=== PATIENT | female | born 1950 | race Caucasian/White ===

== ENCOUNTER → 2019-09-13 11:43 | Outpatient (BNVA) | payer MEDICARE, MEDICAID, SELFPAY | PROVIDERS: Family Provider Internal Medicine; PCP Internal Medicine; Visit Provider Nurse Practitioner | DX: F33.2 Major depressive disorder, recurrent severe without psychotic features (principal); F41.1 Generalized anxiety disorder; F17.218 Nicotine dependence, cigarettes, with other nicotine-induced disorders; G25.81 Restless legs syndrome | CPT/HCPCS: 99214; 99215 ==

== ENCOUNTER 2019-09-19 14:14 | Outpatient (CLI) | payer MEDICARE, MEDICAID, SELFPAY ==
--- NOTE | 2019-09-19 14:24 | CT_ITS ---
WS: [id number] CT CHEST TECHNIQUE: Contrast enhanced CT of the chest with coronal and sagittal reformatted images. CLINICAL INFORMATION: WEIGHT LOSS, COPD COMPARISON: CTA chest March 31, 2018 DLP: 744.[address] scans at [facility] use at least one of these dose optimization techniques: automat ed exposure control; mA and/or kV adjustment per patient size (includes targeted exams where dose is matched to clinical indication); or iterative reconstruction. FINDINGS: Moderate chronic emphysematous changes. Previously described tree-in-bud infiltrates have resolved. N o acute pulmonary infiltrates today. No focal pneumonia. Slightly irregular noncalcified pulmonary no dule in the right upper lobe anteriorly measures 9 mm. Recommend short-term 3 month follow-up chest C T. This is new from 2018. Aortic calcification. Proximal main pulmonary arteries are normal. No mediastinal or hilar lymphadeno ulises. Calcified pretracheal and subcarinal lymph nodes. No axillary lymphadenopathy. Small esophageal hiatal hernia. Adrenal glands are normal. Intrahepatic biliary ductal dilatation may be physiologic postcholecystectomy. This appears similar to the CT abdomen pelvis in 2013. Schmorl's nodes in the mid thoracic spine. CT/CT chest w con* [id number] IMPRESSION: 1. Slightly irregular pulmonary nodule right upper lobe anteriorly measuring 9 mm. This is new since 2018 and recommend 3 month follow-up. 2. Previously described pulmonary infiltrates have essentially resolved. No ne w pulmonary infiltrates today. 3. No mediastinal or hilar lymphadenopathy. 4. Vascular calcification including coronary. 5. Prior cholecystectomy. Intrahepatic biliary ductal dilatation appears uncha nged. 6. Small esophageal hiatal hernia.
[2019-09-19 14:47] LABS: Blood Urea Nitrogen 6 mg/dL (8-23); Glomerular Filtration Rate 99.4 mL/min (90-130)
[2019-09-19] MEDS: iohexol 300 mg/mL 100 mL Btl IV (14:54)
== END 2019-09-19 14:15 | disposition home or self-care (01) ==
LOC: RADWPI 14:23
PROVIDERS: Family Provider Internal Medicine; PCP Internal Medicine; Visit Provider Internal Medicine
DX: J44.9 Chronic obstructive pulmonary disease, unspecified (principal); R63.4 Abnormal weight loss; K44.9 Diaphragmatic hernia without obstruction or gangrene; I25.10 Atherosclerotic heart disease of native coronary artery without angina pectoris; R91.1 Solitary pulmonary nodule; Z90.49 Acquired absence of other specified parts of digestive tract
CPT/HCPCS: 71260; 82565; 84520; Q9967

== ENCOUNTER → 2019-09-21 13:34 | Outpatient (BNVA) | payer MEDICARE, MEDICAID, SELFPAY | PROVIDERS: Family Provider Internal Medicine; PCP Internal Medicine; Visit Provider Nurse Practitioner | DX: M54.16 Radiculopathy, lumbar region (principal); G25.81 Restless legs syndrome; M06.9 Rheumatoid arthritis, unspecified; F17.210 Nicotine dependence, cigarettes, uncomplicated; Z79.891 Long term (current) use of opiate analgesic | CPT/HCPCS: 99214 ==

== ENCOUNTER 2019-09-26 12:52 | Inpatient (IN) | payer MEDICARE, MEDICAID, SELFPAY ==
[2019-09-26 12:52] VITALS: BP 99/66; PULSE 89; RESP 20; TEMP 36.6; O2SAT 954; BMI 24.4
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
--- NOTE | 2019-09-26 13:06 | XR_ITS ---
WS: [id number] CHEST XRAY TECHNIQUE: Portable chest. CLINICAL INFORMATION: chest pain COMPARISON: 9018 FINDINGS: Heart: Normal cardiac silhouette. Lungs: Chronic emphysematous changes. No acute pulmonary infiltrates. No consolidation or pleural flu id. Chronic interstitial thickening in the lung bases unchanged. Bones: Osteopenia. XR/XR chest 1V portable [id number] IMPRESSION: No acute chest findings
--- NOTE | 2019-09-26 13:06 | ECG_ITS ---
Measurements Intervals Victor Rate: 109 P: 77 ND: 139 QRS: 72 QRSD: 101 T: 69 QT: 337 QTc: 455 SINUS TACHYCARDIA WITH FREQUENT SUPRAVENTRICULAR PREMATURE COMPLEXES POSSIBLE INFERIOR MYOCARDIAL INFARCTION , OF INDETERMINATE AGE [30 ms Q WAVE IN II/aVF] ST DEVIATION AND MODERATE T-WAVE ABNORMALITY, CONSIDER ANTEROLATERAL ISCHEMIA [- [-0.1+ mV T WAVE IN V3-V6] Compared to ECG 08/30/2018 04:23:31 Myocardial infarct finding now present T-wave abnormality now present Possible ischemia now present Sinus rhythm no longer present Electronically Signed On 09-26-2019 20:28:16 LIFE INSURANCE SALESPERSON by Howie Shah M.D. [id number] f
[2019-09-26] MEDS: nitroglycerin 1 gm/inch oint Pkt 1 INCH TOPICAL (13:12)
[2019-09-26 13:34] LABS: Basophils % 0.2 %; Eosinophils # 0.1 10^3/uL (0.0-0.8); Hematocrit 32.7 % (37.0-47.0); Hemoglobin 11.4 g/dL (11.5-15.3); Lymphocytes # 1.5 10^3/uL (0.8-4.8); Lymphocytes % 17.7 %; Mean Corpuscular HGB Conc 34.9 g/dL (30.0-36.0); Mean Corpuscular Hemoglobin 28.4 pg (28.0-34.0); Mean Corpuscular Volume 81.3 fL (81-99); Mean Platelet Volume 9.2 fL (7.4-10.4); Monocytes # 0.7 10^3/uL (0.2-0.9); Monocytes % 8.7 %; Neutrophils % 71.7 %; Nucleated Red Blood Cells % 0 %; Platelet Count 241 10^3/cmm (130-400); Red Blood Count 4.02 10^6/uL (4.1-5.3); White Blood Count 8.4 10^3/uL (4.0-10.0)
[2019-09-26 13:54] LABS: Troponin(5th) Baseline 28 ng/mL (0-10)
[2019-09-26 14:02] LABS: Alanine Aminotransferase 9 U/L (0-33); Albumin Level 3.6 g/dL (3.5-5.2); Alkaline Phosphatase 94 IU/L (35-105); Aspartate Amino Transferase 15 U/L (0-32); Blood Urea Nitrogen 13 mg/dL (8-23); Calcium 9.6 mg/Dl (8.8-10.2); Carbon Dioxide 32 mmol/L (22-29); Chloride 80 mmol/L (98-107); Globulin 2.6 g/dL (1.3-4.6); Glomerular Filtration Rate 62.3 mL/min (90-130); Glucose 158 mg/dL (74-106); Lipase 8 U/L (13-60); NT Pro B Type Natriuretic Pept 326 pg/mL (0-125); Sodium 125 mmol/L (136-145); Total Bilirubin 0.4 mg/dL (0.15-1.2); Total Protein 6.2 g/dL (6.6-8.7)
[2019-09-26 14:37] LABS: D Dimer 0.57 ug/mIFEU (0-0.59)
[2019-09-26] MEDS: potassium chloride premix 40 MEQ/100 ML PREMIX 25 MEQ IV (14:45)
[2019-09-26] MEDS: sodium chloride 0.9% 1,000 ML 100 ML IV (14:46)
--- NOTE | 2019-09-26 15:06 | ECG_ITS ---
Measurements Intervals [place] Rate: 81 P: 71 CT: 157 QRS: 79 QRSD: 105 T: 240 QT: 325 QTc: 378 SINUS RHYTHM POSSIBLE LEFT ATRIAL ENLARGEMENT [-0.1mV P WAVE IN V1/V2] ST DEVIATION AND MODERATE T-WAVE ABNORMALITY, CONSIDER INFERIOR ISCHEMIA [-0.1+ mV T WAVE IN II/aVF] Compared to ECG 08/30/2018 04:23:31 T-wave abnormality now present Possible ischemia now present Electronically Signed On 09-26-2019 20:35:40 HOT TAMALE WORKER by Howie Shah M.D. [id number]
[2019-09-26 15:44] LABS: Troponin 5 2HR 24.81 ng/mL (0-10)
[2019-09-26 15:49] LABS: Troponin 5 2HR Delta -3.19 ABS# (0-10)
[2019-09-26 17:04] LABS: Add Urine Microscopic? YES; Bilirubin Urine Neg (NEGATIVE); Blood Urine Neg (Negative); Glucose Urine UA Norm (Normal); Ketones Urine Negative (Negative); Leukocyte Esterase Urine Negative (Negative); Nitrate Urine Negative (Negative); Protein Urine Neg (Negative); Specific Gravity, Urine 1.005 (1.005-1.030); Urine Appearance Cloudy (CLEAR); Urine Color Yellow (Yellow); Urobilinogen Urine Norm (Negative); pH Urine 7 (5-7)
[2019-09-26 17:05] LABS: Add Urine Culture? Yes; Bacteria Urine 4+; Squamous Epithelial Cell Urine 0-4 (0-5)
[2019-09-26 17:55] VITALS: BP 143/79; PULSE 76; RESP 20; O2SAT 100
--- NOTE | 2019-09-26 19:06 | ECG_ITS ---
Measurements Intervals Gary Rate: 75 P: 68 FL: 128 QRS: 71 QRSD: 106 T: 258 QT: 440 QTc: 494 SINUS RHYTHM PROBABLE INFERIOR MYOCARDIAL INFARCTION , OF INDETERMINATE AGE [35 ms Q WAVE IN II/aVF] MODERATE T-WAVE ABNORMALITY, CONSIDER ANTEROLATERAL ISCHEMIA [-0.1+ mV T WAVE IN V3-V6] Compared to ECG 08/30/2018 04:23:31 Myocardial infarct finding now present T-wave abnormality now present Possible ischemia now present Electronically Signed On 09-26-2019 20:36:43 SALES MERCHANDISING SPECIALIST by Howie Shah M.D. [id number]
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
[2019-09-26 19:55] LABS: Troponin 5 6HR 22.55 ng/L (0-10)
[2019-09-26 19:57] LABS: Troponin 5 6HR Delta -5.45 ng/L (0-12)
--- NOTE | 2019-09-26 20:15 | PC.NURSE ---
Admitted to room 111-2 from ED via stretcher. Oriented to room. Assessment completed. Dr. San at bedside. Denies complaints at this time. Son at bedside. Patient requesting something to eat. This nurse explained to patient that I would have to look at diet order and see what she could have. Patient on Regular diet. Harrells given. Will monitor.
[2019-09-26 21:40] LABS: Alanine Aminotransferase 10 U/L (0-33); Alkaline Phosphatase 84 IU/L (35-105); Anion Gap 17.7 (5-19); Blood Urea Nitrogen 10 mg/dL (8-23); Carbon Dioxide 25 mmol/L (22-29); Chloride 87 mmol/L (98-107); Globulin 2.5 g/dL (1.3-4.6); Glomerular Filtration Rate 99.4 mL/min (90-130); Glucose 143 mg/dL (74-106); Iron 28 ug/dL (37-145); NT Pro B Type Natriuretic Pept 238 pg/mL (0-125); Sodium 127 mmol/L (136-145); Thyroid Stimulating Hormone 0.84 uIU/mL (0.27-4.20); Total Bilirubin 0.4 mg/dL (0.15-1.2); Total Protein 5.5 g/dL (6.6-8.7)
[2019-09-26 21:58] LABS: Magnesium 2.2 mg/dL (1.7-2.3); Phosphorus 2.9 mg/dL (2.5-4.5)
[2019-09-26 22:10] LABS: Aspartate Amino Transferase 16 U/L (0-32); Percent Saturation 11.6 % (20-50); Total Iron Binding Capacity 241 mg/dL; Unsaturated Iron Binding 213 ug/dL (112-347)
[2019-09-26 22:11] LABS: Potassium 2.7 mmol/L (3.5-5.1)
[2019-09-26] MEDS: enoxaparin 40 mg/0.4 mL Syringe SUBCUT (23:03)
[2019-09-26] MEDS: atorvastatin 40 mg Tablet 20 MG PO (23:04)
[2019-09-26] MEDS: amlodipine 5 mg Tablet PO (23:04)
[2019-09-26] MEDS: aspirin 81 mg Chew Tablet PO (23:04)
[2019-09-26] MEDS: ropinirole 1 mg Tablet PO (23:04)
[2019-09-26] MEDS: sodium chlor 0.9% + KCl 40 mEq 40 MEQ/1,000 ML BAG 75 MEQ IV (23:05)
[2019-09-26] MEDS: nicotine 14 mg Patch 1 PATCH TRANSDERMA (23:05)
[2019-09-27] VITALS (10 sets, daily range): BP systolic 104–154; BP diastolic 60–88; PULSE 79–106; RESP 15–23; TEMP 36.4–36.7; O2SAT 94–98
--- NOTE | 2019-09-27 03:32 | PC.NURSE ---
Up to BSC;however, patient continues to miss hat when voiding. Also had BM when voiding. Will continue to monitor..
[2019-09-27 04:32] LABS: Potassium, Radom Urine 13 mmol/L; Urine Creatinine 52 mg/dL (28-217)
[2019-09-27 04:54] LABS: Urine Random Chloride 14 mmol/L; Urine Random Sodium 10 mmol/L
[2019-09-27 05:39] LABS: Basophils % 0.3 %; Eosinophils # 0.1 10^3/uL (0.0-0.8); Eosinophils % 1.7 %; Hemoglobin 11.2 g/dL (11.5-15.3); Lymphocytes # 1.3 10^3/uL (0.8-4.8); Lymphocytes % 19.3 %; Mean Corpuscular HGB Conc 33.9 g/dL (30.0-36.0); Mean Corpuscular Hemoglobin 27.7 pg (28.0-34.0); Mean Corpuscular Volume 81.7 fL (81-99); Mean Platelet Volume 9.6 fL (7.4-10.4); Monocytes # 0.6 10^3/uL (0.2-0.9); Monocytes % 8.5 %; Neutrophils # 4.5 10^3/uL (1.8-7.7); Neutrophils % 69.7 %; Nucleated Red Blood Cells % 0 %; Platelet Count 244 10^3/cmm (130-400); Red Blood Count 4.04 10^6/uL (4.1-5.3); Red Cell Distribution Width 14.4 % (12.1-15.1); White Blood Count 6.5 10^3/uL (4.0-10.0)
[2019-09-27 06:09] LABS: Anion Gap 14.2 (5-19); Blood Urea Nitrogen 9 mg/dL (8-23); Calcium 9.2 mg/Dl (8.8-10.2); Carbon Dioxide 32 mmol/L (22-29); Chloride 90 mmol/L (98-107); Chol HDL Ratio 2.84 mg/dL (0.0-4.40); Cholesterol 165 mg/dL (0-200); Glomerular Filtration Rate 99.4 mL/min (90-130); Glucose 118 mg/dL (74-106); HDL Cholesterol 58 mg/dL (60-100); LDL Cholesterol Calculated 92 mg/dL (50-129); Osmolality Calculated 275 mOsm/kg (285-295); Sodium 134 mmol/L (136-145); Triglycerides 75 mg/dL (0-150); VLDL Cholestrol Calculation 15 mg/dL (0-30)
[2019-09-27 06:21] LABS: Potassium 2.2 mmol/L (3.5-5.1)
[2019-09-27 06:30] LABS: Estmated Average Glucose 123; Hemoglobin A1C 5.9 % (4.0-6.0)
--- NOTE | 2019-09-27 07:31 | US_ITS ---
WS: [id number] RIGHT UPPER QUADRANT ULTRASOUND HISTORY: r/o gall stones COMPARISON: 09/19/2019 Liver: 14.5 cm in length. Normal size and echogenicity with no intrahepatic dilatation. No mass. Gallbladder: Prior cholecystectomy. CBD: 13.6 mm, marked dilatation of the common bile duct is similar to the CT of 09/19/2019. Incomplete ly visualized as this was part of the chest CT. There is no intrahepatic duct dilatation. Common hepa tic duct is normal at 5 mm. Pancreas: Normal size and echogenicity. Right kidney: 11.9 cm in length. Normal echogenicity with no mass or hydronephrosis. Aorta and IVC: Unremarkable. No ascites. US/US gall bladder [id number] IMPRESSION: 1. Status post cholecystectomy. 2. Dilated common bile duct measuring 13.6 mm with no intrahepatic duct dilata tion. May be secondary to a reservoir effect from the cholecystectomy. For furt her evaluation consider MRCP. 3. No mass is visualized at the pancreatic head.
--- NOTE | 2019-09-27 07:31 | CT_ITS ---
WS: [id number] CT ABDOMEN AND PELVIS NONCONTRAST HISTORY: intractable vomiting, r/o sbo /ileus TECHNIQUE: Imaging performed through the abdomen and pelvis. Coronal and sagittal reformats are submi tted. All CT scans at [facility] use at least one of these dose optimization techniques: automated exposure control; mA and/or kV adjustment per patient size (includes targeted exams where d ose is matched to clinical indication); or iterative reconstruction. DLP: 492.97 mGy.cm COMPARISON: 03/24/2013 Lower thorax: Emphysema at the lung bases. Heart size is normal. Moderate hiatal hernia. Liver: Normal, no mass or intrahepatic dilatation. Gallbladder: Prior cholecystectomy. Pancreas: Atrophied pancreas. Spleen: Granuloma with no enlargement. Adrenal glands: Normal. Right kidney: Normal size kidney. Mild diffuse perinephric stranding. There is a calcification in the central pelvis which is probably a vascular calcification. No hydronephrosis. Left kidney: Perinephric stranding with no obstruction. Mild atherosclerosis aorta. No aneurysm. No free fluid, intraperitoneal air or significant lymphadenopathy. GI tract: Marked distention of the stomach with food products. Could be secondary to gastroparesis. T here is otherwise mild constipation. No GI tract obstruction. Abdominal wall: Intact. Pelvis: Well-distended urinary bladder. No free fluid or adenopathy. Osseous structures: Progression of severe degenerative disc disease in the lumbar spine. There is mar ked S-shaped scoliosis of the lumbar spine with vacuum disc phenomenon and endplate sclerosis from L2 to L4. There is severe central and foraminal stenosis at the L3-[address]/CT abdomen pelvis wo con [id number] IMPRESSION: 1. No evidence for GI tract obstruction. 2. Marked distention of the stomach. Correlate for possible gastroparesis. 3. Perinephric stranding around the kidneys. This can be chronic or related to pyelonephritis. No obstruction. 4. Small hiatal hernia. 5. Severe, progression of scoliosis and degenerative changes in the lumbar spi ne. Central spinal stenosis is most significant at L3-4.
[2019-09-27] MEDS: nicotine 14 mg Patch 1 PATCH TRANSDERMA (08:59)
[2019-09-27] MEDS: atorvastatin 40 mg Tablet 20 MG PO (09:00)
[2019-09-27] MEDS: amlodipine 5 mg Tablet PO (09:00)
[2019-09-27] MEDS: aspirin 81 mg Chew Tablet PO (09:00)
[2019-09-27] MEDS: ipratropium-albuterol 3 mL Neb INHALATION (10:24)
[2019-09-27 10:39] LABS: Anion Gap 14.6 (5-19); Blood Urea Nitrogen 6 mg/dL (8-23); Calcium 9.2 mg/Dl (8.8-10.2); Carbon Dioxide 30 mmol/L (22-29); Chloride 92 mmol/L (98-107); Glomerular Filtration Rate 122.7 mL/min (90-130); Glucose 137 mg/dL (74-106); Osmolality Calculated 276 mOsm/kg (285-295); Sodium 134 mmol/L (136-145)
[2019-09-27 10:46] LABS: Potassium 2.6 mmol/L (3.5-5.1)
[2019-09-27] MEDS: D5-NS 0.45% + KCL 20 mEq 20 MEQ/1,000 ML BAG 75 MEQ IV (12:25)
--- NOTE | 2019-09-27 13:14 | PC.CHAP ---
Pastoral Care Encounter/Spiritual Assessment Type of Contact [] Declined band tacker visit [] Patient/Family/Request visit [] Outpatient visit [] Follow-up visit [] Physician referral [] Code/Alert [x] Routine visit [] Staff referral [] Actively dying [] Patient sleeping [] Family support [] [] Out of room [] Palliative care [] [] Receiving care in room [] Pre-surgical visit [] Trauma [] Long length of stay [] ICU visit [] Other: Relational/Emotional Strength [] Patient feels connected with others/family/visitors/staff [] Distress [] Loneliness/isolation [] Abandonment Spirituality of Patient [x] Person of Rebekah [] Attends Scientologist of their Rebekah [] Believes in Prayer [] Reads Bible or Scientologist materials [] There are Spiritual issues to be addressed Sheeting Puller Interventions [x] Prayer [] Active listening [] Non-anxious presence [] Spiritual/emotional support [] Crisis/trauma care [] Spiritual counseling [] Bereavement support [] Provided bereavement packet [] Provided Bible/devotional materials [] Provided toy/stuffed animal, coloring book to patient or family member [x] Completed spiritual assessment [] Provided Communion [] Anointing/[place] [] Salvation [] Other: Impact on Illness or Injury [] Angry [] Fearful [] Anxious [] Often cries [] Exhaustion [] Unable to work [] Unable to attend mormonism [] Unable to walk/stand [] Unable to read [] Unable to drive [] Unable to eat/drink [] Unable to sleep [] Unable to be with family [] Other: Summary Patient stated she is cold. Time spent with patient 5 min
--- NOTE | 2019-09-27 19:16 | P.PN_ITS ---
Subjective Subjective: Interval history: No acute events overnight. Patient had overcorrection of sodium overnight so fluid was changed accordingly. On examination today morning patient states she is feeling a lot better. Denies of having any nausea or vomiting at present denies of having any abdominal pain states her weakness has improved. Patient states that she is living alone is not able to take care of herself on days when her home health is not coming. She states when at home it is coming thrice weekly. She complains of mild abdominal pain in the right upper quadrant. Denies of having any dysuria, change in bowel movements. Vitals/I&O/Wt Last Vital Signs Temp 97.9 F 09/27/19 14:48 Pulse 92 09/27/19 14:48 Resp 23 H 09/27/19 14:48 BP 131/70 09/27/19 14:48 Pulse Ox 97 09/27/19 14:48 09/27/19 09/27/19 09/27/19 06:59 14:59 22:59 Intake Total 120 / 120 600 / 600 240 / 840 Output Total 300 / 300 600 / 900 Balance 120 / 120 300 / 300 -360 / -60 Weight last 48 hrs Weight 62.596 kg Physical Exam Narrative: EXAM NARRATIVE: General: No acute distress, AO x3 HEENT: PERRLA, pupils bilaterally equal and reactive Chest: Normal vesicular breath sounds, no added sounds, equal good air entry bilaterally CVS: S1-S2 regular, no murmurs, no tachycardia, no gallops, no rubs Abdomen: Soft, mild tenderness in right upper quadrant, no organomegaly, bowel sounds present Neuro: No focal deficits, no facial deformity, AO x3, power 5/5 in all limbs Data : 09/27/19 04:29 09/27/19 19:11 A&P Assessment and plan (1) Hyponatremia: Status: Acute Code(s): E87.1 - Hypo-osmolality and hyponatremia (2) Acute hypokalemia: Status: Acute Code(s): E87.6 - Hypokalemia (3) Restless legs syndrome: Status: Acute Code(s): G25.81 - Restless legs syndrome (4) Generalized anxiety disorder: Status: Acute Code(s): F41.1 - Generalized anxiety disorder Additional A&P Information Subacute hyponatremia with hypovolemic state Her baseline sodium has been around 1 33-1 35 She has myalgia and fatigue Urine studies pending. C/w to D5 and half NS at 75 cc/h. Check BMP every 12 hours. Continue to hold home dose of diuretics anxiolytics and antidepressant medications. Hypokalemia: Repleted Contraction alkalosis secondary to multiple episodes of nausea vomiting and use of diuretics IV fluid resuscitation Holding diuretics Restless leg syndrome: I would continue her ropinirole Nausea and vomiting.: Patient complaining of dysuria though UA is negative and has right upper quadrant pain so we will check CT abdomen to rule out SBO along with renal stones and gallbladder ultrasound. Urine culture pending. We will follow-up results and treat accordingly. Anemia: Check iron panel. Will add onto the morning results. Most likely iron deficiency anemia. Can give Venofer. Active smoker: She smokes half a pack a day, will use nicotine patch for now Care coordination consult: Pt states she is not able to take care of herself. She is full code DVT prophylaxis Lovenox GI prophylaxis: Not needed Attestations Medical Necessity Statement*: For electrolyte abnormalities Time Spent in Patient Care: 16 - 35 minutes Coding Level of Care Code Acute Delivery Of Shopping News for Chg Fwd Diagnoses Hyponatremia E87.1 Acute hypokalemia E87.6 Restless legs syndrome G25.81 Generalized anxiety disorder F41.1
[2019-09-27 19:43] LABS: Anion Gap 14.9 (5-19); Blood Urea Nitrogen 9 mg/dL (8-23); Calcium 9.1 mg/dL (8.5-10.5); Carbon Dioxide 29 mmol/L (22-29); Chloride 93 mmol/L (98-107); Glomerular Filtration Rate 99.4 mL/min (90-130); Glucose 140 mg/dL (74-106); Osmolality Calculated 276 mOsm/kg (285-295); Potassium 2.9 mmol/L (3.5-5.1); Sodium 134 mmol/L (136-145)
[2019-09-27] MEDS: ropinirole 1 mg Tablet PO (20:24)
[2019-09-27] MEDS: iron sucrose 500 MG in sodium chloride 0.9% 250 ML 68.8 MG IV (20:24)
[2019-09-27] MEDS: enoxaparin 40 mg/0.4 mL Syringe SUBCUT (20:24)
[2019-09-28] VITALS (10 sets, daily range): BP systolic 109–179; BP diastolic 70–99; PULSE 94–122; RESP 16–24; TEMP 36.4–36.7; O2SAT 94–98
[2019-09-28] MEDS: D5-NS 0.45% + KCL 20 mEq 20 MEQ/1,000 ML BAG 75 MEQ IV (00:50)
--- NOTE | 2019-09-28 08:00 | MR_ITS ---
WS: [id number] MRCP (MAGNETIC RESONANCE CHOLANGIOPANCREATOGRAPHY) HISTORY: post cholecystectomy biliary disorder COMPARISON: 09/27/2019 TECHNIQUE: Multiple sequences are performed to evaluate the intra and extrahepatic ducts. Mildly dilated, tortuous common bile duct. Common bile duct maximum diameter of 11 mm. Common bile d uct tapers normally to the pancreatic head. There is no pancreatic head mass identified. Pancreatic d uct is normal caliber at less than 2 mm. No intrahepatic dilatation. No filling defects in the common bile duct. Bilateral cortical cysts in each kidney. The largest in the lower pole of the LEFT kidney is 6 mm. No renal obstruction. Mild perinephric stranding. There is no ascites or pleural fluid. Prior cholecystectomy. MR/MR MRCP [id number] IMPRESSION: 1. Mildly dilated common bile duct is probably status post cholecystectomy. 2. No intrahepatic duct dilatation or pancreatic head mass or filling defects in the common bile duct.
[2019-09-28] MEDS: aspirin 81 mg Chew Tablet PO (09:01)
[2019-09-28] MEDS: nicotine 14 mg Patch 1 PATCH TRANSDERMA (09:01)
[2019-09-28] MEDS: amlodipine 5 mg Tablet PO (09:01)
[2019-09-28] MEDS: atorvastatin 40 mg Tablet 20 MG PO (09:01)
--- NOTE | 2019-09-28 14:06 | PM.PN ---
Subjective Subjective: Interval history: No acute events overnight. In last [address] abdomen. Her sodium levels have remained stable at 134. This morning on examination patient denies of having any nausea, vomiting, chest pain, headache, dizziness, palpitations. Patient is n.p.o. for MRCP. Medications: Medication Review Details: Med reconciliation not done. Vitals/I&O/Wt Last Vital Signs Temp 97.6 F 09/28/19 10:39 Pulse 94 09/28/19 11:13 Resp 16 09/28/19 11:13 BP 164/97 09/28/19 10:39 Pulse Ox 96 09/28/19 11:13 09/27/19 09/28/19 09/28/19 22:59 06:59 14:59 Intake Total 872.5 / 1472.5 275 / 1747.5 625 / 625 Output Total 600 / 900 Balance 272.5 / 572.5 275 / 847.5 625 / 625 Physical Exam Narrative: EXAM NARRATIVE: General: No acute distress, AO x3 HEENT: PERRLA, pupils bilaterally equal and reactive Chest: Normal vesicular breath sounds, no added sounds, equal good air entry bilaterally CVS: S1-S2 regular, no murmurs, no tachycardia, no gallops, no rubs Abdomen: Soft, mild tenderness in right upper quadrant, no organomegaly, bowel sounds present Neuro: No focal deficits, no facial deformity, AO x3, power 5/5 in all limbs Data : 09/27/19 04:29 09/27/19 19:11 Micro: Microbiology 09/26/19 15:41 Urine Culture - Preliminary Urine,Clean Catch Gram Negative Rods A&P Assessment and plan (1) Pyelonephritis: Status: Acute Code(s): N12 - Tubulo-interstitial nephritis, not specified as acute or chronic (2) Nausea & vomiting: Status: Acute Code(s): R11.2 - Nausea with vomiting, unspecified (3) Hyponatremia: Status: Acute Code(s): E87.1 - Hypo-osmolality and hyponatremia (4) Acute hypokalemia: Status: Acute Code(s): E87.6 - Hypokalemia (5) Restless legs syndrome: Status: Acute Code(s): G25.81 - Restless legs syndrome (6) Generalized anxiety disorder: Status: Acute Code(s): F41.1 - Generalized anxiety disorder Additional A&P Information Subacute hyponatremia with hypovolemic state: Has resolved. Sodium has remained stable at 134. Her baseline sodium has been around 133-1 35 Urine studies reviewed. As her sodium levels have remained stable and patient is tolerating diet well will hold off on fluids for now. Hypokalemia: Continue to remain low even after repletion. We will start patient on standing 40 mEq of potassium every day. We will continue to monitor daily. Nausea/ Vomiting: CT abdomen done yesterday suggestive of mild pyelonephritis. Patient complains of occasional burning micturition. Gallbladder ultrasound was suggestive of dilated biliary duct along with nausea and right upper quadrant pain so patient is awaiting MRCP today. Urine culture positive for gram-negative rods. We will start patient on Zosyn as per the renal doses and send a stat blood culture. Most likely patient would need short course of antibiotics of up to 5 days. We will try to de-escalate to oral antibiotics as per the urine culture results. Restless leg syndrome: I would continue her ropinirole Depression: We will start patient back on Cymbalta but at lower dose or 60 mg at bedtime and fluoxetine from tomorrow morning at home dose.. We will continue to hold off on tizanidine as it could cause orthostatic hypotension and leflunomide as is an immunosuppressive drug in view of ongoing possible pyelonephritis. Active smoker: She smokes half a pack a day, will use nicotine patch for now Care coordination consult: Patient states she lives alone and has in-home services twice a week. Patient's son lives nearby and comes once a week. The day in-home services and son are not around patient states she is not able to take care of herself and cannot even cook food to eat. Discussed in detail with patient regarding possible need of placement to SNF. Patient is denying for same. She is full code DVT prophylaxis Lovenox GI prophylaxis: Famotidine twice daily Attestations Medical Necessity Statement*: Needs continued hospitalization for hyponatremia and hypokalemia, pyelonephritis Time Spent in Patient Care: Greater than 35 minutes Coding Level of Care Code Acute Enforcement Safety Officer for [facility] Fwd Diagnoses Pyelonephritis N12 Nausea & vomiting R11.2 Hyponatremia E87.1 Acute hypokalemia E87.6 Restless legs syndrome G25.81 Generalized anxiety disorder F41.1
[2019-09-28] MEDS: piperacillin-tazobactam 3.375 GM in sodium chloride 0.9% (plus) 50 ML IV ×2 (14:41→20:52)
[2019-09-28] MEDS: famotidine 20 mg Tablet PO ×2 (14:41→17:19)
[2019-09-28] MEDS: ipratropium-albuterol 3 mL Neb INHALATION (15:36)
[2019-09-28 19:13] LABS: Urine Osmolality 185 SEE NOTE
[2019-09-28] MEDS: enoxaparin 40 mg/0.4 mL Syringe SUBCUT (20:52)
[2019-09-28] MEDS: ropinirole 1 mg Tablet PO (20:53)
[2019-09-28] MEDS: duloxetine 60 mg Capsule PO (20:53)
[2019-09-29] VITALS (7 sets, daily range): BP systolic 137–150; BP diastolic 74–98; PULSE 96–116; RESP 17–29; TEMP 36.4–36.6; O2SAT 96–98
[2019-09-29] MEDS: piperacillin-tazobactam 3.375 GM in sodium chloride 0.9% (plus) 50 ML IV (05:07)
[2019-09-29 05:32] LABS: Basophils % 0.7 %; Eosinophils # 0.1 10^3/uL (0.0-0.8); Eosinophils % 2.1 %; Hematocrit 34.1 % (37.0-47.0); Hemoglobin 11.4 g/dL (11.5-15.3); Lymphocytes # 1.9 10^3/uL (0.8-4.8); Lymphocytes % 34.2 %; Mean Corpuscular HGB Conc 33.4 g/dL (30.0-36.0); Mean Corpuscular Hemoglobin 27.5 pg (28.0-34.0); Mean Corpuscular Volume 82.2 fL (81-99); Mean Platelet Volume 8.9 fL (7.4-10.4); Monocytes # 0.7 10^3/uL (0.2-0.9); Neutrophils # 2.9 10^3/uL (1.8-7.7); Neutrophils % 50.6 %; Nucleated Red Blood Cells % 0 %; Platelet Count 242 10^3/cmm (130-400); Red Blood Count 4.15 10^6/uL (4.1-5.3); Red Cell Distribution Width 14.9 % (12.1-15.1); White Blood Count 5.7 10^3/uL (4.0-10.0)
[2019-09-29 05:54] LABS: Alanine Aminotransferase 8 U/L (0-33); Albumin Level 3.6 g/dL (3.5-5.2); Alkaline Phosphatase 80 IU/L (35-105); Anion Gap 15.8 (5-19); Aspartate Amino Transferase 14 U/L (0-32); Blood Urea Nitrogen 3 mg/dL (8-23); Calcium 9.3 mg/dL (8.5-10.5); Carbon Dioxide 30 mmol/L (22-29); Chloride 92 mmol/L (98-107); Globulin 1.9 g/dL (1.3-4.6); Glomerular Filtration Rate 122.7 mL/min (90-130); Glucose 113 mg/dL (74-106); Sodium 135 mmol/L (136-145); Total Bilirubin 0.4 mg/dL (0.15-1.2); Total Protein 5.5 g/dL (6.6-8.7)
[2019-09-29 06:00] LABS: Potassium 2.8 mmol/L (3.5-5.1)
[2019-09-29] MEDS: ARIPiprazole 10 mg Tablet 5 MG PO (08:59)
[2019-09-29] MEDS: famotidine 20 mg Tablet PO (08:59)
[2019-09-29] MEDS: nicotine 14 mg Patch 1 PATCH TRANSDERMA (08:59)
[2019-09-29] MEDS: aspirin 81 mg Chew Tablet PO (09:00)
[2019-09-29] MEDS: duloxetine 60 mg Capsule PO (09:00)
[2019-09-29] MEDS: atorvastatin 40 mg Tablet 20 MG PO (09:00)
[2019-09-29] MEDS: fluoxetine 20 mg Capsule PO (09:00)
[2019-09-29] MEDS: amlodipine 5 mg Tablet PO (09:00)
[2019-09-29 10:04] LABS: Magnesium 1.8 mg/dL (1.7-2.3)
--- NOTE | 2019-09-29 10:13 | DCPLANNER ---
Pg 2 of IM explained to and signed by pt. No questions, copy provided. She appreciates the time spent explaining it to her.
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
[2019-09-29] MEDS: magnesium sulfate premix 2 GM/50 ML PIGGYBACK IV (12:08)
== END 2019-09-29 14:45 | disposition home health service (06) | DRG 641 ==
LOC: ER 16:46 → CSU 17:55
PROVIDERS: Internal Medicine; Admitting Provider Student in an Organized Health Care Education/Training Program; Emergency Provider Family Medicine; Family Provider Internal Medicine; PCP Internal Medicine; Visit Provider Internal Medicine
DX: E87.1 Hypo-osmolality and hyponatremia (principal); I20.0 Unstable angina; I50.30 Unspecified diastolic (congestive) heart failure; N39.0 Urinary tract infection, site not specified; E87.6 Hypokalemia; E87.3 Alkalosis; J44.9 Chronic obstructive pulmonary disease, unspecified; I48.0 Paroxysmal atrial fibrillation; G25.81 Restless legs syndrome; F41.1 Generalized anxiety disorder; E03.9 Hypothyroidism, unspecified; Z99.81 Dependence on supplemental oxygen; M19.90 Unspecified osteoarthritis, unspecified site; M06.9 Rheumatoid arthritis, unspecified; F17.210 Nicotine dependence, cigarettes, uncomplicated; Z79.82 Long term (current) use of aspirin; Z95.5 Presence of coronary angioplasty implant and graft
CPT/HCPCS: 12345; 36415; 71045; 74176; 74181; 76705; 80048; 80053; 80061; 81001; 81003; 82436; 82533; 82570; 83036; 83540; 83550; 83690; 83735; 83880; 83930; 83935; 84100; 84133; 84300; 84443; 84484; 85025; 85378; 87040; 87077; 87086; 87186; 93005; 94640; 96372; 97110; 97116; 97161; 97530; 99283; J1650; J1756; J2543; J3475; J3480; J7030; J7050

== ENCOUNTER 2019-10-02 10:34 | Outpatient (CLI) | payer MEDICARE, MEDICAID, SELFPAY ==
[2019-10-02 11:29] LABS: Anion Gap 17.1 (5-19); Blood Urea Nitrogen 4 mg/dL (8-23); Calcium 9.9 mg/dL (8.5-10.5); Carbon Dioxide 28 mmol/L (22-29); Chloride 89 mmol/L (98-107); Glomerular Filtration Rate 99.4 mL/min (90-130); Glucose 123 mg/dL (74-106); Osmolality Calculated 267 mOsm/kg (285-295); Potassium 4.1 mmol/L (3.5-5.1); Sodium 130 mmol/L (136-145)
== END 2019-10-02 10:35 | disposition home or self-care (01) ==
LOC: LAB 10:40
PROVIDERS: Family Provider Internal Medicine; PCP Internal Medicine; Visit Provider Internal Medicine
DX: I48.0 Paroxysmal atrial fibrillation (principal); R11.2 Nausea with vomiting, unspecified
CPT/HCPCS: 36415; 80048

== ENCOUNTER 2019-10-16 07:39 | Outpatient (CLI) | payer MEDICARE, MEDICAID, SELFPAY ==
[2019-10-16 07:49] VITALS: BMI 24.4
--- NOTE | 2019-10-16 08:07 | NMCV_ITS ---
NM luo perf SPECT r/s* [id number] Eli Ghosh Age: 69 Gender: F : 1950 Exam Date: 10/16/2019 08:51 Ordering Phys: Mike Garcia MD Technologist: NONA Urban Exam Location: [facility] Indications: ANGINA STRESS TEST Please see separate stress test report in [facility] for full findings IMAGE PROTOCOL Rest/Stress 1 Lexiscan Day Radiopharmaceutical Dose (mCi) Administration Site Administered by Rest: Tc-99m 11.0 IV NONA Urban Sestamibi Stress:Tc-99m 32.7 IV NONA Herman Sestamibi Rest: 16-Oct-2019 60 Discovery 630 Stress: 16-Oct-2019 30 Discovery 630 0.4mg Lexiscan. Images obtained in supine and prone position. SPECT RESULTS Technical Quality: Excellent Raw Data Analysis: Normal Image Corrections: No attenuation or motion correction applied Summed Stress Score: 0 Summed Rest Score: 1 Summed Difference Score: 0 PERFUSION FINDINGS Fairly uniform myocardial tracer uptake. No significant perfusion abnormalities were noted. Some attenuation artifacts are noted around the apical region FUNCTIONAL RESULTS (calculated via Gated SPECT) Stress Image LV EF (%): 80 Stress EDV (mL):45 TID: 1.09 Stress ESV (mL):9 FUNCTIONAL FINDINGS: Segmental wall motion analysis revealing no gross wall motion abnormalities IMPRESSIONS 1. Unremarkable myocardial perfusion imaging 2. Normal LV ejection fraction of 80% 3. LV wall motion analysis revealing no gross wall motion normalities. 4. Normal LV volume. No significant coronary ischemia, based on the above findings Dr Howie Shah MD FACC (Electronically Signed) Final Date: 16 October 2019 13:03 S
--- NOTE | 2019-10-16 09:30 | ECG_ITS ---
NAME OF STUDY: LEXISCAN SESTAMIBI STRESS TEST INDICATION: Angina PROCEDURE: At the baseline, the EKG revealed normal sinus rhythm with some nonspecific ST changes. The baseline blood pressure was 139/90 mm Hg with a heart rate of 85 beats/min. Lexiscan was infused over a period of 20 seconds. A total of 0.4 milligrams of Lexiscan was infused. The stress phase was continued for a total of 5 minutes. Heart rate at the end of the stress phase was 101 with a blood pressure 142/71. The EKG at the peak infusion revealed more prominent ST-T changes in the inferolateral leads. Sestamibi was injected 20 seconds after the Lexiscan infusion. Blood pressure at the end of the recovery phase was 132/73 with a heart rate of 96 per minute. CONCLUSION: 1. Nonspecific EKG changes with the LexiScan infusion 2. No LexiScan induced chest pain or cardiac arrhythmia 3. Normal blood pressure and heart rate response 4. Sestamibi/sestamibi perfusion scan pending; see separate report. Electronically Signed On 10-16-2019 13:00:44 BURNING SUPERVISOR by Howie Shah M.D. [id number]
[2019-10-16] MEDS: regadenoson 0.4 Mg/5 ml Syringe IVP (09:53)
--- NOTE | 2019-10-16 09:57 | SUR.PREOP ---
Patient reports no pain or discomfort prior to the start of the procedure.
[2019-10-16 10:02] VITALS: BP 134/72; PULSE 99
== END 2019-10-16 07:40 | disposition home or self-care (01) ==
PROVIDERS: Family Provider Internal Medicine; PCP Internal Medicine; Visit Provider Internal Medicine
DX: I20.9 Angina pectoris, unspecified (principal)
CPT/HCPCS: 78452; 93017; A9500; J2785

== ENCOUNTER 2019-11-11 09:58 | Emergency (ER) | payer MEDICARE, MEDICAID, SELFPAY ==
[2019-11-11 09:59] VITALS: BP 122/72; PULSE 98; RESP 22; TEMP 37.7; O2SAT 96; BMI 25.9
--- NOTE | 2019-11-11 10:05 | ED_ITS ---
HPI - SOB/Dyspnea General: Chief Complaint: Shortness of Breath/Dyspnea Stated Complaint: SOB Time Seen by Provider: 11/11/19 10:05 Source: patient Mode of arrival: ambulatory Limitations: no limitations History of Present Illness: HPI Narrative: Patient comes in today with complaints of shortness of breath since Tuesday. Patient reports worsening symptoms without relief. Patient appears short of breath. Patient has ahistory of COPD, on chronic oxygen by nasal cannula 3 L/min, chronic diastolic heart failure, hypothyroidism, VERNON, RA, history of seizure disorder, DJD, depression following with psychiatry, current smoker, restless leg syndrome. Patient does reports occasional diarrhea. Patient denied chills or pain. Patient appears in mild distress. Review of Systems General: Reports: 10 or more systems reviewed and unremarkable except in HPI and below Resp: Reports: shortness of breath PFSH ED PFSH: Social History Smoking and tobacco status: current every day smoker cigarettes Packs smoked p er day: 0.5 Alcohol intake: never Lives independently: Yes Household members: none Physical Exam Const: COMMON NORMALS: no apparent distress and oriented x3 GENERAL AP PEARANCE: cooperative HENMT: COMMON NORMALS: normocephalic, external ears normal, EAC's normal, TM's normal bilaterally and external nose normal HEAD & SCALP: normal to inspection and normocephalic FACE & SINUS: normal facial exam NOSE: external nose normal GENERAL EAR: hearing not grossly impaired EXTERNAL EAR: Yes external ears normal EXTERNAL AUDITORY CANAL: EAC's normal TYMPANIC MEMBRANE: TM's normal bilaterally MOUTH: oral and palatal mucosa normal THROAT: posterior oropharynx normal Eye: COMMON NORMALS: PERRL and EOMs intact bilaterally PUPIL: Yes PERRL Neck/C-Spine: COMMON NORMALS: full ROM and no lymphadenopathy Lymph: LYMPHATIC: no lymphedema noted Chest: COMMONS NORMALS: inspection of chest normal and palpation of chest normal Resp: EFFORT & INSPECTION: Yes able to speak in complete sentences (3 word phrases), Yes symmetric chest movement and Yes uses accessory muscles AUSCULTATION: rales diffuse Cardio: COMMON NORMALS: regular rate and regular rhythm RATE: regular rate RHYTHM: regular rhythm GI: COMMON NORMALS: normal to inspection, nondistended, normoactive bowel sounds and non-tender : COMMON NORMALS: Yes no CVA tenderness BLADDER/KIDNEY EXAM: Yes no CVA tenderness Back/Pelvis: COMMON NORMALS: no CVA tenderness and thoracic and lumbar spine normal to inspection Extremity: COMMON NORMALS: normal to inspection GENERAL: No edema Neuro: COMMON NORMALS: oriented x3, moves 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 and no focal motor deficits Psych: COMMON NORMALS: mental status grossly normal and cooperative Skin: COMMON NORMALS: no rashes or lesions noted GENERAL SKIN EXAM: no rashes or lesions noted Course Vital Signs: Vital signs: Vital Signs Temperature 99.8 F H 11/11/19 09:59 Pulse Rate 96 11/11/19 10:38 Respiratory Rate 17 11/11/19 10:28 Blood Pressure 122/72 11/11/19 09:59 Pulse Oximetry 96 11/11/19 10:28 MDM - SOB/Dyspnea MDM Narrative: Medical decision making narrative: Patient comes in today with complaints of shortness of breath. Patient appeared in mild distress on arrival to the emergency department. Lungs were coarse with increased rhonchi throughout all pettit. No edema, Skin was warm and dry. Vital signs were normal. Patient is on oxygen at all times and pulse oxygen was 96% on 3 L. Differential diagnosis includes COPD exacerbation, influenza, pneumonia, CHF. Patient was treated with 3 nebulizer treatments with good results of increased breath sounds without auditory rhonchi. Patient reported improved respiratory effort. Patient was then given 100 mg of doxycycline per IV and Solu-Medrol for exacerbation of COPD. Laboratory values noted a 10,000 white count and mild hyponatremia at 128 which patient seems to have at times. Reviewed recommendations for further treatment at home care. Patient reports understanding agreed to plan. Lab Data: Labs: Lab Results 11/11/19 11/11/19 11/11/19 Range/Units 09:43 09:43 09:43 WBC 10.3 H (4.0-10.0) 10^3/ uL RBC 4.45 (4.1-5.3) 10^6/u L Hgb 12.7 (11.5-15.3) g/dL Hct 39.1 (37.0-47.0) % MCV 87.9 (81-99) fL MCH 28.5 (28.0-34.0) pg MCHC 32.5 (30.0-36.0) g/dL RDW 16.8 H (12.1-15.1) % Plt Count 346 (130-400) 10^3/c mm MPV 9.1 (7.4-10.4) fL Neut % (Auto) 64.5 % Lymph % (Auto) 20.1 % Wilson % (Auto) 13.6 % Eos % (Auto) 0.9 % Baso % (Auto) 0.6 % Neut # (Auto) 6.6 (1.8-7.7) 10^3/u L Lymph # (Auto) 2.1 (0.8-4.8) 10^3/u L Wilson # (Auto) 1.4 H (0.2-0.9) 10^3/u L Eos # (Auto) 0.1 (0.0-0.8) 10^3/u L Baso # (Auto) 0.1 (0.0-0.1) 10^3/u L Nucleated RBC % (a uto) 0 % Nucleated RBCs # 0.0 /100WBC Specimen Type Sample Site ABG pH (7.35-7.45) ABG pCO2 (35-45) mmHg ABG pO2 (80.0-100.0) mmH g ABG HCO3 (22-26) mmol/L ABG Base Excess (-2.0-2.0) mmol/ L Dylan Test Hematocrit (37-47) % O2 Delivery Device O2 Liters/Min % FiO2 % Sales Recruitment Specialist ID Sodium 128 L (136-145) mmol/L Potassium 3.5 (3.5-5.1) mmol/L Chloride 84 L (98-107) mmol/L Carbon Dioxide 27 (22-29) mmol/L Anion Gap 20.5 H (5-19) BUN 10 (8-23) mg/dL Creatinine 0.5 (0.5-0.9) mg/dL GFR Calculation 122.7 (90-130) mL/min Glucose 113 (65-115) mg/dL Lactic Acid (0.5-2.2) mmol/L Calcium 9.9 (8.5-10.5) mg/dL Total Bilirubin 0.9 (0.15-1.2) mg/dL AST 19 (0-32) U/L ALT 12 (0-33) U/L Alkaline Phosphata se 100 (35-105) IU/L Troponin T Baselin e 15 H (0-10) ng/mL NT-Pro-B Natriuret Pep 407 H (0-125) pg/mL Total Protein 7.6 (6.6-8.7) g/dL Albumin 4.1 (3.5-5.2) g/dL Globulin 3.5 (1.3-4.6) g/dL 11/11/19 11/11/19 Range/Units 10:30 10:35 WBC (4.0-10.0) 10^3/ uL RBC (4.1-5.3) 10^6/u L Hgb (11.5-15.3) g/dL Hct (37.0-47.0) % MCV (81-99) fL MCH (28.0-34.0) pg MCHC (30.0-36.0) g/dL RDW (12.1-15.1) % Plt Count (130-400) 10^3/c mm MPV (7.4-10.4) fL Neut % (Auto) % Lymph % (Auto) % Wilson % (Auto) % Eos % (Auto) % Baso % (Auto) % Neut # (Auto) (1.8-7.7) 10^3/u L Lymph # (Auto) (0.8-4.8) 10^3/u L Wilson # (Auto) (0.2-0.9) 10^3/u L Eos # (Auto) (0.0-0.8) 10^3/u L Baso # (Auto) (0.0-0.1) 10^3/u L Nucleated RBC % (a uto) % Nucleated RBCs # /100WBC Specimen Type Arterial Sample Site Radial, left ABG pH 7.42 (7.35-7.45) ABG pCO2 40.2 (35-45) mmHg ABG pO2 65.8 L (80.0-100.0) mmH g ABG HCO3 25.8 (22-26) mmol/L ABG Base Excess 1.1 (-2.0-2.0) mmol/ L Dylan Test Pos Hematocrit 38.4 (37-47) % O2 Delivery Device Nc O2 Liters/Min 3.0 % FiO2 32.0 % Sales Recruitment Specialist ID ed Sodium (136-145) mmol/L Potassium (3.5-5.1) mmol/L Chloride (98-107) mmol/L Carbon Dioxide (22-29) mmol/L Anion Gap (5-19) BUN (8-23) mg/dL Creatinine (0.5-0.9) mg/dL GFR Calculation (90-130) mL/min Glucose (65-115) mg/dL Lactic Acid 1.5 (0.5-2.2) mmol/L Calcium (8.5-10.5) mg/dL Total Bilirubin (0.15-1.2) mg/dL AST (0-32) U/L ALT (0-33) U/L Alkaline Phosphata se (35-105) IU/L Troponin T Baselin e (0-10) ng/mL NT-Pro-B Natriuret Pep (0-125) pg/mL Total Protein (6.6-8.7) g/dL Albumin (3.5-5.2) g/dL Globulin (1.3-4.6) g/dL EKG Data^: EKG 1: Attestation: I personally reviewed and interpreted this EKG as follows: (1028, sinus rhythm, regular @ 94 bpm, no ectopy, no ST elevation) Discharge Plan Discharge Patient Disposition: Home, Self-Care Clinical Impression: Acute exacerbation of chronic obstructive airways disease Condition: Stable Prescriptions: New doxycycline hyclate 100 mg capsule 100 mg PO BID 10 Days Qty: 20 RF: 0 prednisone 20 mg tablet 20 mg PO DAILY Qty: 12 RF: 0 No Action aspirin [Children's Aspirin] 81 mg tablet,chewable 81 mg PO DAILY RF: 0 venlafaxine 75 mg capsule,extended release 24hr 75 mg PO QAM RF: 0 atorvastatin [Lipitor] 20 mg tablet 20 mg PO DAILY RF: 0 leflunomide [Arava] 20 mg tablet 20 mg PO DAILY RF: 0 amlodipine 5 mg tablet 5 mg PO DAILY RF: 0 gabapentin 600 mg tablet 600 mg PO TID Qty: 90 RF: 1 oxycodone-acetaminophen 10-325 mg tablet 1 tab PO TID PRN (Reason: pain) 30 Days Qty: 90 RF: 0 alendronate [Fosamax] 70 mg tablet 70 mg PO .WEEKLY RF: 0 albuterol sulfate [ProAir HFA] 90 mcg/actuation HFA aerosol inhaler 2 puff INHALATION Q6H PRN (Reason: SOB) RF: 0 levothyroxine 25 mcg capsule 25 mcg PO DAILY RF: 0 aripiprazole [Abilify] 5 mg tablet 5 mg PO DAILY Qty: 30 RF: 2 duloxetine [Cymbalta] 60 mg capsule,delayed release(DR/EC) 60 mg PO BID Qty: 60 RF: 2 fluoxetine [Prozac] 20 mg capsule 20 mg PO QAM Qty: 30 RF: 2 levetiracetam 500 mg tablet 500 mg PO BID RF: 0 Breo Ellipta 100-25 mcg/dose blister with device 1 inh inhalation DAILY RF: 0 Spiriva with HandiHaler 18 mcg capsule, w/inhalation device 18 mcg INHALATION DAILY RF: 0 nicotine 14 mg/24 hr Patch 24 Hour 1 patch transdermal DAILY Qty: 30 RF: 0 potassium chloride [Klor-Con 10] 10 mEq tablet extended release 20 meq PO DAILY Qty: 14 RF: 0 chlorthalidone 25 mg tablet 25 mg PO DAILY PRN (Reason: Edema) RF: 0 metoprolol tartrate 25 mg Tablet 25 mg PO BID RF: 0 Discharge Orders: Discharge Order (Routine); Ordered 11/11/19 Ordered By: Ben Flynn Referrals: Abiola Butt MD [Primary Care Provider] - Discharge Diet: Usual diet Discharge Activity: Increase activity as tolerated Patient Instructions: Chronic Obstructive Pulmonary Disease (ED) Activity Restrictions/Additional Instructions: Take medications as directed Healthy diet Stop smoking Follow-up with primary care in three days for recheck Return to ER for worsening difficulty breathing, or high fever Coding Level of Care Code ED Business Mail Entry Clerk for Chg Fwd Exam Comprehensive
--- NOTE | 2019-11-11 10:10 | XR_ITS ---
WS: [id number] XR chest 1V portable [id number] REASON FOR EXAM: sob FINDINGS: The lung pettit are hyper aerated. Reticular pattern is seen throughout both lung pettit th e pattern is similar to September 26, 2019. The heart is small there is arteriosclerotic changes in the arch of the aorta. There is no pneumonia, pulmonary edema, pleural effusion, or mass effect. A calcified granuloma seen in the right lung base. XR/XR chest 1V portable [id number] IMPRESSION: Chronic obstructive pulmonary disease with fibrosis.
[2019-11-11 10:13] VITALS: O2SAT 96
--- NOTE | 2019-11-11 10:17 | ECG_ITS ---
Measurements Intervals [place] Rate: 94 P: 75 LA: 127 QRS: 73 QRSD: 89 T: 120 QT: 368 QTc: [address] & T-WAVE ABNORMALITY Compared to ECG 09/26/2019 19:29:16 Myocardial infarct finding no longer present Possible ischemia no longer present T-wave abnormality still present Electronically Signed On 11-11-2019 19:50:30 CDT by Vonda Canales M.D. [email or web address]
[2019-11-11 10:27] LABS: Basophils # 0.1 10^3/uL (0.0-0.1); Basophils % 0.6 %; Eosinophils # 0.1 10^3/uL (0.0-0.8); Eosinophils % 0.9 %; Hematocrit 39.1 % (37.0-47.0); Hemoglobin 12.7 g/dL (11.5-15.3); Lymphocytes # 2.1 10^3/uL (0.8-4.8); Lymphocytes % 20.1 %; Mean Corpuscular HGB Conc 32.5 g/dL (30.0-36.0); Mean Corpuscular Hemoglobin 28.5 pg (28.0-34.0); Mean Corpuscular Volume 87.9 fL (81-99); Mean Platelet Volume 9.1 fL (7.4-10.4); Monocytes # 1.4 10^3/uL (0.2-0.9); Monocytes % 13.6 %; Neutrophils # 6.6 10^3/uL (1.8-7.7); Neutrophils % 64.5 %; Nucleated Red Blood Cells % 0 %; Platelet Count 346 10^3/cmm (130-400); Red Blood Count 4.45 10^6/uL (4.1-5.3); Red Cell Distribution Width 16.8 % (12.1-15.1); White Blood Count 10.3 10^3/uL (4.0-10.0)
[2019-11-11 10:28] VITALS: PULSE 96; RESP 17; O2SAT 96
[2019-11-11] MEDS: ipratropium-albuterol 3 mL Neb INHALATION (10:28)
[2019-11-11 10:38] VITALS: PULSE 96
[2019-11-11 10:40] LABS: Troponin(5th) Baseline 15 ng/mL (0-10)
[2019-11-11 10:41] LABS: ABG PCO2 40.2 mmHg (35-45); ABG PH Result 7.42 (7.35-7.45); Arterial Blood Gas Hematocrit 38.4 % (37-47); Base Excess ABG 1.1 mmol/L (-2.0-2.0); Blood Gas Allen Test Pos; Blood Gas Sample Site Radial, left; Blood Gas Sample Type Arterial; HCO3 ABG 25.8 mmol/L (22-26); Oxygen Device NC; PO2 ABG 65.8 mmHg (80.0-100.0)
[2019-11-11 10:49] LABS: Alanine Aminotransferase 12 U/L (0-33); Albumin Level 4.1 g/dL (3.5-5.2); Alkaline Phosphatase 100 IU/L (35-105); Anion Gap 20.5 (5-19); Aspartate Amino Transferase 19 U/L (0-32); Blood Urea Nitrogen 10 mg/dL (8-23); Calcium 9.9 mg/dL (8.5-10.5); Carbon Dioxide 27 mmol/L (22-29); Chloride 84 mmol/L (98-107); Globulin 3.5 g/dL (1.3-4.6); Glomerular Filtration Rate 122.7 mL/min (90-130); Glucose 113 mg/dL (65-115); NT Pro B Type Natriuretic Pept 407 pg/mL (0-125); Potassium 3.5 mmol/L (3.5-5.1); Sodium 128 mmol/L (136-145); Total Bilirubin 0.9 mg/dL (0.15-1.2); Total Protein 7.6 g/dL (6.6-8.7)
[2019-11-11 10:54] LABS: Lactic Sepsis W/Reflex 1.5 mmol/L (0.5-2.2)
[2019-11-11] MEDS: doxycycline 100 MG in sodium chloride 0.9% (plus) 100 ML IV (11:07)
[2019-11-11 12:24] LABS: Troponin 5 2HR 14.51 ng/mL (0-10)
[2019-11-11 12:25] VITALS: BP 126/89; PULSE 78; RESP 16; O2SAT 96
[2019-11-11 12:28] LABS: Troponin 5 2HR Delta -0.49 ABS# (0-10)
== END 2019-11-11 12:26 | disposition home or self-care (01) ==
PROVIDERS: Emergency Provider Nurse Practitioner Family; Family Provider Internal Medicine; PCP Internal Medicine
DX: J44.1 Chronic obstructive pulmonary disease with (acute) exacerbation (principal); I50.32 Chronic diastolic (congestive) heart failure; E03.9 Hypothyroidism, unspecified; F17.210 Nicotine dependence, cigarettes, uncomplicated; Z99.81 Dependence on supplemental oxygen
CPT/HCPCS: 12345; 36415; 36600; 71045; 80053; 82803; 83605; 83880; 84484; 85025; 87040; 93005; 94640; 96365; 96375; 99283; 99284; J2930; J3490; J7050; J7611

== ENCOUNTER → 2019-11-15 14:02 | Outpatient (BNVA) | payer MEDICARE, MEDICAID, SELFPAY | PROVIDERS: Family Provider Internal Medicine; PCP Internal Medicine; Visit Provider Anesthesiology | DX: M54.16 Radiculopathy, lumbar region (principal); M51.36 Other intervertebral disc degeneration, lumbar region; M47.819 Spondylosis without myelopathy or radiculopathy, site unspecified; M99.83 Other biomechanical lesions of lumbar region; F17.218 Nicotine dependence, cigarettes, with other nicotine-induced disorders; Z79.891 Long term (current) use of opiate analgesic; Z71.6 Tobacco abuse counseling | CPT/HCPCS: 99214 ==

== ENCOUNTER → 2019-12-06 07:22 | Outpatient (BNVA) | payer MEDICARE, MEDICAID, SELFPAY | PROVIDERS: Family Provider Internal Medicine; PCP Internal Medicine; Visit Provider Nurse Practitioner | DX: F33.2 Major depressive disorder, recurrent severe without psychotic features (principal); F41.1 Generalized anxiety disorder; F17.218 Nicotine dependence, cigarettes, with other nicotine-induced disorders | CPT/HCPCS: 99213 ==

== ENCOUNTER → 2020-01-29 16:20 | Outpatient (BNVA) | payer MEDICARE, MEDICAID, SELFPAY | PROVIDERS: Family Provider Internal Medicine; PCP Internal Medicine; Visit Provider Internal Medicine Rheumatology | DX: M05.9 Rheumatoid arthritis with rheumatoid factor, unspecified (principal); J44.9 Chronic obstructive pulmonary disease, unspecified; F17.210 Nicotine dependence, cigarettes, uncomplicated; M17.0 Bilateral primary osteoarthritis of knee; M85.80 Other specified disorders of bone density and structure, unspecified site; Z79.899 Other long term (current) drug therapy; Z99.81 Dependence on supplemental oxygen | CPT/HCPCS: 99214 ==

== ENCOUNTER 2020-02-05 10:24 | Outpatient (CLI) | payer MEDICARE, MEDICAID, SELFPAY ==
--- NOTE | 2020-02-05 | CT_ITS ---
WS: [id number] CT CHEST WITH INTRAVENOUS CONTRAST HISTORY: Pulmonary NODULE F/U TECHNIQUE: Contiguous 5 mm axial imaging performed on the thorax. Coronal and sagittal reformats are submitted. All CT scans at [facility] use at least one of these dose optimization techniq ues: automated exposure control; mA and/or kV adjustment per patient size (includes targeted exams wh ere dose is matched to clinical indication); or iterative reconstruction. CONTRAST: Omnipaque 300; 95 mL IV. DLP: 724.85 mGycm COMPARISON: 09/19/2019 Lungs and central airway: Severe pulmonary hyperexpansion from emphysema. Irregular subsolid nodule m easuring 9 mm in the RIGHT upper lobe is stable. Focal area of stable groundglass attenuation, image 14 of series 3 RIGHT upper lobe. Additional scattered peripheral groundglass attenuation opacificatio ns, RIGHT upper lobe and LEFT upper lobe as visualized on image 32 of series 3. Pleura: Normal. No pleural effusion. Heart and pericardium: Small amount of pericardial thickening or fluid anteriorly. No change. Mild th ickening of the ventricle musculature. Mediastinum and monika: Benign calcified mediastinal and hilar lymph nodes. No adenopathy. Vessels: Moderate atherosclerosis aorta. LEFT vertebral artery arises directly from the aorta. Normal size pulmonary artery. Chest wall and lower neck: No soft tissue masses. Upper abdomen: Moderate-sized hiatal hernia. Visualized liver is negative. No adrenal mass. There is mild perinephric stranding around the upper poles of each kidney which was seen on the prior study al so. Osseous structures: Increase in thoracic kyphosis. Mild concavity involving the superior endplate of T3. Remote nonhealed rib fractures in the posterior LEFT thorax. Involving seventh and eighth ribs. CT/CT chest w con* [id number] IMPRESSION: 1. Stable 9 mm RIGHT upper lobe subsolid nodule since 09/19/2019. There are a f ew new scattered bilateral groundglass opacifications which measure less than 2 cm in the upper lobes. Recommend 12 month follow-up chest CT to document judy nued stability. 2. Chronic emphysema. 3. Moderate size hiatal hernia.
[2020-02-05] MEDS: iodixanol 320 mg/mL 100mL Btl IV (11:18)
== END 2020-02-05 10:25 | disposition home or self-care (01) ==
LOC: RADWPI 10:30
PROVIDERS: Family Provider Internal Medicine; PCP Internal Medicine; Visit Provider Internal Medicine
DX: R91.1 Solitary pulmonary nodule (principal); J43.9 Emphysema, unspecified; K44.9 Diaphragmatic hernia without obstruction or gangrene
CPT/HCPCS: 71260; Q9967

== ENCOUNTER 2020-02-12 12:19 | Outpatient (CLI) | payer MEDICARE, MEDICAID, SELFPAY ==
--- NOTE | 2020-02-12 13:09 | XR_ITS ---
WS: [id number] HAND RIGHT TECHNIQUE: 3 views of the right hand CLINICAL INFORMATION: inflammatory arthritis COMPARISON: October 31, 2012 FINDINGS: Osteopenia. A few tiny periarticular erosions involving the PIP joints. Mild IP joint narrowing. Mild narrowing of the radiocarpal joint. Normal metacarpals. XR/XR hand RT min 3V* [id number] IMPRESSION: A few tiny articular erosions involving the PIP joints with mild IP joint narro wing. Osteopenia.
--- NOTE | 2020-02-12 13:09 | XR_ITS ---
WS: [id number] FOOT LEFT TECHNIQUE: 3 views of the left foot CLINICAL INFORMATION: inflammatory arthritis COMPARISON: None. FINDINGS: No evidence of acute fracture or dislocation. Normal tarsal metatarsal alignment. Normal calcaneus. N ormal visualized talar dome. Osteopenia. No significant erosive changes. XR/XR foot LT min 3V* [id number] IMPRESSION: Osteopenia. No significant erosive changes.
--- NOTE | 2020-02-12 13:09 | XR_ITS ---
WS: [id number] FOOT RIGHT TECHNIQUE: 3 views of the right foot CLINICAL INFORMATION: inflammatory arthritis COMPARISON: None. FINDINGS: No evidence of acute fracture or dislocation. Normal tarsal metatarsal alignment. Normal calcaneus. N ormal visualized talar dome. Osteopenia XR/XR foot RT min 3V* [id number] IMPRESSION: Osteopenia. No significant erosive changes.
--- NOTE | 2020-02-12 13:09 | XR_ITS ---
WS: [id number] PROCEDURE: XR chest 2V* [id number] CLINICAL INFORMATION: inflammatory arthritis COMPARISON: November 11, 2019 FINDINGS: Heart: Normal cardiac silhouette. Lungs: Moderate chronic emphysematous changes. No acute infiltrates. No consolidation pleural fluid. A few calcified granulomas right lower lobe. Bones: Posterior left rib fractures with callus formation. XR/XR chest 2V* [id number] IMPRESSION: Moderate chronic emphysematous changes. No acute chest findings.
--- NOTE | 2020-02-12 13:09 | XR_ITS ---
WS: [id number] HAND LEFT TECHNIQUE: 3 views of the left hand CLINICAL INFORMATION: inflammatory arthritis COMPARISON: 2012 FINDINGS: Osteopenia. Mild narrowing of the IP joints. Normal metacarpals. Mild narrowing of the radiocarpal roxana int. No acute fractures. XR/XR hand LT min 3V* [id number] IMPRESSION: Osteopenia. No significant erosive changes.
== END 2020-02-12 12:20 | disposition home or self-care (01) ==
LOC: RADWPI 12:22
PROVIDERS: Family Provider Internal Medicine; PCP Internal Medicine; Visit Provider Internal Medicine Rheumatology
DX: M19.90 Unspecified osteoarthritis, unspecified site (principal); M85.89 Other specified disorders of bone density and structure, multiple sites
CPT/HCPCS: 71046; 73130; 73630

== ENCOUNTER → 2020-03-13 07:32 | Outpatient (BNVA) | payer MEDICARE, MEDICAID, SELFPAY | PROVIDERS: Family Provider Internal Medicine; PCP Internal Medicine; Visit Provider Nurse Practitioner | DX: F33.2 Major depressive disorder, recurrent severe without psychotic features (principal); F41.1 Generalized anxiety disorder | CPT/HCPCS: 99213 ==

== ENCOUNTER → 2020-03-14 10:37 | Outpatient (BNVA) | payer MEDICARE, MEDICAID, SELFPAY | PROVIDERS: Family Provider Internal Medicine; PCP Internal Medicine; Visit Provider Nurse Practitioner | DX: M51.36 Other intervertebral disc degeneration, lumbar region (principal); M54.16 Radiculopathy, lumbar region; F17.218 Nicotine dependence, cigarettes, with other nicotine-induced disorders; Z79.891 Long term (current) use of opiate analgesic; Z71.6 Tobacco abuse counseling | CPT/HCPCS: 99213; 99214 ==

== ENCOUNTER 2020-03-16 11:21 | Emergency (ER) | payer MEDICARE, MEDICAID, SELFPAY ==
[2020-03-16 11:34] VITALS: BP 168/86; PULSE 97; RESP 18; TEMP 37; O2SAT 94; BMI 26.9
--- NOTE | 2020-03-16 11:39 | CTR_ITS ---
PROCEDURE INFORMATION: Exam: CT Abdomen And Pelvis With Contrast Exam date and time: 03/16/2020 11:53 AM Age: 69 years old Clinical indication: Abdominal pain; Localized; Left; Prior surgery; Surgery date: 6+ months; Surgery type: C-sect; Patient HX: C/O left sided abd pain x 2 days TECHNIQUE: Imaging protocol: Computed tomography of the abdomen and pelvis with intravenous contrast. Radiation optimization: All CT scans at this facility use at least one of these dose optimization techniques: automated exposure control; mA and/or kV adjustment per patient size (includes targeted exams where dose is matched to clinical indication); or iterative reconstruction. Contrast material: OMNI 300; Contrast volume: 95 ml; Contrast route: INTRAVENOUS (IV); COMPARISON: CT abdomen pelvis wo con [id number] 09/27/2019 9:36 AM RADIATION DOSE METRICS: Total DLP (mGy-cm): 836.59 FINDINGS: Liver: Mild intrahepatic biliary ductal dilatation, new. Gallbladder and bile ducts: The gallbladder is surgically absent, with metallic clips in the gallbladder fossa. The extrahepatic bile ducts are dilated, measuring 12.3 mm (previously 9.4 mm). No ductal calculus. Pancreas: The pancreas is normal. No pancreatic mass or ductal dilatation identified. Spleen: The spleen demonstrates a few small granulomatous calcifications. Adrenals: Normal. No mass. Kidneys and ureters: Mild right, moderate left renal cortical scarring. Small bilateral renal benign simple cysts, largest on the left measuring 13.7 mm. Stomach and bowel: There is mildly increased stool noted in the ascending and transverse colon. Appendix: The vermiform appendix is not identified on this examination. There is, however, no pericecal abnormality to suggest appendicitis. Intraperitoneal space: Unremarkable. No free air. No significant fluid collection. Vasculature: Marked aortic atherosclerotic calcification without aneurysm. The iliac arteries show marked bilateral atherosclerotic calcifications without evidence of aneurysm. Lymph nodes: No enlarged lymph nodes. Bladder: The urinary bladder is partially decompressed and somewhat difficult to assess. Reproductive: The uterus is status post hysterectomy. The ovaries are not identified. Bones/joints: Diffuse osteopenia. Degenerative disc disease at mid lumbar spine disk levels, with mild dextroscoliosis. Soft tissues: Left gluteal adipose calcified injection granulomata. CT/CT abdomen pelvis w con* [id number] IMPRESSION: 1. Post cholecystectomy with interval increased extrahepatic and mild intrahepatic biliary ductal dilatation. No ductal calculus identified. 2. Mild right, moderate left renal cortical scarring. 3. Small bilateral renal benign simple cysts. 4. Prior hysterectomy. 5. Mild abdominal colonic constipation. COMMENTS: Consistent with the [employer]'s Incidental Findings Committee white paper (J Am Imngo Radiol 2018): Any incidental renal lesion less than 1.0 cm or classified as too small to characterize, or any incidental cystic renal lesion characterized as simple-appearing, is likely benign. No follow-up imaging is recommended for these lesions per consensus recommendations based on imaging criteria. Radiation Dose CTDIVOL = (mGy): DLP = 836.59 (mGy-cm)
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
[2020-03-16] MEDS: ondansetron 2 mg/ML SDV 2 mL 4 MG IVP (11:56)
[2020-03-16 11:57] VITALS: RESP 18; O2SAT 98
[2020-03-16] MEDS: morphine 4 mg/mL SDV 1 mL IVP (11:57)
[2020-03-16 12:01] LABS: Basophils # 0.1 10^3/uL (0.0-0.1); Basophils % 0.8 %; Eosinophils # 0.1 10^3/uL (0.0-0.8); Eosinophils % 1.8 %; Hematocrit 35.7 % (37.0-47.0); Hemoglobin 11.5 g/dL (11.5-15.3); Lymphocytes # 2.7 10^3/uL (0.8-4.8); Lymphocytes % 36.6 %; Mean Corpuscular HGB Conc 32.2 g/dL (30.0-36.0); Mean Corpuscular Hemoglobin 29.9 pg (28.0-34.0); Mean Corpuscular Volume 92.7 fL (81-99); Mean Platelet Volume 8.9 fL (7.4-10.4); Monocytes # 0.9 10^3/uL (0.2-0.9); Monocytes % 11.8 %; Neutrophils # 3.56 10^3/uL (1.8-7.7); Neutrophils % 48.7 %; Nucleated Red Blood Cells % 0 %; Platelet Count 282 10^3/cmm (130-400); Red Blood Count 3.85 10^6/uL (4.1-5.3); Red Cell Distribution Width 16.2 % (12.1-15.1); White Blood Count 7.3 10^3/uL (4.0-10.0)
[2020-03-16 12:15] LABS: Alanine Aminotransferase 7 U/L (0-33); Albumin Level 4.2 g/dL (3.5-5.2); Alkaline Phosphatase 57 IU/L (35-105); Anion Gap 13.4 (5-19); Aspartate Amino Transferase 15 U/L (0-32); Blood Urea Nitrogen 7 mg/dL (8-23); Calcium 9.6 mg/dL (8.5-10.5); Carbon Dioxide 29 mmol/L (22-29); Chloride 90 mmol/L (98-107); Creatinine Clr Calc Pharmacy 60.2769; Globulin 2.3 g/dL (1.3-4.6); Glomerular Filtration Rate 122.7 mL/min (90-130); Glucose 117 mg/dL (65-115); Lipase 41 U/L (13-60); Osmolality Calculated 265 mOsm/kg (285-295); Potassium 3.4 mmol/L (3.5-5.1); Sodium 129 mmol/L (136-145); Total Bilirubin 0.3 mg/dL (0.15-1.2); Total Protein 6.5 g/dL (6.6-8.7)
[2020-03-16] MEDS: iohexol 300 mg/mL 100 mL Btl IV (12:30)
[2020-03-16 12:32] LABS: Add Urine Microscopic? NO
[2020-03-16 12:46] VITALS: RESP 18; O2SAT 96
[2020-03-16] MEDS: HYDROmorphone 1 mg/mL INJ 1 mL IVP (12:46)
[2020-03-16 12:47] LABS: Bilirubin Urine Neg (NEGATIVE); Blood Urine Neg (Negative); Glucose Urine UA Norm (Normal); Ketones Urine Negative (Negative); Leukocyte Esterase Urine Negative (Negative); Nitrate Urine Negative (Negative); Protein Urine Neg (Negative); Specific Gravity, Urine 1.005 (1.005-1.030); Urine Appearance Clear (CLEAR); Urine Color Yellow (Yellow); Urobilinogen Urine Norm (Negative); pH Urine 7 (5-7)
[2020-03-16 14:15] VITALS: BP 139/79; PULSE 70; RESP 15; O2SAT 97
== END 2020-03-16 16:13 | disposition home or self-care (01) ==
PROVIDERS: Emergency Provider Emergency Medicine; PCP Internal Medicine
DX: R10.84 Generalized abdominal pain (principal); Z79.82 Long term (current) use of aspirin; J44.9 Chronic obstructive pulmonary disease, unspecified; I50.30 Unspecified diastolic (congestive) heart failure; F17.210 Nicotine dependence, cigarettes, uncomplicated
CPT/HCPCS: 12345; 74177; 80053; 81003; 83690; 85025; 96374; 96375; 99282; 99283; J1170; J2270; J2405; Q9967

== ENCOUNTER 2020-03-18 14:59 | Inpatient (IN) | payer MEDICARE, MEDICAID, SELFPAY ==
[2020-03-18] VITALS (10 sets, daily range): BP systolic 132–174; BP diastolic 78–98; PULSE 102–126; RESP 18–23; TEMP 36.2–36.8; O2SAT 94–98; BMI 25.9
--- NOTE | 2020-03-18 16:02 | CTR_ITS ---
PROCEDURE INFORMATION: Exam: CT Head Without Contrast Exam date and time: 03/18/2020 4:06 PM Age: 69 years old Clinical indication: Altered mental status/memory loss; Additional info: Confusion TECHNIQUE: Imaging protocol: Computed tomography of the head without contrast. Radiation optimization: All CT scans at this facility use at least one of these dose optimization techniques: automated exposure control; mA and/or kV adjustment per patient size (includes targeted exams where dose is matched to clinical indication); or iterative reconstruction. COMPARISON: CT head wo con* [id number] 09/29/2016 5:36 PM RADIATION DOSE METRICS: Total DLP (mGy-cm): 826.33 FINDINGS: Brain: There is encephalomalacia in the right frontal lobe.Mild volume loss and white matter disease are identified. There is no acute infarct or edema. No hemorrhage. Ventricles: Normal. No ventriculomegaly. Bones/joints: Unremarkable. No acute fracture. Sinuses: Visualized sinuses are unremarkable. No fluid levels. Mastoid air cells: Visualized mastoid air cells are well aerated. Soft tissues: Unremarkable. CT/CT head wo con* [id number] IMPRESSION: There are no acute concerning abnormalities. Radiation Dose CTDIVOL = (mGy): DLP = 826.33 (mGy-cm)
--- NOTE | 2020-03-18 16:06 | ED_ITS ---
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 Nicotine dependence, cigarettes, with other nicotine-induced disorders Oxygen dependent Radiculopathy, lumbar region Requires oxygen therapy Restless legs syndrome Rheumatoid arthritis Rheumatoid arthritis Seizure disorder Seropositive rheumatoid arthritis Surgical History History of heart artery stent 04/05/18 [facility] Hx of section Hx of cholecystectomy Hx of total thyroidectomy Family History Sister Cancer Mother Diabetes brother, sister Denies family history of Rheumatoid arthritis Systemic lupus erythematosus (SLE) in adult Social History Smoking and tobacco status: current every day smoker cigarettes Packs smoked per day: 0.5 Alcohol intake: never Substance/Drug Use: never Lives independently: Yes Household members: none Course ED course: I am seeing this patient with Karen. She presents with significant urinary tract infection, vomiting, likely pyelonephritis. She has a clear UTI based on her urinalysis. She has some confusion. She also has a right sided pneumonia. She has a history of COPD and CHF. She will be admitted to the hospitalist with IV antibiotics to cover both pneumonia and UTI. Vital Signs: Vital signs: Vital Signs Temperature 98.1 F 03/19/20 11:34 Pulse Rate 100 03/19/20 11:34 Respiratory Rate 19 H 03/19/20 11:34 Blood Pressure 147/95 03/19/20 11:34 Pulse Oximetry 97 03/19/20 11:34 MDM - Female Lab Data: Labs: Lab Results 03/18/20 03/18/20 03/18/20 Range/Units 16:05 16:05 16:13 WBC 14.1 H (4.0-10.0) 10^3/ uL RBC 3.83 L (4.1-5.3) 10^6/u L Hgb 11.4 L (11.5-15.3) g/dL Hct 34.7 L (37.0-47.0) % MCV 90.6 (81-99) fL MCH 29.8 (28.0-34.0) pg MCHC 32.9 (30.0-36.0) g/dL RDW 16.3 H (12.1-15.1) % Plt Count 276 (130-400) 10^3/c mm MPV 8.7 (7.4-10.4) fL Neut % (Auto) 82.5 % Lymph % (Auto) 10.5 % [place] % (Auto) 5.8 % Eos % (Auto) 0.1 % Baso % (Auto) 0.4 % Neut # (Auto) 11.66 H (1.8-7.7) 10^3/u L Lymph # (Auto) 1.5 (0.8-4.8) 10^3/u L [place] # (Auto) 0.8 (0.2-0.9) 10^3/u L Eos # (Auto) 0.0 (0.0-0.8) 10^3/u L Baso # (Auto) 0.1 (0.0-0.1) 10^3/u L Nucleated RBC % (a uto) 0 % Nucleated RBCs # 0.0 /100WBC Sodium (136-145) mmol/L Potassium (3.5-5.1) mmol/L Chloride (98-107) mmol/L Carbon Dioxide (22-29) mmol/L Anion Gap (5-19) BUN (8-23) mg/dL Creatinine (0.5-0.9) mg/dL GFR Calculation (90-130) mL/min Glucose (65-115) mg/dL Calculated Osmolal ity (285-295) mOsm/k g Lactate (0.5-2.2) mmol/L Calcium (8.5-10.5) mg/dL Magnesium (1.7-2.3) mg/dL Total Bilirubin (0.15-1.2) mg/dL AST (0-32) U/L ALT (0-33) U/L Alkaline Phosphata se (35-105) IU/L Total Protein (6.6-8.7) g/dL Albumin (3.5-5.2) g/dL Globulin (1.3-4.6) g/dL TSH (0.27-4.20) uIU/ mL Urine Color Yellow (Yellow) Urine Appearance Clear (CLEAR) Urine pH 6.5 (5-7) Ur Specific Gravit y 1.015 (1.005-1.030) Urine Protein 1+ H (Negative) Urine Glucose (UA) Norm (Normal) Urine Ketones Negative (Negative) Urine Blood 2+ H (Negative) Urine Nitrate Positive H (Negative) Urine Bilirubin 1+ H (NEGATIVE) Urine Urobilinogen 1 H (Negative) mg/dL Ur Leukocyte Azra ase Negative (Negative) Urine RBC 0-4 H (0-2) /hpf Urine WBC 0-4 H (0-5) /hpf Ur Squamous Epith Cells 0-4 H (0-5) Amorphous Sediment 1+ Urine Bacteria 4+ H (NONE) Urine Mucus Trace Urine Opiates Scre en Negative (Negative) ng/mL Ur Barbiturates Sc reen Negative (Negative) ng/mL Ur Phencyclidine S crn Negative (Negative) ng/mL Ur Amphetamines Sc reen Negative (Negative) ng/mL U Benzodiazepines Scrn Negative (Negative) ng/mL Urine Cocaine Scre en Negative (Negative) ng/mL U Marijuana (THC) Screen Negative (Negative) ng/mL 03/18/20 03/18/20 03/18/20 Range/Units 16:13 16:13 16:13 WBC (4.0-10.0) 10^3/ uL RBC (4.1-5.3) 10^6/u L Hgb (11.5-15.3) g/dL Hct (37.0-47.0) % MCV (81-99) fL MCH (28.0-34.0) pg MCHC (30.0-36.0) g/dL RDW (12.1-15.1) % Plt Count (130-400) 10^3/c mm MPV (7.4-10.4) fL Neut % (Auto) % Lymph % (Auto) % [place] % (Auto) % Eos % (Auto) % Baso % (Auto) % Neut # (Auto) (1.8-7.7) 10^3/u L Lymph # (Auto) (0.8-4.8) 10^3/u L [place] # (Auto) (0.2-0.9) 10^3/u L Eos # (Auto) (0.0-0.8) 10^3/u L Baso # (Auto) (0.0-0.1) 10^3/u L Nucleated RBC % (a uto) % Nucleated RBCs # /100WBC Sodium 132 L (136-145) mmol/L Potassium 2.7 L* (3.5-5.1) mmol/L Chloride 90 L (98-107) mmol/L Carbon Dioxide 29 (22-29) mmol/L Anion Gap 15.7 (5-19) BUN 11 (8-23) mg/dL Creatinine 0.5 (0.5-0.9) mg/dL GFR Calculation 122.7 (90-130) mL/min Glucose 130 H (65-115) mg/dL Calculated Osmolal ity 272 L (285-295) mOsm/k g Lactate 1.0 (0.5-2.2) mmol/L Calcium 9.0 (8.5-10.5) mg/dL Magnesium 1.7 (1.7-2.3) mg/dL Total Bilirubin 1.2 (0.15-1.2) mg/dL AST 19 (0-32) U/L ALT 16 (0-33) U/L Alkaline Phosphata se 57 (35-105) IU/L Total Protein 6.7 (6.6-8.7) g/dL Albumin 3.9 (3.5-5.2) g/dL Globulin 2.8 (1.3-4.6) g/dL TSH 2.58 (0.27-4.20) uIU/ mL Urine Color (Yellow) Urine Appearance (CLEAR) Urine pH (5-7) Ur Specific Gravit y (1.005-1.030) Urine Protein (Negative) Urine Glucose (UA) (Normal) Urine Ketones (Negative) Urine Blood (Negative) Urine Nitrate (Negative) Urine Bilirubin (NEGATIVE) Urine Urobilinogen (Negative) mg/dL Ur Leukocyte Azra ase (Negative) Urine RBC (0-2) /hpf Urine WBC (0-5) /hpf Ur Squamous Epith Cells (0-5) Amorphous Sediment Urine Bacteria (NONE) Urine Mucus Urine Opiates Scre en (Negative) ng/mL Ur Barbiturates Sc reen (Negative) ng/mL Ur Phencyclidine S crn (Negative) ng/mL Ur Amphetamines Sc reen (Negative) ng/mL U Benzodiazepines Scrn (Negative) ng/mL Urine Cocaine Scre en (Negative) ng/mL U Marijuana (THC) Screen (Negative) ng/mL Discharge Plan Discharge Patient Disposition: Admitted As Inpatient Admit Provider: Al Hurtado Clinical Impression: Acute cystitis with hematuria, Hypokalemia Pneumonia involving right lung Qualifiers: Pneumonia type: due to unspecified organism Lung location: upper lobe of lung Qualified Code(s): J18.9 - Pneumonia, unspecified organism COPD (chronic obstructive pulmonary disease) Qualifiers: COPD type: unspecified COPD Qualified Code(s): J44.9 - Chronic obstructive pulmonary disease, unspecified Sepsis Qualifiers: Sepsis type: sepsis due to unspecified organism Sepsis acute organ dysfunction status: without acute organ dysfunction Qualified Code(s): A41.9 - Sepsis, unspecified organism Condition: Stable Referrals: Abiola Butt MD [Primary Care Provider] - Discharge Date/Time: 03/18/20 19:59 Sign Out Sign Out Data: Patient Sign Out occurred on 03/18/20 at 17:13. Patient's care was discussed, and care was transferred from to ERIC Carranza. 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
[2020-03-18 16:26] LABS: Basophils # 0.1 10^3/uL (0.0-0.1); Basophils % 0.4 %; Eosinophils % 0.1 %; Hematocrit 34.7 % (37.0-47.0); Hemoglobin 11.4 g/dL (11.5-15.3); Lymphocytes # 1.5 10^3/uL (0.8-4.8); Lymphocytes % 10.5 %; Mean Corpuscular HGB Conc 32.9 g/dL (30.0-36.0); Mean Corpuscular Hemoglobin 29.8 pg (28.0-34.0); Mean Corpuscular Volume 90.6 fL (81-99); Mean Platelet Volume 8.7 fL (7.4-10.4); Monocytes # 0.8 10^3/uL (0.2-0.9); Monocytes % 5.8 %; Neutrophils # 11.66 10^3/uL (1.8-7.7); Neutrophils % 82.5 %; Nucleated Red Blood Cells % 0 %; Platelet Count 276 10^3/cmm (130-400); Red Blood Count 3.83 10^6/uL (4.1-5.3); Red Cell Distribution Width 16.3 % (12.1-15.1); White Blood Count 14.1 10^3/uL (4.0-10.0)
[2020-03-18 16:35] LABS: Glucose Urine UA Norm (Normal); Ketones Urine Negative (Negative); Protein Urine 1+ (Negative); Specific Gravity, Urine 1.015 (1.005-1.030); Urine Appearance Clear (CLEAR); Urine Color Yellow (Yellow); pH Urine 6.5 (5-7)
[2020-03-18 16:36] LABS: Bilirubin Urine 1+ (NEGATIVE); Blood Urine 2+ (Negative); Leukocyte Esterase Urine Negative (Negative); Nitrate Urine Positive (Negative); Urobilinogen Urine 1 mg/dL (Negative)
--- NOTE | 2020-03-18 16:37 | XRR_ITS ---
PROCEDURE INFORMATION: Exam: XR Chest, 1 View Exam date and time: 03/18/2020 4:47 PM Age: 69 years old Clinical indication: Wheezing TECHNIQUE: Imaging protocol: XR of the chest Views: 1 view. COMPARISON: CR XR chest 2V* [id number] 02/12/2020 1:16 PM FINDINGS: Lungs: There is peripheral opacification in the right upper lobe of the lung. There is lung emphysema. Pleural space: Unremarkable. No pleural effusion. No pneumothorax. Heart/Mediastinum: Unremarkable. No cardiomegaly. Bones/joints: Unremarkable. XR/XR chest 1V portable [id number] IMPRESSION: There is new peripheral opacification in the right upper lobe of the lung consistent with pneumonia and/or atelectasis.Clinical correlation is advised.
[2020-03-18 16:39] LABS: Add Urine Culture? Yes; Amorphous Sediment Urine 1+; Bacteria Urine 4+; Mucus Urine TRACE; RBC Urine 0-4 /hpf (0-2); Squamous Epithelial Cell Urine 0-4 (0-5); WBC Urine 0-4 /hpf (0-5)
[2020-03-18 16:42] LABS: Alanine Aminotransferase 16 U/L (0-33); Albumin Level 3.9 g/dL (3.5-5.2); Alkaline Phosphatase 57 IU/L (35-105); Anion Gap 15.7 (5-19); Aspartate Amino Transferase 19 U/L (0-32); Blood Urea Nitrogen 11 mg/dL (8-23); Carbon Dioxide 29 mmol/L (22-29); Chloride 90 mmol/L (98-107); Globulin 2.8 g/dL (1.3-4.6); Glomerular Filtration Rate 122.7 mL/min (90-130); Glucose 130 mg/dL (65-115); Osmolality Calculated 272 mOsm/kg (285-295); Sodium 132 mmol/L (136-145); Total Bilirubin 1.2 mg/dL (0.15-1.2); Total Protein 6.7 g/dL (6.6-8.7)
[2020-03-18] MEDS: cefTRIAXone 2,000 MG in sodium chloride 0.9% (plus) 50 ML 100 MG IV (16:50)
[2020-03-18 16:56] LABS: Potassium 2.7 mmol/L (3.5-5.1)
--- NOTE | 2020-03-18 16:59 | ECG_ITS ---
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 Measurements Intervals [place] Rate: 134 P: 80 IA: 133 QRS: 70 QRSD: 84 T: 75 QT: 338 QTc: 505 Interpretive Statements SINUS TACHYCARDIA NONSPECIFIC ST & T-WAVE ABNORMALITY ABNORMAL RHYTHM ECG Compared to ECG 11/11/2019 10:27:22 Sinus rhythm no longer present T-wave abnormality still present Electronically Signed On 03-18-2020 19:18:00 CDT by Vonda Canales M.D. [id number]
[2020-03-18 17:33] LABS: Magnesium 1.7 mg/dL (1.7-2.3); Thyroid Stimulating Hormone 2.58 uIU/mL (0.27-4.20)
[2020-03-18] MEDS: sodium chloride 0.9% 500 ML IV (17:46)
[2020-03-18] MEDS: ipratropium-albuterol 3 mL Neb INHALATION ×2 (17:54→19:00)
[2020-03-18] MEDS: azithromycin 500 MG in sodium chloride 0.9% 250 ML 250 MG IV (18:00)
[2020-03-18] MEDS: lidocaine 1% INJ 20 mL 5 ML IV (18:52)
--- NOTE | 2020-03-18 19:10 | PC.NURSE ---
Report received from JONATHAN Chung and care transferred to JONATHAN Finch
[2020-03-18 20:25] LABS: Amphetamines Screen Urine Negative (Negative); Barbiturates Screen Urine Negative (Negative); Benzodiazepines Screen Urine Negative (Negative); Cocaine Screen Urine Negative (Negative); Opiate Screen Urine Negative (Negative); PCP Screen Urine Negative (Negative); THC Screen Urine Negative (Negative)
--- NOTE | 2020-03-18 20:45 | PC.NURSE ---
PT ARRIVED TO ROOM 111-1. PT AMBULATED TO BED FROM [place]. PT DENIES PAIN AT THIS TIME. PT WANTS ANSELMO HER SON A VISITOR. DR IN WITH PT AT THIS TIME. PT BP 174/78, HR 103, RR 20, SPO2 94%, T - 97.5. PT IN A SINUS TACH RHYTHM. PT ON 3L N/C. PT DENIES DIFFICULTY BREATHING AT THIS TIME.
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
[2020-03-18] MEDS: heparin 5,000 unit/mL INJ 1 mL 5000 UNIT SUBCUT (21:35)
[2020-03-18] MEDS: predniSONE 20 mg Tablet 40 MG PO (21:35)
[2020-03-19] VITALS (14 sets, daily range): BP systolic 118–155; BP diastolic 76–97; PULSE 88–129; RESP 16–26; TEMP 36.4–36.7; O2SAT 93–99
--- NOTE | 2020-03-19 00:59 | CTR_ITS ---
PROCEDURE INFORMATION: Exam: CT Angiography Chest With Contrast Exam date and time: 03/19/2020 2:01 AM Age: 69 years old Clinical indication: Shortness of breath; Additional info: R/O pe TECHNIQUE: Imaging protocol: Computed tomographic angiography of the chest with intravenous contrast. 3D rendering: MIP and/or 3D reconstructed images were created by the technologist. Radiation optimization: All CT scans at this facility use at least one of these dose optimization techniques: automated exposure control; mA and/or kV adjustment per patient size (includes targeted exams where dose is matched to clinical indication); or iterative reconstruction. Contrast material: OMNI 350; Contrast volume: 95 ml; Contrast route: INTRAVENOUS (IV); COMPARISON: CTA Chest-Pulmonary Emb [id number] 03/31/2018 8:06 AM RADIATION DOSE METRICS: Total DLP (mGy-cm): 611.1 FINDINGS: Pulmonary arteries: Still no pulmonary embolus. Aorta: Continued atherosclerosis. Still no aortic aneurysm or dissection. Other arteries: Continued origination of the left vertebral artery from the aortic arch. Prominent inferior looping and moderate narrowing of the proximal celiac artery with a band of soft tissue density extending transversely anterior to this area. Thyroid: Still no apparent right thyroid lobe. Lungs: Extensive centrilobular blebs and a few paraseptal blebs in the hyperinflated lungs as before. Continued calcified granuloma in the right lower lobe and the lateral superior right upper lobe. Interval appearance of the patchy consolidation in the posterior right upper lobe and a few small densities elsewhere in this lobe. Interval small densities in the right middle lobe. Interval 6 mm noncalcified nodule in the right lower lobe and dependent atelectasis in the inferior aspect of this lobe. Pleural space: No pleural fluid or pneumothorax. Heart: Still no cardiomegaly or pericardial effusion. Mediastinal space: Continued oblong structure with dense peripheral calcification in the right paraesophageal region of the very superior mediastinum. Hiatal insufficiency still suspected. Lymph nodes: Continued calcified mediastinal and right hilar nodes. Gallbladder and bile ducts: Cholecystectomy. Biliary ductal dilatation. Pancreas: Pancreatic duct at the upper limits of normal. No apparent mass in the included pancreas. Kidneys and ureters: Bilateral perirenal stranding and cortical scars in the kidneys. Small foci of low density within both renal cortices suggesting cysts; inclusion of 1 of these low-density foci in the left kidney on the prior study. No hydronephrosis. Bones/joints: Old compression fractures again evident. Continued degeneration of several discs. [id number] right convexity in the upper lumbar spine and prominent disc degeneration in this area more apparent than before. Interval appearance of the subacute-appearing left posterior 7th and 8th rib fractures and the possibly acute posterior left 9th rib fracture. Old left 8th rib fracture still present. Soft tissues: Probable slight abdominal body wall edema. CT/CT angio chest PE protcl [id number] IMPRESSION: 1. Still no pulmonary embolus. 2. Interval appearance of right upper lobe pneumonia and small densities in the right middle lobe possibly due to early infectious disease. Prominent emphysema again evident. Interval dependent atelectasis in the right lower lobe. Interval 6 mm noncalcified nodule in the right lower lobe. For patients at low risk (minimal or absent history of smoking and of other known risk factors), recommend CT at 6-12 months, then consider CT at 18-24 months. For patients at high risk (history of smoking or of other known risk factors), recommend CT at 6-12 months, then CT at 18-24 months. (Danae et al., Fleischner Society, 2017) 3. Interval appearance of the subacute or acute fractures of the left 7th through 9th ribs. Old left rib fracture still present. Chronic spinal disease detailed above. 4. Hiatal insufficiency still suspected. 5. 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 6. Continued oblong structure with dense peripheral calcification in the right very superior mediastinum, cause unclear. Right thyroidectomy still conceivable. 7. Bilateral perirenal stranding and cortical scars in the kidneys. Suspicion of simple cysts in the renal cortices. 8. Cholecystectomy. Biliary ductal dilatation. Other findings detailed above. Radiation Dose CTDIVOL = (mGy): DLP = 611.1 (mGy-cm)
[2020-03-19] MEDS: iohexol 350 mg/mL 100 mL Btl IV (02:18)
[2020-03-19 04:07] LABS: Basophils % 0.4 %; Hematocrit 35.1 % (37.0-47.0); Hemoglobin 11.1 g/dL (11.5-15.3); Lymphocytes # 0.5 10^3/uL (0.8-4.8); Mean Corpuscular HGB Conc 31.6 g/dL (30.0-36.0); Mean Corpuscular Hemoglobin 29.7 pg (28.0-34.0); Mean Corpuscular Volume 93.9 fL (81-99); Mean Platelet Volume 8.7 fL (7.4-10.4); Monocytes # 0.4 10^3/uL (0.2-0.9); Monocytes % 3.3 %; Neutrophils # 9.68 10^3/uL (1.8-7.7); Neutrophils % 90.7 %; Nucleated Red Blood Cells % 0 %; Platelet Count 252 10^3/cmm (130-400); Red Blood Count 3.74 10^6/uL (4.1-5.3); Red Cell Distribution Width 16.6 % (12.1-15.1); White Blood Count 10.7 10^3/uL (4.0-10.0)
[2020-03-19 04:32] LABS: Alanine Aminotransferase 15 U/L (0-33); Albumin Level 3.2 g/dL (3.5-5.2); Alkaline Phosphatase 53 IU/L (35-105); Anion Gap 13.7 (5-19); Aspartate Amino Transferase 12 U/L (0-32); Blood Urea Nitrogen 9 mg/dL (8-23); Calcium 8.3 mg/dL (8.5-10.5); Carbon Dioxide 29 mmol/L (22-29); Chloride 94 mmol/L (98-107); Globulin 3.3 g/dL (1.3-4.6); Glomerular Filtration Rate 158.7 mL/min (90-130); Glucose 137 mg/dL (65-115); Osmolality Calculated 276 mOsm/kg (285-295); Sodium 134 mmol/L (136-145); Total Bilirubin 0.7 mg/dL (0.15-1.2); Total Protein 6.5 g/dL (6.6-8.7)
[2020-03-19 04:52] LABS: Potassium 2.7 mmol/L (3.5-5.1)
[2020-03-19] MEDS: heparin 5,000 unit/mL INJ 1 mL 5000 UNIT SUBCUT ×3 (06:15→20:46)
[2020-03-19] MEDS: potassium chloride ER 10 mEq Tablet 40 MEQ PO (06:15)
--- NOTE | 2020-03-19 06:26 | PC.NURSE ---
PT WAS OFF THE FLOOR FOR A CTA. RESULTS CALLED TO DR SANCHEZ. LAB CALLED A CRITICAL ON PT POTASSIUM LEVEL 2.7. WAS NOTIFIED AND PUT IN ORDERS FOR POTASSIUM. WILL CONTINUE TO MONITOR. WILL GIVE REPORT TO ON COMING NURSE.
[2020-03-19] MEDS: predniSONE 20 mg Tablet 40 MG PO (08:42)
--- NOTE | 2020-03-19 09:40 | PC.CHAP ---
Pastoral Care Encounter/Spiritual Assessment Type of Contact [] Declined clay roaster visit [] Patient/Family/Request visit [] Outpatient visit [] Follow-up visit [] Physician referral [] Code/Alert [x] Routine visit [] Staff referral [] Actively dying [] Patient sleeping [] Family support [] [] Out of room [] Palliative care [] [] Receiving care in room [] Pre-surgical visit [] Trauma [] Long length of stay [] ICU visit [] Other: Relational/Emotional Strength [] Patient feels connected with others/family/visitors/staff [] Distress [] Loneliness/isolation [] Abandonment Spirituality of Patient [] Person of Rebekah [] Attends Pentecostalism of their Rebekah [] Believes in Prayer [] Reads Bible or Baptist materials [] There are Spiritual issues to be addressed Histology Teacher Interventions [x] Prayer [x] Active listening [x] Non-anxious presence [x] Spiritual/emotional support [] Crisis/trauma care [] Spiritual counseling [] Bereavement support [] Provided bereavement packet [] Provided Bible/devotional materials [] Provided toy/stuffed animal, coloring book to patient or family member [] Provided Communion [] Anointing/[place] [] Salvation [x] Completed spiritual assessment [] Other: Impact on Illness or Injury [] Angry [] Fearful [] Anxious [] Often cries [] Exhaustion [] Unable to work [] Unable to attend temple [] Unable to walk/stand [] Unable to read [] Unable to drive [] Unable to eat/drink [] Unable to sleep [] Unable to be with family [] Patient intubated [] Other: Summary Patient feeling some what better Time spent with patient 5 min
[2020-03-19] MEDS: ipratropium-albuterol 3 mL Neb INHALATION ×3 (10:15→20:51)
--- NOTE | 2020-03-19 12:14 | PC.RESP ---
Smoking Cessation and Pulmonary Rehab information sent to patient with a schedule of classes.
--- NOTE | 2020-03-19 12:51 | PM.PN ---
Subjective Subjective: Interval history: Chart reviewed, decreased leukocytosis, afebrile, normotensive, tachycardic, on 4 L, persistent hypokalemia. Has already received 40 mEq of oral KCl, will give an additional 40 mEq. Sitting up in bed, no apparent distress. Medications: Reviewed: Yes Medication Review Details: Active Medications Generic Name Dose Route Start Last Admin Trade Name Freq PRN Reason Stop Dose Admin Acetaminophen 650 mg 03/18/20 21:12 Tylenol PO Q6H PRN Mild/Mod Pain Or Temp >/= 101 Albuterol/Ipratrop ium 3 ml 03/18/20 21:06 Duoneb INHALATION Q4H PRN SHORTNESS OF SHERINE TH Albuterol/Ipratrop ium 3 ml 03/19/20 03:00 03/19/20 10:15 Duoneb INHALATION 3 ml Q6H.RESPIRATORY S CH Administration Heparin Sodium (Be ef Lung) 5,000 unit 03/18/20 21:15 03/19/20 06:15 Heparin SUBCUT 5,000 unit Q8H JESICA Administration Ceftriaxone Sodium 1,000 mg/ 50 mls @ 100 mls/ hr 03/19/20 16:30 Sodium Chloride IV Q12H JESICA Protocol Azithromycin 500 m g/ Sodium 250 mls @ 250 mls /hr 03/19/20 17:30 Chloride IV Q24H JESICA Protocol Ondansetron HCl 4 mg 03/18/20 21:12 Zofran IVP Q8H PRN vomiting, or N/V if npo Prednisone 40 mg 03/18/20 21:05 03/19/20 08:42 Prednisone PO 40 mg DAILY JESICA Administration tramadol Adverse Reaction (Unknown, Verified 03/16/20 13:17) ADR-Itching Vitals/I&O/Wt Last Vital Signs Temp 98.1 F 03/19/20 11:34 Pulse 100 03/19/20 11:34 Resp 19 H 03/19/20 11:34 BP 147/95 03/19/20 11:34 Pulse Ox 97 03/19/20 11:34 03/18/20 03/19/20 03/19/20 22:59 06:59 14:59 Intake Total 800 / 800 480 / 1280 240 / 240 Balance 800 / 800 480 / 1280 240 / 240 Weight last 48 hrs Weight 53.342 kg Weight 64.41 kg Physical Exam Const: COMMON NORMALS: no acute distress and patient oriented x3 GENERAL APPEARANCE: cooperative and comfortable ORIENTATION/CONSCIOUSNESS: Yes awake HENMT: COMMON NORMALS: normocephalic, atraumatic, hearing grossly normal bilaterally and moist oral mucous membranes HEAD & SCALP: normocephalic and atraumatic TEETH & GINGIVA: Yes poor dentition Eye: COMMON NORMALS: Equal, round and reactive pupils present, EOMs intact bilaterally and conjunctivae normal CONJUNCTIVA: Yes conjunctivae normal PUPIL: Yes Equal, round and reactive pupils present Neck/C-Spine: COMMON NORMALS: full ROM GENERAL: Yes normal visual inspection and Yes trachea midline Resp: COMMON NORMALS: normal respiratory effort, No retractions, No use of accessory muscles and clear to auscultation bilaterally EFFORT & INSPECTION: Yes able to speak in complete sentences, Yes symmetric chest movement and No tachypneic AUSCULTATION: clear to auscultation bilaterally Cardio: COMMON NORMALS: regular rate, regular rhythm, S1 normal heart sound present, S2 normal heart sound present and No murmurs present (Cardio) RATE: regular rate RHYTHM: regular rhythm HEART SOUNDS: S1 normal heart sound present and S2 normal heart sound present GI: COMMON NORMALS: Normal to inspection, nondistended, normoactive bowel sounds present, Soft to palpation and non-tender PALPATION: Yes Soft to palpation Extremity: COMMON NORMALS: normal to inspection, full ROM and no clubbing, cyanosis or edema; negative for no pedal edema Neuro: COMMON NORMALS: patient oriented x3, moves 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, no focal motor deficits, no sensory deficits noted and gait normal Psych: COMMON NORMALS: mental status grossly normal, Normal thought process present, cooperative, normal affect and speech normal SPEECH: Yes normal speech THOUGHT PROCESS: Normal thought process present Skin: COMMON NORMALS: no rashes or lesions noted, no jaundice, no petechiae and no mottling GENERAL SKIN EXAM: no rashes or lesions noted Data : 03/19/20 03:43 03/19/20 03:43 Micro: Microbiology 03/18/20 00:30 Legionella Urinary Antigen - Final Urine,Voided Bacterial Antigens - Final 03/18/20 16:13 Blood Culture - Preliminary Blood SPECIMEN COLLECTED A&P Assessment and plan (1) UTI (urinary tract infection): -UA indicative of infection and hematuria -f/u urine and blood cx -Noted evidence of bilateral perirenal stranding on imaging -Continue antibiotic coverage -Decreased leukocytosis, continue to trend WBC -Associated sepsis as evidenced by leukocytosis, tachycardia, hypoxia Status: Acute Qualifiers: Hematuria presence: with hematuria Urinary tract infection type: acute cystitis Qualified Code(s): N30.01 - Acute cystitis with hematuria (2) Pneumonia involving right lung: -Reviewed imaging showing evidence of right upper lobe pneumonia with underlying emphysema -Associated sepsis as noted above -Continue antibiotic coverage -Negative Legionella, bacterial antigens -f/u blood cx -supplemental oxygen as needed; wean to baseline of 3 L if possible -continue to monitor respiratory status -continue to monitor vital signs Status: Acute Qualifiers: Lung location: upper lobe of lung Pneumonia type: due to unspecified organism Qualified Code(s): J18.9 - Pneumonia, unspecified organism (3) COPD (chronic obstructive pulmonary disease): -on steroids, antibiotics -is oxygen dependent at baseline with a 3 L NC requirement -Neb treatments PRN Status: Acute Qualifiers: COPD type: COPD with acute exacerbation Qualified Code(s): J44.1 - Chronic obstructive pulmonary disease with (acute) exacerbation (4) Hypokalemia: -replace as needed Status: Acute (5) Sepsis: -as noted above -secondary to UTI and pneumonia Status: Acute Qualifiers: Sepsis acute organ dysfunction status: without acute organ dysfunction Sepsis type: sepsis due to unspecified organism Qualified Code(s): A41.9 - Sepsis, unspecified organism (6) Seropositive rheumatoid arthritis: -hold immunosuppressive meds -is on chronic oral steroids -follows up with Dr. Monaco Status: Chronic (7) Hypothyroidism: -on levothyroxine -TSH wnl Status: Chronic Qualifiers: Hypothyroidism type: unspecified Qualified Code(s): E03.9 - Hypothyroidism, unspecified (8) Paroxysmal A-fib: -on BB -telemetry monitoring -not on AC as A.fib thought to be transient secondary to electrolyte abnormalities; no evidence of atrial fibrillation on Holter monitor in 02/2020 -hypokalemia noted, Mg-1.7 Status: Chronic (9) Degenerative disc disease, lumbar: Status: Chronic (10) Restless legs syndrome: Status: Chronic (11) Nicotine dependence, cigarettes, with other nicotine-induced disorders: Status: Chronic (12) Generalized anxiety disorder: -resume meds Status: Chronic Additional A&P Information -hx of CAD s/p stenting; f/u with Dr. Sherwood -HTN; resume Amlodipine; hold chlorthalidone due to hypokalemia -Dyslipidemia; resume statin -Chronic diastolic CHF: no acute exacerbation -Osteoporosis, OA -Seizure disorder; resume Keppra; keppra level pending -cardiac diet as tolerated -GI ppx with PPI -DVT ppx with heparin -Dispo: home; has in home services through [place] -Code status: no CPR; ok with intubation if needed Attestations Medical Necessity Statement*: Patient requires hospitalization for continued antibiotic treatment for UTI, pneumonia. Time Spent in Patient Care: Greater than 35 minutes (>than 50% of time spent in counselling and/or direct pt care on unit). Coding Level of Care Code Acute Commercial Loan Collection Officer for g Fwd Exam Comprehensive Diagnoses UTI (urinary tract infection) N30.01 Hematuria presence: with hematuria Urinary tract infection type: acute cystitis Pneumonia involving right lung J18.9 Lung location: upper lobe of lung Pneumonia type: due to unspecified organism COPD (chronic obstructive pulmonary disease) J44.1 COPD type: COPD with acute exacerbation Hypokalemia E87.6 Sepsis A41.9 Sepsis acute organ dysfunction status: without acute organ dysfunction Sepsis type: sepsis due to unspecified organism Seropositive rheumatoid arthritis M05.9 Hypothyroidism E03.9 Hypothyroidism type: unspecified Paroxysmal A-fib I48.0 Degenerative disc disease, lumbar M51.36 Restless legs syndrome G25.81 Nicotine dependence, cigarettes, with other nicotine-induced disorders F17.218 Generalized anxiety disorder F41.1
[2020-03-19] MEDS: potassium chloride oral liq 20 mEq/15 mL UDC 40 MEQ PO (13:44)
[2020-03-19] MEDS: pantoprazole DR 40 mg Tablet PO (13:44)
--- NOTE | 2020-03-19 14:19 | PC.NURSE ---
Call placed to [facility] requesting current medication list.
[2020-03-19] MEDS: cefTRIAXone 1,000 MG in sodium chloride 0.9% (plus) 50 ML 100 MG IV (16:31)
[2020-03-19] MEDS: azithromycin 500 MG in sodium chloride 0.9% 250 ML 250 MG IV (17:40)
[2020-03-19] MEDS: levETIRAcetam 500 mg Tablet PO (17:41)
[2020-03-19] MEDS: metoprolol tartrate 25 mg Tablet PO (17:41)
--- NOTE | 2020-03-19 20:26 | PC.NURSE ---
Rounding: Patient alert and oriented. Patient is in bed watching TV. Denies any pain or needs. Will continue to monitor.
[2020-03-19] MEDS: oxyCODONE-APAP 10-325 mg Tablet 1 TAB PO (20:45)
[2020-03-19] MEDS: mirtazapine 15 mg Tablet PO (20:46)
[2020-03-19] MEDS: atorvastatin 40 mg Tablet 20 MG PO (20:46)
[2020-03-20] VITALS (10 sets, daily range): BP systolic 112–142; BP diastolic 74–91; PULSE 80–121; RESP 17–23; TEMP 36.6–36.8; O2SAT 92–100
[2020-03-20] MEDS: ipratropium-albuterol 3 mL Neb INHALATION ×2 (03:40→08:33)
[2020-03-20] MEDS: heparin 5,000 unit/mL INJ 1 mL 5000 UNIT SUBCUT (04:36)
[2020-03-20] MEDS: cefTRIAXone 1,000 MG in sodium chloride 0.9% (plus) 50 ML 100 MG IV (04:36)
[2020-03-20 04:59] LABS: Basophils % 0.3 %; Eosinophils % 0.4 %; Hemoglobin 9.7 g/dL (11.5-15.3); Lymphocytes # 1.8 10^3/uL (0.8-4.8); Lymphocytes % 18.6 %; Mean Corpuscular HGB Conc 32.3 g/dL (30.0-36.0); Mean Corpuscular Hemoglobin 30.4 pg (28.0-34.0); Mean Platelet Volume 9.2 fL (7.4-10.4); Monocytes # 0.7 10^3/uL (0.2-0.9); Monocytes % 7.4 %; Neutrophils # 7.11 10^3/uL (1.8-7.7); Neutrophils % 72.6 %; Nucleated Red Blood Cells % 0 %; Platelet Count 268 10^3/cmm (130-400); Red Blood Count 3.19 10^6/uL (4.1-5.3); Red Cell Distribution Width 16.6 % (12.1-15.1); White Blood Count 9.8 10^3/uL (4.0-10.0)
--- NOTE | 2020-03-20 05:18 | PC.NURSE ---
End of shift: Patient rested well this shift. Patient ambulated with assist to the bedside commode. Patient has had one pain pill for back pain. Will continue to monitor.
[2020-03-20 05:29] LABS: Alanine Aminotransferase 11 U/L (0-33); Albumin Level 3.3 g/dL (3.5-5.2); Alkaline Phosphatase 82 IU/L (35-105); Anion Gap 12.4 (5-19); Aspartate Amino Transferase 12 U/L (0-32); Blood Urea Nitrogen 15 mg/dL (8-23); Calcium 8.6 mg/dL (8.5-10.5); Carbon Dioxide 28 mmol/L (22-29); Chloride 99 mmol/L (98-107); Globulin 2.1 g/dL (1.3-4.6); Glomerular Filtration Rate 122.7 mL/min (90-130); Glucose 93 mg/dL (65-115); Osmolality Calculated 278 mOsm/kg (285-295); Potassium 3.4 mmol/L (3.5-5.1); Sodium 136 mmol/L (136-145); Total Bilirubin 0.5 mg/dL (0.15-1.2); Total Protein 5.4 g/dL (6.6-8.7)
[2020-03-20] MEDS: oxyCODONE-APAP 10-325 mg Tablet 1 TAB PO (06:58)
[2020-03-20] MEDS: ARIPiprazole 10 mg Tablet 5 MG PO (08:49)
[2020-03-20] MEDS: levETIRAcetam 500 mg Tablet PO (08:49)
[2020-03-20] MEDS: venlafaxine ER (24HR) 75 mg Capsule PO (08:49)
[2020-03-20] MEDS: pantoprazole DR 40 mg Tablet PO (08:50)
[2020-03-20] MEDS: predniSONE 20 mg Tablet 40 MG PO (08:50)
[2020-03-20] MEDS: amlodipine 5 mg Tablet PO (08:50)
[2020-03-20] MEDS: levothyroxine 25 mcg Tablet PO (08:50)
[2020-03-20] MEDS: metoprolol tartrate 25 mg Tablet PO (08:50)
--- NOTE | 2020-03-20 10:13 | PM.DCS ---
Discharge Providers Date of Admission: 03/18/20 18:08 Date of Discharge: March 20, 2020 Attending Provider at Admission: lA Hurtado MD Attending Provider at Discharge: Lolly Porras MD Primary Care Provider: Abiola Butt MD Diagnoses at Discharge Discharge Diagnosis (1) UTI (urinary tract infection): Status: Acute Problem details: -UA indicative of infection and hematuria -urine cx: contaminants -blood cx: prelim negative -Noted evidence of bilateral perirenal stranding on imaging -Continue antibiotic coverage -Decreased leukocytosis, continue to trend WBC -Associated sepsis as evidenced by leukocytosis, tachycardia, hypoxia; resolved Qualifiers: Hematuria presence: with hematuria Urinary tract infection type: acute cystitis Qualified Code(s): N30.01 - Acute cystitis with hematuria (2) Pneumonia involving right lung: Status: Acute Problem details: -Reviewed imaging showing evidence of right upper lobe pneumonia with underlying emphysema -Associated sepsis as noted above -Continue antibiotic coverage -Negative Legionella, bacterial antigens -blood cx: prelim negative -supplemental oxygen as needed; weaned to baseline of 3 L -continue to monitor respiratory status -continue to monitor vital signs Qualifiers: Lung location: upper lobe of lung Pneumonia type: due to unspecified organism Qualified Code(s): J18.9 - Pneumonia, unspecified organism (3) COPD (chronic obstructive pulmonary disease): Status: Acute Problem details: -on steroids, antibiotics -is oxygen dependent at baseline with a 3 L NC requirement Qualifiers: COPD type: COPD with acute exacerbation Qualified Code(s): J44.1 - Chronic obstructive pulmonary disease with (acute) exacerbation (4) Hypokalemia: Status: Acute Problem details: -replace as needed (5) Sepsis: Status: Resolved Problem details: -as noted above -secondary to UTI and pneumonia Qualifiers: Sepsis acute organ dysfunction status: without acute organ dysfunction Sepsis type: sepsis due to unspecified organism Qualified Code(s): A41.9 - Sepsis, unspecified organism (6) Seropositive rheumatoid arthritis: Status: Chronic Problem details: -hold immunosuppressive meds -is on chronic oral steroids -follows up with Dr. Monaco (7) Hypothyroidism: Status: Chronic Problem details: -on levothyroxine -TSH wnl Qualifiers: Hypothyroidism type: unspecified Qualified Code(s): E03.9 - Hypothyroidism, unspecified (8) Paroxysmal A-fib: Status: Chronic Problem details: -on BB -telemetry monitoring -not on AC as A.fib thought to be transient secondary to electrolyte abnormalities; no evidence of atrial fibrillation on Holter monitor in 02/2020 -hypokalemia noted, Mg-1.7 (9) Degenerative disc disease, lumbar: Status: Chronic Problem details: Cervical and Lumbar (10) Restless legs syndrome: Status: Chronic (11) Nicotine dependence, cigarettes, with other nicotine-induced disorders: Status: Chronic (12) Generalized anxiety disorder: Status: Chronic Other Information Additional DC diagnoses/information: -hx of CAD s/p stenting; f/u with Dr. Sherwood -HTN; on Amlodipine; hold chlorthalidone due to hypokalemia -Dyslipidemia; on statin -Chronic diastolic CHF: no acute exacerbation -Osteoporosis, OA -Seizure disorder; on Keppra; keppra level pending Reason for Visit Reason for Visit: ams,hearing loss Hospital Course Hospital Course: Patient was admitted to the cardiac stepdown unit and placed on telemetry monitoring. She was started on dual antibiotic treatment for pneumonia and UTI with associated sepsis as evidenced by leukocytosis, tachycardia, hypoxia. Chest x-ray was consistent with right lower lobe pneumonia, urinalysis was indicative of infection though urine culture is contaminated. Blood cultures have been prelim negative. Leukocytosis has resolved, she has been afebrile and normotensive. She was noted to have some tachycardia though this seemed to correlate with administration of DuoNeb treatments. Electrolytes particularly potassium were replaced as needed. Renal function has been normal and she has been able to void independently without difficulty. Hemoglobin has been stable and she has not required transfusion of any blood products. She has been weaned down to her baseline oxygen requirement of 3 L. With treatment sepsis has resolved. She will need to continue to follow-up with her primary care provider as well as with cardiology, psychiatry and rheumatology. Discharge Summary: -Patient to follow up with primary care provider within 1 week -Patient to continue to follow up with rheumatology, psychiatry and cardiology Physical Exam Const: COMMON NORMALS: no acute distress and patient oriented x3 GENERAL APPEARANCE: cooperative and comfortable ORIENTATION/CONSCIOUSNESS: Yes awake HENMT: COMMON NORMALS: normocephalic, atraumatic, hearing grossly normal bilaterally and moist oral mucous membranes HEAD & SCALP: normocephalic and atraumatic TEETH & GINGIVA: Yes poor dentition Eye: COMMON NORMALS: Equal, round and reactive pupils present, EOMs intact bilaterally and conjunctivae normal CONJUNCTIVA: Yes conjunctivae normal PUPIL: Yes Equal, round and reactive pupils present Neck/C-Spine: COMMON NORMALS: full ROM GENERAL: Yes normal visual inspection and Yes trachea midline Resp: COMMON NORMALS: normal respiratory effort, No retractions and No use of accessory muscles EFFORT & INSPECTION: Yes able to speak in complete sentences, Yes symmetric chest movement and No tachypneic AUSCULTATION: diminished lung sounds bilateral OTHER: -on 3 L NC Cardio: COMMON NORMALS: regular rate, regular rhythm, S1 normal heart sound present, S2 normal heart sound present and No murmurs present (Cardio) RATE: regular rate RHYTHM: regular rhythm HEART SOUNDS: S1 normal heart sound present and S2 normal heart sound present GI: COMMON NORMALS: Normal to inspection, nondistended, normoactive bowel sounds present, Soft to palpation and non-tender PALPATION: Yes Soft to palpation Extremity: COMMON NORMALS: normal to inspection, full ROM and no clubbing, cyanosis or edema; negative for no pedal edema Neuro: COMMON NORMALS: patient oriented x3, moves 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, no focal motor deficits, no sensory deficits noted and gait normal Psych: COMMON NORMALS: mental status grossly normal, Normal thought process present, cooperative, normal affect and speech normal SPEECH: Yes normal speech THOUGHT PROCESS: Normal thought process present Skin: COMMON NORMALS: no rashes or lesions noted, no jaundice, no petechiae and no mottling GENERAL SKIN EXAM: no rashes or lesions noted Discharge Data Data Completed and Pending: Completed Studies During Hospitalization Category Date Time Status CT head wo con* 7 0450 Urgent Cat Scan 03/18/20 16:02 Completed CTA PE [CT angio chest PE protcl 71 275] Routine Cat Scan 03/19/20 00:59 Completed XR chest 1V krystina ble [id number] Urgent Exams 03/18/20 16:37 Completed Pending at discharge Category Date Time Status Blood Culture Sta t Lab 03/18/20 16:13 Results Complete Blood Co unt w/Auto AM LABS Lab 03/21/20 04:00 Ordered Comprehensive Met abolic Panel AM LA BS Lab 03/21/20 04:00 Ordered Influenza A&B by IFA Routine Lab 03/18/20 21:03 Uncollected Levetiracetam Kep pra Stat Lab 03/18/20 17:58 Received Labs from last 24 hours 03/20/20 03/20/20 04:01 04:01 WBC 9.8 RBC 3.19 L Hgb 9.7 L Hct 30.0 L MCV 94.0 MCH 30.4 MCHC 32.3 RDW 16.6 H Plt Count 268 MPV 9.2 Neut % (Auto) 72.6 Lymph % (Auto) 18.6 [place] % (Auto) 7.4 Eos % (Auto) 0.4 Baso % (Auto) 0.3 Neut # (Auto) 7.11 Lymph # (Auto) 1.8 [place] # (Auto) 0.7 Eos # (Auto) 0.0 Baso # (Auto) 0.0 Nucleated RBC % (a uto) 0 Nucleated RBCs # 0.0 Sodium 136 Potassium 3.4 L Chloride 99 Carbon Dioxide 28 Anion Gap 12.4 BUN 15 Creatinine 0.5 GFR Calculation 122.7 Glucose 93 Calculated Osmolal ity 278 L Calcium 8.6 Total Bilirubin 0.5 AST 12 ALT 11 Alkaline Phosphata se 82 Total Protein 5.4 L Albumin 3.3 L Globulin 2.1 Vitals: Last Vital Signs Temp 98.3 F 03/20/20 07:39 Pulse 121 H 03/20/20 08:39 Resp 18 03/20/20 08:34 BP 127/91 03/20/20 07:39 Pulse Ox 94 03/20/20 08:34 Discharge Plan Discharge Patient Disposition: Home, Self-Care Condition: Stable Prescriptions: New azithromycin 250 mg tablet 250 mg PO DAILY 4 Days Qty: 4 RF: 0 Continued alendronate [Fosamax] 70 mg tablet 70 mg PO .WEEKLY Qty: 5 RF: 4 leflunomide [Arava] 20 mg tablet 20 mg PO DAILY Qty: 30 RF: 3 sulfasalazine 500 mg tablet 1 gm PO BID Qty: 120 RF: 3 omeprazole 20 mg capsule,delayed release(DR/EC) 20 mg PO DAILY RF: 0 gabapentin 800 mg tablet 800 mg PO TID Qty: 90 RF: 0 oxycodone-acetaminophen [Percocet] 10-325 mg tablet 1 tab PO TID PRN (Reason: pain) 30 Days Qty: 90 RF: 0 duloxetine [Cymbalta] 60 mg capsule,delayed release(DR/EC) 60 mg PO BID Qty: 60 RF: 2 aripiprazole [Abilify] 5 mg tablet 5 mg PO DAILY Qty: 30 RF: 2 mirtazapine [Remeron] 15 mg tablet 15 mg PO .HS Qty: 30 RF: 1 aspirin [Children's Aspirin] 81 mg tablet,chewable 81 mg PO DAILY RF: 0 venlafaxine 75 mg capsule,extended release 24hr 75 mg PO QAM RF: 0 atorvastatin [Lipitor] 20 mg tablet 20 mg PO BEDTIME RF: 0 amlodipine 5 mg tablet 5 mg PO DAILY RF: 0 albuterol sulfate [ProAir HFA] 90 mcg/actuation HFA aerosol inhaler 2 puff INHALATION Q6H PRN (Reason: SOB) RF: 0 levothyroxine 25 mcg capsule 25 mcg PO DAILY RF: 0 ondansetron 4 mg tablet,disintegrating 4 mg PO Q6H PRN (Reason: nausea and vomiting) Qty: 14 RF: 0 dicyclomine 20 mg tablet 20 mg PO TID PRN (Reason: abdominal pain) Qty: 20 RF: 0 levetiracetam 500 mg tablet 500 mg PO BID RF: 0 Breo Ellipta 100-25 mcg/dose blister with device 1 inh inhalation DAILY RF: 0 Spiriva with HandiHaler 18 mcg capsule, w/inhalation device 18 mcg INHALATION DAILY RF: 0 potassium chloride [Klor-Con 10] 10 mEq tablet extended release 20 meq PO DAILY Qty: 14 RF: 0 chlorthalidone 25 mg tablet 25 mg PO DAILY PRN (Reason: Edema) RF: 0 metoprolol tartrate 25 mg Tablet 25 mg PO BID RF: 0 Discharge Orders: Discharge Order (Routine); Ordered 03/20/20 Ordered By: Lolly Porras Referrals: Abiola Butt MD [Primary Care Provider] - 4-7 days ([facility] will be calling you to set up a post hospital discharge follow up to be seen in approx. 4 to 7 days. If you don't hear from them by tomorrow afternoon, please give them a call. Thank you ) Discharge Diet: Cardiac Discharge Activity: Increase activity as tolerated, Use walker/crutches as instructed and Oxygen as instructed Activity Restrictions/Additional Instructions: -Please continue to use your oxygen consistently. Please DO NOT smoke while using oxygen or be in close contact with open flames or combustible materials Discharge Attestations Time Spent in Discharge Care*: greater than 30 min Specific Discharge Activities: Specific discharge activities: educating patient, discussing with hospice case manager/social workers/dc planners, documenting/other paperwork and evaluating patient/reviewing data Time Spent in Smoking Cessation: Time spent discussing smoking cessation with patient: 3 to 10 minutes Status at Discharge: Cognitive status at discharge: cognitively intact, Behavioral status at discharge: cooperative, Functional status at discharge: uses cane/walker Overall status at discharge: patient is progressing back to baseline Quality Metrics Clinical Quality Measures During this hospital stay, did patient experience: None Coding Level of Care Code Acute Web Database Developer for g Fwd Exam Comprehensive Diagnoses UTI (urinary tract infection) N30.01 Hematuria presence: with hematuria Urinary tract infection type: acute cystitis Pneumonia involving right lung J18.9 Lung location: upper lobe of lung Pneumonia type: due to unspecified organism COPD (chronic obstructive pulmonary disease) J44.1 COPD type: COPD with acute exacerbation Hypokalemia E87.6 Sepsis A41.9 Sepsis acute organ dysfunction status: without acute organ dysfunction Sepsis type: sepsis due to unspecified organism Seropositive rheumatoid arthritis M05.9 Hypothyroidism E03.9 Hypothyroidism type: unspecified Paroxysmal A-fib I48.0 Degenerative disc disease, lumbar M51.36 Restless legs syndrome G25.81 Nicotine dependence, cigarettes, with other nicotine-induced disorders F17.218 Generalized anxiety disorder F41.1
[2020-03-20] MEDS: potassium chloride oral liq 20 mEq/15 mL UDC 40 MEQ PO (10:43)
--- NOTE | 2020-03-20 12:06 | PC.NURSE ---
D/C meds Azithromycin Rx called into [facility] to be delivered to bedside.
--- NOTE | 2020-03-20 13:17 | PC.NURSE ---
Discharge instructions given per the physician's orders. Patient verbalized understanding of information and did not have any further questions. Patient calling son for ride.
[2020-03-23 12:04] LABS: Levetiracetam Keppra <2.0 mcg/mL
== END 2020-03-20 13:50 | disposition home or self-care (01) | DRG 871 ==
LOC: ER 18:18 → CSU 19:21
PROVIDERS: Internal Medicine; Physician Assistant; Admitting Provider Student in an Organized Health Care Education/Training Program; PCP Internal Medicine; Visit Provider Family Medicine
DX: A41.9 Sepsis, unspecified organism (principal); J18.9 Pneumonia, unspecified organism; N30.01 Acute cystitis with hematuria; I50.32 Chronic diastolic (congestive) heart failure; J44.1 Chronic obstructive pulmonary disease with (acute) exacerbation; J44.0 Chronic obstructive pulmonary disease with (acute) lower respiratory infection; M05.9 Rheumatoid arthritis with rheumatoid factor, unspecified; E87.6 Hypokalemia; E03.9 Hypothyroidism, unspecified; I48.0 Paroxysmal atrial fibrillation; G25.81 Restless legs syndrome; E78.5 Hyperlipidemia, unspecified; M81.0 Age-related osteoporosis without current pathological fracture; M19.90 Unspecified osteoarthritis, unspecified site; G40.909 Epilepsy, unspecified, not intractable, without status epilepticus; F41.1 Generalized anxiety disorder; F17.210 Nicotine dependence, cigarettes, uncomplicated; M51.36 Other intervertebral disc degeneration, lumbar region; Z79.82 Long term (current) use of aspirin; Z99.81 Dependence on supplemental oxygen
CPT/HCPCS: 12345; 36415; 70450; 71045; 71275; 74177; 80053; 80177; 80306; 81001; 81003; 83605; 83690; 83735; 84443; 85025; 86403; 87040; 87086; 87449; 93005; 94640; 94664; 96372; 96374; 96375; 99282; 99283; J0456; J0696; J1170; J1644; J2270; J2405; J3480; J7040; J7050; J7512; Q9967

== ENCOUNTER 2020-03-31 10:15 | Emergency (ER) | payer MEDICARE, MEDICAID, SELFPAY ==
[2020-03-31 10:17] VITALS: BP 116/72; PULSE 122; RESP 18; TEMP 36.4; O2SAT 93; BMI 25.6
--- NOTE | 2020-03-31 10:49 | XRR_ITS ---
PROCEDURE INFORMATION: Exam: XR Chest, 1 View Exam date and time: 03/31/2020 11:05 AM Age: 69 years old Clinical indication: Cough and dyspnea; Prior surgery; Surgery type: Gallbladder; Patient HX: HX of left thyroid cancer. ; Additional info: Dyspnea/cough, fatigue and confusion TECHNIQUE: Imaging protocol: XR of the chest Views: 1 view. COMPARISON: CR XR chest 1V portable [id number] 03/18/2020 4:39 PM FINDINGS: Lungs: Right upper lobe opacity minimally decreased. No new consolidation. Pleural space: Unremarkable. No pleural effusion. No pneumothorax. Heart/Mediastinum: Unremarkable. No cardiomegaly. Bones/joints: No acute findings. XR/XR chest 1V portable [id number] IMPRESSION: Right upper lobe pneumonia minimally decreased from 03/18/20.
--- NOTE | 2020-03-31 10:49 | ECG_ITS ---
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 Measurements Intervals [place] Rate: 117 P: 77 WA: 149 QRS: 68 QRSD: 90 T: 72 QT: 355 QTc: 496 Interpretive Statements SINUS TACHYCARDIA WITH OCCASIONAL SUPRAVENTRICULAR PREMATURE COMPLEXES POSSIBLE LEFT ATRIAL ENLARGEMENT [-0.1mV P WAVE IN V1/V2] MINIMAL ST DEPRESSION [0.025+ mV ST DEPRESSION] ABNORMAL RHYTHM ECG Compared to ECG 03/18/2020 17:56:20 ST (T wave) deviation now present T-wave abnormality no longer present Electronically Signed On 03-31-2020 21:22:58 CDT by Estela Sherwood M.D. [id number]
[2020-03-31 11:03] VITALS: BP 121/66; PULSE 128; RESP 28; O2SAT 94
[2020-03-31 11:22] LABS: Basophils # 0.1 10^3/uL (0.0-0.1); Basophils % 0.5 %; Eosinophils % 0.3 %; Hematocrit 32.6 % (37.0-47.0); Hemoglobin 10.8 g/dL (11.5-15.3); Lymphocytes # 1.1 10^3/uL (0.8-4.8); Lymphocytes % 10.1 %; Mean Corpuscular HGB Conc 33.1 g/dL (30.0-36.0); Mean Corpuscular Hemoglobin 31.2 pg (28.0-34.0); Mean Corpuscular Volume 94.2 fL (81-99); Mean Platelet Volume 8.5 fL (7.4-10.4); Monocytes # 1.2 10^3/uL (0.2-0.9); Monocytes % 11.1 %; Neutrophils # 8.67 10^3/uL (1.8-7.7); Neutrophils % 77.4 %; Nucleated Red Blood Cells % 0 %; Platelet Count 416 10^3/cmm (130-400); Red Blood Count 3.46 10^6/uL (4.1-5.3); Red Cell Distribution Width 16.3 % (12.1-15.1); White Blood Count 11.2 10^3/uL (4.0-10.0)
[2020-03-31 11:23] LABS: Add Urine Microscopic? NO
[2020-03-31 11:31] VITALS: PULSE 106; RESP 20; O2SAT 92
[2020-03-31] MEDS: ipratropium-albuterol 3 mL Neb INHALATION (11:31)
--- NOTE | 2020-03-31 11:31 | CT_ITS ---
WS: [id number] CTA OF THE CHEST WITH PULMONARY EMBOLISM PROTOCOL TECHNIQUE: High-resolution contrast enhanced CTA of the chest with coronal and sagittal reformatted i art with pulmonary embolism protocol. MIP images are also reviewed. CLINICAL INFORMATION: dyspnea COMPARISON: March 19, 2020 DLP: 627.[address] scans at [facility] use at least one of these dose optimization techniques: automat ed exposure control; mA and/or kV adjustment per patient size (includes targeted exams where dose is matched to clinical indication); or iterative reconstruction. FINDINGS: Proximal main pulmonary arteries are normal. No evidence of pulmonary embolus. Normal caliber thoraci c aorta. Aortic calcification. Calcified hilar lymph nodes. Calcified granulomas. Advanced chronic emphysematous changes. Persistent patchy consolidative infiltrates in the right uppe r lobe laterally and anteriorly. Some of the infiltrates have improved and some have progressed. Left lung is well aerated. Findings compatible with pneumonia. Recommend follow-up to resolution. Slight atelectasis right lower lobe. Adrenal glands are normal. Cholecystectomy clips. Small esophageal hiatal hernia. Impingement on the celiac root suspicious for median arcuate ligament syndrome unchanged. Left posterior rib fractures s ome with callus formation are unchanged. Some of these have a subacute appearance and are unchanged. Attempted notification Jerel Moyer DO at 03/31/2020 1:[address]/CT angio chest PE protcl [id number] IMPRESSION: 1. No evidence of pulmonary embolus. 2. Persistent right upper lobe partially consolidative infiltrates in the righ t upper lobe laterally and anteriorly compatible with pneumonia. Some of these have improved and some have progressed since March 19, 2020. Recommend follow-up to resolution. 3. Advanced chronic emphysematous changes. 4. Previously described left eighth through 10th rib fractures are unchanged.
[2020-03-31 11:45] LABS: Alanine Aminotransferase 8 U/L (0-33); Albumin Level 3.6 g/dL (3.5-5.2); Alkaline Phosphatase 81 IU/L (35-105); Aspartate Amino Transferase 14 U/L (0-32); Blood Urea Nitrogen 5 mg/dL (8-23); Calcium 8.2 mg/dL (8.5-10.5); Carbon Dioxide 30 mmol/L (22-29); Chloride 91 mmol/L (98-107); Creatinine Clr Calc Pharmacy 58.9275; Globulin 2.8 g/dL (1.3-4.6); Glomerular Filtration Rate 221.2 mL/min (90-130); Glucose 110 mg/dL (65-115); Osmolality Calculated 274 mOsm/kg (285-295); Sodium 134 mmol/L (136-145); Total Bilirubin 0.6 mg/dL (0.15-1.2); Total Protein 6.4 g/dL (6.6-8.7)
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
[2020-03-31 11:50] LABS: ABG PCO2 41.7 mmHg (35-45); ABG PH Result 7.49 (7.35-7.45); Alveolar-Arterial Oxygen Gradi 4.4 mmHg (5-10); Arterial Blood Gas Hematocrit 37.6 % (37-47); Base Excess ABG 7.9 mmol/L (-2.0-2.0); Blood Gas Allen Test Pos; Blood Gas Sample Site Radial, left; Blood Gas Sample Type Arterial; Carboxyhemoglobin 0.7 %THgb (0.4-20.1); HGB O2 Sat 88.8 % (95-100); Ionized Calcium Level - ABG 1.1 mmol/L (1.1-1.4); Methemoglobin 1.5 % (0.4-1.5); Oxygen Device NC; Oxygen Saturation ABG 90.8; PO2 ABG 64.5 mmHg (80.0-100.0); Potassium Level - ABG 2.5 mmol/L (3.5-5.0); Total Hemoglobin 12.3 g/dL (12-16)
[2020-03-31 12:04] LABS: Anion Gap 16.1 (5-19); Potassium 3.1 mmol/L (3.5-5.1)
[2020-03-31 12:25] LABS: Urine Appearance Clear (CLEAR); Urine Color Dark Yellow (Yellow); pH Urine 8 (5-7)
[2020-03-31 12:26] LABS: Bilirubin Urine Neg (NEGATIVE); Blood Urine Neg (Negative); Glucose Urine UA Norm (Normal); Ketones Urine Negative (Negative); Leukocyte Esterase Urine Negative (Negative); Nitrate Urine Negative (Negative); Protein Urine Neg (Negative); Sulfosalicylic Acid Urine Negative (Negative); Urobilinogen Urine Norm (Negative)
[2020-03-31] MEDS: iohexol 350 mg/mL 100 mL Btl IV (12:49)
[2020-03-31] MEDS: levofloxacin-dextrose 5 % 500 MG/100 ML PREMIX 100 MG IV (13:42)
[2020-03-31] MEDS: vancomycin 1,000 MG in sodium chloride 0.9% 250 ML 250 MG IV (13:48)
[2020-03-31 13:58] VITALS: BP 125/79; PULSE 109; RESP 20; O2SAT 93
[2020-03-31 16:11] VITALS: BP 105/58; PULSE 94; RESP 20; O2SAT 97
== END 2020-03-31 16:14 | disposition home or self-care (01) ==
PROVIDERS: Emergency Provider Family Medicine; PCP Internal Medicine
DX: J44.0 Chronic obstructive pulmonary disease with (acute) lower respiratory infection (principal); J18.9 Pneumonia, unspecified organism; Z79.82 Long term (current) use of aspirin; F17.210 Nicotine dependence, cigarettes, uncomplicated; I50.30 Unspecified diastolic (congestive) heart failure; I48.0 Paroxysmal atrial fibrillation
CPT/HCPCS: 12345; 36600; 71045; 71275; 80051; 80053; 81003; 82810; 83986; 85025; 93005; 94640; 96365; 96367; 96375; 99283; 99284; J1956; J2930; J3370; J7050; Q9967

== ENCOUNTER → 2020-04-10 07:45 | Outpatient (BNVA) | payer MEDICARE, MEDICAID, SELFPAY | PROVIDERS: PCP Internal Medicine; Visit Provider Nurse Practitioner | DX: F33.2 Major depressive disorder, recurrent severe without psychotic features (principal); F41.1 Generalized anxiety disorder | CPT/HCPCS: 99213 ==

== ENCOUNTER 2020-04-16 13:47 | Inpatient (IN) | payer MEDICARE, MEDICAID, SELFPAY ==
[2020-04-16] VITALS (40 sets, daily range): BP systolic 92–136; BP diastolic 66–94; PULSE 121–149; RESP 13–38; TEMP 36.6–37.2; O2SAT 58–97; BMI 27.1
--- NOTE | 2020-04-16 13:59 | XRR_ITS ---
PROCEDURE INFORMATION: Exam: XR Chest, 1 View Exam date and time: 04/16/2020 2:47 PM Age: 69 years old Clinical indication: Cough and shortness of breath; Additional info: SOB, cough TECHNIQUE: Imaging protocol: XR of the chest Views: 1 view. COMPARISON: CR XR chest 1V portable [id number] 03/31/2020 10:53 AM FINDINGS: Lungs: There is focal consolidation in the right upper lobe laterally which has progressed compared with prior x-ray. The right lower lobe and left lung remains clear. Pleural space: Unremarkable. No pleural effusion. No pneumothorax. Heart/Mediastinum: Unremarkable. No cardiomegaly. Bones/joints: Unremarkable. XR/XR chest 1V portable [id number] IMPRESSION: Right upper lobe consolidation increasing in severity.
--- NOTE | 2020-04-16 14:03 | ECG_ITS ---
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 Measurements Intervals [place] Rate: 147 P: 73 NM: 114 QRS: 63 QRSD: 82 T: 73 QT: 295 QTc: [address] DEPRESSION [0.025+ mV ST DEPRESSION] ABNORMAL RHYTHM ECG Compared to ECG 03/31/2020 10:45:12 Sinus tachycardia no longer present ST (T wave) deviation still present Electronically Signed On 04-16-2020 21:23:45 CDT by Vonda Canales M.D. [email or web address]
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
[2020-04-16 14:28] LABS: Basophils # 0.2 10^3/uL (0.0-0.1); Basophils % 0.8 %; Hematocrit 36.4 % (37.0-47.0); Hemoglobin 11.7 g/dL (11.5-15.3); Lymphocytes # 1.2 10^3/uL (0.8-4.8); Mean Corpuscular HGB Conc 32.1 g/dL (30.0-36.0); Mean Corpuscular Volume 96.3 fL (81-99); Mean Platelet Volume 8.3 fL (7.4-10.4); Monocytes # 1.7 10^3/uL (0.2-0.9); Monocytes % 8.6 %; Neutrophils # 16.15 10^3/uL (1.8-7.7); Neutrophils % 83.2 %; Nucleated Red Blood Cells % 0 %; Platelet Count 410 10^3/cmm (130-400); Red Blood Count 3.78 10^6/uL (4.1-5.3); Red Cell Distribution Width 15.6 % (12.1-15.1); White Blood Count 19.4 10^3/uL (4.0-10.0)
--- NOTE | 2020-04-16 14:29 | PC.NURSE ---
Informed Dr Bateman of heart rate and o2 sats.
[2020-04-16 14:57] LABS: ABG PCO2 38.8 mmHg (35-45); ABG PH Result 7.47 (7.35-7.45); Arterial Blood Gas Hematocrit 37.8 % (37-47); Base Excess ABG 4.6 mmol/L (-2.0-2.0); Blood Gas Allen Test Pos; Blood Gas Sample Type Arterial; Carboxyhemoglobin 0.5 %THgb (0.4-20.1); HCO3 ABG 28.4 mmol/L (22-26); HGB O2 Sat 91.7 % (95-100); Methemoglobin 1.4 % (0.4-1.5); PO2 ABG 75.9 mmHg (80.0-100.0); Total Hemoglobin 12.3 g/dL (12-16)
[2020-04-16 14:57] LABS: Troponin(5th) Baseline 28 ng/L (0-10)
[2020-04-16 14:58] LABS: Blood Gas Operator Identificat ED; Blood Gas Sample Site Radial, right; Oxygen Device NC
[2020-04-16] MEDS: sodium chloride 0.9% 500 ML 250 ML IV (15:00)
[2020-04-16 15:16] LABS: Alanine Aminotransferase 20 U/L (0-33); Albumin Level 3.1 g/dL (3.5-5.2); Alkaline Phosphatase 113 IU/L (35-105); Anion Gap 21.9 (5-19); Aspartate Amino Transferase 31 U/L (0-32); Blood Urea Nitrogen 9 mg/dL (8-23); C Reactive Protein 287.1 mg/L (0.0-4.9); Carbon Dioxide 24 mmol/L (22-29); Chloride 88 mmol/L (98-107); Globulin 3.7 g/dL (1.3-4.6); Glomerular Filtration Rate 71.3 mL/min (90-130); Glucose 150 mg/dL (65-115); Osmolality Calculated 271 mOsm/kg (285-295); Sodium 131 mmol/L (136-145); Total Bilirubin 0.8 mg/dL (0.15-1.2); Total Protein 6.8 g/dL (6.6-8.7)
[2020-04-16 15:23] LABS: D Dimer 2.65 ug/mIFEU (0-0.59)
--- NOTE | 2020-04-16 15:24 | CTR_ITS ---
PROCEDURE INFORMATION: Exam: CT Angiography Chest With Contrast Exam date and time: 04/16/2020 4:00 PM Age: 69 years old Clinical indication: Shortness of breath; Additional info: SOB, tachycardia TECHNIQUE: Imaging protocol: Computed tomographic angiography of the chest with intravenous contrast. 3D rendering: MIP and/or 3D reconstructed images were created by the technologist. Radiation optimization: All CT scans at this facility use at least one of these dose optimization techniques: automated exposure control; mA and/or kV adjustment per patient size (includes targeted exams where dose is matched to clinical indication); or iterative reconstruction. Contrast material: OMNI 350; Contrast volume: 72 ml; Contrast route: INTRAVENOUS (IV); COMPARISON: CT angio chest PE protcl [id number] 03/31/2020 12:35 PM RADIATION DOSE METRICS: Total DLP (mGy-cm): 646.58 FINDINGS: Pulmonary arteries: No evidence of pulmonary emboli. Aorta: There is no thoracic aortic aneurysm or dissection. 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 Thyroid: Status post right hemithyroidectomy. Lungs: There is progressive right upper lobe lateral consolidation since previous scan. There is a 2nd area of consolidation more inferiorly in the anterior segment of the right upper lobe which has also progressed. Underlying nodules cannot be excluded. There is a calcified granuloma in the right lower lobe. There is centrilobular emphysema more extensive in the upper lobes. Pleural space: Unremarkable. No pneumothorax. No pleural effusion. Heart: Unremarkable. No cardiomegaly. No pericardial effusion. Mediastinal space: There is a small hiatal hernia. Lymph nodes: There are calcified mediastinal lymph nodes. There is a right hilar lymph node measuring 9 mm in short axis. There is a 2nd right hilar lymph node measuring 13 mm in short axis. There is a precarinal lymph node measuring 12 mm in short axis. These have increased in size from the prior scan. Bones/joints: There are old left rib fractures. No acute fracture. Soft tissues: Unremarkable. CT/CT angio chest PE protcl [id number] IMPRESSION: 1. Progressive right upper lobe pneumonia since previous scan. 2. Increasing size of mediastinal and right hilar lymph nodes, probable reactive adenopathy. 3. No pulmonary artery emboli. Radiation Dose CTDIVOL = (mGy): DLP = 646.58 (mGy-cm)
[2020-04-16 15:39] LABS: Potassium 2.9 mmol/L (3.5-5.1)
[2020-04-16 15:41] LABS: NT Pro B Type Natriuretic Pept 1761 pg/mL (0-125)
[2020-04-16] MEDS: piperacillin-tazobactam 3.375 GM in sodium chloride 0.9% (plus) 50 ML IV ×2 (15:46→22:51)
--- NOTE | 2020-04-16 15:52 | PC.NURSE ---
Clean pt soiled elen area, placed clean dry diaper , repositioned for comfort
[2020-04-16] MEDS: vancomycin 1,000 MG in sodium chloride 0.9% 250 ML 250 MG IV (16:02)
--- NOTE | 2020-04-16 16:03 | ECG_ITS ---
[facility] Test Date: 2020-04-25 Pat Name: Eli Ghosh Department: Room: 266 Gender: Female Equipment Application Specialist: : 1950 Requested By: Kayleen Bateman I Order Number: [id number] Trevon MD: Fredi Olson M.D. Measurements Intervals [place] Rate: 79 P: 65 NM: 136 QRS: 60 QRSD: 88 T: 57 QT: 361 QTc: 414 Interpretive Statements SINUS RHYTHM POSSIBLE LEFT ATRIAL ENLARGEMENT [-0.1mV P WAVE IN V1/V2] Compared to ECG 04/17/2020 04:49:41 Sinus tachycardia no longer present Electronically Signed On 04-27-2020 19:56:49 CDT by Fredi Olson M.D. [id number]
[2020-04-16 16:05] LABS: Calcium 8.9 mg/dL (8.5-10.5)
[2020-04-16 16:10] LABS: Reflex Lactate Order REFLEX LACTIC ORDERD
[2020-04-16 16:19] LABS: Procalcitonin 1.31 ng/mL (0-0.5)
[2020-04-16] MEDS: iohexol 350 mg/mL 100 mL Btl IV (16:58)
[2020-04-16 17:24] LABS: Troponin 5 2HR 25.81 ng/L (0-10)
[2020-04-16 17:25] LABS: Troponin 5 2HR Delta -2.19 ABS# (0-10)
[2020-04-16 17:43] LABS: Lactic Acid level (Lactate) 2.7 mmol/L (0.5-2.2)
--- NOTE | 2020-04-16 18:09 | PC.NURSE ---
Hospitalist here to assess and write admission orders
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
[2020-04-16 19:04] LABS: SARS Covid-2 Antigen Negative (Negative)
--- NOTE | 2020-04-16 20:03 | ECG_ITS ---
[facility] Test Date: 2020-04-16 Pat Name: Eli Ghosh Department: Room: Gender: Female Erp Developer: : 1950 Requested By: Kayleen Bateman I Order Number: [id number] Trevon MD: Vonda Canales M.D. Measurements Intervals [place] Rate: 124 P: DE: -1 QRS: 70 QRSD: 89 T: 76 QT: 336 QTc: 484 Interpretive Statements ATRIAL FIBRILLATION WITH RAPID VENTRICULAR RESPONSE WITH ABERRANT CONDUCTION OR VENTRICULAR PREMATURE COMPLEXES NONSPECIFIC ST & T-WAVE ABNORMALITY ABNORMAL RHYTHM ECG Compared to ECG 04/16/2020 14:28:13 Ventricular premature complex(es) now present Aberrant conduction of supraventricular beat(s) now present T-wave abnormality now present ST (T wave) deviation no longer present Electronically Signed On 04-16-2020 21:26:09 CDT by Vonda Canales M.D. [id number]
[2020-04-16 20:27] LABS: Lactic Sepsis W/Reflex 2.3 mmol/L (0.5-2.2)
[2020-04-16] MEDS: azithromycin 500 MG in sodium chloride 0.9% 250 ML 250 MG IV (20:28)
[2020-04-16] MEDS: enoxaparin 40 mg/0.4 mL Syringe SUBCUT (20:29)
[2020-04-16] MEDS: atorvastatin 40 mg Tablet 20 MG PO (20:30)
[2020-04-16] MEDS: gabapentin 400 mg Capsule 800 MG PO (20:30)
[2020-04-16] MEDS: mirtazapine 15 mg Tablet PO (20:31)
[2020-04-16 20:32] LABS: Fibrinogen 1132 mg/dL (174-498)
[2020-04-16 20:38] LABS: Lactate Dehydrogenase 189 U/L (135-214); NT Pro B Type Natriuretic Pept 1552 pg/mL (0-125); Thyroid Stimulating Hormone 1.16 uIU/mL (0.27-4.20)
[2020-04-16 21:29] LABS: Estmated Average Glucose 88; Hemoglobin A1C 4.7 % (4.0-6.0)
[2020-04-16 21:35] LABS: Hepatitis A Antibody IgM Non-Reactive (Nonreactive); Hepatitis B Core AB, Total Non-Reactive (Nonreactive); Hepatitis B Surface AB 3.5 (0-8.5); Hepatitis B Surface Antigen Non-Reactive (Nonreactive); Hepatitis C Virus Antibody Non-Reactive (Nonreactive)
[2020-04-16] MEDS: potassium chloride premix 40 MEQ/100 ML PREMIX 25 MEQ IV (21:49)
[2020-04-16 21:52] LABS: Reflex Lactate Order REFLEX LACTIC ORDERD
[2020-04-16 22:19] LABS: Ferritin 412 ng/mL (15-150)
[2020-04-16 22:31] LABS: C Reactive Protein 346.3 mg/L (0.0-4.9)
[2020-04-16 22:46] LABS: HIV 1 & 2 Antibody Non-Reactive (Non-Reactiv); HIV 1 & 2 Antigen Non-Reactive (Non-Reactiv)
[2020-04-16 23:40] LABS: Lactic Acid level (Lactate) 1.8 mmol/L (0.5-2.2)
[2020-04-17] VITALS (115 sets, daily range): BP systolic 86–142; BP diastolic 53–95; PULSE 91–161; RESP 13–37; TEMP 36.6–37.4; O2SAT 73–98
[2020-04-17 01:45] LABS: Basophils # 0.1 10^3/uL (0.0-0.1); Basophils % 0.7 %; Eosinophils % 0.1 %; Hematocrit 33.1 % (37.0-47.0); Hemoglobin 10.8 g/dL (11.5-15.3); Lymphocytes # 1.3 10^3/uL (0.8-4.8); Lymphocytes % 6.2 %; Mean Corpuscular HGB Conc 32.6 g/dL (30.0-36.0); Mean Corpuscular Hemoglobin 30.7 pg (28.0-34.0); Mean Platelet Volume 8.3 fL (7.4-10.4); Monocytes # 1.9 10^3/uL (0.2-0.9); Monocytes % 9.1 %; Neutrophils # 17.58 10^3/uL (1.8-7.7); Neutrophils % 82.5 %; Nucleated Red Blood Cells % 0 %; Platelet Count 399 10^3/cmm (130-400); Red Blood Count 3.52 10^6/uL (4.1-5.3); Red Cell Distribution Width 15.4 % (12.1-15.1); White Blood Count 21.3 10^3/uL (4.0-10.0)
--- NOTE | 2020-04-17 01:51 | PC.NURSE ---
called and spoke Dr. schneider re: pt HR in 130s, SBP in 130s, pt is asymptomatic while in ST
--- NOTE | 2020-04-17 02:07 | ECG_ITS ---
[facility] Test Date: 2020-04-17 Pat Name: Eli Ghosh Department: Room: [facility] Gender: Female Silverer: AFSANEH : 1950 Requested By: Sharri Carlos Order Number: [id number] Trevon MD: Estela Sherwood M.D. Measurements Intervals [place] Rate: 122 P: 66 VT: 130 QRS: 73 QRSD: 84 T: 75 QT: 307 QTc: 439 Interpretive Statements SINUS TACHYCARDIA WITH OCCASIONAL ECTOPIC PREMATURE COMPLEXES ABNORMAL RHYTHM ECG Compared to ECG 04/16/2020 17:27:33 Atrial fibrillation no longer present Aberrant conduction of supraventricular beat(s) no longer present Ventricular premature complex(es) no longer present T-wave abnormality no longer present Electronically Signed On 04-17-2020 20:49:30 CDT by Estela Sherwood M.D. [id number]
[2020-04-17 02:10] LABS: Alanine Aminotransferase 15 U/L (0-33); Alkaline Phosphatase 103 IU/L (35-105); Anion Gap 14.1 (5-19); Aspartate Amino Transferase 17 U/L (0-32); Blood Urea Nitrogen 12 mg/dL (8-23); Calcium 8.5 mg/dL (8.5-10.5); Carbon Dioxide 28 mmol/L (22-29); Chloride 96 mmol/L (98-107); Globulin 3.5 g/dL (1.3-4.6); Glomerular Filtration Rate 122.7 mL/min (90-130); Glucose 118 mg/dL (65-115); Magnesium 1.7 mg/dL (1.7-2.3); Osmolality Calculated 275 mOsm/kg (285-295); Phosphorus 3.2 mg/dL (2.5-4.5); Potassium 4.1 mmol/L (3.5-5.1); Sodium 134 mmol/L (136-145); Total Bilirubin 0.8 mg/dL (0.15-1.2); Total Protein 6.5 g/dL (6.6-8.7)
[2020-04-17 02:11] LABS: Lactic Sepsis W/Reflex 1.1 mmol/L (0.5-2.2)
[2020-04-17 02:21] LABS: Procalcitonin 1.97 ng/mL (0-0.5)
[2020-04-17 03:23] LABS: Cortisol Random 38.53 ug/mL (2.47-19.5)
[2020-04-17] MEDS: sodium chloride 0.9% 500 ML 250 ML IV (03:48)
[2020-04-17] MEDS: piperacillin-tazobactam 3.375 GM in sodium chloride 0.9% (plus) 50 ML IV ×3 (04:38→22:04)
[2020-04-17 07:59] LABS: Lactic Sepsis W/Reflex 1.6 mmol/L (0.5-2.2)
[2020-04-17] MEDS: duloxetine 60 mg Capsule PO ×2 (08:10→18:56)
[2020-04-17] MEDS: gabapentin 400 mg Capsule 800 MG PO ×3 (08:10→20:37)
[2020-04-17] MEDS: levothyroxine 25 mcg Tablet PO (08:11)
[2020-04-17] MEDS: aspirin 81 mg Chew Tablet PO (08:11)
[2020-04-17] MEDS: pantoprazole DR 40 mg Tablet PO (08:11)
[2020-04-17] MEDS: metoprolol tartrate 25 mg Tablet 12.5 MG PO (08:11)
[2020-04-17] MEDS: ARIPiprazole 10 mg Tablet 5 MG PO (08:12)
[2020-04-17] MEDS: FUROsemide 10 mg/mL SDV 4mL 40 MG IVP (08:12)
[2020-04-17] MEDS: levETIRAcetam 500 mg Tablet PO ×2 (08:12→18:55)
--- NOTE | 2020-04-17 09:05 | PC.NURSE ---
Report received from JONATHAN Vazquez. Rounding Physician ordered Urinary Catheter to be placed, based on need for accurate I&O's, as well as new medications for her diagnosis. 16 [place] Richards placed. 450 dark axel urine immediately out on insertion. patient tolerated well.
[2020-04-17] MEDS: vancomycin 1,000 MG in sodium chloride 0.9% 250 ML 250 MG IV (09:46)
--- NOTE | 2020-04-17 10:59 | P.PN_ITS ---
Subjective Subjective: Interval history: Overnight patient remains afebrile, normal son tensive, up to 5 L nasal cannula, has sinus tachycardia heart rates up to the 150s, no chest pain, still states that she is short of breath, no lightheadedness, no dizziness, still has episodes of confusion, is alert oriented x2, does not know the date, does not know the [facility], no complaints of nausea, no vomiting, has not eaten her breakfast this morning, Vitals/I&O/Wt Last Vital Signs Temp 97.8 F 04/17/20 07:25 Pulse 102 H 04/17/20 10:55 Resp 18 04/17/20 10:55 BP 125/86 04/17/20 09:20 Pulse Ox 96 04/17/20 10:55 04/16/20 04/17/20 04/17/20 22:59 06:59 14:59 Intake Total 50 / 50 2049 / 2049 Output Total 450 / 450 Balance 50 / 50 1600 / 1600 Weight last 48 hrs Weight 67.132 kg Physical Exam Narrative: EXAM NARRATIVE: Has intermittent episodes of confusion, Const: COMMON NORMALS: no acute distress GENERAL APPEARANCE: cooperative and comfortable HENMT: COMMON NORMALS: normocephalic HEAD & SCALP: normocephalic Neck/C-Spine: COMMON NORMALS: no JVD Lymph: LYMPHATIC: no lymphadenopathy noted Resp: COMMON NORMALS: normal respiratory effort and No retractions AUSCULTATION: crackles, rales and wheezes throughout Cardio: COMMON NORMALS: no JVD, regular rhythm, S1 normal heart sound present, S2 normal heart sound present, No gallops present (Cardio), No clicks present (Cardio) and No murmurs present (Cardio) RATE: tachycardic RHYTHM: regular rhythm HEART SOUNDS: S1 normal heart sound present and S2 normal heart sound present GI: COMMON NORMALS: Normal to inspection, nondistended, normoactive bowel sounds present, Soft to palpation, non-tender and No hepatosplenomegaly present PALPATION: Yes Soft to palpation and Yes No hepatosplenomegaly present Extremity: COMMON NORMALS: normal to inspection, full ROM and no pedal edema Urinary Catheter Management^: Richards: Cath Placed During This Visit: yes Reason for Continuing Indwelling Catheter: Accurate Measurement of Urinary Output in Critically Ill Patients Urinary Catheter Date of Insertion: 04/17/20 Urinary Catheter Time of Insertion: 08:50 Data : 04/17/20 01:30 04/17/20 01:30 Micro: Microbiology 04/16/20 08:50 Bacterial Antigens - Final Urine,Clean Catch A&P Assessment and plan (1) Acute and chronic respiratory failure with hypoxia: -Secondary to right upper lobe pneumonia -White blood cell count 21.3, lactic acid 1.6, pro-Cezar 1.97, heart rates in the 140s to 150s, respiratory rate 20-30, patient meets severe sepsis criteria -CT angiogram shows progressive right upper lobe lateral consolidation, secondary consolidation more inferiorly in the anterior segment the right upper lobe which has progressed, increasing size of mediastinal and right hilar lymph nodes -Interestingly, patient has had 5 chest CTs in the last 6 months, including 3 CT angiograms in the last 3 months -CT scan back on September 19, 2019 showed a slightly irregular pulmonary nodule in the right upper lobe measuring 9 mm new since 2018, patient is a smoker, has COPD -Differential includes postobstructive pneumonia secondary to lung cancer -Given her immunocompromise state as she is on immunosuppressive therapy of her rheumatoid arthritis I am also concerned for the possible fungal pneumonia, and tuberculosis -As since March 19, 2020, patient has had this right upper lobe pneumonia -Given her multiple hospitalizations, she does have risk factors for healthcare associated pneumonia, and antibiotic resistance that she has been on multiple antibiotics -Rapid COVID negative Plan: -Admit patient to the intensive care unit -COVID RT-PCR pending -Sputum cultures, blood cultures, AFB culture every 8 hours, LDH, aspergillus antigens, urine bacterial antigens -Broad-spectrum antibiotics, vancomycin, Zosyn, azithromycin -Hold off on fluid boluses -Try Lasix 40 mg IV push once, Place Richards -For sinus tachycardia try metoprolol 12.5 twice daily possibly patient could be having beta-mario alberto withdrawal as she takes metoprolol at home -Patient is currently on 5 L nasal cannula, no retractions, no nasal flaring, no clinical evidence of impending respiratory failure -Patient is okay with intubation mechanical ventilation if required -She is a full code -Continue duo nebs, I have held off on steroids for now -I have ordered an echocardiogram to evaluate cardiac function -Monitor urine output closely, monitor respiratory status closely, telemetry monitoring -Pulmonary has been consulted, possible bronchoscopy tomorrow morning, AFB stains every 8 hours to evaluate for tuberculosis -Hold off on adding antifungal until pulmonary input -Keep patient on airborne precautions -Lovenox for DVT prophylaxis -Patient of was advised of her critical status, she wants all intervention, the closest family member is her son Status: Acute (2) Pneumonia involving right lung: Status: Acute (3) Diastolic heart failure: Status: Acute Qualifiers: Heart failure chronicity: chronic Qualified Code(s): I50.32 - Chronic diastolic (congestive) heart failure (4) COPD (chronic obstructive pulmonary disease): Status: Acute (5) Acute hypokalemia: -40 mEq of KCl Status: Acute (6) NSTEMI (non-ST elevated myocardial infarction): Likely type II supply demand ischemia Continue aspirin, statin monitor for chest pain, continue telemetry monitoring Echocardiogram ordered Status: Acute (7) Lactic acid acidosis: Status: Acute (8) Hyponatremia: -Likely secondary to dehydration, continue fluid therapy Status: Acute (9) Immunocompromised: Status: Acute (10) Sepsis: Status: Acute Attestations Medical Necessity Statement*: She requires hospitalization due to severe sepsis from right upper lobe pneumonia, possible postobstructive pneumonia, sinus tachycardia,nstemi Coding Level of Care Code Acute [employer] Equipment Repairer for [facility] Fwd Diagnoses Acute and chronic respiratory failure with hypoxia J96.21 Pneumonia involving right lung J18.9 Diastolic heart failure I50.32 Heart failure chronicity: chronic COPD (chronic obstructive pulmonary disease) J44.9 Acute hypokalemia E87.6 NSTEMI (non-ST elevated myocardial infarction) I21.4 Lactic acid acidosis E87.2 Hyponatremia E87.1 Immunocompromised D89.9 Sepsis A41.9
--- NOTE | 2020-04-17 12:09 | PC.NURSE ---
phoned. Pt HR running 120's-130's Phone order to increase Metoprolol dose, and begin immediately.
[2020-04-17] MEDS: metoprolol tartrate 25 mg Tablet PO ×2 (12:31→18:56)
--- NOTE | 2020-04-17 13:25 | PC.NURSE ---
Echo on hold. Call placed to ultrasound. HR needs to remain under 100 before Echo can be done. HR running between 115-130's.
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
[2020-04-17] MEDS: atorvastatin 40 mg Tablet 20 MG PO (20:36)
[2020-04-17] MEDS: mirtazapine 15 mg Tablet PO (20:37)
[2020-04-17] MEDS: enoxaparin 40 mg/0.4 mL Syringe SUBCUT (20:37)
[2020-04-17] MEDS: azithromycin 500 MG in sodium chloride 0.9% 250 ML 250 MG IV (20:38)
[2020-04-17] MEDS: oxyCODONE-APAP 10-325 mg Tablet 1 TAB PO (21:00)
[2020-04-17 21:42] LABS: Coronavirus Lab Test PTC Negative
[2020-04-18] VITALS (30 sets, daily range): BP systolic 68–113; BP diastolic 51–79; PULSE 78–100; RESP 10–24; TEMP 36.6–36.8; O2SAT 77–100
[2020-04-18 02:07] LABS: Alanine Aminotransferase 10 U/L (0-33); Albumin Level 2.6 g/dL (3.5-5.2); Alkaline Phosphatase 81 IU/L (35-105); Anion Gap 9.9 (5-19); Aspartate Amino Transferase 12 U/L (0-32); Blood Urea Nitrogen 15 mg/dL (8-23); Calcium 7.9 mg/dL (8.5-10.5); Carbon Dioxide 31 mmol/L (22-29); Chloride 91 mmol/L (98-107); Glomerular Filtration Rate 71.3 mL/min (90-130); Glucose 129 mg/dL (65-115); Magnesium 1.4 mg/dL (1.7-2.3); Osmolality Calculated 266 mOsm/kg (285-295); Phosphorus 3.2 mg/dL (2.5-4.5); Sodium 129 mmol/L (136-145); Total Bilirubin 0.2 mg/dL (0.15-1.2); Total Protein 5.6 g/dL (6.6-8.7)
[2020-04-18 02:08] LABS: Lactic Sepsis W/Reflex 0.9 mmol/L (0.5-2.2)
[2020-04-18 02:10] LABS: Potassium 2.9 mmol/L (3.5-5.1)
[2020-04-18 02:18] LABS: Procalcitonin 1.65 ng/mL (0-0.5)
[2020-04-18] MEDS: potassium chloride ER 10 mEq Tablet 40 MEQ PO (03:24)
[2020-04-18] MEDS: vancomycin 1,000 MG in sodium chloride 0.9% 250 ML 250 MG IV ×2 (03:25→21:17)
[2020-04-18] MEDS: magnesium sulfate premix 2 GM/50 ML PIGGYBACK IV ×2 (03:31→08:34)
[2020-04-18] MEDS: potassium chloride premix 40 MEQ/100 ML PREMIX 25 MEQ IV ×2 (04:00→08:38)
[2020-04-18 04:35] LABS: Basophils # 0.1 10^3/uL (0.0-0.1); Basophils % 0.5 %; Eosinophils # 0.3 10^3/uL (0.0-0.8); Eosinophils % 1.8 %; Hemoglobin 9.4 g/dL (11.5-15.3); Lymphocytes # 1.7 10^3/uL (0.8-4.8); Lymphocytes % 9.8 %; Mean Corpuscular HGB Conc 30.3 g/dL (30.0-36.0); Mean Corpuscular Hemoglobin 29.5 pg (28.0-34.0); Mean Corpuscular Volume 97.2 fL (81-99); Mean Platelet Volume 8.2 fL (7.4-10.4); Monocytes # 1.1 10^3/uL (0.2-0.9); Monocytes % 6.3 %; Neutrophils # 14.04 10^3/uL (1.8-7.7); Neutrophils % 80.4 %; Nucleated Red Blood Cells % 0 %; Platelet Count 328 10^3/cmm (130-400); Red Blood Count 3.19 10^6/uL (4.1-5.3); Red Cell Distribution Width 15.9 % (12.1-15.1); White Blood Count 17.5 10^3/uL (4.0-10.0)
[2020-04-18] MEDS: piperacillin-tazobactam 3.375 GM in sodium chloride 0.9% (plus) 50 ML IV ×3 (05:12→21:17)
[2020-04-18] MEDS: oxyCODONE-APAP 10-325 mg Tablet 1 TAB PO ×2 (05:13→19:38)
[2020-04-18] MEDS: levETIRAcetam 500 mg Tablet PO ×2 (08:06→17:03)
[2020-04-18] MEDS: ARIPiprazole 10 mg Tablet 5 MG PO (08:06)
[2020-04-18] MEDS: duloxetine 60 mg Capsule PO ×2 (08:07→17:03)
[2020-04-18] MEDS: magnesium oxide 400 mg tablet PO ×2 (08:07→17:03)
[2020-04-18] MEDS: aspirin 81 mg Chew Tablet PO (08:08)
[2020-04-18] MEDS: metoprolol tartrate 25 mg Tablet PO ×2 (08:08→17:03)
[2020-04-18] MEDS: levothyroxine 25 mcg Tablet PO (08:09)
[2020-04-18] MEDS: pantoprazole DR 40 mg Tablet PO (08:09)
[2020-04-18] MEDS: gabapentin 400 mg Capsule 800 MG PO ×3 (08:22→21:14)
[2020-04-18] MEDS: lidocaine 1% INJ 20 mL 5 ML IV (08:53)
--- NOTE | 2020-04-18 10:44 | PC.NURSE ---
able to answer questions appropriately, no facial droop, AO to person place and month, coarse lung sounds, regular unlabored RR 5L nc, dispensary clerk strong and equal BUE, small tremor noted to BUE when grasping objects, urine clear dark yellow, radial pulses 3 bilateral, supine 45 degrees call light within reach
--- NOTE | 2020-04-18 11:18 | PC.RESP ---
Smoking Cessation information and Pulmonary Rehab information sent to patient.
--- NOTE | 2020-04-18 12:43 | P.PN_ITS ---
Subjective Subjective: Interval history: Patient was examined this morning, the ICU, is on airborne precautions, her second COVID testing was negative, but there is concerns for tuberculosis given her persistent right upper lobe consolidation, she is down to 4 L nasal cannula, still has coarse rales and crackles, but states that she feels better, still has a cough, no fevers, chills, no nausea, no vomiting, denies any exposure to TB, no hemoptysis Vitals/I&O/Wt Last Vital Signs Temp 98.2 F 04/18/20 08:00 Pulse 85 04/18/20 11:17 Resp 16 04/18/20 11:15 BP 113/79 04/18/20 09:00 Pulse Ox 92 04/18/20 11:15 04/17/20 04/18/20 04/18/20 22:59 06:59 14:59 Intake Total 520 / 3595 1302 / 4897 110 / 110 Output Total 125 / 1875 500 / 2375 Balance 395 / 1720 802 / 2522 110 / 110 Weight last 48 hrs Weight 67.132 kg Physical Exam Const: COMMON NORMALS: no acute distress and patient oriented x3 HENMT: COMMON NORMALS: normocephalic HEAD & SCALP: normocephalic Neck/C-Spine: COMMON NORMALS: no JVD Resp: COMMON NORMALS: normal respiratory effort, No retractions and No use of accessory muscles AUSCULTATION: rales, rhonchi and wheezes Cardio: COMMON NORMALS: no JVD, regular rate, regular rhythm, S1 normal heart sound present and S2 normal heart sound present RATE: regular rate RHYTHM: regular rhythm HEART SOUNDS: S1 normal heart sound present and S2 normal heart sound present GI: COMMON NORMALS: Normal to inspection, nondistended, normoactive bowel sounds present, Soft to palpation, non-tender, No hepatosplenomegaly present, no masses and no bruits PALPATION: Yes Soft to palpation and Yes No hepatosplenomegaly present Extremity: COMMON NORMALS: capillary refill normal, no clubbing, cyanosis or edema, no calf tenderness and no pedal edema Neuro: COMMON NORMALS: patient oriented x3 Psych: COMMON NORMALS: mental status grossly normal Urinary Catheter Management^: Richards: Cath Placed During This Visit: yes Reason for Continuing Indwelling Catheter: Accurate Measurement of Urinary Output in Critically Ill Patients Urinary Catheter Date of Insertion: 04/17/20 Urinary Catheter Time of Insertion: 08:50 Data : 04/18/20 04:24 04/18/20 01:35 Micro: Microbiology 04/18/20 11:24 Blood Culture - Preliminary Blood SPECIMEN COLLECTED 04/18/20 11:20 Blood Culture - Preliminary Blood SPECIMEN COLLECTED 04/16/20 20:15 MRSA Culture - Final Nose 04/16/20 10:35 Gram Stain - Final Sputum - Expectorated Sputum 04/16/20 08:50 Bacterial Antigens - Final Urine,Clean Catch A&P Assessment and plan (1) Acute and chronic respiratory failure with hypoxia: -Secondary to right upper lobe pneumonia -But there are significant concerns for fungal pneumonia and/or pulmonary tuberculosis -White blood cell count 17.5, pro-Cezar 1.65, heart rates normal sinus rhythm 90s to 100, respiratory rate 20-30, patient meets severe sepsis criteria -CT angiogram shows progressive right upper lobe lateral consolidation, secondary consolidation more inferiorly in the anterior segment the right upper lobe which has progressed, increasing size of mediastinal and right hilar lymph nodes -Interestingly, patient has had 5 chest CTs in the last 6 months, including 3 CT angiograms in the last 3 months -CT scan back on September 19, 2019 showed a slightly irregular pulmonary nodule in the right upper lobe measuring 9 mm new since 2018, patient is a smoker, has COPD -Differential includes postobstructive pneumonia secondary to lung cancer, although felt unlikely as patient's lung nodule was quite posterior to this consolidation -Given her immunocompromise state as she is on immunosuppressive therapy of her rheumatoid arthritis the possibility of fungal pneumonia out probably tuberculosis are significant m also concerned for the possible fungal pneumonia, and tuberculosis -As since March 19, 2020, patient has had this right upper lobe pneumonia -Given her multiple hospitalizations, she does have risk factors for healthcare associated pneumonia, and antibiotic resistance that she has been on multiple antibiotics -Rapid COVID negative, COVID RT-PCR negative Plan: -Admit patient to the intensive care unit -Continue droplet and airborne precautions for possible pulmonary tuberculosis -Sputum cultures, blood cultures, AFB culture every 8 hours, LDH, aspergillus antigens, urine bacterial antigens, histoplasmosis antigen -Broad-spectrum antibiotics, vancomycin, Zosyn, azithromycin -Started voriconazole yesterday, will have to transition to a different ant ifungal as pharmacy is out of this medication -Hold off on fluid boluses -Lasix as needed, Richards catheter in place -For sinus tachycardia cementable 25 twice daily, heart rates are better controlled -Patient is currently o n4 L nasal cannula, no retractions, no nasal flaring, no clinical evidence of impending respiratory failure -Patient is okay with intubation mechanical ventilation if required -She is a full code -Continue duo nebs, I have held off on steroids for now -I have ordered an echocardiogram to evaluate cardiac function -Monitor urine output closely, monitor respiratory status closely, telemetry monitoring -Pulmonary has been consulted, possible bronchoscopy on Tuesday -Keep patient on airborne precautions -Lovenox for DVT prophylaxis -Patient of was advised of her critical status, she wants all intervention, the closest family member is her son -Unfortunately blood cultures were not obtained by the emergency room, I have ordered them today -Follow respiratory cultures, follow urine cultures -Follow AFB Status: Acute (2) Pneumonia involving right lung: Status: Acute Qualifiers: Lung location: upper lobe of lung Pneumonia type: due to unspecified organism Qualified Code(s): J18.9 - Pneumonia, unspecified organism (3) Diastolic heart failure: Status: Acute Qualifiers: Heart failure chronicity: chronic Qualified Code(s): I50.32 - Chronic diastolic (congestive) heart failure (4) COPD (chronic obstructive pulmonary disease): Status: Acute Qualifiers: COPD type: unspecified COPD Qualified Code(s): J44.9 - Chronic obstr uctive pulmonary disease, unspecified (5) Acute hypokalemia: -40 mEq of KCl Status: Acute (6) NSTEMI (non-ST elevated myocardial infarction): Likely type II supply demand ischemia Continue aspirin, statin monitor for chest pain, continue telemetry monitoring Echocardiogram ordered Status: Acute (7) Lactic acid acidosis: Status: Acute (8) Hyponatremia: -Likely secondary to dehydration, continue fluid therapy Status: Acute (9) Immunocompromised: Status: Acute (10) Sepsis: Status: Acute Qualifiers: Sepsis type: sepsis due to unspecified organism Sepsis acute organ dysfunction status: with acute organ dysfunction Severe sepsis acute organ dysfunction type: acute respiratory failure Acute respiratory failure type: with hypoxia Severe sepsis shock status: without septic shock Qualified Code(s): A41.9 - Sepsis, unspecified organism; R65.20 - Severe sepsis without septic shock; J96.01 - Acute respiratory failure with hypoxia Attestations Medical Necessity Statement*: Patient requires hospitalization for acute re spiratory failure with hypoxia secondary to pneumonia, concerns for fungal pneumonia and/or pulmonary tuberculosis Coding Level of Care Code 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 [facility] Diagnoses Acute and chronic respiratory failure with hypoxia J96.21 Pneumonia involving right lung J18.9 Lung location: upper lobe of lung Pneumonia type: due to unspecified organism Diastolic heart failure I50.32 Heart failure chronicity: chronic COPD (chronic obstructive pulmonary disease) J44.9 COPD type: unspecified COPD Acute hypokalemia E87.6 NSTEMI (non-ST elevated myocardial infarction) I21.4 Lactic acid acidosis E87.2 Hyponatremia E87.1 Immunocompromised D89.9 Sepsis A41.9; R65.20; J96.01 Sepsis type: sepsis due to unspecified organism Sepsis acute organ dysfunction status: with acute organ dysfunction Severe sepsis acute organ dysfunction type: acute respiratory failure Acute respiratory failure type: with hypoxia Severe sepsis shock status: without septic shock
--- NOTE | 2020-04-18 18:43 | NUR.SHIFT ---
able to adjust self in bed, AO x4, answerers questions appropriately, no s/s of distress, no C/O pain, regular unlabored RR 4L NC, IV sites clean dry intact no redness or warmth noted
--- NOTE | 2020-04-18 19:32 | USCV_ITS ---
Eli Ghosh Age: 69 Gender: F : 1950 Exam Date: 04/18/2020 06:23 Ordering Phys: Stephan Pemberton MD Technologist: Eugenio Lopez Exam Location: [facility] – [place] Indication: SOB BP: 100 / 65 HR: 91 Rhythm: Sinus Technical Quality: Suboptimal MEASUREMENTS (Male / Female) Normal Values 2D ECHO LV Diastolic Diameter PLAX 3.6 cm 4.2 - 5.9 / 3.9 - 5.3 cm LV Systolic Diameter PLAX 2.0 cm IVS Diastolic Thickness 1.2 cm 0.6 - 1.0 / 0.6 - 0.9 cm IVS Systolic Thickness 1.6 cm LVPW Diastolic Thickness 1.2 cm 0.6 - 1.0 / 0.6 - 0.9 cm LVPW Systolic Thickness 1.5 cm LVOT Diameter 2.0 cm LV Ejection Fraction 2D Teich 74.5 % LV Ejection Fraction MOD 2C 57.9 % LV Ejection Fraction 2C AL 56.9 % LA Diameter 3.8 cm LA Width 3.1 cm LA Height 3.4 cm RA Width 3.1 cm RA Height 4.1 cm Aorta at Sinotubular Diameter 1.4 cm M-MODE LV Diastolic Diameter MM 4.1 cm 4.2 - 5.9 / 3.9 - 5.3 cm LV Systolic Diameter MM 2.8 cm LV Ejection Fraction MM Teich 59.9 % IVS Diastolic Thickness MM 0.8 cm 0.6 - 1.0 / 0.6 - 0.9 cm IVS Systolic Thickness MM 1.3 cm LVPW Diastolic Thickness MM 0.9 cm 0.6 - 1.0 / 0.6 - 0.9 cm LVPW Systolic Thickness MM 1.5 cm RV Diastolic Diameter MM 1.2 cm Aortic Annulus Diameter 3.0 cm LA Ao Ratio MM 1.3 MV E Point Septal Separation 1.1 cm DOPPLER AV Peak Velocity 142.0 cm/s LVOT Peak Velocity 111.0 cm/s AV Area Cont Eq vti 2.1 cm squared AV Area Cont Eq pk 2.6 cm squared MV Area PHT 5.5 cm squared Mitral E to A Ratio 0.9 MV E' Velocity 8.0 cm/s Mitral E to MV E' Ratio 11.4 Mitral E to LV E' Lateral Ratio 10.8 Mitral E to LV E' Septal Ratio 12.3 TR Peak Velocity 115.0 cm/s TR Peak Gradient 5.3 mmHg TV Peak E Velocity 61.0 cm/s Right Atrial Pressure 3.0 mmHg Pulmonary Artery Systolic Pressu 8.3 mmHg FINDINGS Left Ventricle Normal left ventricular cavity size. Normal left ventricular systolic function. No regional wall motion abnormalities. Left ventricular ejection fraction is estimated at 59 %. Grade I/IV diastolic dysfunction (abnormal relaxation filling pattern), normal to mildly elevated filling pressures. Right Ventricle The right ventricle is normal in size and function. Right Atrium The right atrium is normal in size. Left Atrium The left atrium is normal in size. Mitral Valve Structurally normal mitral valve without significant stenosis or prolapse. There is no mitral regurgitation. Aortic Valve Severe aortic valve calcification. Aortic valve is not well- visualized probably moderately stenotic . Tricuspid Valve Structurally normal tricuspid valve without significant stenosis or regurgitation. Pulmonary artery systolic pressure is normal. Pulmonic Valve Structurally normal pulmonic valve without significant stenosis. There is no pulmonic regurgitation. Pericardium Normal pericardium without effusion. Aorta Normal ascending aorta dimension. CONCLUSIONS 1-Normal left ventricular cavity size. Normal left ventricular systolic function. No regional wall motion abnormalities. Left ventricular ejection fraction is estimated at 59 %. Grade I/IV diastolic dysfunction (abnormal relaxation filling pattern), normal to mildly elevated filling pressures. 2-Severe aortic valve calcification. Aortic valve is not well- visualized probably moderately stenotic . 3-There is no pericardial effusion. 4-Pulmonary artery systolic pressure is within normal limits. 5-Right atrial pressure is around 2 mm of mercury. 6-When compared to the prior echocardiogram dated 08/30/2018. There appeared to be moderate aortic valve stenosis, however aortic valve is not well-visualized if clinically indicated transesophageal echocardiogram will be a better modality. Vonda Canales MD (Electronically Signed) Final Date: 18 April 2020 17:51 S
[2020-04-18] MEDS: enoxaparin 40 mg/0.4 mL Syringe SUBCUT (19:38)
[2020-04-18] MEDS: azithromycin 500 MG in sodium chloride 0.9% 250 ML 250 MG IV (19:41)
[2020-04-18] MEDS: mirtazapine 15 mg Tablet PO (21:14)
[2020-04-18] MEDS: atorvastatin 40 mg Tablet 20 MG PO (21:15)
[2020-04-18 21:40] LABS: Vancomycin Trough 4.9 ug/mL (10-15)
[2020-04-18] MEDS: morphine 4 mg/mL SDV 1 mL 2 MG IVP (23:00)
[2020-04-19] VITALS (52 sets, daily range): BP systolic 87–143; BP diastolic 58–102; PULSE 69–112; RESP 7–23; TEMP 36.6; O2SAT 69–100
[2020-04-19] MEDS: oxyCODONE-APAP 10-325 mg Tablet 1 TAB PO ×2 (02:21→12:23)
--- NOTE | 2020-04-19 04:37 | PC.PHAR ---
Pharmacokinetic dosing service Date: 04/19/20 Time: 0437 Patient: Floor: Weight: 67.132 Kilograms Vancomycin single level analysis: Current dose being given: mg Current dosing interval: hrs Current infusion time (hrs): 1 Single level Trough Data: Trough level obtained: 4.9 mcg/ml Timing of trough - # of hrs before next dose: 0.08 Hrs Desired peak: 40 mcg/ml Desired trough: 15 mcg/ml Diagnosis: Relevant medical/social history: Cultures and sensitivities: Other labs: Estimated PK Parameters: New rate constant (jocy): 0.082 hr-1 Half-life: 8.45 Hours Vd from levels: 60.42 Liters (0.7 L/kg) CLvanco= 4.954 L/hr Estimated New Dose and Interval Recommended dose: 1650.3 mg Recommended interval: 13.0 Hrs Patient response: Patient is responding to treatment [yes/no] wbc decreasing, S/SX reduced [yes/no] Renal function is stable/unstable Recommendations: Give Vancomycin 1000 mg q 12 hrs. Infuse over 1 hrs Expected Cpeak: 25.4 mcg/mL Expected Ctrough: 10.3 mcg/mL AUC 0-24 /RADHA Data: RADHA 0.5 mcg/mL: AUC/RADHA: 807.4 RADHA 1.0 mcg/mL: AUC/RADHA: 403.7 Recommended labs and intervals: Measure Bun and Scr 3 times/week. Renal dosing of other antibiotics (review renal dosing of other medications and list guidelines here): Thank you for the consult, will continue to follow. Signature: Jaye Arroyo [facility]
[2020-04-19 04:56] LABS: Basophils # 0.1 10^3/uL (0.0-0.1); Basophils % 0.3 %; Eosinophils # 0.2 10^3/uL (0.0-0.8); Eosinophils % 1.4 %; Hematocrit 30.1 % (37.0-47.0); Hemoglobin 9.4 g/dL (11.5-15.3); Lymphocytes # 0.7 10^3/uL (0.8-4.8); Lymphocytes % 4.2 %; Mean Corpuscular HGB Conc 31.2 g/dL (30.0-36.0); Mean Corpuscular Hemoglobin 30.6 pg (28.0-34.0); Mean Platelet Volume 8.6 fL (7.4-10.4); Monocytes # 0.3 10^3/uL (0.2-0.9); Monocytes % 2.1 %; Neutrophils # 14.43 10^3/uL (1.8-7.7); Nucleated Red Blood Cells % 0 %; Platelet Count 444 10^3/cmm (130-400); Positive C 1; Red Blood Count 3.07 10^6/uL (4.1-5.3); Red Cell Distribution Width 16.2 % (12.1-15.1)
[2020-04-19 05:08] LABS: Alanine Aminotransferase 32 U/L (0-33); Albumin Level 3.3 g/dL (3.5-5.2); Alkaline Phosphatase 191 IU/L (35-105); Blood Urea Nitrogen 17 mg/dL (8-23); Calcium 8.3 mg/dL (8.5-10.5); Carbon Dioxide 26 mmol/L (22-29); Chloride 90 mmol/L (98-107); Globulin 2.9 g/dL (1.3-4.6); Glomerular Filtration Rate 99.4 mL/min (90-130); Glucose 126 mg/dL (65-115); Magnesium 2.8 mg/dL (1.7-2.3); Osmolality Calculated 264 mOsm/kg (285-295); Phosphorus 4.2 mg/dL (2.5-4.5); Sodium 128 mmol/L (136-145); Total Bilirubin 0.6 mg/dL (0.15-1.2); Total Protein 6.2 g/dL (6.6-8.7)
[2020-04-19 05:10] LABS: Lactic Sepsis W/Reflex 1.3 mmol/L (0.5-2.2)
[2020-04-19 05:41] LABS: Anion Gap 17.4 (5-19); Aspartate Amino Transferase 57 U/L (0-32); Potassium 5.4 mmol/L (3.5-5.1)
[2020-04-19] MEDS: piperacillin-tazobactam 3.375 GM in sodium chloride 0.9% (plus) 50 ML IV ×3 (05:41→22:40)
--- NOTE | 2020-04-19 07:35 | PC.NURSE ---
up in bed am brk served at this time no c/o pain or discomfort at time good appitite noted o2 at 4l sats 88 %
[2020-04-19] MEDS: metoprolol tartrate 25 mg Tablet PO ×2 (08:27→17:19)
[2020-04-19] MEDS: duloxetine 60 mg Capsule PO ×2 (08:27→17:19)
[2020-04-19] MEDS: ARIPiprazole 10 mg Tablet 5 MG PO (08:27)
[2020-04-19] MEDS: sodium chloride 0.9% 1,000 ML 75 ML IV (08:27)
[2020-04-19] MEDS: magnesium oxide 400 mg tablet PO ×2 (08:28→17:19)
[2020-04-19] MEDS: gabapentin 400 mg Capsule 800 MG PO ×3 (08:28→21:11)
[2020-04-19] MEDS: levothyroxine 25 mcg Tablet PO (08:28)
[2020-04-19] MEDS: levETIRAcetam 500 mg Tablet PO ×2 (08:28→17:19)
[2020-04-19] MEDS: pantoprazole DR 40 mg Tablet PO ×2 (08:28)
[2020-04-19] MEDS: aspirin 81 mg Chew Tablet PO (08:28)
[2020-04-19] MEDS: vancomycin 1,000 MG in sodium chloride 0.9% 250 ML 250 MG IV ×2 (09:41→21:12)
--- NOTE | 2020-04-19 11:31 | P.PN_ITS ---
Subjective Subjective: Interval history: This morning patient was examined, she was eating breakfast, states that her breathing has improved, still has some cough, no fevers, no chills, no nausea, vomiting, lightheadedness, dizziness, no hemoptysis, Vitals/I&O/Wt Last Vital Signs Temp 98.2 F 04/18/20 08:00 Pulse 83 04/19/20 11:28 Resp 18 04/19/20 11:27 BP 108/70 04/19/20 08:00 Pulse Ox 94 04/19/20 11:27 04/18/20 04/19/20 04/19/20 22:59 06:59 14:59 Intake Total 1600 / 1860 1010 / 2870 300 / 300 Output Total 350 / 350 350 / 700 Balance 1250 / 1510 660 / 2170 300 / 300 Physical Exam Const: COMMON NORMALS: no acute distress and patient oriented x3 GENERAL APPEARANCE: cooperative and comfortable HENMT: COMMON NORMALS: normocephalic HEAD & SCALP: normocephalic Neck/C-Spine: COMMON NORMALS: no JVD Resp: COMMON NORMALS: normal respiratory effort, No retractions and No use of accessory muscles AUSCULTATION: rhonchi and wheezes Cardio: COMMON NORMALS: no JVD, regular rate, regular rhythm, S1 normal heart sound present and S2 normal heart sound present RATE: regular rate RHYTHM: regular rhythm HEART SOUNDS: S1 normal heart sound present and S2 normal heart sound present GI: COMMON NORMALS: Normal to inspection, nondistended, normoactive bowel sounds present, Soft to palpation, non-tender, No hepatosplenomegaly present, no masses and no bruits PALPATION: Yes Soft to palpation and Yes No hepatosplenomegaly present Extremity: COMMON NORMALS: capillary refill normal, no clubbing, cyanosis or edema, no calf tenderness and no pedal edema Neuro: COMMON NORMALS: patient oriented x3 Psych: COMMON NORMALS: mental status grossly normal Urinary Catheter Management^: Richards: Cath Placed During This Visit: yes Reason for Continuing Indwelling Catheter: Accurate Measurement of Urinary Ou tput in Critically Ill Patients Urinary Catheter Date of Insertion: 04/17/20 Urinary Catheter Time of Insertion: 08:50 Data : 04/19/20 04:34 04/19/20 04:34 Micro: Microbiology 04/18/20 11:24 Blood Culture - Preliminary Blood NEGATIVE TO DATE 04/18/20 11:20 Blood Culture - Preliminary Blood NEGATIVE TO DATE 04/16/20 10:35 Gram Stain - Final Sputum - Expectorated Sputum Sputum Culture - Preliminary A&P Assessment and plan (1) Acute and chronic respiratory failure with hypoxia: -Secondary to right upper lobe pneumonia -But there are significant concerns for fungal pneumonia and/or pulmonary tuberculosis -White blood cell count 16.0, pro-Cezar 1.30, vancomycin trough 4.9, heart rates normal sinus rhythm 90s to 100, respiratory rate 10-15 -Severe sepsis has significantly improved -CT angiogram shows progressive right upper lobe lateral consolidation, secondary consolidation more inferiorly in the anterior segment the right upper lobe which has progressed, increasing size of mediastinal and right hilar lymph nodes -Interestingly, patient has had 5 chest CTs in the last 6 months, including 3 CT angiograms in the last 3 months -CT scan back on September 19, 2019 showed a slightly irregular pulmonary nodule in the right upper lobe measuring 9 mm new since 2018, patient is a smoker, has COPD -Differential includes postobstructive pneumonia secondary to lung cancer, although felt unlikely as patient's lung nodule was quite posterior to this consolidation -Given her immunocompromise state as she is on immunosuppressive therapy of her rheumatoid arthritis the possibility of fungal pneumonia out probably tuberculosis are significant m also concerned for the possible fungal pneumonia, and tuberculosis -As since March 19, 2020, patient has had this right upper lobe pneumonia -Given her multiple hospitalizations, she does have risk factors for healthcare associated pneumonia, and antibiotic resistance that she has been on multiple antibiotics -Rapid COVID negative, COVID RT-PCR negative Plan: -Admit patient to the intensive care unit -Continue droplet and airborne precautions for possible pulmonary tuberculosis -Sputum cultures, blood cultures, AFB culture , aspergillus antigens, urine bacterial antigens, histoplasmosis antigen -Broad-spectrum antibiotics, vancomycin, Zosyn, azithromycin hold off on antifungal agents until AFB smears come back, and a bronchoscopy is performed started voriconazole yesterday, will have to transition to a different antifungal as pharmacy is out of this medication -TB QuantiFERON pending -Serum sodium is 128 this morning, likely hypovolemic hyponatremia, slow start gentle hydration, will monitor fluid status closely in light of patient's moderate aortic stenosis -Lasix as needed, Richards catheter in place -For sinus tachycardia metoprolol 25 twice daily, heart rates are better controlled -Patient is currently 4 L nasal cannula, no retractions, no nasal flaring, no clinical evidence of impending respiratory failure -Patient is okay with intubation mechanical ventilation if required -She is a full code -Continue duo nebs, continue Solu-Medrol 40 mg IV every 8 hours -Echocardiogram shows EF of 59%, grade 1 out of 4 diastolic dysfunction, moderate aortic stenosis, difficult study -Monitor urine output closely, monitor respiratory status closely, telemetry monitoring -Pulmonary has been consulted, possible bronchoscopy on Tuesday, awaiting AFB smears -Keep patient on airborne precautions -Lovenox for DVT prophylaxis -Patient of was advised of her critical status, she wants all intervention, the closest family member is her son -Unfortunately blood cultures were not obtained by the emergency room, I have ordered them yesterday, patient was on antibiotics for 24 hours before blood cultures were drawn -Follow respiratory cultures, follow urine cultures -Follow AFB Status: Acute (2) Pneumonia involving right lung: Status: Acute Qualifiers: Lung location: upper lobe of lung Pneumonia type: due to unspecified organism Qualified Code(s): J18.9 - Pneumonia, unspecified organism (3) Diastolic heart failure: Status: Acute Qualifiers: Heart failure chronicity: chronic Qualified Code(s): I50.32 - Chronic diastolic (congestive) heart failure (4) COPD (chronic obstructive pulmonary disease): Status: Acute Qualifiers: COPD type: unspecified COPD Qualified Code(s): J44.9 - Chronic obstructive pulmonary disease, unspecified (5) Acute hypokalemia: -40 mEq of KCl Status: Acute (6) NSTEMI (non-ST elevated myocardial infarction): Likely type II supply demand ischemia Continue aspirin, statin monitor for chest pain, continue telemetry monitoring Echocardiogram ordered Status: Acute (7) Lactic acid acidosis: Status: Acute (8) Hyponatremia: -Likely secondary to dehydration, continue fluid therapy Status: Acute (9) Immunocompromised: Status: Acute (10) Sepsis: Status: Acute Qualifiers: Sepsis type: sepsis due to unspecified organism Sepsis acute organ dysfunction status: with acute organ dysfunction Severe sepsis acute organ dysfunction type: acute respiratory failure Acute respiratory failure type: with hypoxia Severe sepsis shock status: without septic shock Qualified Code(s): A41.9 - Sepsis, unspecified organism; R65.20 - Severe sepsis without septic shock; J96.01 - Acute respiratory failure with hypoxia Attestations Medical Necessity Statement*: Patient requires hospitalization, for acute on chronic respiratory failure with hypoxia secondary to right upper lobe pneumonia, concerns for fungal pneumonia and or tuberculosis Coding Level of Care Code 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 [facility] Diagnoses Acute and chronic respiratory failure with hypoxia J96.21 Pneumonia involving right lung J18.9 Lung location: upper lobe of lung Pneumonia type: due to unspecified organism Diastolic heart failure I50.32 Heart failure chronicity: chronic COPD (chronic obstructive pulmonary disease) J44.9 COPD type: unspecified COPD Acute hypokalemia E87.6 NSTEMI (non-ST elevated myocardial infarction) I21.4 Lactic acid acidosis E87.2 Hyponatremia E87.1 Immunocompromised D89.9 Sepsis A41.9; R65.20; J96.01 Sepsis type: sepsis due to unspecified organism Sepsis acute organ dysfunction status: with acute organ dysfunction Severe sepsis acute organ dysfunction type: acute respiratory failure Acute respiratory failure type: with hypoxia Severe sepsis shock status: without septic shock
[2020-04-19] MEDS: FUROsemide 10 mg/mL SDV 4mL 40 MG IVP ×2 (12:22→16:23)
--- NOTE | 2020-04-19 12:27 | PC.NURSE ---
o2 sat down crackles noted iv fluid decreased and dr tsai lasix given and ivf decreased
--- NOTE | 2020-04-19 14:26 | XRR_ITS ---
PROCEDURE INFORMATION: Exam: XR Chest, 1 View Exam date and time: 04/19/2020 2:58 PM Age: 69 years old Clinical indication: Shortness of breath; Additional info: SOB TECHNIQUE: Imaging protocol: XR of the chest Views: 1 view. COMPARISON: CR XR chest 1V portable [id number] 04/16/2020 2:36 PM FINDINGS: Lungs: There is increasing airspace opacity in the right lung concerning for progressing pneumonic infiltrate. There is also more volume loss in the right lung. Mild left basilar volume loss versus pneumonitis is noted. Pulmonary vascularity is within normal limits. Pleural space: There is slightly increased right pleural effusion/ right pleural thickening. No left pleural effusion. No pneumothorax. Heart/Mediastinum: Unremarkable. No cardiomegaly. Bones/joints: No acute abnormality. XR/XR chest 1V portable [id number] IMPRESSION: There is increasing airspace opacity in the right lung concerning for progressing pneumonic infiltrate.
[2020-04-19 15:50] LABS: ABG PH Result 7.27 (7.35-7.45); Arterial Blood Gas Hematocrit 29.2 % (37-47); Base Excess ABG 3.3 mmol/L (-2.0-2.0); Blood Gas Allen Test Pos; Blood Gas Operator Identificat GD; Blood Gas Sample Site Radial, right; Blood Gas Sample Type Arterial; HCO3 ABG 31.3 mmol/L (22-26); Oxygen Device BIPAP; PO2 ABG 86.7 mmHg (80.0-100.0)
[2020-04-19 16:40] LABS: ABG PCO2 67.6 mmHg (35-45); Blood Gas CCRB Time 1754
[2020-04-19] MEDS: azithromycin 500 MG in sodium chloride 0.9% 250 ML 250 MG IV (19:45)
[2020-04-19] MEDS: enoxaparin 40 mg/0.4 mL Syringe SUBCUT (19:46)
[2020-04-19] MEDS: mirtazapine 15 mg Tablet PO (21:11)
[2020-04-20] VITALS (51 sets, daily range): BP systolic 87–159; BP diastolic 39–111; PULSE 69–115; RESP 5–27; TEMP 36.4–36.9; O2SAT 71–100
[2020-04-20] MEDS: piperacillin-tazobactam 3.375 GM in sodium chloride 0.9% (plus) 50 ML IV (05:27)
--- NOTE | 2020-04-20 07:00 | XRR_ITS ---
PROCEDURE INFORMATION: Exam: XR Chest, 1 View Exam date and time: 04/20/2020 9:46 AM Age: 69 years old Clinical indication: Shortness of breath; Additional info: SOB TECHNIQUE: Imaging protocol: XR of the chest Views: 1 view. COMPARISON: CR (CHEST, ) 04/19/2020 2:42 PM FINDINGS: Lungs: Patchy opacities in the right lung are similar to the prior study. There is hypoaeration of the right lung also seen on the prior study. Pleural space: Right costophrenic angle is poorly visualized and a small pleural effusion cannot be excluded. Heart/Mediastinum: Unremarkable. No cardiomegaly. Bones/joints: Unremarkable. XR/XR chest 1V portable [id number] IMPRESSION: There are patchy opacities and hypoaeration of the right lung similar to the prior study.
[2020-04-20 08:32] LABS: ABG PCO2 54.6 mmHg (35-45); ABG PH Result 7.39 (7.35-7.45); HCO3 ABG 33.1 mmol/L (22-26)
[2020-04-20 08:33] LABS: Arterial Blood Gas Hematocrit 27.9 % (37-47); BIPAP 18/8; Base Excess ABG 7.1 mmol/L (-2.0-2.0); Blood Gas Allen Test POS; Blood Gas Operator Identificat GD; Blood Gas Sample Site RT RAD; Blood Gas Sample Type ART; Oxygen Device BIPAP
[2020-04-20 09:52] LABS: Basophils % 0.3 %; Eosinophils # 0.2 10^3/uL (0.0-0.8); Eosinophils % 1.8 %; Hematocrit 28.1 % (37.0-47.0); Hemoglobin 8.7 g/dL (11.5-15.3); Lymphocytes # 0.8 10^3/uL (0.8-4.8); Lymphocytes % 8.6 %; Mean Corpuscular Hemoglobin 29.3 pg (28.0-34.0); Mean Corpuscular Volume 94.6 fL (81-99); Mean Platelet Volume 10.1 fL (7.4-10.4); Monocytes # 0.6 10^3/uL (0.2-0.9); Monocytes % 6.7 %; Neutrophils # 7.18 10^3/uL (1.8-7.7); Nucleated Red Blood Cells % 0 %; Platelet Count 337 10^3/cmm (130-400); Red Blood Count 2.97 10^6/uL (4.1-5.3); Red Cell Distribution Width 16.2 % (12.1-15.1); White Blood Count 8.9 10^3/uL (4.0-10.0)
[2020-04-20] MEDS: cefepime 2,000 MG in sodium chloride 0.9% (plus) 50 ML 100 MG IV ×2 (09:53→17:13)
[2020-04-20] MEDS: metoprolol tartrate 25 mg Tablet PO ×2 (09:53→17:14)
[2020-04-20] MEDS: duloxetine 60 mg Capsule PO ×2 (09:53→17:14)
[2020-04-20] MEDS: magnesium oxide 400 mg tablet PO ×2 (09:53→17:14)
[2020-04-20] MEDS: pantoprazole DR 40 mg Tablet PO (09:54)
[2020-04-20] MEDS: gabapentin 400 mg Capsule 800 MG PO ×2 (09:54→20:13)
[2020-04-20] MEDS: ARIPiprazole 10 mg Tablet 5 MG PO (09:54)
[2020-04-20] MEDS: aspirin 81 mg Chew Tablet PO (09:54)
[2020-04-20] MEDS: levETIRAcetam 500 mg Tablet PO ×2 (09:54→17:14)
[2020-04-20] MEDS: levothyroxine 25 mcg Tablet PO (09:55)
[2020-04-20] MEDS: vancomycin 1,000 MG in sodium chloride 0.9% 250 ML 250 MG IV ×2 (10:27→19:35)
[2020-04-20 11:03] LABS: Vancomycin Trough 7.8 ug/mL (10-15)
[2020-04-20 11:11] LABS: Procalcitonin 0.66 ng/mL (0-0.5)
[2020-04-20 11:22] LABS: Alanine Aminotransferase 30 U/L (0-33); Albumin Level 2.9 g/dL (3.5-5.2); Alkaline Phosphatase 157 IU/L (35-105); Anion Gap 14.6 (5-19); Aspartate Amino Transferase 47 U/L (0-32); Blood Urea Nitrogen 19 mg/dL (8-23); C Reactive Protein 179.2 mg/L (0.0-4.9); Calcium 7.9 mg/dL (8.5-10.5); Carbon Dioxide 29 mmol/L (22-29); Chloride 92 mmol/L (98-107); Globulin 3.3 g/dL (1.3-4.6); Glomerular Filtration Rate 99.4 mL/min (90-130); Glucose 163 mg/dL (65-115); Magnesium 2.1 mg/dL (1.7-2.3); Osmolality Calculated 272 mOsm/kg (285-295); Phosphorus 2.1 mg/dL (2.5-4.5); Potassium 4.6 mmol/L (3.5-5.1); Sodium 131 mmol/L (136-145); Total Bilirubin 0.3 mg/dL (0.15-1.2); Total Protein 6.2 g/dL (6.6-8.7)
--- NOTE | 2020-04-20 12:38 | PC.NURSE ---
weaned back to 4lnc at this time awaken and am brk served up in bed and watching tv at this time
--- NOTE | 2020-04-20 13:18 | PC.NURSE ---
o2 sat remain 88 to 92 at this time watching tv with no distress noted confusion remains
--- NOTE | 2020-04-20 13:20 | PM.PN ---
Subjective Subjective: Interval history: Yesterday afternoon, patient had episodes of respiratory distress, she was retaining CO2, she received 80 mg of Lasix, she did diurese roughly 3 L, but did continue to have episodes of respiratory distress, requiring BiPAP placement, she did well with BiPAP overnight and remained afebrile, map greater than 65, this morning she was examined on BiPAP, she does have diffuse wheezing, but states that she is doing okay on BiPAP, no chest pain, no lightheadedness, no dizziness, no fevers, no chills, continues to have a cough, in the afternoon, she was transitioned to 4 L nasal cannula Vitals/I&O/Wt Last Vital Signs Temp 98 F 04/20/20 12:00 Pulse 82 04/20/20 13:00 Resp 21 H 04/20/20 13:00 BP 103/70 04/20/20 13:00 Pulse Ox 90 04/20/20 13:00 04/19/20 04/20/20 04/20/20 22:59 06:59 14:59 Intake Total 600 / 1550 100 / 1650 100 / 100 Output Total 1625 / 1625 850 / 2475 1700 / 1700 Balance -1025 / -75 -750 / -825 -1600 / -1600 Physical Exam Const: COMMON NORMALS: no acute distress and patient oriented x3 HENMT: COMMON NORMALS: normocephalic HEAD & SCALP: normocephalic Neck/C-Spine: COMMON NORMALS: no JVD Resp: COMMON NORMALS: normal respiratory effort, No retractions and No use of accessory muscles AUSCULTATION: wheezes Cardio: COMMON NORMALS: no JVD, regular rate, regular rhythm, S1 normal heart sound present and S2 normal heart sound present RATE: regular rate RHYTHM: regular rhythm HEART SOUNDS: S1 normal heart sound present and S2 normal heart sound present GI: COMMON NORMALS: Normal to inspection, nondistended, normoactive bowel sounds present, Soft to palpation, non-tender, No hepatosplenomegaly present, no masses and no bruits PALPATION: Yes Soft to palpation and Yes No hepatosplenomegaly present Extremity: COMMON NORMALS: capillary refill normal, no clubbing, cyanosis or edema, no calf tenderness and no pedal edema Neuro: COMMON NORMALS: patient oriented x3 Psych: COMMON NORMALS: mental status grossly normal Urinary Catheter Management^: Richards: Cath Placed During This Visit: yes Reason for Continuing Indwelling Catheter: Accurate Measurement of Urinary Output in Critically Ill Patients Urinary Catheter Date of Insertion: 04/17/20 Urinary Catheter Time of Insertion: 08:50 Data : 04/20/20 06:16 04/20/20 10:23 Micro: Microbiology 04/18/20 13:30 Mycobacterial Smear - Preliminary Sputum - Expectorated Sputum 04/18/20 02:30 Mycobacterial Smear - Preliminary Sputum - Expectorated Sputum 04/17/20 18:00 Mycobacterial Smear - Preliminary Body Fluids - Bronchial 04/16/20 10:35 Gram Stain - Final Sputum - Expectorated Sputum Sputum Culture - Final 04/18/20 11:24 Blood Culture - Preliminary Blood NEGATIVE TO DATE 04/18/20 11:20 Blood Culture - Preliminary Blood NEGATIVE TO DATE A&P Assessment and plan (1) Acute and chronic respiratory failure with hypoxia: -Secondary to right upper lobe pneumonia -But there are significant concerns for fungal pneumonia and/or pulmonary tuberculosis -White blood cell count 16.0, pro-Cezar 1.30, vancomycin trough 4.9, heart rates normal sinus rhythm 90s to 100, respiratory rate 10-15 -Severe sepsis has significantly improved -CT angiogram shows progressive right upper lobe lateral consolidation, secondary consolidation more inferiorly in the anterior segment the right upper lobe which has progressed, increasing size of mediastinal and right hilar lymph nodes -Interestingly, patient has had 5 chest CTs in the last 6 months, including 3 CT angiograms in the last 3 months -CT scan back on September 19, 2019 showed a slightly irregular pulmonary nodule in the right upper lobe measuring 9 mm new since 2018, patient is a smoker, has COPD -Differential includes postobstructive pneumonia secondary to lung cancer, although felt unlikely as patient's lung nodule was quite posterior to this consolidation -Given her immunocompromise state as she is on immunosuppressive therapy of her rheumatoid arthritis the possibility of fungal pneumonia out probably tuberculosis are significant m also concerned for the possible fungal pneumonia, and tuberculosis -As since March 19, 2020, patient has had this right upper lobe pneumonia -Given her multiple hospitalizations, she does have risk factors for healthcare associated pneumonia, and antibiotic resistance that she has been on multiple antibiotics -Rapid COVID negative, COVID RT-PCR negative Plan: -Admit patient to the intensive care unit -Likely episodes of respiratory distress yesterday were likely secondary to hypercarbia, and as she was placed on BiPAP she blew off her carbon dioxide, and improved, doing better this morning, PCO2 54.6, continue intermittent BiPAP during the day if required, hold off on oxycodone for pain -Continue droplet and airborne precautions for possible pulmonary tuberculosis -Sputum cultures, blood cultures, urine bacterial antigen have been negative so far -3 AFB smears have been negative so far, cultures will takes up to 6 to 8 weeks -TB QuantiFERON gold pending -Histoplasma antigen pending -Broad-spectrum antibiotics, vancomycin, azithromycin, stop Zosyn, add cefepime for additional coverage -As patient is doing well on 4 L, hold off on adding antifungals for now -I spoke to Dr. Sandra, plan on doing bronchoscopy tomorrow, n.p.o. midnight -Hemoglobin has decreased to 8.7 today, no significant cardiac history, transfuse if hemoglobin less than 7 -Serum sodium is 131 this morning, likely hypovolemic hyponatremia, hold off on IV hydration -Lasix as needed, received 80 mg of Lasix yesterday, -3 L, hold off on diuresis today, Richards catheter in place -For sinus tachycardia metoprolol 25 twice daily, heart rates are better controlled -Patient is currently 4 L nasal cannula, -Patient is okay with intubation mechanical ventilation if required -She is a full code -Continue duo nebs, continue Solu-Medrol 40 mg IV every 8 hours -Echocardiogram shows EF of 59%, grade 1 out of 4 diastolic dysfunction, moderate aortic stenosis, difficult study -Monitor urine output closely, monitor respiratory status closely, telemetry monitoring -Pulmonary has been consulted, bronchoscopy tomorrow -Keep patient on airborne precautions -Lovenox for DVT prophylaxis -Patient of was advised of her critical status, she wants all intervention, the closest family member is her son -Follow respiratory cultures, follow urine cultures, follow blood cultures -Follow AFB Status: Acute (2) Pneumonia involving right lung: Status: Acute Qualifiers: Lung location: upper lobe of lung Pneumonia type: due to unspecified organism Qualified Code(s): J18.9 - Pneumonia, unspecified organism (3) Diastolic heart failure: Status: Acute Qualifiers: Heart failure chronicity: chronic Qualified Code(s): I50.32 - Chronic diastolic (congestive) heart failure (4) COPD (chronic obstructive pulmonary disease): Status: Acute Qualifiers: COPD type: unspecified COPD Qualified Code(s): J44.9 - Chronic obstructive pulmonary disease, unspecified (5) Acute hypokalemia: -40 mEq of KCl Status: Acute (6) NSTEMI (non-ST elevated myocardial infarction): Likely type II supply demand ischemia Continue aspirin, statin monitor for chest pain, continue telemetry monitoring Echocardiogram ordered Status: Acute (7) Lactic acid acidosis: Status: Acute (8) Hyponatremia: -Likely secondary to dehydration, continue fluid therapy Status: Acute (9) Immunocompromised: Status: Acute (10) Sepsis: Status: Acute Qualifiers: Sepsis type: sepsis due to unspecified organism Sepsis acute organ dysfunction status: with acute organ dysfunction Severe sepsis acute organ dysfunction type: acute respiratory failure Acute respiratory failure type: with hypoxia Severe sepsis shock status: without septic shock Qualified Code(s): A41.9 - Sepsis, unspecified organism; R65.20 - Severe sepsis without septic shock; J96.01 - Acute respiratory failure with hypoxia (11) Anemia: Status: Acute Attestations Medical Necessity Statement*: Patient requires hospitalization, for acute respiratory failure with hypoxia, proceeding to bronchoscopy tomorrow Coding Level of Care Code Acute [employer] for [facility] Diagnoses Acute and chronic respiratory failure with hypoxia J96.21 Pneumonia involving right lung J18.9 Lung location: upper lobe of lung Pneumonia type: due to unspecified organism Diastolic heart failure I50.32 Heart failure chronicity: chronic COPD (chronic obstructive pulmonary disease) J44.9 COPD type: unspecified COPD Acute hypokalemia E87.6 NSTEMI (non-ST elevated myocardial infarction) I21.4 Lactic acid acidosis E87.2 Hyponatremia E87.1 Immunocompromised D89.9 Sepsis A41.9; R65.20; J96.01 Sepsis type: sepsis due to unspecified organism Sepsis acute organ dysfunction status: with acute organ dysfunction Severe sepsis acute organ dysfunction type: acute respiratory failure Acute respiratory failure type: with hypoxia Severe sepsis shock status: without septic shock Anemia D64.9
--- NOTE | 2020-04-20 14:52 | PHA.FALL ---
A Pharmacy Consult Was Conducted For Eli Ghosh Due To: [place]oto Fall Scale Risk Level: High Fall Risk On 04/20/20 08:00 And A Medication Fall Risk Score Greater Than 10. 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 Strength of Recommendation: strong; Quality of Evidence: high duloxetine Avoid use in patients with a history of falls or fractures (unless safer alternatives are not available), as it may cause ataxia, and impaired psychomotor performance. Avoid unless safer alternatives are not available. Strength of Recommendation: strong; Quality of Evidence: high gabapentin Avoid use in patients with history of falls or fractures, unless used for seizure or mood disorders, as it may cause syncope, impaired psychomotor function or ataxia. Strength of Recommendation: strong; Quality of Evidence: high levetiracetam Avoid use in patients with history of falls or fractures, unless used for seizure or mood disorders, as it may cause syncope, impaired psychomotor function or ataxia. Strength of Recommendation: strong; Quality of Evidence: high pantoprazole Avoid scheduled use of proton pump inhibitors for longer than 8 weeks, due to risk of Clostridium difficile infection and bone loss and fractures; unless needed for high-risk patients (eg, oral corticosteroids, chronic NSAID use) erosive esophagitis, Ribeiro's esophagitis, pathological hypersecretory condition, or need for maintenance treatment (eg, due to failure of drug discontinuation or histamine-2 blockers); Recommendation: strong; Quality of Evidence: high
--- NOTE | 2020-04-20 16:00 | PC.NURSE ---
up in chair and linen change done pericare done o2 to 4lnc
--- NOTE | 2020-04-20 17:44 | PC.NURSE ---
assisted back to bed at this time on o2 at 4lnc good appetite noted
[2020-04-20] MEDS: enoxaparin 40 mg/0.4 mL Syringe SUBCUT (19:34)
[2020-04-20] MEDS: azithromycin 500 MG in sodium chloride 0.9% 250 ML 250 MG IV (19:36)
[2020-04-20] MEDS: atorvastatin 40 mg Tablet 20 MG PO (20:13)
[2020-04-20] MEDS: mirtazapine 15 mg Tablet PO (20:14)
[2020-04-21] VITALS (29 sets, daily range): BP systolic 100–201; BP diastolic 60–126; PULSE 67–117; RESP 14–35; TEMP 36.2–36.6; O2SAT 93–100
[2020-04-21] MEDS: cefepime 2,000 MG in sodium chloride 0.9% (plus) 50 ML 100 MG IV ×2 (01:14→16:25)
[2020-04-21] MEDS: vancomycin 1,000 MG in sodium chloride 0.9% 250 ML 250 MG IV (04:34)
[2020-04-21 05:33] LABS: ABG PCO2 49.3 mmHg (35-45); ABG PH Result 7.44 (7.35-7.45); Arterial Blood Gas Hematocrit 32.5 % (37-47); Base Excess ABG 7.8 mmol/L (-2.0-2.0); Blood Gas Allen Test Pos; Blood Gas Operator Identificat JB; Blood Gas Sample Site Radial, right; Blood Gas Sample Type Arterial; HCO3 ABG 33.1 mmol/L (22-26); Oxygen Device BIPAP
--- NOTE | 2020-04-21 07:00 | XR_ITS ---
WS: [id number] EXAM: AP CHEST: PORTABLE UPRIGHT DATE OF EXAM: 04/21/2020, 0631 hours COMPARISON: Chest x-rays from 02/12/2020, 04/16/2020 04/20/2020 HISTORY: Patient is 69 years old with known pneumonia. Follow-up. FINDINGS: The cardiac silhouette is normal in size. The mediastinal contours are similar. The pulmonary va scularity is normal. Chronic lung changes again demonstrated. Left lung remains clear of consolidati on. Fairly extensive pneumonia involving the left chest has definitely progressed since earlier imag ing. In correlation with the exam from one day prior appears similar. No acute bony abnormality is s een. No effusion or pneumothorax. XR/XR chest 1V portable [id number] IMPRESSION: Stable appearance to a right lung pneumonia in the last day. Definitely worse i n the last week. Continued surveillance recommended.
[2020-04-21] MEDS: pantoprazole DR 40 mg Tablet PO (08:36)
[2020-04-21] MEDS: duloxetine 60 mg Capsule PO ×2 (08:36→17:57)
[2020-04-21] MEDS: levothyroxine 25 mcg Tablet PO (08:36)
[2020-04-21] MEDS: aspirin 81 mg Chew Tablet PO (08:36)
[2020-04-21] MEDS: levETIRAcetam 500 mg Tablet PO ×2 (08:36→17:56)
[2020-04-21] MEDS: oxyCODONE-APAP 10-325 mg Tablet 1 TAB PO (08:37)
[2020-04-21] MEDS: gabapentin 400 mg Capsule 800 MG PO ×3 (08:43→21:37)
[2020-04-21] MEDS: ARIPiprazole 10 mg Tablet 5 MG PO (08:43)
[2020-04-21] MEDS: metoprolol tartrate 25 mg Tablet PO ×2 (08:43→17:57)
[2020-04-21] MEDS: magnesium oxide 400 mg tablet PO ×2 (08:44→17:57)
[2020-04-21 10:29] LABS: Basophils % 0.2 %; Hematocrit 29.5 % (37.0-47.0); Lymphocytes # 0.6 10^3/uL (0.8-4.8); Lymphocytes % 6.5 %; Mean Corpuscular HGB Conc 30.5 g/dL (30.0-36.0); Mean Corpuscular Hemoglobin 29.4 pg (28.0-34.0); Mean Corpuscular Volume 96.4 fL (81-99); Monocytes # 0.8 10^3/uL (0.2-0.9); Monocytes % 7.8 %; Neutrophils # 8.13 10^3/uL (1.8-7.7); Neutrophils % 84.3 %; Nucleated Red Blood Cells % 0 %; Platelet Count 318 10^3/cmm (130-400); Red Blood Count 3.06 10^6/uL (4.1-5.3); Red Cell Distribution Width 16.1 % (12.1-15.1); White Blood Count 9.7 10^3/uL (4.0-10.0)
[2020-04-21 10:47] LABS: Alanine Aminotransferase 23 U/L (0-33); Albumin Level 2.9 g/dL (3.5-5.2); Alkaline Phosphatase 135 IU/L (35-105); Blood Urea Nitrogen 18 mg/dL (8-23); Calcium 8.2 mg/dL (8.5-10.5); Carbon Dioxide 33 mmol/L (22-29); Chloride 99 mmol/L (98-107); Globulin 3.1 g/dL (1.3-4.6); Glomerular Filtration Rate 122.7 mL/min (90-130); Glucose 146 mg/dL (65-115); Magnesium 2.2 mg/dL (1.7-2.3); Osmolality Calculated 283 mOsm/kg (285-295); Sodium 137 mmol/L (136-145); Total Bilirubin 0.3 mg/dL (0.15-1.2)
[2020-04-21 10:49] LABS: Anion Gap 9.8 (5-19); Potassium 4.8 mmol/L (3.5-5.1)
[2020-04-21 10:50] LABS: Aspartate Amino Transferase 22 U/L (0-32)
[2020-04-21 11:06] LABS: Vancomycin Trough 22.7 ug/mL (10-15)
--- NOTE | 2020-04-21 11:22 | P.PN_ITS ---
Subjective Subjective: Interval history: no new complaints today, no acute overnight events, on NC 4lpm this morning, appears comfortbale, lost iv access, has not been able to get any iv medications incl abx this morning Medications: Reviewed: Yes Vitals/I&O/Wt Last Vital Signs Temp 98 F 04/21/20 04:00 Pulse 74 04/21/20 10:00 Resp 21 H 04/21/20 10:00 BP 143/86 04/21/20 10:00 Pulse Ox 95 04/21/20 10:00 04/20/20 04/21/20 04/21/20 22:59 06:59 14:59 Intake Total 1050 / 2200 0 / 2200 Output Total 1830 / 3530 770 / 4300 Balance -780 / -1330 -770 / -2100 Physical Exam Narrative: EXAM NARRATIVE: GEN: Awake, alert and oriented, no acute distress HEENt: on 4lpm NC CVS: S1S2 N RS: CTA B/L anteriorly Abd: Soft, nt/nd , bs+ MEAT PACKAGER: no focal neuro deficits Urinary Catheter Management^: Richards: Cath Placed During This Visit: yes Reason for Continuing Indwelling Catheter: Accurate Measurement of Urinary Output in Critically Ill Patients Urinary Catheter Date of Insertion: 04/17/20 Urinary Catheter Time of Insertion: 08:50 Data : 04/21/20 10:19 04/21/20 10:19 A&P Assessment and plan (1) Acute and chronic respiratory failure with hypoxia: Status: Acute (2) Pneumonia involving right lung: Status: Acute Qualifiers: Lung location: upper lobe of lung Pneumonia type: due to unspecified organism Qualified Code(s): J18.9 - Pneumonia, unspecified organism (3) Diastolic heart failure: Status: Acute Qualifiers: Heart failure chronicity: chronic Qualified Code(s): I50.32 - Chronic diastolic (congestive) heart failure (4) COPD (chronic obstructive pulmonary disease): Status: Acute Qualifiers: COPD type: unspecified COPD Qualified Code(s): J44.9 - Chronic obstructive pulmonary disease, unspecified (5) Acute hypokalemia: -40 mEq of KCl Status: Acute (6) NSTEMI (non-ST elevated myocardial infarction): Likely type II supply demand ischemia Continue aspirin, statin monitor for chest pain, continue telemetry monitoring Echocardiogram ordered Status: Acute (7) Lactic acid acidosis: Status: Acute (8) Hyponatremia: -Likely secondary to dehydration, continue fluid therapy Status: Acute (9) Immunocompromised: Status: Acute (10) Sepsis: Status: Acute Qualifiers: Sepsis type: sepsis due to unspecified organism Sepsis acute organ dysfunction status: with acute organ dysfunction Severe sepsis acute organ dysfunction type: acute respiratory failure Acute respiratory failure type: with hypoxia Severe sepsis shock status: without septic shock Qualified Code(s): A41.9 - Sepsis, unspecified organism; R65.20 - Severe sepsis without septic shock; J96.01 - Acute respiratory failure with hypoxia (11) Anemia: Status: Acute Qualifiers: Anemia type: unspecified type Qualified Code(s): D64.9 - Anemia, unspecified Additional A&P Information -Likely secondary to right upper lobe pneumonia -Given that patient is on leflunomide as outpatient, which is lymphodepleteing , particularly concerned for MTB. AFB smear negative x 3, cx remains pending. MTB PCR N/A, added on to quest specimen. Onky 1 specimen added on as QNS for other two. When bronch is performed, will request additional PCR testing. Alternate differentials include bacterial processes such as nocardia, stenotrophomonas vs fungal etiology, though lack of long standing neutropenia makes this less likely. Ag/GM antigen pending at this time. No fungal elements noted on sputum cx. Fungal cx from bronchoscopy tomorrow. Planned for BAL. -CT angiogram shows progressive right upper lobe lateral consolidation, secondary consolidation more inferiorly in the anterior segment the right upper lobe which has progressed, increasing size of mediastinal and right hilar lymph nodes. the later is more concerning for possible infectious process. -CT scan back on September 19, 2019 showed a slightly irregular pulmonary nodule in the right upper lobe measuring 9 mm new since 2018, patient is a smoker, has COPD, may be malignancy. -Currently on Cefepime, vancomycin and azithromycin. Change azithromycin to levaquin for atypical coverage to broaden spectrum. Continue cefepime. Will plan to d/c vancomycin once initial bronch results are obatined. -Rapid COVID negative, COVID RT-PCR negative. - D/c airborne precautions -continue steroids for now -Sputum cultures, blood cultures, urine bacterial antigen have been negative so far. Add legionella antigen -Histoplasma urine antigen pending -plan on doing bronchoscopy with BAL and possible biopsy tomorrow -Hemoglobin stable at 9 -For sinus tachycardia metoprolol 25 twice daily, heart rates are better controlled -Continue duo nebs, continue Solu-Medrol 40 mg IV every 8 hours -Echocardiogram shows EF of 59%, grade 1 out of 4 diastolic dysfunction, moderate aortic stenosis, difficult study -Monitor urine output closely, monitor respiratory status closely, telemetry monitoring -Lovenox for DVT prophylaxis - Full code Attestations Medical Necessity Statement*: bronchoscopy tomorrow, closely monitor respiratory status Coding Level of Care Code Acute [employer] Diagnoses Acute and chronic respiratory failure with hypoxia J96.21 Pneumonia involving right lung J18.9 Lung location: upper lobe of lung Pneumonia type: due to unspecified organism Diastolic heart failure I50.32 Heart failure chronicity: chronic COPD (chronic obstructive pulmonary disease) J44.9 COPD type: unspecified COPD Acute hypokalemia E87.6 NSTEMI (non-ST elevated myocardial infarction) I21.4 Lactic acid acidosis E87.2 Hyponatremia E87.1 Immunocompromised D89.9 Sepsis A41.9; R65.20; J96.01 Sepsis type: sepsis due to unspecified organism Sepsis acute organ dysfunction status: with acute organ dysfunction Severe sepsis acute organ dysfunction type: acute respiratory failure Acute respiratory failure type: with hypoxia Severe sepsis shock status: without septic shock Anemia D64.9 Anemia type: unspecified type
--- NOTE | 2020-04-21 13:12 | P.PN_ITS ---
Subjective Subjective: Interval history: Patient seen on BiPAP which was placed overnight. Took off BiPAP and placed on 2 L O2 patient saturating more than 99%. ABG showed 7.4 4/49/145/33. Reported feeling better and not in respiratory distress. Otherwise hemodynamically stable Medications: Reviewed: Yes Vitals/I&O/Wt Last Vital Signs Temp 98 F 04/21/20 04:00 Pulse 78 04/21/20 12:00 Resp 20 H 04/21/20 12:00 BP 139/90 04/21/20 12:00 Pulse Ox 99 04/21/20 12:00 04/20/20 04/21/20 04/21/20 22:59 06:59 14:59 Intake Total 1050 / 2200 0 / 2200 Output Total 1830 / 3530 770 / 4300 Balance -780 / -1330 -770 / -2100 Physical Exam Narrative: EXAM NARRATIVE: General: alert, NAD HEENT: conj clear, EOMI, PERRL, mmm, Neck: supple, no meningismus Heme: no cervical LAP Pulmonary: Decreased bilateral expiratory wheeze compared to previous exam 3 days ago Cardiovascular: rrr, nl s1s2, no mrg Abdomen: soft, nt, nd, no r/g, bs+ Extremities: pulses +, no edema, no c/c : no CVA tenderness Skin: intact, no rash MSK: no back or neck pain Neurologic: grossly intact Urinary Catheter Management^: Richards: Cath Placed During This Visit: yes Reason for Continuing Indwelling Catheter: Accurate Measurement of Urinary Output in Critically Ill Patients Urinary Catheter Date of Insertion: 04/17/20 Urinary Catheter Time of Insertion: 08:50 Data : 04/21/20 10:19 04/21/20 10:19 A&P Assessment and plan (1) Acute and chronic respiratory failure with hypoxia: Status: Acute (2) Pneumonia involving right lung: Status: Acute Qualifiers: Lung location: upper lobe of lung Pneumonia type: due to unspecified organism Qualified Code(s): J18.9 - Pneumonia, unspecified organism (3) Diastolic heart failure: Status: Acute Qualifiers: Heart failure chronicity: chronic Qualified Code(s): I50.32 - Chronic diastolic (congestive) heart failure (4) COPD (chronic obstructive pulmonary disease): Status: Acute Qualifiers: COPD type: unspecified COPD Qualified Code(s): J44.9 - Chronic obstructive pulmonary disease, unspecified (5) Lactic acid acidosis: Status: Acute (6) Hyponatremia: Status: Acute (7) Immunocompromised: Status: Acute (8) Sepsis: Status: Acute Qualifiers: Sepsis type: sepsis due to unspecified organism Sepsis acute organ dysfunction status: with acute organ dysfunction Severe sepsis acute organ dysfunction type: acute respiratory failure Acute respiratory failure type: with hypoxia Severe sepsis shock status: without septic shock Qualified Code(s): A41.9 - Sepsis, unspecified organism; R65.20 - Severe sepsis without septic shock; J96.01 - Acute respiratory failure with hypoxia #RUL pneumonia in immunocompromised patient on Biologic agents: HAP -rule out fungal/TB -Clinically improving: Currently down to 2 L and saturating 96 to 97% -Improving leukocytosis today 9 K , - lactic acid 1.6, pro-Cezar 1.97, on admission -CT angiogram shows progressive RUL lateral consolidation, secondary consolidat ion more inferiorly in the anterior segment the right upper lobe which has progressed, increasing size of mediastinal and right hilar lymph nodes -may be reactive; compared to 03/18/2020 CT chest -Interestingly, patient has had 5 chest CTs in the last 6 months, including 3 CT angiograms in the last 3 months -Although high pro-Cezar suggestive of bacterial pneumonia-patient being on immunosuppressants must rule out fungal/TB (risk factors also include long-term exposure) -Differential includes postobstructive pneumonia secondary to lung cancer -Rapid COVID and PCR negative -Cultures so far negative -DC airborne isolation as 3 AFB sputum smears preliminary is negative; AFB PCR is pending -Aspergillus antigens, urine histoplasma antigen, TB QuantiFERON, galactomannan results pending -bronchoscopy tomorrow morning to obtain samples for BAL, wash +/_biopsies -Explained patient and son Mr. Powers in detail about the risks, benefits and complications of bronchoscopy and related procedures including biopsies-patient verbalized understanding and acknowledges the complications could be respiratory failure needing intubation and mechanical ventilation, pneumothorax requiring chest tube, bleeding. -Continue vancomycin, cefepime, azithromycin, -Monitor respiratory status and saturation #COPD -Significant emphysema on CT chest - continue duo nebs and start steroids -Keep patient on airborne precautions #9 mm spiculated irregular lung nodule right upper lobe on CT chest September 2019 --CT scan back on September 19, 2019 showed a slightly irregular pulmonary nodule in the RUL measuring 9 mm new since 2018, patient is a smoker, has COPD -bronchoscopy will get BAL for cytology and if possible biopsies #Chronic smoker -Recommended to quit smoking and she agreed to think about it Rest of the medical conditions as managed by primary team Medical condition, labs, investigations, medications, counseling regarding med ication compliance, side effects, importance of follow-up appointments, smoking- its adverse effects and importance of cessation and plan of care-everything explained in detail to the patient. Patient verbalized understanding and agreed with the plan of care. Recommendations conveyed to Dr. Duarte (Hospitalist) Thanks for the consult- will follow-up Attestations Medical Necessity Statement*: Hypoxemic respiratory failure secondary to right upper lobe pneumonia/9 mm irregular spiculated nodule in patient on immunosuppressants Time Spent in Patient Care: Greater than 35 minutes (>than 50% of time spent in counselling and/or direct pt care on unit) . 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 for Chg Fwd Patient Type Established History Expanded Problem Focused Exam Detailed Medical Decision Making Moderate Complexity Diagnoses Acute and chronic respiratory failure with hypoxia J96.21 Pneumonia involving right lung J18.9 Lung location: upper lobe of lung Pneumonia type: due to unspecified organism Diastolic heart failure I50.32 Heart failure chronicity: chronic COPD (chronic obstructive pulmonary disease) J44.9 COPD type: unspecified COPD Lactic acid acidosis E87.2 Hyponatremia E87.1 Immunocompromised D89.9 Sepsis A41.9; R65.20; J96.01 Sepsis type: sepsis due to unspecified organism Sepsis acute organ dysfunction status: with acute organ dysfunction Severe sepsis acute organ dysfunction type: acute respiratory failure Acute respiratory failure type: with hypoxia Severe sepsis shock status: without septic shock Time Spent (min) 45
[2020-04-21 15:29] LABS: Quantiferon Mitogen 8.25 IU/mL; Quantiferon Nil 0.02 IU/mL; Quantiferon Plus TB1 <0.00 IU/mL; Quantiferon Plus TB2 <0.00 IU/mL; Quantiferon TB Gold NEGATIVE (NEGATIVE)
--- NOTE | 2020-04-21 16:34 | PM.ACPR ---
Procedure/Consent Time out: Time Out Performed: Yes Consent: Consent for Procedure: Consent obtained from patient Procedure Narrative: right femoral CVC placed under aseptic precautions,. pt tolerated procedure well, no complications. Line placed due to poor iv access Acute Procedures Epistaxis Control: Time out performed: Yes
[2020-04-21] MEDS: lidocaine 1% INJ 20 mL (17:27)
[2020-04-21] MEDS: mirtazapine 15 mg Tablet PO (21:36)
[2020-04-22] VITALS (39 sets, daily range): BP systolic 112–220; BP diastolic 70–173; PULSE 69–131; RESP 4–34; TEMP 35.6–36.7; O2SAT 81–100
--- NOTE | 2020-04-22 | SCC_ITS ---
PROCEDURE DONE: bronchoscopy 51.9 seconds of fluoroscopic guidance, for a cumulative dose of 4.77 mGy, was provided to Dr. Sandra by the radiology department. C-arm images of the chest were saved for the patient's permanent record. MARKD
[2020-04-22 04:08] LABS: Basophils % 0.1 %; Hematocrit 26.5 % (37.0-47.0); Hemoglobin 8.4 g/dL (11.5-15.3); Lymphocytes # 0.8 10^3/uL (0.8-4.8); Lymphocytes % 9.6 %; Mean Corpuscular HGB Conc 31.7 g/dL (30.0-36.0); Mean Corpuscular Volume 94.6 fL (81-99); Mean Platelet Volume 8.9 fL (7.4-10.4); Monocytes # 0.6 10^3/uL (0.2-0.9); Monocytes % 7.7 %; Neutrophils # 6.57 10^3/uL (1.8-7.7); Neutrophils % 80.8 %; Nucleated Red Blood Cells % 0 %; Platelet Count 366 10^3/cmm (130-400); Red Cell Distribution Width 16.1 % (12.1-15.1); White Blood Count 8.1 10^3/uL (4.0-10.0)
[2020-04-22 04:42] LABS: Alanine Aminotransferase 22 U/L (0-33); Albumin Level 2.8 g/dL (3.5-5.2); Alkaline Phosphatase 137 IU/L (35-105); Aspartate Amino Transferase 20 U/L (0-32); Blood Urea Nitrogen 18 mg/dL (8-23); Carbon Dioxide 31 mmol/L (22-29); Chloride 100 mmol/L (98-107); Globulin 2.9 g/dL (1.3-4.6); Glomerular Filtration Rate 122.7 mL/min (90-130); Glucose 149 mg/dL (65-115); Magnesium 2.3 mg/dL (1.7-2.3); Osmolality Calculated 287 mOsm/kg (285-295); Sodium 139 mmol/L (136-145); Total Bilirubin 0.3 mg/dL (0.15-1.2); Total Protein 5.7 g/dL (6.6-8.7)
[2020-04-22 04:43] LABS: Anion Gap 12.9 (5-19); Potassium 4.9 mmol/L (3.5-5.1)
[2020-04-22 05:47] LABS: ABG PCO2 48.3 mmHg (35-45); ABG PH Result 7.46 (7.35-7.45); Arterial Blood Gas Hematocrit 32.7 % (37-47); Base Excess ABG 9.6 mmol/L (-2.0-2.0); Blood Gas Allen Test Pos; Blood Gas Operator Identificat JB; Blood Gas Sample Site Radial, right; Blood Gas Sample Type Arterial; HCO3 ABG 34.6 mmol/L (22-26); Oxygen Device BIPAP; PO2 ABG 94.1 mmHg (80.0-100.0)
--- NOTE | 2020-04-22 06:55 | SC_ITS ---
WS: [id number] EXAM: FLUOROSCOPY FOR VISUALIZATION DURING BRONCHOSCOPY DATE OF EXAMINATION: 04/22/2020, 0828 hours COMPARISON: Chest x-ray from 04/21/2020 HISTORY: 69 years old with right lung pneumonia. FLUOROSCOPY TIME: 51.9 seconds. FINDINGS: Fluoroscopy provided to the pulmonology service for visualization during bronchoscopy. Fluoroscopic s pot images show the bronchoscope within the right upper and mid right hemithorax bronchial airways. P lease see operative report for further details. SC/C-arm FL for Bronchoscopy IMPRESSION: Fluoroscopy provided to the pulmonology service for visualization during intrao perative procedure.
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
[2020-04-22] MEDS: lidocaine 1% INJ 20 mL XX (08:20)
[2020-04-22] MEDS: hyDRALAzine 20 mg/mL INJ 1 mL (09:41)
--- NOTE | 2020-04-22 09:53 | P.PN_ITS ---
Subjective Subjective: Interval history: no acute overnight events. Underwent bronchoscopy this morning. Tolerated procedure well. Multiple specimens have been collected. Sent to microbiology and pathology. Currently on BiPAP upon returning. Slightly hypertensive with SBP up to 180s today. Added hydralazine. Medications: Reviewed: Yes Vitals/I&O/Wt Last Vital Signs Temp 96.9 F L 04/22/20 07:05 Pulse 100 04/22/20 09:16 Resp 31 H 04/22/20 07:05 BP 176/120 04/22/20 09:16 Pulse Ox 100 04/22/20 09:16 04/21/20 04/22/20 04/22/20 22:59 06:59 14:59 Intake Total 290 / 290 50 / 340 Output Total 400 / 400 400 / 800 Balance -110 / -110 -350 / -460 Physical Exam Narrative: EXAM NARRATIVE: GEN: Awake, alert and oriented, no acute distress CVS: S1S2 N RS: CTA B/L anteriorly Abd: Soft, nt/nd , bs+ IRRIGATION SERVICE TECHNICIAN: no focal neuro deficits Urinary Catheter Management^: Richards: Cath Placed During This Visit: yes Reason for Continuing Indwelling Catheter: Accurate Measurement of Urinary Outpu t in Critically Ill Patients Urinary Catheter Date of Insertion: 04/17/20 Urinary Catheter Time of Insertion: 08:50 Data : 04/22/20 03:30 04/22/20 03:30 Micro: Microbiology 04/19/20 04:00 Mycobacterial Smear - Preliminary Sputum - Expectorated Sputum 04/18/20 18:10 Mycobacterial Smear - Preliminary Sputum - Expectorated Sputum 04/21/20 11:50 Legionella Urinary Antigen - Final Urine Catheterized A&P Assessment and plan (1) Acute and chronic respiratory failure with hypoxia: Status: Acute (2) Pneumonia involving right lung: Status: Acute Qualifiers: Lung location: upper lobe of lung Pneumonia type: due to unspecified organism Qualified Code(s): J18.9 - Pneumonia, unspecified organism (3) Diastolic heart failure: Status: Acute Qualifiers: Heart failure chronicity: chronic Qualified Code(s): I50.32 - Chronic diastolic (congestive) heart failure (4) COPD (chronic obstructive pulmonary disease): Status: Acute Qualifiers: COPD type: unspecified COPD Qualified Code(s): J44.9 - Chronic obstructive pulmonary disease, unspecified (5) Acute hypokalemia: -40 mEq of KCl Status: Acute (6) NSTEMI (non-ST elevated myocardial infarction): Likely type II supply demand ischemia Continue aspirin, statin monitor for chest pain, continue telemetry monitoring Echocardiogram ordered Status: Acute (7) Lactic acid acidosis: Status: Acute (8) Hyponatremia: -Likely secondary to dehydration, continue fluid therapy Status: Acute (9) Immunocompromised: Status: Acute (10) Sepsis: Status: Acute Qualifiers: Sepsis type: sepsis due to unspecified organism Sepsis acute organ dysfunction status: with acute organ dysfunction Severe sepsis acute organ dysfunction type: acute respiratory failure Acute respiratory failure type: with hypoxia Severe sepsis shock status: without septic shock Qualified Code(s): A41.9 - Sepsis, unspecified organism; R65.20 - Severe sepsis without septic shock; J96.01 - Acute respiratory failure with hypoxia (11) Anemia: Status: Acute Qualifiers: Anemia type: unspecified type Qualified Code(s): D64.9 - Anemia, unspecified Additional A&P Information -Acute respiratory failure likely secondary to right upper lobe pneumonia -CT angiogram shows progressive right upper lobe lateral consolidation, secondary consolidation more inferiorly in the anterior segment the right upper lobe which has progressed, increasing size of mediastinal and right hilar lymph nodes. the later is more concerning for possible infectious process. -CT scan back on September 19, 2019 showed a slightly irregular pulmonary nodule in the right upper lobe measuring 9 mm new since 2018, patient is a smoker, has COPD, may be malignancy. -Given that patient is on leflunomide as outpatient, which is lymphodepleteing , particularly concerned for MTB. Sputum AFB smear negative x 3, cx remains pending. MTB PCR N/A, added on to quest specimen. Only 1 specimen added on as QNS for other two. Status post bronchoscopy today to determine etiology. Aspergillus galactomannan antigen from BAL, bacterial and fungal culture and Gram stain, actinomyces culture, AFB culture sent from BAL specimen. Additionally lung biopsy was also taken from 3 lobes. Fungal and AFB staining have been added on after discussion with pathology lab. MTB PCR also sent from the specimen additionally. Alternate differentials include bacterial processes such as nocardia, stenotrophomonas vs fungal etiology, though lack of long standing neutropenia makes this less likely. Ag/GM antigen from serum pending at this time. No fungal elements noted on sputum cx. -Currently on Cefepime, vancomycin and levaquin. Discontinue vancomycin today -Rapid COVID negative, COVID RT-PCR negative. - D/c airborne precautions -continue steroids for now -Sputum cultures, blood cultures, urine bacterial antigen and Legionella antigen have been negative. -Histoplasma urine antigen pending -Hemoglobin trended down, however relatively stable at 8.4. -For sinus tachycardia metoprolol 25 twice daily, heart rates are better controlled -Add hydralazine as needed for hypertension currently -Continue duo nebs, continue Solu-Medrol 40 mg IV every 8 hours -Echocardiogram shows EF of 59%, grade 1 out of 4 diastolic dysfunction, moderate aortic stenosis, difficult study -Monitor urine output closely, monitor respiratory status closely, telemetry monitoring -Lovenox for DVT prophylaxis - Full code Attestations Medical Necessity Statement*: Awaiting bronchoscopy results, optimization of respiratory status. Coding Level of Care Code Acute Medical Records Auditor for [facility] Fwd Diagnoses Acute and chronic respiratory failure with hypoxia J96.21 Pneumonia involving right lung J18.9 Lung location: upper lobe of lung Pneumonia type: due to unspecified organism Diastolic heart failure I50.32 Heart failure chronicity: chronic COPD (chronic obstructive pulmonary disease) J44.9 COPD type: unspecified COPD Acute hypokalemia E87.6 NSTEMI (non-ST elevated myocardial infarction) I21.4 Lactic acid acidosis E87.2 Hyponatremia E87.1 Immunocompromised D89.9 Sepsis A41.9; R65.20; J96.01 Sepsis type: sepsis due to unspecified organism Sepsis acute organ dysfunction status: with acute organ dysfunction Severe sepsis acute organ dysfunction type: acute respiratory failure Acute respiratory failure type: with hypoxia Severe sepsis shock status: without septic shock Anemia D64.9 Anemia type: unspecified type
[2020-04-22] MEDS: metoprolol tartrate 1 mg/1 mL SDV 5 mL 2.5 MG IV (10:10)
[2020-04-22] MEDS: FUROsemide 10 mg/mL SDV 4mL 40 MG IVP (10:25)
--- NOTE | 2020-04-22 10:35 | PC.NURSE ---
Pt returned from scheduled bronchoscopy at about 9am. She was transported into her room by OR staff. She was placed on BiPAP and resting comfortably at that time; sleepy but arousable. BP elevated (185/105) and HR elevated (112bpm, sinus tachycardia), otherwise VSS; Dr. Wiseman notified. See orders. At around 10am, pt found to be restless, sitting up in bed, with bed pad soiled with stool. Full bed bath given with bath wipes; gown and linens changed. Restlessness continued to worsen during bed bath. HR gradually increased to 160, and pt began complaining of shortness of breath. BP still elevated after hydralazine administration. SpO2 in the 70's and 80's on BiPAP but with poor waveform due to restlessness. Lung sounds demonstrate wheezing in all lung pettit. Dr. Wiseman notified, and assessed pt at bedside. RT also called to bedside. See orders and NOV. Stat chest x-ray obtained, which showed a small right apical pneumothorax, per Dr. Wiseman. Dr. Wiseman updated Dr. Sandra via telephone. After nebulizer treatment and multiple IV medications administered, pt appeared more relaxed and verbalized some relief. She is now more coherent and answering questions. She is oriented to person and place. BP and HR now more stabilized Will monitor closely.
[2020-04-22] MEDS: ipratropium-albuterol 3 mL Neb INHALATION (10:43)
--- NOTE | 2020-04-22 10:59 | PM.OP ---
Operative Report Date of procedure: April 22, 2020 Procedure:BRONCHOSCOPY with BAL, biopsy and brushing Pre-Operative Diagnosis: Pneumonia/malignancy Post-Operative Diagnosis: Same Indication:? Postobstructive pneumonia with possible mucous plugging Anesthesia: General anesthesia sevoflurane and 250 propofol Pre-procedure Evaluation: Patient was evaluated clinically and ancillary testing reviewed. 3 preliminary AFB smears are negative; 2 times covid testing negative ASA: Malampati score: unable to evaluate due to presence of LMA Consent: Consents were obtained from patient/MPOA and placed in the chart Procedure Details: Time out was performed by the procedure team and nursing staff. Vent support maintained on Fio2 100. The bronchoscope was introduced through the LMA. 1% lidocaine instilled and scope passed through vocal cords. Vocal cords visualized and both are mobile. Proximal trachea appear normal but distal trachea is obscured with thick mucus secretions. After suctioning again 1% lidocaine instilled in both right and left main stem. The left bronchial tree was assessed to include the left mainstem bronchus, STEPHEN, Lingula, and LLL bronchi to the segmental level which appeared normal without any endobronchial lesions except some bronchomalacia in the left lower lobe segments noted. The right bronchial tree was assessed to include the right mainstem bronchus, RBI, and RUL/RML/RLL bronchi to the segmental level. Copious thick secretions noted coming from right upper lobe which were suctioned right away. All other segments subsegments on right side appeared normal without any endobronchial lesions and normal mucosa. BAL, brushings, transbronchial biopsies taken from all 3 subsegments of right upper lobe. Cold saline instilled in all 3 subsegments to prevent overt bleeding. The bronchoscope was then removed and the procedure terminated. Estimated Blood Loss: 5 mL Specimens: BAL, brushings, transbronchial biopsies from right upper lobe sent for bacterial cultures, fungal staining, AFB 3 smear, culture, PCR, Aspergillus, histoplasma, nocardia, actinomyces, cytology. We will follow-up Complications: Patient tolerated procedure well. However 2-hour postprocedure x-ray showed small pneumothorax < 1 cm and subsequent x-ray 4 hours post procedure did not show any further worsening. Disposition: LMA removed and patient was sent back to ICU. Patient tolerated the procedure well. Jung Sandra MD Pulmonary critical care medicine [facility] Procedure Done: 1. Bronchoscopy with Airway clearance of Tracheobronchial tree 2. Bronchoscopy with BAL 3. Bronchoscopy with Brushings, 4. Brochoscopy with Transbronchial biopsies Condition: stable Disposition: ICU
--- NOTE | 2020-04-22 11:00 | XR_ITS ---
WS: [id number] EXAM: AP CHEST: PORTABLE UPRIGHT DATE OF EXAM: 04/22/2020, 1030 hours COMPARISON: Bronchoscopy examination from the same date. HISTORY: Patient is 69 years old with shortness of breath status post bronchoscopy. FINDINGS: The cardiac silhouette is normal in size. The mediastinal contours are normal. The pulmonary vas cularity is normal. Chronic lung changes are demonstrated. Infiltrate within the right lung again se en. There has been interval development of a pneumothorax involving the right lung apex with separati on of the pleural surfaces at the apex by may be 1 cm. No mediastinal shift. No tension pneumothorax noted. Trace right pleural fluid. No acute bony abnormality is seen. XR/XR chest 1V portable [id number] IMPRESSION: Interval development of a right chest pneumothorax occupying less than 5% of th e chest cavity. Critical value findings discussed with the patient's nurse Crystal in the intens dawn care unit at the time of dictation 04/22/2020, 1036 hours
[2020-04-22] MEDS: metoprolol tartrate 25 mg Tablet PO (12:40)
[2020-04-22] MEDS: levoFLOXacin 750 mg Tablet PO (12:51)
--- NOTE | 2020-04-22 13:00 | XR_ITS ---
WS: [id number] EXAM: AP CHEST: PORTABLE UPRIGHT DATE OF EXAM: 04/22/2020, 1323 hours COMPARISON: Chest x-ray from 1030 hours on the same date. HISTORY: Patient is 69 years old with respiratory distress. Follow-up pneumothorax.. FINDINGS: The cardiac silhouette is normal in size. The mediastinal contours are similar.. The pulmonary v ascularity is normal. Chronic lung changes demonstrated. Left lung remains clear of consolidation. R ight-sided pneumothorax again seen. There has not been extensive interval change. Areas of right lung infiltrate involving the upper lobe as well as suspected superior aspect of the right lower lobe not ed. No mediastinal shift. No large effusion. No acute bony abnormality is seen. XR/XR chest 1V portable [id number] IMPRESSION: No real change in small right-sided pneumothorax in the interim. Right lung inf iltrate similar.
[2020-04-22] MEDS: ondansetron 2 mg/ML SDV 2 mL 4 MG IVP (13:32)
[2020-04-22] MEDS: gabapentin 400 mg Capsule 800 MG PO ×2 (16:23→21:14)
[2020-04-22] MEDS: cefepime 2,000 MG in sodium chloride 0.9% (plus) 50 ML 100 MG IV ×2 (16:24)
[2020-04-22] MEDS: levETIRAcetam 500 mg Tablet PO (17:08)
[2020-04-22] MEDS: duloxetine 60 mg Capsule PO (17:08)
[2020-04-22] MEDS: magnesium oxide 400 mg tablet PO (17:08)
[2020-04-22] MEDS: oxyCODONE-APAP 10-325 mg Tablet 1 TAB PO (19:33)
[2020-04-22 20:40] LABS: Aspergillus AG,EIA,Serum NOT DETECTED; Aspergillus Galactomannan Inde <0.50
--- NOTE | 2020-04-22 20:43 | PC.NURSE ---
Addendum entered by Stephanie Hatfield RN 04/22/20 20:48: Time correction: Report was received at 1845 Original Note: Received bedside report on patient from Olya cMcarthy RN. Assumed care at this time.
[2020-04-22] MEDS: atorvastatin 40 mg Tablet 20 MG PO (21:13)
[2020-04-22] MEDS: mirtazapine 15 mg Tablet PO (21:14)
--- NOTE | 2020-04-22 22:10 | PC.NURSE ---
Dr Sandra called to check on status of patient. Informed Dr. Sandra that patient was requesting something to have for sleep. New order received for Ambien for onetime dose and a PXCR for in the morning.
[2020-04-22] MEDS: zolpidem 5 mg Tablet PO (22:50)
[2020-04-23] VITALS (17 sets, daily range): BP systolic 104–175; BP diastolic 56–99; PULSE 74–107; RESP 13–21; TEMP 36.3–36.6; O2SAT 3–100
--- NOTE | 2020-04-23 01:10 | PC.NURSE ---
Patients sats started dropping. Changed patient to oxygen mask and sats increased to 99.
[2020-04-23 04:00] LABS: Basophils % 0.1 %; Eosinophils % 0.1 %; Hematocrit 27.3 % (37.0-47.0); Hemoglobin 8.8 g/dL (11.5-15.3); Lymphocytes # 0.8 10^3/uL (0.8-4.8); Lymphocytes % 9.9 %; Mean Corpuscular HGB Conc 32.2 g/dL (30.0-36.0); Mean Corpuscular Hemoglobin 30.2 pg (28.0-34.0); Mean Corpuscular Volume 93.8 fL (81-99); Mean Platelet Volume 9.3 fL (7.4-10.4); Monocytes # 0.8 10^3/uL (0.2-0.9); Monocytes % 9.9 %; Neutrophils # 6.44 10^3/uL (1.8-7.7); Neutrophils % 77.6 %; Nucleated Red Blood Cells % 0 %; Platelet Count 309 10^3/cmm (130-400); Red Blood Count 2.91 10^6/uL (4.1-5.3); Red Cell Distribution Width 15.9 % (12.1-15.1); White Blood Count 8.3 10^3/uL (4.0-10.0)
--- NOTE | 2020-04-23 04:25 | XR_ITS ---
WS: [id number] EXAM: AP CHEST: PORTABLE UPRIGHT DATE OF EXAM: 04/23/2020, 0442 hours COMPARISON: Chest x-ray from one day prior as well as 04/19/2020 HISTORY: Patient is 69 years old with pulmonary infiltrate. Follow-up infiltrate and pneumothorax. FINDINGS: The cardiac silhouette is normal in size. The mediastinal contours are normal. The pulmonary vas cularity is normal. Left lung remains clear. The right lung pneumonia has regressed since the 020 exam. Some degree of pneumonia persist. The small right apical pneumothorax is again seen. Not e xtensively changed. The amount of infiltrate within the right lung is similar to imaging from one day prior. Minimal right pleural fluid. No acute bony abnormality is seen. XR/XR chest 1V portable [id number] IMPRESSION: Regressing pneumonia since 04/19/2020. No short-term change in right lung pneumo alan. Small right pneumothorax stable.
[2020-04-23 04:27] LABS: Alanine Aminotransferase 16 U/L (0-33); Albumin Level 2.7 g/dL (3.5-5.2); Alkaline Phosphatase 114 IU/L (35-105); Blood Urea Nitrogen 22 mg/dL (8-23); Calcium 8.4 mg/dL (8.5-10.5); Carbon Dioxide 34 mmol/L (22-29); Chloride 93 mmol/L (98-107); Glomerular Filtration Rate 99.4 mL/min (90-130); Glucose 154 mg/dL (65-115); Osmolality Calculated 282 mOsm/kg (285-295); Sodium 136 mmol/L (136-145); Total Bilirubin 0.3 mg/dL (0.15-1.2); Total Protein 4.7 g/dL (6.6-8.7)
[2020-04-23 04:29] LABS: Anion Gap 13.6 (5-19); Aspartate Amino Transferase 14 U/L (0-32); Potassium 4.6 mmol/L (3.5-5.1)
--- NOTE | 2020-04-23 04:30 | PC.NURSE ---
Radiology in for PCXR. Patient up in chair after xray and watching TV. No complaints voiced at this time.
[2020-04-23 04:34] LABS: ABG PCO2 51.3 mmHg (35-45); ABG PH Result 7.48 (7.35-7.45); Arterial Blood Gas Hematocrit 30.6 % (37-47); Base Excess ABG 12.8 mmol/L (-2.0-2.0); Blood Gas Allen Test Pos; Blood Gas Sample Site Radial, right; Blood Gas Sample Type Arterial; Oxygen Device OXY MASK
--- NOTE | 2020-04-23 05:41 | PC.NURSE ---
Assisted back to bed with assist x 1. Stated that her bottom was hurting and felt better in bed.
[2020-04-23] MEDS: cefepime 2,000 MG in sodium chloride 0.9% (plus) 50 ML 100 MG IV ×3 (08:15→16:42)
[2020-04-23] MEDS: aspirin 81 mg Chew Tablet PO (08:16)
[2020-04-23] MEDS: metoprolol tartrate 25 mg Tablet PO (08:16)
[2020-04-23] MEDS: levoFLOXacin 750 mg Tablet PO (08:16)
[2020-04-23] MEDS: levETIRAcetam 500 mg Tablet PO ×2 (08:16→16:43)
[2020-04-23] MEDS: ARIPiprazole 10 mg Tablet 5 MG PO (08:16)
[2020-04-23] MEDS: magnesium oxide 400 mg tablet PO ×2 (08:16→16:42)
[2020-04-23] MEDS: gabapentin 400 mg Capsule 800 MG PO ×3 (08:17→21:33)
[2020-04-23] MEDS: levothyroxine 25 mcg Tablet PO (08:17)
[2020-04-23] MEDS: duloxetine 60 mg Capsule PO ×2 (08:17→16:43)
[2020-04-23] MEDS: pantoprazole DR 40 mg Tablet PO (08:17)
--- NOTE | 2020-04-23 09:19 | P.PN_ITS ---
Subjective Subjective: Interval history: Patient appears significantly improved compared to yesterday. On the x-ray this morning, tiny pneumothorax still remains, however this is stable. Less than 5%. Currently saturating 97% on 3 L nasal cannula. Vital signs are stable. No further episodes of respiratory distress.. Medications: Reviewed: Yes Vitals/I&O/Wt Last Vital Signs Temp 97.9 F 04/23/20 07:00 Pulse 95 04/23/20 08:17 Resp 18 04/23/20 08:17 BP 170/81 04/23/20 07:00 Pulse Ox 97 04/23/20 08:17 04/22/20 04/23/20 04/23/20 22:59 06:59 14:59 Intake Total 915 / 915 290 / 1205 Output Total 1350 / 3100 750 / 3850 Balance -435 / -2185 -460 / -2645 Physical Exam Narrative: EXAM NARRATIVE: GEN: Awake, alert and oriented, no acute distress CVS: S1S2 N RS: CTA B/L Abd: Soft, nt/nd , bs+ PUBLIC RELATIONS INTERN: no focal neuro deficits Urinary Catheter Management^: Richards: Cath Placed During This Visit: yes Reason for Continuing Indwelling Catheter: Accurate Measurement of Urinary Output in Critically Ill Patients Urinary Catheter Date of Insertion: 04/17/20 Urinary Catheter Time of Insertion: 08:50 Data : 04/23/20 03:00 04/23/20 03:00 Micro: Microbiology 04/22/20 08:20 Gram Stain - Final Lung Right Upper Lobe A&P Assessment and plan (1) Acute and chronic respiratory failure with hypoxia: Status: Acute (2) Pneumonia involving right lung: Status: Acute Qualifiers: Lung location: upper lobe of lung Pneumonia type: due to unspecified organism Qualified Code(s): J18.9 - Pneumonia, unspecified organism (3) Diastolic heart failure: Status: Acute Qualifiers: Heart failure chronicity: chronic Qualified Code(s): I50.32 - Chronic diastolic (congestive) heart failure (4) COPD (chronic obstructive pulmonary disease): Status: Acute Qualifiers: COPD type: unspecified COPD Qualified Code(s): J44.9 - Chronic obstructive pulmonary disease, unspecified (5) Acute hypokalemia: -40 mEq of KCl Status: Acute (6) NSTEMI (non-ST elevated myocardial infarction): Likely type II supply demand ischemia Continue aspirin, statin monitor for chest pain, continue telemetry monitoring Echocardiogram ordered Status: Acute (7) Lactic acid acidosis: Status: Acute (8) Hyponatremia: -Likely secondary to dehydration, continue fluid therapy Status: Acute (9) Immunocompromised: Status: Acute (10) Sepsis: Status: Acute Qualifiers: Sepsis type: sepsis due to unspecified organism Sepsis acute organ dysfunction status: with acute organ dysfunction Severe sepsis acute organ dysfunction type: acute respiratory failure Acute respiratory failure type: with hypoxia Severe sepsis shock status: without septic shock Qualified Code(s): A41.9 - Sepsis, unspecified organism; R65.20 - Severe sepsis without septic shock; J96.01 - Acute respiratory failure with hypoxia (11) Anemia: Status: Acute Qualifiers: Anemia type: unspecified type Qualified Code(s): D64.9 - Anemia, unspecified Additional A&P Information -Acute respiratory failure likely secondary to right upper lobe pneumonia, now improving -CT angiogram shows progressive right upper lobe lateral consolidation, secondary consolidation more inferiorly in the anterior segment the right upper lobe which has progressed, increasing size of mediastinal and right hilar lymph nodes. the later is more concerning for possible infectious process. -CT scan back on September 19, 2019 showed a slightly irregular pulmonary nodule in the right upper lobe measuring 9 mm new since 2018, patient is a smoker, has COPD, may be malignancy. -Post [facility] chest x-ray shows improving. -Given that patient is on leflunomide as outpatient, which is lymphodepleteing , particularly concerned for MTB. Sputum AFB smear negative x 3, cx remains pending. MTB PCR N/A, added on to quest specimen. Only 1 specimen added on as QNS for other two. Quantiferon eventually returned negative, however needs to be interpreted with caution while patient is on leflunomide. -Aspergillus galactomannan antigen from BAL, bacterial and fungal culture and Gram stain, actinomyces culture, AFB culture sent from BAL specimen. Add itionally lung biopsy was also taken from 3 lobes. Fungal and AFB staining have been added on after discussion with pathology lab. MTB PCR also sent from the specimen additionally. Alternate differentials include bacterial processes such as nocardia, stenotrophomonas vs fungal etiology, though lack of long standing neutropenia makes this less likely. Ag/GM antigen from serum pending at this time. No fungal elements noted on sputum cx. -Currently on Cefepime, and levaquin. On chest x-ray today, pneumonia appears to be improving, this is most likely as a result of bronchoscopy which was able to remove some extremely thick secretions. -Rapid COVID negative, COVID RT-PCR negative. -Reduce steroids -Sputum cultures, blood cultures, urine bacterial antigen and Legionella antigen have been negative. -Histoplasma urine antigen pending -Hemoglobin trended down, however relatively stable at 8.4. -For sinus tachycardia metoprolol 25 twice daily, increase dose to 50 mg twice daily -Add amlodipine 5 mg for hypertension. -Continue duo nebs, reduce Solu-Medrol 40 mg IV every 12h -Echocardiogram shows EF of 59%, grade 1 out of 4 diastolic dysfunction, moderate aortic stenosis, difficult study -Monitor urine output closely, monitor respiratory status closely, telemetry monitoring -Lovenox for DVT prophylaxis - Full code transfre out of ICU, planning discharge in the next 24 to 48 hours. Attestations Medical Necessity Statement*: optimization of respiratory status Coding Level of Care Code Acute Statistical Developer for [facility] Fwd Diagnoses Acute and chronic respiratory failure with hypoxia J96.21 Pneumonia involving right lung J18.9 Lung location: upper lobe of lung Pneumonia type: due to unspecified organism Diastolic heart failure I50.32 Heart failure chronicity: chronic COPD (chronic obstructive pulmonary disease) J44.9 COPD type: unspecified COPD Acute hypokalemia E87.6 NSTEMI (non-ST elevated myocardial infarction) I21.4 Lactic acid acidosis E87.2 Hyponatremia E87.1 Immunocompromised D89.9 Sepsis A41.9; R65.20; J96.01 Sepsis type: sepsis due to unspecified organism Sepsis acute organ dysfunction status: with acute organ dysfunction Severe sepsis acute organ dysfunction type: acute respiratory failure Acute respiratory failure type: with hypoxia Severe sepsis shock status: without septic shock Anemia D64.9 Anemia type: unspecified type
--- NOTE | 2020-04-23 11:05 | PC.SOCIAL ---
IMM Updated Page 2 of IMM updated and given to patient. Initialed, dated, and timed and placed in chart. Copy provided to patient.
--- NOTE | 2020-04-23 12:29 | PC.NURSE ---
Addendum entered by Olya Mccarthy RN 04/23/20 14:04: Richards cathether discontinued at 10:45am per order. Original Note: Report given at approximately 11:15am to Crissy CASTILLO. Pt transferred via wheelchair with 3L/min oxygen per nasal cannula to room [facility] at 12:20pm without incident. All personal belongings sent with patient (cell phone, glasses, clothing, shoes, phone histologic technician, purse). No complaints or s/s distress at time of transfer. Crissy and a nurse administrative library assistant were in the room to assist pt to bed. All questions answered.
[2020-04-23] MEDS: oxyCODONE-APAP 10-325 mg Tablet 1 TAB PO ×2 (16:44→21:54)
--- NOTE | 2020-04-23 18:28 | PC.NURSE ---
SHIFT SUMMARY PATIENT HAS DONE WELL SINCE ARRIVING TO THE FLOOR. GOOD URINE OUTPUT. MAINTAINING GOOD O2 SATURATION ON 3LNC. AMBULATING WITH ONE PERSON ASSIST. GOOD PO INTAKE. NO COMPLAINTS AT THIS TIME.
[2020-04-23] MEDS: metoprolol tartrate 25 mg Tablet 50 MG PO (21:32)
[2020-04-23] MEDS: mirtazapine 15 mg Tablet PO (21:33)
[2020-04-23] MEDS: atorvastatin 40 mg Tablet 20 MG PO (21:34)
[2020-04-24] VITALS (16 sets, daily range): BP systolic 97–134; BP diastolic 63–84; PULSE 71–88; RESP 16–20; TEMP 36.3–36.5; O2SAT 82–98
[2020-04-24] MEDS: ipratropium-albuterol 3 mL Neb INHALATION (00:41)
[2020-04-24] MEDS: cefepime 2,000 MG in sodium chloride 0.9% (plus) 50 ML 100 MG IV ×2 (00:42→08:25)
[2020-04-24] MEDS: levoFLOXacin 750 mg Tablet PO (05:10)
[2020-04-24] MEDS: oxyCODONE-APAP 10-325 mg Tablet 1 TAB PO ×2 (05:12→14:08)
[2020-04-24] MEDS: levETIRAcetam 500 mg Tablet PO (08:03)
[2020-04-24] MEDS: aspirin 81 mg Chew Tablet PO (08:03)
[2020-04-24] MEDS: ARIPiprazole 10 mg Tablet 5 MG PO (08:03)
[2020-04-24] MEDS: gabapentin 400 mg Capsule 800 MG PO ×2 (08:03→14:07)
[2020-04-24] MEDS: duloxetine 60 mg Capsule PO (08:03)
[2020-04-24] MEDS: levothyroxine 25 mcg Tablet PO (08:03)
[2020-04-24] MEDS: metoprolol tartrate 25 mg Tablet 50 MG PO (08:03)
[2020-04-24] MEDS: pantoprazole DR 40 mg Tablet PO (08:03)
[2020-04-24] MEDS: amlodipine 5 mg Tablet PO (08:03)
[2020-04-24] MEDS: magnesium oxide 400 mg tablet PO (08:04)
--- NOTE | 2020-04-24 09:57 | XR_ITS ---
WS: [id number] EXAM: AP CHEST: PORTABLE UPRIGHT DATE OF EXAM: 04/24/2020, 1041 hours COMPARISON: Chest x-rays over the last several days. HISTORY: Patient is 69 years old with follow-up pneumonia and pneumothorax.. FINDINGS: The cardiac silhouette is normal in size. The mediastinal contours are similar.. The pulmonary v ascularity is normal. Chronic lung changes are seen. Right lung pneumonia continues to regress. Righ t pneumothorax is decreasing in size. A small sliver of a pneumothorax does remain however. No effus ion. No acute bony abnormality is seen. XR/XR chest 1V portable [id number] IMPRESSION: Chronic lung changes again seen. Slowly regressing and resolving right lung pne umonia. Right lung pneumothorax is resolving. Only a small sliver of a pneumoth orax remains.
--- NOTE | 2020-04-24 12:34 | PM.DCS ---
Discharge Providers Date of Admission: 04/16/20 17:44 Date of Discharge: April 24, 2020 Attending Provider at Admission: Stephan Pemberton MD Attending Provider at Discharge: Felicia Wiseman MD Primary Care Provider: Abiola Butt MD Diagnoses at Discharge Discharge Diagnosis (1) Acute and chronic respiratory failure with hypoxia: Status: Acute (2) Pneumonia involving right lung: Status: Acute Qualifiers: Lung location: upper lobe of lung Pneumonia type: due to unspecified organism Qualified Code(s): J18.9 - Pneumonia, unspecified organism (3) Diastolic heart failure: Status: Acute Qualifiers: Heart failure chronicity: chronic Qualified Code(s): I50.32 - Chronic diastolic (congestive) heart failure (4) COPD (chronic obstructive pulmonary disease): Status: Acute Qualifiers: COPD type: unspecified COPD Qualified Code(s): J44.9 - Chronic obstructive pulmonary disease, unspecified (5) Acute hypokalemia: Status: Acute (6) NSTEMI (non-ST elevated myocardial infarction): Status: Acute (7) Lactic acid acidosis: Status: Acute (8) Hyponatremia: Status: Acute (9) Immunocompromised: Status: Acute (10) Sepsis: Status: Acute Qualifiers: Sepsis type: sepsis due to unspecified organism Sepsis acute organ dysfunction status: with acute organ dysfunction Severe sepsis acute organ dysfunction type: acute respiratory failure Acute respiratory failure type: with hypoxia Severe sepsis shock status: without septic shock Qualified Code(s): A41.9 - Sepsis, unspecified organism; R65.20 - Severe sepsis without septic shock; J96.01 - Acute respiratory failure with hypoxia (11) Anemia: Status: Acute Qualifiers: Anemia type: unspecified type Qualified Code(s): D64.9 - Anemia, unspecified Reason for Visit Reason for Visit: SOB Hospital Course Discharge Summary: Eli Ghosh is a 69 year old female with a past medical history of chronic respiratory failure, COPD, current smoker, chronic oxygen 3 L nasal cannula, CHF, CAD status post stenting in 2018, rheumatoid arthritis on Leflunomide and prn steroids , degenerative disc disease, anxiety and depression, hypothyroidism, seizure disorder, who presented to [facility] on 04/16 due to worsening shortness of breath, fevers, confusion. She was found to have a RUL and RLL pneumonia which underwent extensive w/up for possible AFB and fungal etiologies, however w/up thus far has been negative for the same. She was treated empirically with abx with improvement in her overall condition. Details as below: # Acute respiratory failure likely secondary to right upper lobe pneumonia - now improving -CT angiogram shows progressive right upper lobe lateral consolidation, secondary consolidation more inferiorly in the anterior segment the right upper lobe which has progressed, increasing size of mediastinal and right hilar lymph nodes. the later is more concerning for possible infectious process. -CT scan back on September 19, 2019 showed a slightly irregular pulmonary nodule in the right upper lobe measuring 9 mm new since 2018, patient is a smoker, has COPD, may be malignancy. -s/p brionchoscopy on 04/22 for w/up of opportunistic pneumonia Results thus far include: -expectorated Sputum AFB smear negative x 3, cx remains pending. MTB PCR x 1 on expectorated sputum : pending -BAL AFB smear negative, AFB PCR pending - Quantiferon pending, however needs to be interpreted with caution on leflunomide -AFB staining added to path specimen: pending -overall less likely to be TB Fungal w/up : -Aspergillus galactomannan antigen from BAL and blood: pending - From bronch biopsy, no fungal elements, special stains pending - Fungal cx from bronch with yeast, which appears to be rene per discussion with micro lab. No specific treatment indicated Alternate differentials include bacterial processes such as nocardia, stenotrophomonas vs fungal etiology, though lack of long standing neutropenia makes this less likely. Ag/GM antigen from serum pending at this time. No fungal elements noted on sputum cx. -Histoplasma urine Ag: pending -CT appearance does not appear c/w PJP Bacterial w/up - Modified AFB for nocardia, no outliers such as stenotrophomonas -negative urine bacterial ag panel and legionella Ag -s/p empiric rx with zosyn-->cefepime+ vancomycin since 04/16 day 8 rx today - levaquin added 04/22 for atypical coverage -continue additional 3 days on discharge -MRSA smear negative -sputum cx with respiratory charla Viral: Covid CPR negative Overall improving clinically and on serial X rays. F/up with CT in one week and Dr. farrar appt in 7-10 days # COPD, chronic respiratory failure, on steroids, duonebs, intermittent Bipap Now improving discharge on prednisone 20mg po qd x 5 days # right apical pneumothorax <5%, improving on serial x rays stable 02 requirements # Anemia: Hemoglobin trended down, however relatively stable at 8.4. # sinus tachycardia metoprolol 50 twice daily # HTN: controlled on increased dose of metoprolol and amlodidpine. Stop chlorthalidone # rheumatoid arthritis: resume leflunomide on d/c, follow up with Dr. Monaco # Type II supply demand ischemia Continue aspirin, statin Echocardiogram shows EF of 59%, grade 1 out of 4 diastolic dysfunction, moderate aortic stenosis, difficult study Physical Exam Narrative: EXAM NARRATIVE: GEN: Awake, alert and oriented, no acute distress CVS: S1S2 N RS: CTA B/L Abd: Soft, nt/nd , bs+ HOSPITAL ADMITTING CLERK: no focal neuro deficits Urinary Catheter Management^: Richards: Cath Placed During This Visit: yes Reason for Continuing Indwelling Catheter: Accurate Measurement of Urinary Output in Critically Ill Patients Urinary Catheter Date of Insertion: 04/17/20 Urinary Catheter Time of Insertion: 08:50 Discharge Data Data Completed and Pending: Completed Studies During Hospitalization Category Date Time Status CT angio chest PE protcl [id number] Stat Cat Scan 04/16/20 15:24 Completed CXRP [XR chest 1V portable [id number]] R outine Exams 04/22/20 13:00 Completed CXRP [XR chest 1V portable [id number]] R outine Exams 04/24/20 09:57 Completed XR chest 1V krystina ble [id number] Routine Exams 04/20/20 07:00 Completed XR chest 1V krystina ble [id number] Routine Exams 04/21/20 07:00 Completed XR chest 1V krystina ble [id number] Routine Exams 04/22/20 11:00 Completed XR chest 1V krystina ble [id number] Routine Exams 04/23/20 04:25 Completed XR chest 1V krystina ble [id number] Stat Exams 04/19/20 14:26 Completed XR chest 1V krystina ble [id number] Urgent Exams 04/16/20 13:59 Completed Pathology: Surgic al [PTH] Routine Pth 04/22/20 08:51 Completed CV echo complete* [id number] Routine Ultrasound 04/18/20 19:32 Completed Pending at discharge Category Date Time Status AFB [Mycobacteria , Culture w/Fluor] Routine Lab 04/17/20 18:00 Results AFB [Mycobacteria , Culture w/Fluor] Routine Lab 04/18/20 02:30 Results Actinomyces Cultu re Routine Lab 04/22/20 08:20 Received Aspergillus Antig en, EIA BAL Routin e Lab 04/22/20 08:20 Received Bronchoalv Lavage Culture & GS Rout ine Lab 04/22/20 08:20 Results Fungal Culture no t HR/SK/BL Routine Lab 04/22/20 08:20 Received Histoplasma Antib brodie Stat Lab 04/18/20 10:12 Received Histoplasma Quant itative AG Routine Lab 04/18/20 10:12 Received Miscellaneous Angela t Routine Lab 04/18/20 18:10 Received Miscellaneous Angela t Routine Lab 04/22/20 08:20 Received Miscellaneous Angela t Routine Lab 04/22/20 08:20 Received Miscellaneous Angela t Routine Lab 04/22/20 08:20 Received Miscellaneous Angela t Routine Lab 04/22/20 08:20 Received Mycobacteria, Cul ture w/Fluor Lab 04/18/20 13:30 Results Mycobacteria, Cul ture w/Fluor Lab 04/18/20 18:10 Results Mycobacteria, Cul ture w/Fluor Lab 04/19/20 04:00 Results Mycobacteria, Cul ture w/Fluor Routi ne Lab 04/22/20 08:20 Results Cytology [PTH] Ro utine Pth 04/22/20 08:24 Received Vitals: Last Vital Signs Temp 97.4 F L 04/24/20 11:04 Pulse 76 04/24/20 11:49 Resp 18 04/24/20 11:48 BP 120/75 04/24/20 11:04 Pulse Ox 96 04/24/20 11:48 Discharge Plan Discharge Patient Disposition: Home Health Service Condition: Stable Prescriptions: New levofloxacin 750 mg Tablet 750 mg PO DAILY@0600 3 Days Qty: 3 RF: 0 prednisone 20 mg tablet 20 mg PO DAILY 5 Days Qty: 10 RF: 0 Continued leflunomide [Arava] 20 mg tablet 20 mg PO DAILY Qty: 30 RF: 3 omeprazole 20 mg capsule,delayed release(DR/EC) 20 mg PO DAILY RF: 0 gabapentin 800 mg tablet 800 mg PO TID Qty: 90 RF: 0 oxycodone-acetaminophen [Percocet] 10-325 mg tablet 1 tab PO TID PRN (Reason: pain) 30 Days Qty: 90 RF: 0 duloxetine [Cymbalta] 60 mg capsule,delayed release(DR/EC) 60 mg PO BID Qty: 60 RF: 2 aripiprazole [Abilify] 5 mg tablet 5 mg PO DAILY Qty: 30 RF: 2 aspirin [Children's Aspirin] 81 mg tablet,chewable 81 mg PO DAILY RF: 0 venlafaxine 75 mg capsule,extended release 24hr 75 mg PO QAM RF: 0 atorvastatin [Lipitor] 20 mg tablet 20 mg PO BEDTIME RF: 0 amlodipine 5 mg tablet 5 mg PO DAILY RF: 0 albuterol sulfate [ProAir HFA] 90 mcg/actuation HFA aerosol inhaler 2 puff INHALATION Q4H PRN (Reason: SOB) RF: 0 levothyroxine 25 mcg capsule 25 mcg PO DAILY RF: 0 ondansetron 4 mg tablet,disintegrating 4 mg PO Q6H PRN (Reason: nausea and vomiting) Qty: 14 RF: 0 dicyclomine 20 mg tablet 20 mg PO TID PRN (Reason: abdominal pain) Qty: 20 RF: 0 sulfasalazine 500 mg tablet 1,000 mg PO BID RF: 0 alendronate [Fosamax] 70 mg tablet 70 mg PO Q7D RF: 0 mirtazapine [Remeron] 15 mg tablet 15 mg PO BEDTIME RF: 0 levetiracetam 500 mg tablet 500 mg PO BID RF: 0 Breo Ellipta 100-25 mcg/dose blister with device 1 inh inhalation DAILY RF: 0 Spiriva with HandiHaler 18 mcg capsule, w/inhalation device 18 mcg INHALATION DAILY RF: 0 Changed metoprolol tartrate 25 mg Tablet 50 mg PO BID Qty: 0 RF: 0 Discontinued methylprednisolone [Medrol (Wilmer)] 4 mg tablets,dose pack See Rx Instructions .ROUTE .COMPLEX Qty: 21 RF: 0 potassium chloride [Klor-Con 10] 10 mEq tablet extended release 20 meq PO DAILY Qty: 14 RF: 0 chlorthalidone 25 mg tablet 25 mg PO DAILY PRN (Reason: Edema) RF: 0 Discharge Orders: Discharge Order (Routine); Ordered 04/24/20 Ordered By: Felicia Wiseman Other Ambulatory Orders: CT chest wo con [id number] (Routine) Timeframe: 20200501 Facility: [facility] - Location: Radiology [place] [facility] Ordered By: Felicia Wiseman Referrals: [facility] ([facility]) [Outside] (Called to inform of discharge) Datar,Jung Gonsales MD [Physician] - 05/05/20 (hospital discharge follow up, schedule after CT ) Rob Monaco MD [Physician] - 05/20/20 9:00 am (f/up recent hospital admission, review therapy. You have an appointment on May 20 at 9:00am) Discharge Diet: Usual diet and Cardiac Discharge Activity: Resume usual activity and Oxygen as instructed Patient Instructions: Anemia, Prednisone (By mouth), Levofloxacin (By mouth), Iron Rich Diet (DC), Hyponatremia (DC), Sepsis (DC) Discharge Attestations Time Spent in Discharge Care*: greater than 30 min Specific Discharge Activities: Specific discharge activities: educating patient, discussing with pcp/other providers, discussing with casework specialist/social workers/dc planners, documenting/other paperwork and evaluating patient/reviewing data Status at Discharge: Cognitive status at discharge: cognitively intact, Behavioral status at discharge: cooperative, Quality Metrics Clinical Quality Measures During this hospital stay, did patient experience: None Coding Level of Care Code Acute Medical Technologist for Chg Fwd Diagnoses Acute and chronic respiratory failure with hypoxia J96.21 Pneumonia involving right lung J18.9 Lung location: upper lobe of lung Pneumonia type: due to unspecified organism Diastolic heart failure I50.32 Heart failure chronicity: chronic COPD (chronic obstructive pulmonary disease) J44.9 COPD type: unspecified COPD Acute hypokalemia E87.6 NSTEMI (non-ST elevated myocardial infarction) I21.4 Lactic acid acidosis E87.2 Hyponatremia E87.1 Immunocompromised D89.9 Sepsis A41.9; R65.20; J96.01 Sepsis type: sepsis due to unspecified organism Sepsis acute organ dysfunction status: with acute organ dysfunction Severe sepsis acute organ dysfunction type: acute respiratory failure Acute respiratory failure type: with hypoxia Severe sepsis shock status: without septic shock Anemia D64.9 Anemia type: unspecified type
--- NOTE | 2020-04-24 13:34 | PC.NURSE ---
Discharge Prescriptions Called [facility] [place] [facility] pharmacy, spoke to Tamar, about meds to beds. Prescriptions called in over phone. Called [facility] to cancel previously sent prescriptions.
[2020-04-25 09:24] LABS: Histoplasma Antigen (Quant) NONE DETECTED; Histoplasma Antigen Interpreta NEGATIVE; Histoplasma Antigen Specimen URINE
[2020-04-25 18:30] LABS: Aspergillus AG,EIA NOT DETECTED; Aspergillus AG,EIA, Index <0.50
--- NOTE | 2020-05-30 16:31 | PC.SOCIAL ---
Discussed final sputum culture result with patient. Explained it was a send out to specialty lab and has returned with Beny. This nurse spelled out organisms for patient to write down. This nurse prior to calling patient talked with Rafaela Anthony at Dr French office and reviewed the results as well. Will send to Dr Abiola French attention and Rafaela has made a note for Dr Butt. Results were faxed including previous preliminaries with confirmation that fax was sent successfully. This nurse explained to patient that her PCP Dr Butt has been notified and she can review results with her. Patient indicates she is feeling well at this time. Will email Dr Pemberton and Dr Wiseman with update as well. If any further action is needed per their medical opinion will advise they discuss with PCP. Patient verbalized understanding and had no further questions.
== END 2020-04-24 17:49 | disposition home health service (06) | DRG 871 ==
LOC: ER 14:10 → ICU 18:21 → MEDSURG 04-23 12:20
PROVIDERS: Internal Medicine Pulmonary Disease; Admitting Provider Family Medicine; Emergency Provider Family Medicine; PCP Internal Medicine; Visit Provider Student in an Organized Health Care Education/Training Program
PROC: 0BJ08ZZ Inspection of Tracheobronchial Tree, Via Natural or Artificial Opening Endoscopic (ICD-10-PCS; CPT 31622; principal; 2020-04-22 07:00)
DX: A41.9 Sepsis, unspecified organism (principal); J18.9 Pneumonia, unspecified organism; I21.A1 Myocardial infarction type 2; J96.21 Acute and chronic respiratory failure with hypoxia; E87.1 Hypo-osmolality and hyponatremia; E87.2 Acidosis; I50.32 Chronic diastolic (congestive) heart failure; J93.9 Pneumothorax, unspecified; R65.20 Severe sepsis without septic shock; J44.9 Chronic obstructive pulmonary disease, unspecified; E87.6 Hypokalemia; D64.9 Anemia, unspecified; F17.210 Nicotine dependence, cigarettes, uncomplicated; Z99.81 Dependence on supplemental oxygen; I25.10 Atherosclerotic heart disease of native coronary artery without angina pectoris; Z95.5 Presence of coronary angioplasty implant and graft; M06.9 Rheumatoid arthritis, unspecified; Z79.52 Long term (current) use of systemic steroids; F41.8 Other specified anxiety disorders; E03.9 Hypothyroidism, unspecified; G40.909 Epilepsy, unspecified, not intractable, without status epilepticus; R00.0 Tachycardia, unspecified; Z79.82 Long term (current) use of aspirin; Z20.828 Contact with and (suspected) exposure to other viral communicable diseases; I48.0 Paroxysmal atrial fibrillation; Z79.891 Long term (current) use of opiate analgesic; G25.81 Restless legs syndrome
CPT/HCPCS: 12345; 31625; 36415; 36592; 36600; 51702; 71045; 71275; 76000; 80053; 80202; 82533; 82728; 82803; 82805; 83036; 83605; 83615; 83735; 83880; 84100; 84145; 84443; 84484; 85025; 85378; 85384; 86140; 86403; 86480; 86698; 86705; 86706; 86709; 86803; 87015; 87040; 87070; 87081; 87102; 87106; 87116; 87205; 87206; 87305; 87340; 87385; 87426; 87449; 87635; 87641; 87798; 87801; 87806; 88112; 88305; 93005; 93306; 94640; 94660; 96372; 96375; 97110; 97116; 97162; 97530; 99283; C1751; J0330; J0360; J0456; J0692; J1650; J1940; J2270; J2370; J2405; J2543; J2704; J2920; J2930; J3370; J3465; J3475; J3480; J3490; J3535; J7030; J7040; J7050; Q9967

== ENCOUNTER 2020-04-25 19:44 | Emergency (ER) | payer MEDICARE, MEDICAID, SELFPAY ==
[2020-04-25 19:50] VITALS: BP 145/79; PULSE 79; RESP 18; TEMP 36.4; O2SAT 98; BMI 26.5
--- NOTE | 2020-04-25 20:02 | PC.NURSE ---
EKG done at 1999 and shown to ER doctor
--- NOTE | 2020-04-25 20:35 | XR_ITS ---
WS: [id number] EXAM: AP CHEST: PORTABLE UPRIGHT DATE OF EXAM: 04/25/2020, 2035 hours COMPARISON: Chest x-ray from one day prior HISTORY: Patient is 69 years old with follow-up pneumonia and right-sided pneumothorax.. FINDINGS: The cardiac silhouette is normal in size. The mediastinal contours are normal. The pulmonary vas cularity is normal. Slight chronic lung changes demonstrated. Left lung remains clear. Right lung pn eumonia in the upper lobe is similar to the exam from one day prior. Definitely improved since earlie r examinations. The right-sided pneumothorax has resolved. There is no effusion or pneumothorax. No acute bony abnormality is seen. XR/XR chest 1V portable [id number] IMPRESSION: Overall improvement in the right lung pneumonia over the last week. No real tyrell nge in the last day. Right chest pneumothorax has resolved.
[2020-04-25] MEDS: ipratropium-albuterol 3 mL Neb INHALATION (20:58)
[2020-04-25 21:00] VITALS: PULSE 87; RESP 16; O2SAT 93
[2020-04-25 21:07] LABS: Basophils # 0.1 10^3/uL (0.0-0.1); Basophils % 0.3 %; Eosinophils # 0.5 10^3/uL (0.0-0.8); Eosinophils % 2.7 %; Hematocrit 30.8 % (37.0-47.0); Hemoglobin 9.6 g/dL (11.5-15.3); Lymphocytes # 2.9 10^3/uL (0.8-4.8); Lymphocytes % 14.5 %; Mean Corpuscular HGB Conc 31.2 g/dL (30.0-36.0); Mean Corpuscular Hemoglobin 30.7 pg (28.0-34.0); Mean Corpuscular Volume 98.4 fL (81-99); Mean Platelet Volume 8.7 fL (7.4-10.4); Monocytes # 1.8 10^3/uL (0.2-0.9); Monocytes % 8.9 %; Neutrophils # 13.74 10^3/uL (1.8-7.7); Neutrophils % 69.5 %; Nucleated Red Blood Cells % 0 %; Platelet Count 446 10^3/cmm (130-400); Red Blood Count 3.13 10^6/uL (4.1-5.3); Red Cell Distribution Width 16.4 % (12.1-15.1); White Blood Count 19.8 10^3/uL (4.0-10.0)
[2020-04-25 21:11] VITALS: BP 138/78; PULSE 81; RESP 16; O2SAT 92
[2020-04-25 21:38] LABS: Alanine Aminotransferase 12 U/L (0-33); Albumin Level 3.1 g/dL (3.5-5.2); Alkaline Phosphatase 85 IU/L (35-105); Aspartate Amino Transferase 10 U/L (0-32); Blood Urea Nitrogen 14 mg/dL (8-23); Calcium 8.5 mg/dL (8.5-10.5); Carbon Dioxide 34 mmol/L (22-29); Chloride 95 mmol/L (98-107); Globulin 2.7 g/dL (1.3-4.6); Glomerular Filtration Rate 99.4 mL/min (90-130); Glucose 91 mg/dL (65-115); NT Pro B Type Natriuretic Pept 2106 pg/mL (0-125); Osmolality Calculated 278 mOsm/kg (285-295); Sodium 136 mmol/L (136-145); Total Bilirubin 0.2 mg/dL (0.15-1.2); Total Protein 5.8 g/dL (6.6-8.7)
[2020-04-25 21:40] LABS: Anion Gap 10.7 (5-19); Potassium 3.7 mmol/L (3.5-5.1)
[2020-04-25 22:18] VITALS: BP 131/94; PULSE 83; RESP 22; O2SAT 94
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
== END 2020-04-25 22:19 | disposition home or self-care (01) ==
PROVIDERS: Emergency Provider Emergency Medicine; PCP Internal Medicine
DX: J18.9 Pneumonia, unspecified organism (principal); Z79.82 Long term (current) use of aspirin; J44.9 Chronic obstructive pulmonary disease, unspecified; I11.0 Hypertensive heart disease with heart failure; I50.30 Unspecified diastolic (congestive) heart failure; I48.0 Paroxysmal atrial fibrillation; F17.210 Nicotine dependence, cigarettes, uncomplicated
CPT/HCPCS: 12345; 71045; 80053; 83605; 83880; 85025; 94640; 99282; 99283

== ENCOUNTER 2020-05-06 12:42 | Outpatient (CLI) | payer MEDICARE, MEDICAID, SELFPAY ==
--- NOTE | 2020-05-06 12:49 | XRR_ITS ---
PROCEDURE INFORMATION: Exam: XR Chest, 2 Views Exam date and time: 05/06/2020 1:33 PM Age: 69 years old Clinical indication: Condition or disease; Lung condition and disease; Pneumonia; Additional info: Resolution of rul pneumonia TECHNIQUE: Imaging protocol: XR of the chest Views: 2 views. COMPARISON: CR XR chest 1V portable [id number] 04/25/2020 8:35 PM FINDINGS: Lungs: Right upper lobe parenchymal density consistent with pneumonia stable since prior examination. New parenchymal densities seen in the lateral aspect of the right lower lobe these findings also correspond to pneumonia and were not present on prior examination. Pleural space: Unremarkable. No pleural effusion. No pneumothorax. Heart/Mediastinum: Unremarkable. No cardiomegaly. Bones/joints: There is a displaced fracture of the left 6th posterior rib this finding is new since prior XR/XR chest 2V* [id number] IMPRESSION: 1. Stable right upper lobe pneumonia 2. New right lower lobe pneumonia 3. New fracture left 6 posterior rib
== END 2020-05-06 12:43 | disposition home or self-care (01) ==
LOC: RAD 12:46
PROVIDERS: PCP Internal Medicine; Visit Provider Internal Medicine Pulmonary Disease
DX: J18.9 Pneumonia, unspecified organism (principal); S22.32XA Fracture of one rib, left side, initial encounter for closed fracture; X58.XXXA Exposure to other specified factors, initial encounter
CPT/HCPCS: 71046

== ENCOUNTER 2020-05-09 10:10 | Outpatient (CLI) | payer MEDICARE, MEDICAID, SELFPAY ==
--- NOTE | 2020-05-09 10:29 | CT_ITS ---
WS: [id number] CT CHEST TECHNIQUE: Noncontrast CT of the chest with coronal and sagittal reformatted images. CLINICAL INFORMATION: FOLLOW UP PNEUMONIA IN IMMUNOCOMPROMIZED AND PHNEUMOTHORAX COMPARISON: CTa April 16, 2020 DLP: 654.[address] scans at [facility] use at least one of these dose optimization techniques: automat ed exposure control; mA and/or kV adjustment per patient size (includes targeted exams where dose is matched to clinical indication); or iterative reconstruction. FINDINGS: Moderate to advanced chronic emphysematous changes. Right upper lobe pneumonia has improved compared to April 16, 2020 with persistent right upper lobe infiltrates. Patchy airspace infiltrates in the r ight middle lobe and right lower lobe have progressed compared to the prior examination. In addition, patchy infiltrates in the lingula and left lower lobe laterally are also new from previous. Intersti tial thickening in the right lower lobe. Small right pleural effusion. Left posterior rib fractures s ixth, seventh, eighth and ninth ribs unchanged Aortic calcification. No axillary lymphadenopathy. Peribronchial and right hilar lymphadenopathy like ly reactive unchanged. Small esophageal hiatal hernia. CT/CT chest wo con [id number] IMPRESSION: 1. Advanced chronic emphysematous changes. 2. Persistent but improved right upper lobe pneumonia. 3. New progressed patchy infiltrates within the right middle lobe, right lower lobe, and lingula. Slight infiltrate left lower lobe laterally. 4. Small right pleural effusion is new from previous with interstitial thicken ing in the right lung base. 5. Stable left posterior rib fractures described above.
== END 2020-05-09 10:11 | disposition home or self-care (01) ==
LOC: RADWPI 10:13
PROVIDERS: Family Provider Internal Medicine; PCP Internal Medicine; Visit Provider Student in an Organized Health Care Education/Training Program
DX: J84.111 Idiopathic interstitial pneumonia, not otherwise specified (principal); S22.42XA Multiple fractures of ribs, left side, initial encounter for closed fracture; X58.XXXA Exposure to other specified factors, initial encounter; J90 Pleural effusion, not elsewhere classified
CPT/HCPCS: 71250

== ENCOUNTER → 2020-05-20 08:46 | Outpatient (BNVA) | payer MEDICARE, MEDICAID, SELFPAY | PROVIDERS: Family Provider Internal Medicine; PCP Internal Medicine; Visit Provider Internal Medicine Rheumatology | DX: M05.79 Rheumatoid arthritis with rheumatoid factor of multiple sites without organ or systems involvement (principal); Z79.899 Other long term (current) drug therapy; J44.9 Chronic obstructive pulmonary disease, unspecified; I50.32 Chronic diastolic (congestive) heart failure; F17.210 Nicotine dependence, cigarettes, uncomplicated; M17.0 Bilateral primary osteoarthritis of knee; M85.80 Other specified disorders of bone density and structure, unspecified site; Z99.81 Dependence on supplemental oxygen; M48.061 Spinal stenosis, lumbar region without neurogenic claudication; M54.41 Lumbago with sciatica, right side; M54.42 Lumbago with sciatica, left side; M54.16 Radiculopathy, lumbar region; M47.819 Spondylosis without myelopathy or radiculopathy, site unspecified; M54.9 Dorsalgia, unspecified; Z79.891 Long term (current) use of opiate analgesic | CPT/HCPCS: 99213; 99214 ==

== ENCOUNTER → 2020-05-30 11:34 | Outpatient (BNVA) | payer MEDICARE, MEDICAID, SELFPAY | PROVIDERS: PCP Internal Medicine; Visit Provider Internal Medicine | DX: Z20.828 Contact with and (suspected) exposure to other viral communicable diseases (principal) | CPT/HCPCS: 87635 ==

== ENCOUNTER 2020-06-05 10:17 | Outpatient (CLI) | payer MEDICARE, MEDICAID, SELFPAY ==
[2020-06-05 11:23] VITALS: BP 136/71
--- NOTE | 2020-06-05 14:14 | PFTS_ITS ---
Date of Study:06/05/20 Date of Dictation: MECHANICS: Forced vital capacity (FVC) is normal. Forced expiratory volume in one second (FEV1) is reduced. FEV1/FVC is reduced. FLOW VOLUME LOOP: Reduced flow at all lung volumes with significant scooping. LUNG VOLUMES: Total lung capacity (TLC) is elevated. Residual volume (RV) is elevated. DIFFUSING CAPACITY FOR CARBON MONOXIDE: Severely reduced. INTERPRETATION: The pulmonary function tests are consistent with moderate airflow obstruction. There is significant postbronchodilator response with 36% improvement in forced vital capacity. Lung volumes are consistent with hyperinflation and air trapping. Gas exchange (DLCO) is severely reduced but not corrected for the patient's hemoglobin.. MTDD
== END 2020-06-05 10:18 | disposition home or self-care (01) ==
LOC: RT 10:19
PROVIDERS: PCP Internal Medicine; Visit Provider Internal Medicine Pulmonary Disease
DX: J44.9 Chronic obstructive pulmonary disease, unspecified (principal)
CPT/HCPCS: 94060; 94618; 94726; 94729; J7611

== ENCOUNTER → 2020-06-12 08:16 | Outpatient (BNVA) | payer MEDICARE, MEDICAID, SELFPAY | PROVIDERS: PCP Internal Medicine; Visit Provider Nurse Practitioner | DX: F33.2 Major depressive disorder, recurrent severe without psychotic features (principal); F41.1 Generalized anxiety disorder | CPT/HCPCS: 99213 ==

== ENCOUNTER → 2020-06-13 09:27 | Outpatient (BNVA) | payer MEDICARE, MEDICAID, SELFPAY | PROVIDERS: PCP Internal Medicine; Visit Provider Anesthesiology | DX: M54.16 Radiculopathy, lumbar region (principal); M47.819 Spondylosis without myelopathy or radiculopathy, site unspecified; M54.9 Dorsalgia, unspecified; Z79.891 Long term (current) use of opiate analgesic | CPT/HCPCS: 99213; 99214 ==

== ENCOUNTER → 2020-08-15 09:10 | Outpatient (BNVA) | payer MEDICARE, MEDICAID, SELFPAY | PROVIDERS: PCP Internal Medicine; Visit Provider Nurse Practitioner | DX: M25.561 Pain in right knee (principal); M25.562 Pain in left knee; M54.16 Radiculopathy, lumbar region; M47.819 Spondylosis without myelopathy or radiculopathy, site unspecified; M54.9 Dorsalgia, unspecified; D89.9 Disorder involving the immune mechanism, unspecified; M05.79 Rheumatoid arthritis with rheumatoid factor of multiple sites without organ or systems involvement; F17.210 Nicotine dependence, cigarettes, uncomplicated; Z79.891 Long term (current) use of opiate analgesic | CPT/HCPCS: 99213; 99214 ==

== ENCOUNTER → 2020-09-09 07:46 | Outpatient (BNVA) | payer MEDICARE, MEDICAID, SELFPAY | PROVIDERS: PCP Internal Medicine; Visit Provider Nurse Practitioner | DX: F33.2 Major depressive disorder, recurrent severe without psychotic features (principal); F41.1 Generalized anxiety disorder | CPT/HCPCS: 99213 ==

== ENCOUNTER → 2020-10-24 09:16 | Outpatient (BNVA) | payer MEDICARE, MEDICAID, SELFPAY | PROVIDERS: PCP Internal Medicine; Visit Provider Anesthesiology | DX: M54.16 Radiculopathy, lumbar region (principal); M54.9 Dorsalgia, unspecified; F17.210 Nicotine dependence, cigarettes, uncomplicated; Z79.891 Long term (current) use of opiate analgesic | CPT/HCPCS: 99213 ==

== ENCOUNTER 2020-11-05 08:00 | Observation (INO) | payer MEDICARE, MEDICAID, SELFPAY ==
[2020-11-05] VITALS (15 sets, daily range): BP systolic 100–145; BP diastolic 60–105; PULSE 81–102; RESP 13–22; O2SAT 94–98; BMI 26.9
--- NOTE | 2020-11-05 08:03 | ECG_ITS ---
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 Measurements Intervals [place] Rate: 84 P: 72 MN: 136 QRS: 62 QRSD: 89 T: 71 QT: 398 QTc: 472 Interpretive Statements SINUS RHYTHM Compared to ECG 11/05/2020 10:39:31 No significant changes Electronically Signed On 11-05-2020 17:07:36 [employer] by Estela Sherwood M.D. [id number]
--- NOTE | 2020-11-05 08:03 | XR_ITS ---
WS: [id number] PORTABLE CHEST HISTORY: chest pain COMPARISON: 05/06/2020 Minimal residual interstitial thickening at the RIGHT apex with a previous the described pulmonary no dule. Benign granuloma in the RIGHT lower lung field. No pleural effusion or pneumothorax. Cardiac size: Normal. Mediastinum/Aorta: Mild atherosclerosis aorta. No osseous abnormality seen. XR/XR chest 1V portable [id number] IMPRESSION: 1. Minimal scarring or interstitial thickening at the RIGHT apex in the locati on of the previously described suspicious pulmonary neoplasm. 2. No pneumonia or dense consolidation.
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
[2020-11-05] MEDS: morphine 4 mg/mL SDV 1 mL IVP (08:40)
[2020-11-05 08:42] LABS: Basophils # 0.1 10^3/uL (0.0-0.1); Basophils % 0.5 %; Eosinophils % 0.4 %; Hematocrit 40.2 % (37.0-47.0); Hemoglobin 12.9 g/dL (11.5-15.3); Lymphocytes # 1.6 10^3/uL (0.8-4.8); Mean Corpuscular HGB Conc 32.1 g/dL (30.0-36.0); Mean Corpuscular Hemoglobin 28.4 pg (28.0-34.0); Mean Corpuscular Volume 88.5 fL (81-99); Mean Platelet Volume 8.7 fL (7.4-10.4); Monocytes # 0.5 10^3/uL (0.2-0.9); Monocytes % 4.8 %; Neutrophils # 8.29 10^3/uL (1.8-7.7); Neutrophils % 78.9 %; Nucleated Red Blood Cells % 0 %; Platelet Count 469 10^3/cmm (130-400); Red Blood Count 4.54 10^6/uL (4.1-5.3); White Blood Count 10.5 10^3/uL (4.0-10.0)
[2020-11-05 09:02] LABS: Troponin(5th) Baseline 19 ng/L (0-10)
--- NOTE | 2020-11-05 09:03 | PC.NURSE ---
patient stated chest pain was gone, back pain still there but a little bit better
[2020-11-05 09:06] LABS: Add Urine Microscopic? NO
[2020-11-05 09:09] LABS: Alanine Aminotransferase 8 U/L (0-33); Albumin Level 3.4 g/dL (3.5-5.2); Alkaline Phosphatase 87 IU/L (35-105); Anion Gap 12.7 (5-19); Aspartate Amino Transferase 12 U/L (0-32); Blood Urea Nitrogen 9 mg/dL (8-23); Calcium 8.8 mg/dL (8.5-10.5); Carbon Dioxide 33 mmol/L (22-29); Chloride 90 mmol/L (98-107); Globulin 2.9 g/dL (1.3-4.6); Glomerular Filtration Rate 99.1 mL/min (90-130); Glucose 128 mg/dL (65-115); NT Pro B Type Natriuretic Pept 575 pg/mL (0-125); Osmolality Calculated 274 mOsm/kg (285-295); Potassium 3.7 mmol/L (3.5-5.1); Sodium 132 mmol/L (136-145); Total Bilirubin 0.3 mg/dL (0.15-1.2); Total Protein 6.3 g/dL (6.6-8.7)
[2020-11-05 09:21] LABS: Bilirubin Urine Neg (Negative); Blood Urine Neg (Negative); Glucose Urine UA Norm (Normal); Ketones Urine Negative (Negative); Leukocyte Esterase Urine Negative (Negative); Nitrate Urine Negative (Negative); Protein Urine Neg (Negative); Sulfosalicylic Acid Urine Negative (Negative); Urine Appearance Clear (CLEAR); Urine Color Yellow (Yellow); Urobilinogen Urine Norm (Negative); pH Urine 8 (5-7)
--- NOTE | 2020-11-05 10:03 | ECG_ITS ---
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 Measurements Intervals [place] Rate: 81 P: 68 MO: 135 QRS: 65 QRSD: 88 T: 85 QT: 402 QTc: 468 Interpretive Statements SINUS RHYTHM Compared to ECG 11/05/2020 08:06:24 No significant changes Electronically Signed On 11-05-2020 21:00:11 SOX ANALYST by Howie Shah M.D. [id number]
--- NOTE | 2020-11-05 10:06 | PC.NURSE ---
patient denied any chest pain, no acute distress noted at this time.
--- NOTE | 2020-11-05 12:41 | PC.PHAR ---
pt states she takes care of her own medications-pt states she is still taking atorvastatin 20mg hs jaya last filled 06/20/20 30d/s-pt states she thinks she takes leflunomide but hasnt had it in a while [place] last filled 10/02/20 30d/s-pt states she takes levothyroxine 25mcg po daily [facility] last filled on 07/21/20 30s/-pt states she is suppose to take sulfasalazine 1000mg bid-lake last filled jun 16 2020 30d/s-jaya states they have sent many refill request but havent gotten any new rxs for sulfasalazine
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
--- NOTE | 2020-11-05 14:03 | ECG_ITS ---
[facility] Test Date: 2020-11-05 Pat Name: Eli Ghosh Department: Room: Gender: Female Data Warehouse Developer: : 1950 Requested By: Karen Luna Order Number: [id number] Trevon MD: Howie Shah M.D. Measurements Intervals [place] Rate: 94 P: 71 DE: 135 QRS: 68 QRSD: 87 T: 77 QT: 371 QTc: 464 Interpretive Statements SINUS RHYTHM Compared to ECG 04/25/2020 20:00:23 No significant changes Electronically Signed On 11-05-2020 21:00:02 COMMERCIAL SALES REPRESENTATIVE by Howie Shah M.D. [id number]
--- NOTE | 2020-11-05 14:06 | PC.NURSE ---
EKG done at 1400 and shown to ER doctor
--- NOTE | 2020-11-05 14:07 | PC.NURSE ---
Gave patient a coke and a turkey sandwich.
[2020-11-05 15:40] LABS: Troponin 5 6HR 15.63 ng/L (0-10); Troponin 5 6HR Delta -3.37 ng/L (0-12)
--- NOTE | 2020-11-05 16:25 | PC.NURSE ---
patient resting at this time. no acute distress noted at this time.
[2020-11-05] MEDS: duloxetine 60 mg Capsule PO (18:25)
[2020-11-05] MEDS: metoprolol tartrate 25 mg Tablet PO (18:25)
[2020-11-05] MEDS: gabapentin 400 mg Capsule 800 MG PO (18:25)
[2020-11-05] MEDS: levETIRAcetam 500 mg Tablet PO (18:25)
--- NOTE | 2020-11-05 18:30 | PC.NURSE ---
Dr. Sherwood here to see patient. patient denied any chest pain at this time.
--- NOTE | 2020-11-05 18:43 | PC.NURSE ---
attempted to call report, call back pending
[2020-11-05] MEDS: oxyCODONE-APAP 10-325 mg Tablet 1 TAB PO (22:59)
[2020-11-05] MEDS: mirtazapine 15 mg Tablet PO (22:59)
[2020-11-05] MEDS: enoxaparin 40 mg/0.4 mL Syringe SUBCUT (23:05)
[2020-11-05] MEDS: albuterol 8 gm MDI 2 PUFF INHALATION (23:29)
--- NOTE | 2020-11-05 23:47 | PC.NURSE ---
Pt was brought to CSU room 105 via wheelchair. Pt is alert and oriented and is able to transfer from the wheelchair to the bed without assistance or difficulty however does state that she normally uses a wheeled walker at home. Pt is alert and oriented x 4 and only has a complaint of left posterior scapular pain that the patient states is worse with coughing and deep inspiration. Pt denies any other complaints at this time. The patient did state that she was hungry and was provided with two string cheese and two chocolate puddings as well as two cola's and a sandwich and applesauce. The patient was notified to be NPO after midnight for a procedure in the AM which I now know to be a stress-test and I will pass the information along to the biological technician about the sandra. Pt placed on groundwater monitoring technician and admission questions completed by the patient without diffculty. The patient states that she dose have some difficulty with eating because she only has three teeth in my head
[2020-11-06] VITALS (13 sets, daily range): BP systolic 103–151; BP diastolic 56–89; PULSE 85–111; RESP 14–29; TEMP 36.6–37; O2SAT 90–96
[2020-11-06] MEDS: levETIRAcetam 500 mg Tablet PO (05:09)
[2020-11-06] MEDS: duloxetine 60 mg Capsule PO (05:13)
[2020-11-06] MEDS: gabapentin 400 mg Capsule 800 MG PO ×2 (05:13→13:38)
[2020-11-06 05:14] LABS: Basophils # 0.1 10^3/uL (0.0-0.1); Basophils % 0.8 %; Eosinophils # 0.3 10^3/uL (0.0-0.8); Eosinophils % 3.1 %; Hematocrit 36.2 % (37.0-47.0); Hemoglobin 11.3 g/dL (11.5-15.3); Lymphocytes # 2.4 10^3/uL (0.8-4.8); Lymphocytes % 29.2 %; Mean Corpuscular HGB Conc 31.2 g/dL (30.0-36.0); Mean Corpuscular Hemoglobin 28.5 pg (28.0-34.0); Mean Corpuscular Volume 91.4 fL (81-99); Mean Platelet Volume 9.2 fL (7.4-10.4); Monocytes # 1.1 10^3/uL (0.2-0.9); Monocytes % 13.6 %; Neutrophils # 4.38 10^3/uL (1.8-7.7); Neutrophils % 52.7 %; Nucleated Red Blood Cells % 0 %; Platelet Count 389 10^3/cmm (130-400); Red Blood Count 3.96 10^6/uL (4.1-5.3); Red Cell Distribution Width 15.3 % (12.1-15.1); White Blood Count 8.3 10^3/uL (4.0-10.0)
[2020-11-06] MEDS: potassium chloride ER 10 mEq Tablet PO (05:14)
[2020-11-06] MEDS: aspirin 81 mg Chew Tablet PO (05:14)
[2020-11-06] MEDS: ARIPiprazole 10 mg Tablet 5 MG PO (05:14)
[2020-11-06] MEDS: pantoprazole DR 40 mg Tablet PO (05:14)
[2020-11-06] MEDS: FUROsemide 40 mg Tablet PO (05:14)
[2020-11-06] MEDS: venlafaxine ER (24HR) 75 mg Capsule PO (05:14)
[2020-11-06 05:39] LABS: Alanine Aminotransferase 7 U/L (0-33); Albumin Level 3.1 g/dL (3.5-5.2); Alkaline Phosphatase 75 IU/L (35-105); Anion Gap 9.5 (5-19); Aspartate Amino Transferase 13 U/L (0-32); Blood Urea Nitrogen 10 mg/dL (8-23); Calcium 9.4 mg/dL (8.5-10.5); Carbon Dioxide 37 mmol/L (22-29); Chloride 91 mmol/L (98-107); Globulin 2.4 g/dL (1.3-4.6); Glomerular Filtration Rate 122.3 mL/min (90-130); Glucose 75 mg/dL (65-115); Magnesium 1.7 mg/dL (1.7-2.3); Osmolality Calculated 276 mOsm/kg (285-295); Potassium 3.5 mmol/L (3.5-5.1); Sodium 134 mmol/L (136-145); Thyroid Stimulating Hormone 2.47 uIU/mL (0.27-4.20); Total Bilirubin 0.3 mg/dL (0.15-1.2); Total Protein 5.5 g/dL (6.6-8.7)
--- NOTE | 2020-11-06 06:00 | ECG_ITS ---
[facility] Test Date: 2020-11-06 Pat Name: Eli Ghosh Department: Room: 105 Gender: Female Radiation Protection Engineer: Eula Dawn : 1950 Requested By: Kishan Gandhi Order Number: [id number] Trevon MD: Estela Sherwood M.D. Interpretive Statements NAME OF STUDY: LEXISCAN SESTAMIBI STRESS TEST INDICATION: Chest Pain PROCEDURE: At the baseline, the blood pressure was 106/75 mmHg, oxygen saturation 92% with a heart rate of 87 bpm. The electrocardiogram showed normal sinus rhythm with no significant ST-T wave changes. Baseline artifact. The Lexiscan was infused over a period of 20 seconds. A total of 0.4 milligrams of Lexiscan was infused. The stress phase was continued for a total of 5 minutes. Heart rate at the end of the stress phase was 98 bpm, oxygen saturation 91% with a blood pressure of 132/81 mm Hg. The EKG at the peak infusion revealed normal sinus rhythm with no significant ST-T wave changes and a lot of artifact. Sestamibi was injected 20 seconds after the Lexiscan infusion. Blood pressure at the end of the recovery phase was 121/65 mmHg, oxygen saturation 87% with a heart rate of 94 beats per minute. CONCLUSION: 1. Normal EKG response to LexiScan infusion. 2. No LexiScan induced chest pain or cardiac arrhythmia. 3. Normal blood pressure and heart rate response. 4. Sestamibi/sestamibi perfusion scan pending; see separate report. Electronically Signed On 11-06-2020 16:28:41 DOUBLE BOTTOM DRIVER by Estela Sherwood M.D. [id number]
[2020-11-06 06:02] LABS: NT Pro B Type Natriuretic Pept 409 pg/mL (0-125)
[2020-11-06] MEDS: albuterol 8 gm MDI 2 PUFF INHALATION ×2 (08:55→14:17)
--- NOTE | 2020-11-06 09:00 | PC.CHAP ---
Pastoral Care Encounter/Spiritual Assessment Type of Contact [] Declined vault manager visit [] Patient/Family/Request visit [] Outpatient visit [] Follow-up visit [] Physician referral [] Code/Alert [x] Routine visit [] Staff referral [] Actively dying [x] Patient sleeping [] Family support [] [] Out of room [] Palliative care [] [] Receiving care in room [] Pre-surgical visit [] Trauma [] Long length of stay [] ICU visit [] Other: Relational/Emotional Strength [] Patient feels connected with others/family/visitors/staff [] Distress [] Loneliness/isolation [] Abandonment Spirituality of Patient [] Person of Rebekah [] Attends Sikhism of their Rebekah [] Believes in Prayer [] Reads Bible or Bahai materials [] There are Spiritual issues to be addressed Computer Technology Instructor Interventions [x] Prayer [] Active listening [] Non-anxious presence [] Spiritual/emotional support [] Crisis/trauma care [] Spiritual counseling [] Bereavement support [] Provided bereavement packet [] Provided Bible/devotional materials [] Provided toy/stuffed animal, coloring book to patient or family member [] Provided Communion [] Anointing/Randolph [] Salvation [x] Completed spiritual assessment [] Other: Impact on Illness or Injury [] Angry [] Fearful [] Anxious [] Often cries [] Exhaustion [] Unable to work [] Unable to attend rastafarian [] Unable to walk/stand [] Unable to read [] Unable to drive [] Unable to eat/drink [] Unable to sleep [] Unable to be with family [] Patient intubated [] Other: Summary Time spent with patient
[2020-11-06] MEDS: levothyroxine 25 mcg Tablet PO (09:04)
[2020-11-06] MEDS: atorvastatin 40 mg Tablet 20 MG PO (09:04)
[2020-11-06] MEDS: metoprolol tartrate 25 mg Tablet PO (09:04)
[2020-11-06] MEDS: cefTRIAXone 1,000 MG in sodium chloride 0.9% (plus) 50 ML 100 MG IV (09:04)
--- NOTE | 2020-11-06 09:10 | NMCV_ITS ---
NM lou perf SPECT r/s* [id number] Eli Ghosh Age: 70 Gender: F : 1950 Exam Date: 11/06/2020 09:56 Ordering Phys: Kishan Gandhi MD Technologist: NONA Herman Exam Location: [facility] Indications: Chest pain STRESS TEST Please see separate stress test report in [facility] for full findings IMAGE PROTOCOL Rest/Stress 1 Lexiscan Day Radiopharmaceutical Dose (mCi) Administration Site Administered by Rest: Tc-99m 10.9 IV Nannette Ramona, RESERVOIR CARETAKER Sestamibi Stress:Tc-99m 32.2 IV Nannette Ramona, RESERVOIR CARETAKER Sestamibi Rest: 06-Nov-2020 60 Discovery 630 Stress: 06-Nov-2020 60 Discovery 630 0.4mg Lexiscan. Supine position only as patient was unable to lay prone. SPECT RESULTS Technical Quality: Excellent Raw Data Analysis: Normal Image Corrections: No attenuation or motion correction applied Summed Stress Score: 0 Summed Rest Score: 0 Summed Difference Score: 0 PERFUSION FINDINGS Homogenous uptake of radiotracer throughout the myocardium. No evidence of ischemia noted FUNCTIONAL RESULTS (calculated via Gated SPECT) Stress Image LV EF (%): 77 Stress EDV (mL):47 TID: 1 Stress ESV (mL):11 FUNCTIONAL FINDINGS: LV systolic function is normal IMPRESSIONS 1. Normal myocardial perfusion imaging with no evidence of ischemia 2. LV function is normal. Fredi Olson MD (Electronically Signed) Final Date: 06 November 2020 12:21 S
[2020-11-06] MEDS: regadenoson 0.4 Mg/5 ml Syringe IVP (10:45)
[2020-11-06] MEDS: oxyCODONE-APAP 10-325 mg Tablet 1 TAB PO (10:59)
--- NOTE | 2020-11-06 14:31 | PM.PN ---
Subjective Subjective: Interval history: No complaints Medications: Reviewed: Yes Medication Review Details: Current Medications Albuterol Sulfate (Albuterol 8 Gm Mdi) 2 puff INHALATION Q4H PRN PRN Reason: Shortness Of Breath Last Admin: 11/06/20 14:17 Dose: 2 puff Documented by: Aminophylline (Aminophylline 25 Mg/Ml Sdv 10 Ml) 25 mg IVP Q2M PRN PRN Reason: see dose instructions Stop: 11/07/20 10:21 Aripiprazole (Aripiprazole 10 Mg Tablet) 5 mg PO DAILY@ [facility] Last Admin: 11/06/20 05:14 Dose: 5 mg Documented by: Aspirin (Aspirin 81 Mg Chew Tablet) 81 mg PO QAM [facility] Last Admin: 11/06/20 05:14 Dose: 81 mg Documented by: Atorvastatin Calcium (Atorvastatin 40 Mg Tablet) 20 mg PO DAILY [facility] Last Admin: 11/06/20 09:04 Dose: 20 mg Documented by: Diclofenac Sodium (Diclofenac 1% Topical Gel 100 Gm) 1 applic TOPICAL QID PRN PRN Reason: Pain Duloxetine HCl (Duloxetine 60 Mg Capsule) 60 mg PO BID@ [facility] Last Admin: 11/06/20 05:13 Dose: 60 mg Documented by: Enoxaparin Sodium (Enoxaparin 40 Mg/0.4 Ml Syringe) 40 mg SUBCUT Q24H [facility] Last Admin: 11/05/20 23:05 Dose: 40 mg Documented by: Furosemide (Furosemide 40 Mg Tablet) 40 mg PO QAM [facility] Last Admin: 11/06/20 05:14 Dose: 40 mg Documented by: Gabapentin (Gabapentin 400 Mg Capsule) 800 mg PO TID@ [facility] Last Admin: 11/06/20 13:38 Dose: 800 mg Documented by: Ceftriaxone Sodium 1,000 mg/ (Sodium Chloride) 50 mls @ 100 mls/hr IV DAILY [facility]; Protocol Last Infusion: 11/06/20 09:39 Dose: Infused Documented by: Levetiracetam (Levetiracetam 500 Mg Tablet) 500 mg PO BID@ [facility] Last Admin: 11/06/20 05:09 Dose: 500 mg Documented by: Levothyroxine Sodium (Levothyroxine 25 Mcg Tablet) 25 mcg PO DAILY [facility] Last Admin: 11/06/20 09:04 Dose: 25 mcg Documented by: Metoprolol Tartrate (Metoprolol Tartrate 25 Mg Tablet) 25 mg PO BID [facility] Last Admin: 11/06/20 09:04 Dose: 25 mg Documented by: Mirtazapine (Mirtazapine 15 Mg Tablet) 15 mg PO BEDTIME [facility] Last Admin: 11/05/20 22:59 Dose: 15 mg Documented by: Nitroglycerin (Nitroglycerin 0.4 Mg Sublingual Tablet) 0.4 mg SUBLINGUAL Q5M PRN PRN Reason: CHEST PAIN Stop: 11/07/20 10:21 Non-Formulary Medication (Fluticasone Furoate-Vilanterol [Breo Ellipta]) 0 unit INHALATION DAILY.RESPIRATORY [facility] Non-Formulary Medication (Dcigslpxnff-Aqzncjnuh-Upbankxe [Trelegy Ellipta]) 1 inh INHALATION [facility] Non-Formulary Medication (Leflunomide) 20 mg PO DAILY [facility] Ondansetron HCl (Ondansetron 2 Mg/Ml Sdv 2 Ml) 4 mg IVP Q8H PRN PRN Reason: vomiting, or N/V if npo Ondansetron HCl (Ondansetron 2 Mg/Ml Sdv 2 Ml) 4 mg IVP Q2M PRN PRN Reason: NAUSEA Oxycodone/Acetaminophen (Oxycodone-Apap 10-325 Mg Tablet) 1 tab PO TID@05,12,16 PRN PRN Reason: pain (scale score 7-10) Last Admin: 11/06/20 10:59 Dose: 1 tab Documented by: Pantoprazole Sodium (Pantoprazole Dr 40 Mg Tablet) 40 mg PO [facility] Last Admin: 11/06/20 05:14 Dose: 40 mg Documented by: Pantoprazole Sodium (Pantoprazole Dr 40 Mg Tablet) 40 mg PO [facility] Last Admin: 11/06/20 07:05 Dose: Not Given Documented by: Potassium Chloride (Potassium Chloride Er 10 Meq Tablet) 10 meq PO [facility] Last Admin: 11/06/20 05:14 Dose: 10 meq Documented by: Venlafaxine HCl (Venlafaxine Er (24hr) 75 Mg Capsule) 75 mg PO [facility] Last Admin: 11/06/20 05:14 Dose: 75 mg Documented by: Vitals/I&O/Wt Last Vital Signs Temp 98.6 F 11/06/20 12:00 Pulse 91 11/06/20 14:21 Resp 18 11/06/20 14:20 BP 129/79 11/06/20 12:00 Pulse Ox 95 11/06/20 14:20 11/05/20 11/06/20 11/06/20 22:59 06:59 14:59 Intake Total 290 / 290 Output Total 1100 / 1100 Balance -810 / -810 Weight last 48 hrs Weight 147 lb Physical Exam Narrative: EXAM NARRATIVE: EXAM NARRATIVE: Gen: pleasant woman looking older than her stated age, in mild respiratory distree HEENT: PERRL, EOMI, No pallor RS: Decreased bilateral air entry with diffuse wheezing CVS: S1, S2, No murmur, rub or gallop appreciated 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 Psych: normal mood and affect Data : 11/06/20 04:28 11/06/20 04:28 Micro: Microbiology 11/06/20 05:04 Gram Stain - Final Sputum - Expectorated Sputum A&P Assessment and plan (1) Chest pain: Not typical of angina. -Non exertional and started with a bout of cough (not pleuritic or positional) -However, She does have prior h/o CAD -No ischemia on repeat stress testing. -continue current medications. Status: Resolved Qualifiers: Chest pain type: unspecified Qualified Code(s): R07.9 - Chest pain, unspecified (2) Diastolic heart failure: Status: Resolved Qualifiers: Heart failure chronicity: chronic Qualified Code(s): I50.32 - Chronic diastolic (congestive) heart failure (3) COPD (chronic obstructive pulmonary disease): COPD exacerbation, being managed by primary team Status: Acute Qualifiers: COPD type: unspecified COPD Qualified Code(s): J44.9 - Chronic obstructive pulmonary disease, unspecified Additional A&P Information Acute bronchitis Chronic respiratory failure Possibly moderate Seropositive rheumatoid arthritis of multiple sites: Hypothyroidism GERD Chronic active smoker Right lung mass, suspicious for malignancy on PET Thank you for allowing me to participate in patient's care. Please feel free to call with questions or concerns. Attestations Medical Necessity Statement*: As per primary team Time Spent in Patient Care: 16 - 35 minutes (>than 50% of time spent in counselling and/or direct pt care on unit). Coding Level of Care Code Acute Metal Refiner for Leog Fwd Diagnoses Chest pain R07.9 Chest pain type: unspecified Diastolic heart failure I50.32 Heart failure chronicity: chronic COPD (chronic obstructive pulmonary disease) J44.9 COPD type: unspecified COPD
--- NOTE | 2020-11-06 15:39 | PC.RESP ---
SMOKING CESSATION AND PULMONARY REHAB INFORMATION SENT TO PATIENT.
--- NOTE | 2020-11-06 16:11 | PM.DCS ---
Discharge Providers Date of Admission: 11/05/20 12:32 Date of Discharge: November 06, 2020 Attending Provider at Admission: Kishan Gandhi MD Attending Provider at Discharge: Kishan Gandhi MD Primary Care Provider: Abiola Butt MD Diagnoses at Discharge Discharge Diagnosis (1) COPD (chronic obstructive pulmonary disease): Status: Acute Qualifiers: COPD type: unspecified COPD Qualified Code(s): J44.9 - Chronic obstructive pulmonary disease, unspecified (2) Acute bronchitis: Status: Acute (3) GERD (gastroesophageal reflux disease): Status: Acute (4) Hypothyroidism: Status: Acute (5) Tobacco abuse: Status: Acute (6) Atypical chest pain: Status: Acute (7) Seropositive rheumatoid arthritis of multiple sites: Status: Acute Reason for Visit Reason for Visit: CHEST PAIN Hospital Course Hospital Course Patient presented with atypical chest pain after she coughed which felt to be musculoskeletal in origin. Because of underlying risk factors patient was placed for an observation and underwent sestamibi Lexiscan without concerning findings. This morning patient denied any complaints including chest pain. She was diagnosed with acute bronchitis and started on ceftriaxone. I will continue patient on Omnicef for 5 more days. Patient was counseled regarding smoking cessation. Patient is not ready to quit now. This morning patient denies shortness of breath or chest pain. P.S. discussed again with patient and she agreed to try nicotine patch. Physical Exam Narrative: EXAM NARRATIVE: Lungs with coarse breath sounds but better compared to yesterday. Heart is regular. Lower extremities show no edema. Discharge Data Data Completed and Pending: Completed Studies During Hospitalization Category Date Time Status Sestamibi Stress Test Request Taz ne Exams 11/06/20 06:00 Draft XR chest 1V krystina ble [id number] Urgent Exams 11/05/20 08:03 Completed NM lou perf SPECT r/s* [id number] Routin e Nuc Med 11/06/20 09:10 Completed Pending at discharge Category Date Time Status Sestamibi Stress Test Request Jesusitai ne Exams 11/05/20 14:24 Stop Req Complete Blood Co unt w/Auto AM LABS Lab 11/07/20 04:00 Ordered Complete Blood Co unt w/Auto AM LABS Lab 11/08/20 04:00 Ordered Comprehensive Met abolic Panel AM LA BS Lab 11/07/20 04:00 Ordered Comprehensive Met abolic Panel AM LA BS Lab 11/08/20 04:00 Ordered Magnesium AM LABS Lab 11/07/20 04:00 Ordered Magnesium AM LABS Lab 11/08/20 04:00 Ordered Sputum Culture an d Gram Stain Jesusitai ne Lab 11/05/20 05:04 Results Labs from last 24 hours 11/06/20 11/06/20 11/06/20 04:28 04:28 04:28 WBC 8.3 RBC 3.96 L Hgb 11.3 L Hct 36.2 L MCV 91.4 MCH 28.5 MCHC 31.2 RDW 15.3 H Plt Count 389 MPV 9.2 Neut % (Auto) 52.7 Lymph % (Auto) 29.2 [place] % (Auto) 13.6 Eos % (Auto) 3.1 Baso % (Auto) 0.8 Neut # (Auto) 4.38 Lymph # (Auto) 2.4 [place] # (Auto) 1.1 H Eos # (Auto) 0.3 Baso # (Auto) 0.1 Nucleated RBC % (a uto) 0 Nucleated RBCs # 0.0 Sodium 134 L Potassium 3.5 Chloride 91 L Carbon Dioxide 37 H Anion Gap 9.5 BUN 10 Creatinine 0.5 GFR Calculation 122.3 Glucose 75 Calculated Osmolal ity 276 L Calcium 9.4 Magnesium 1.7 Total Bilirubin 0.3 AST 13 ALT 7 Alkaline Phosphata se 75 NT-Pro-B Natriuret Pep 409 H Total Protein 5.5 L Albumin 3.1 L Globulin 2.4 TSH 2.47 Vitals: Last Vital Signs Temp 97.8 F 11/06/20 15:06 Pulse 91 11/06/20 15:06 Resp 29 H 11/06/20 15:06 BP 123/74 11/06/20 15:06 Pulse Ox 95 11/06/20 15:06 Discharge Plan Discharge Patient Disposition: Home Condition: Stable Prescriptions: New nicotine 14 mg/24 hr patch 24 hour 1 patch transdermal DAILY Qty: 14 RF: 0 cefdinir 300 mg capsule 300 mg PO Q12H 5 Days Qty: 10 RF: 0 Continued omeprazole 20 mg capsule,delayed release(DR/EC) 20 mg PO QAM RF: 0 leflunomide 20 mg tablet 20 mg PO DAILY Qty: 30 RF: 3 aspirin [Spencer Chewable Aspirin] 81 mg tablet,chewable 81 mg PO QAM RF: 0 venlafaxine 75 mg capsule,extended release 24hr 75 mg PO QAM RF: 0 atorvastatin [Lipitor] 20 mg tablet See Rx Instructions .ROUTE .COMPLEX RF: 0 albuterol sulfate [ProAir HFA] 90 mcg/actuation HFA aerosol inhaler 2 puff INHALATION Q4H PRN (Reason: Shortness Of Breath) RF: 0 levothyroxine 25 mcg capsule See Rx Instructions .ROUTE .COMPLEX RF: 0 metoprolol tartrate 25 mg tablet 25 mg PO BID RF: 0 mirtazapine [Remeron] 15 mg tablet 15 mg PO BEDTIME Qty: 30 RF: 2 furosemide 40 mg tablet 40 mg PO QAM Qty: 30 RF: 3 alendronate [Fosamax] 70 mg tablet 70 mg PO Q7D Qty: 5 RF: 3 prednisone 10 mg tablet See Rx Instructions PO .COMPLEX PRN (Reason: joint pain) Qty: 30 RF: 0 Breo Ellipta 100-25 mcg/dose blister with device See Rx Instructions .ROUTE .COMPLEX RF: 0 potassium chloride 10 mEq capsule, extended release 10 meq PO QAM RF: 0 sulfasalazine 500 mg tablet See Rx Instructions .ROUTE .COMPLEX RF: 0 Percocet 10-325 mg tablet 1 tab PO TID@05,12,16 PRN (Reason: pain (scale score 7-10)) RF: 0 gabapentin 800 mg tablet 800 mg PO TID@05,13,17 RF: 0 pantoprazole 40 mg tablet,delayed release (DR/EC) 40 mg PO QAM RF: 0 Abilify 5 mg tablet 5 mg PO DAILY@05 RF: 0 Cymbalta 60 mg capsule,delayed release(DR/EC) 60 mg PO BID@,17 RF: 0 Voltaren 1 % gel 2 g topical QID PRN (Reason: Pain) RF: 0 Trelegy Ellipta 100-62.5-25 mcg blister with device 1 inh inhalation QAM RF: 0 levetiracetam 500 mg tablet 500 mg PO BID@,17 RF: 0 Discharge Orders: Discharge Order (Routine); Ordered 11/06/20 Ordered By: Kishan Gandhi Referrals: Abiola Butt MD [Primary Care Provider] - 4-7 days ([facility] will be calling to set a hospital followup to be seen in 4 to 7 days. If you don't hear from them by Tomorrow afternoon, please give them a call. Thank you) Estela Sherwood MD [Physician] - 11/20/20 2:30 pm (You have a cardiology followup at [facility] with Dr. Sherwood on November 20 ar 2:30pm ) Discharge Diet: Advance as tolerated Discharge Activity: Increase activity as tolerated Patient Instructions: Cefdinir (By mouth) Activity Restrictions/Additional Instructions: Please call your doctor or present to emergency department if your condition worsens or you develop diarrhea, lightheadedness, fatigue or see blood in your stool or black stool. Please discuss with your doctor regarding pharmacological help if you decide to quit smoking. Please follow-up with Dr. Sandra as previously scheduled for further evaluation of your pulmonary lesion. Discharge Attestations Time Spent in Discharge Care*: greater than 30 min Status at Discharge: Cognitive status at discharge: cognitively intact, Behavioral status at discharge: cooperative, Quality Metrics Clinical Quality Measures During this hospital stay, did patient experience: None Coding Level of Care Code Acute Printing Screen Assembler for Leog Fwd Diagnoses COPD (chronic obstructive pulmonary disease) J44.9 COPD type: unspecified COPD Acute bronchitis J20.9 GERD (gastroesophageal reflux disease) K21.9 Hypothyroidism E03.9 Tobacco abuse Z72.0 Atypical chest pain R07.89 Seropositive rheumatoid arthritis of multiple sites M05.79
== END 2020-11-06 17:21 | disposition home or self-care (01) ==
LOC: ER 12:20 → ER IP 17:11 → CSU 18:36
PROVIDERS: Admitting Provider Internal Medicine; Emergency Provider Physician Assistant; PCP Internal Medicine; Visit Provider Internal Medicine
DX: J44.9 Chronic obstructive pulmonary disease, unspecified (principal); J20.9 Acute bronchitis, unspecified; K21.9 Gastro-esophageal reflux disease without esophagitis; E03.9 Hypothyroidism, unspecified; F17.210 Nicotine dependence, cigarettes, uncomplicated; R07.89 Other chest pain; M05.79 Rheumatoid arthritis with rheumatoid factor of multiple sites without organ or systems involvement; I50.32 Chronic diastolic (congestive) heart failure; F33.2 Major depressive disorder, recurrent severe without psychotic features; Z79.82 Long term (current) use of aspirin; M47.896 Other spondylosis, lumbar region; I50.30 Unspecified diastolic (congestive) heart failure; Z99.81 Dependence on supplemental oxygen; I48.0 Paroxysmal atrial fibrillation; Z95.5 Presence of coronary angioplasty implant and graft
CPT/HCPCS: 36415; 71045; 78452; 80053; 81003; 83735; 83880; 84443; 84484; 85025; 87070; 87077; 87186; 87205; 93005; 93017; 94640; 96365; 96372; 96375; 99285; A9500; G0378; J0696; J1650; J2270; J2785; J3535

== ENCOUNTER 2020-11-17 13:44 | Outpatient (CLI) | payer MEDICARE, MEDICAID, SELFPAY ==
--- NOTE | 2020-11-17 13:46 | MM_ITS ---
WS: [id number] BILATERAL DIGITAL SCREENING MAMMOGRAPHY WITH CAD CLINICAL INFORMATION: SCREENING HISTORY: Screening mammogram. No current complaints. COMPARISON: TECHNIQUE: Bilateral CC and MLO views. FINDINGS: Scattered fibroglandular densities bilaterally. No suspicious focal mass, asymmetry, calcifications, or architectural distortion. No evidence of malignancy. Punctate calcifications left breast. MM/[place] [id number] IMPRESSION: BI-RADS: 2-Benign FOLLOW UP: 1 Year Follow-up Recommend return to annual screening mammography.
== END 2020-11-17 13:45 | disposition home or self-care (01) ==
LOC: RADSHAW 13:45
PROVIDERS: PCP Internal Medicine; Visit Provider Internal Medicine
DX: Z12.31 Encounter for screening mammogram for malignant neoplasm of breast (principal)
CPT/HCPCS: 77067

== ENCOUNTER → 2020-12-09 07:48 | Outpatient (BNVA) | payer MEDICARE, MEDICAID, SELFPAY | PROVIDERS: PCP Internal Medicine; Visit Provider Nurse Practitioner | DX: F33.2 Major depressive disorder, recurrent severe without psychotic features (principal); F41.1 Generalized anxiety disorder | CPT/HCPCS: 99214 ==

== ENCOUNTER 2020-12-14 17:42 | Inpatient (IN) | payer MEDICARE, MEDICAID, SELFPAY ==
[2020-12-14] VITALS (26 sets, daily range): BP systolic 87–147; BP diastolic 58–96; PULSE 90–121; RESP 21–26; TEMP 36.8; O2SAT 87–97; BMI 24.6
--- NOTE | 2020-12-14 17:51 | XRR_ITS ---
PROCEDURE INFORMATION: Exam: XR Chest Exam date and time: 12/14/2020 5:54 PM Age: 70 years old Clinical indication: Dyspnea; Additional info: Dyspnea/wheezing/copd TECHNIQUE: Imaging protocol: XR of the chest. Views: 1 view. COMPARISON: CR XR chest 1V portable [id number] 11/05/2020 8:10 AM FINDINGS: Lungs: No focal airspace consolidation. Background emphysema. Pleural spaces: Unremarkable. No pleural effusion. No pneumothorax. Heart/Mediastinum: Unremarkable. No cardiomegaly. Bones/joints: Multiple old left posterior rib fractures. Bones are demineralized. XR/XR chest 1V portable [id number] IMPRESSION: 1. No focal pneumonia. 2. No significant change from comparison.
[2020-12-14] MEDS: ipratropium-albuterol 3 mL Neb INHALATION (18:07)
[2020-12-14 18:09] LABS: Basophils # 0.1 10^3/uL (0.0-0.1); Basophils % 0.8 %; Eosinophils % 0.3 %; Hematocrit 45.1 % (37.0-47.0); Hemoglobin 14.4 g/dL (11.5-15.3); Lymphocytes # 1.8 10^3/uL (0.8-4.8); Lymphocytes % 15.7 %; Mean Corpuscular HGB Conc 31.9 g/dL (30.0-36.0); Mean Corpuscular Hemoglobin 27.6 pg (28.0-34.0); Mean Corpuscular Volume 86.6 fL (81-99); Mean Platelet Volume 9.6 fL (7.4-10.4); Monocytes % 8.9 %; Neutrophils # 8.54 10^3/uL (1.8-7.7); Neutrophils % 73.9 %; Nucleated Red Blood Cells % 0 %; Platelet Count 332 10^3/cmm (130-400); Red Blood Count 5.21 10^6/uL (4.1-5.3); Red Cell Distribution Width 16.3 % (12.1-15.1); White Blood Count 11.6 10^3/uL (4.0-10.0)
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
[2020-12-14 18:16] LABS: ABG PCO2 58.6 mmHg (35-45); ABG PH Result 7.42 (7.35-7.45); Arterial Blood Gas Hematocrit 40.9 % (37-47); Blood Gas Allen Test Pos; Blood Gas Operator Identificat CAK; Blood Gas Sample Site Radial, left; Blood Gas Sample Type Arterial; Carboxyhemoglobin 6.3 %THgb (0.4-20.1); HCO3 ABG 37.8 mmol/L (22-26); HGB O2 Sat 80.7 % (95-100); Methemoglobin 0.9 % (0.4-1.5); Oxygen Device NC; PO2 ABG 57.3 mmHg (80.0-100.0); Total Hemoglobin 13.3 g/dL (12-16)
[2020-12-14 18:34] LABS: Troponin(5th) Baseline 25 ng/L (0-10)
[2020-12-14 18:37] LABS: INR 0.89 (0.8-1.2)
[2020-12-14 18:40] LABS: D Dimer 1.63 ug/mIFEU (0-0.59)
[2020-12-14 18:51] LABS: Alanine Aminotransferase 14 U/L (0-33); Albumin Level 4.4 g/dL (3.5-5.2); Alkaline Phosphatase 110 IU/L (35-105); Blood Urea Nitrogen 6 mg/dL (8-23); Carbon Dioxide 31 mmol/L (22-29); Chloride 82 mmol/L (98-107); Globulin 2.5 g/dL (1.3-4.6); Glomerular Filtration Rate 158.3 mL/min (90-130); Glucose 105 mg/dL (65-115); NT Pro B Type Natriuretic Pept 2789 pg/mL (0-125); Osmolality Calculated 268 mOsm/kg (285-295); Sodium 130 mmol/L (136-145); Total Bilirubin 0.7 mg/dL (0.15-1.2); Total Protein 6.9 g/dL (6.6-8.7)
[2020-12-14 18:53] LABS: Aspartate Amino Transferase 24 U/L (0-32)
[2020-12-14 19:29] LABS: Influenza A by IFA Negative (Negative); Influenza B by IFA Negative (Negative)
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
--- NOTE | 2020-12-14 20:20 | CTR_ITS ---
PROCEDURE INFORMATION: Exam: CTA Chest With Contrast Exam date and time: 12/14/2020 9:29 PM Age: 70 years old Clinical indication: Shortness of breath; Patient HX: Resp distress and elev d-dimer; Additional info: Hypoxia, high d dimer (margarito) TECHNIQUE: Imaging protocol: Computed tomographic angiography of the chest with contrast. 3D rendering (Not supervised by radiologist): MIP and/or 3D reconstructed images were created by the technologist. Radiation optimization: All CT scans at this facility use at least one of these dose optimization techniques: automated exposure control; mA and/or kV adjustment per patient size (includes targeted exams where dose is matched to clinical indication); or iterative reconstruction. Contrast material: OMNI 350; Contrast volume: 69 ml; Contrast route: INTRAVENOUS (IV); COMPARISON: CT angio chest PE protcl [id number] 04/16/2020 4:44 PM RADIATION DOSE METRICS: Total DLP (mGy-cm): 545.04 FINDINGS: Pulmonary arteries: Normal. No pulmonary emboli. Aorta: Unremarkable. No aortic aneurysm. No aortic dissection. Lungs: Severe emphysema. Spiculated area of ground-glass attenuation in the right upper lobe is nonspecific, but possibly scarring given the substantial pneumonia in this area on prior imaging. Bronchial wall thickening changes. Opacities partially occlusive within segmental and subsegmental lower lobe bronchi bilaterally. Mild hazy ground-glass attenuation in the subpleural area of the right lower lobe posteriorly. Pleural spaces: Unremarkable. No pneumothorax. No pleural effusion. Heart: Unremarkable. No cardiomegaly. No pericardial effusion. Mediastinal space: Mild hiatal hernia with mild distal thoracic esophageal wall thickening. Lymph nodes: Unremarkable. No enlarged lymph nodes. Bones/joints: Multiple old left posterior rib fractures. Bones are demineralized. Moderate severity age indeterminate compression fracture deformity of T6 new from comparison. Thoracic spinal alignment is unremarkable without vertebral subluxation. Soft tissues: Unremarkable. CT/CT angio chest PE protcl [id number] IMPRESSION: 1. Negative for pulmonary embolism. 2. Severe emphysema. 3. Spiculated right upper lobe opacity, possibly scarring. 4. Minimal dependent right lower lobe ground-glass opacities; favor atelectasis. 5. Age-indeterminate T6 vertebral compression fracture. Radiation Dose CTDIVOL = (mGy): DLP = 545.04 (mGy-cm)
[2020-12-14 20:23] LABS: Troponin 5 2HR 26.01 ng/L (0-10); Troponin 5 2HR Delta 1.01 ABS# (0-10)
[2020-12-14] MEDS: iohexol 350 mg/mL 100 mL Btl IV (21:55)
--- NOTE | 2020-12-14 22:45 | PC.NURSE ---
pt mentation improved after taken off bipap machine for CTa. Pt placed on 3lpm of o2 via nasal cannula. Pt maintaining 96-97% on 3lpm. Dr notified. vo obtained to keep pt on 3lpm of o2 and monitor for mentation changes. ICU notified of vo during report
[2020-12-14] MEDS: enoxaparin 40 mg/0.4 mL Syringe SUBCUT (23:19)
[2020-12-14] MEDS: sodium chloride 0.9% 1,000 ML 30 ML IV (23:27)
--- NOTE | 2020-12-14 23:53 | ECG_ITS ---
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 Measurements Intervals [place] Rate: 92 P: 73 MT: 137 QRS: 73 QRSD: 89 T: 81 QT: 398 QTc: 495 Interpretive Statements SINUS RHYTHM WITH OCCASIONAL SUPRAVENTRICULAR PREMATURE COMPLEXES Compared to ECG 11/05/2020 13:58:02 No significant changes Electronically Signed On 12-15-2020 20:14:35 CDT by Fredi Olson M.D. [email or web address].[email or web address]/[id number]
[2020-12-15] VITALS (133 sets, daily range): BP systolic 84–161; BP diastolic 54–117; PULSE 85–112; RESP 16–20; TEMP 36.4–37.3; O2SAT 69–99; BMI 24.0
[2020-12-15] MEDS: ipratropium-albuterol 3 mL Neb INHALATION ×6 (01:12→23:18)
[2020-12-15 01:29] LABS: Troponin 5 6HR 14.09 ng/L (0-10)
[2020-12-15 04:55] LABS: ABG PH Result 7.38 (7.35-7.45); Arterial Blood Gas Hematocrit 37.4 % (37-47); Base Excess ABG 9.5 mmol/L (-2.0-2.0); Blood Gas Sample Site Brachial, right; Blood Gas Sample Type Arterial; HCO3 ABG 36.6 mmol/L (22-26); Oxygen Device BIPAP; PO2 ABG 73.3 mmHg (80.0-100.0)
[2020-12-15 05:02] LABS: ABG PCO2 61.6 mmHg (35-45)
[2020-12-15] MEDS: levoFLOXacin 750 mg Tablet PO (05:28)
[2020-12-15] MEDS: levETIRAcetam 500 mg Tablet PO ×2 (05:28→17:44)
[2020-12-15] MEDS: aspirin 81 mg Chew Tablet PO (05:28)
[2020-12-15] MEDS: pantoprazole DR 40 mg Tablet PO (05:29)
[2020-12-15] MEDS: duloxetine 60 mg Capsule PO ×2 (05:29→17:43)
[2020-12-15 07:11] LABS: Blood Urea Nitrogen 9 mg/dL (8-23); Calcium 8.4 mg/dL (8.5-10.5); Carbon Dioxide 31 mmol/L (22-29); Chloride 88 mmol/L (98-107); Glomerular Filtration Rate 158.3 mL/min (90-130); Glucose 125 mg/dL (65-115); Osmolality Calculated 276 mOsm/kg (285-295); Sodium 133 mmol/L (136-145)
[2020-12-15 07:13] LABS: Anion Gap 17.8 (5-19); Potassium 3.8 mmol/L (3.5-5.1)
[2020-12-15] MEDS: oxyCODONE-APAP 10-325 mg Tablet 1 TAB PO ×2 (08:50→17:48)
[2020-12-15] MEDS: nicotine 14 mg Patch 1 PATCH TRANSDERMA (08:50)
[2020-12-15] MEDS: sennosides-docusate Tablet 1 TAB PO (08:50)
[2020-12-15] MEDS: metoprolol tartrate 25 mg Tablet PO ×2 (08:51→17:43)
[2020-12-15] MEDS: levothyroxine 25 mcg Tablet PO (08:51)
--- NOTE | 2020-12-15 08:56 | PC.NURSE ---
recd. alert. moaning and restless. states her legs hurt and she feels restless. appetite poor for breakfast. oriented to person and place only.
--- NOTE | 2020-12-15 09:14 | PC.NURSE ---
reddened area to coccyx area. small acorn size area w/o skin over it. opti-foam placed.
--- NOTE | 2020-12-15 09:30 | P.PN_ITS ---
Subjective Subjective: Interval history: Eli still feels short of breath. She is not having any chest discomfort currently. She states she is better than on admission. She denies having access to any BiPAP or CPAP at home. She states she is normally on 3 L of oxygen. She had previously had a nuclear stress test in November demonstrating no reversible ischemia, and had an echocardiogram April 2020 demonstrating moderate aortic stenosis and 1/4 diastolic dysfunction. Medications: Reviewed: Yes Vitals/I&O/Wt Last Vital Signs Temp 99.1 F 12/15/20 04:00 Pulse 110 H 12/15/20 09:05 Resp 20 H 12/15/20 08:50 BP 107/66 12/15/20 09:05 Pulse Ox 95 12/15/20 09:05 12/14/20 12/15/20 12/15/20 22:59 06:59 14:59 Intake Total 725 / 725 360 / 360 Output Total 576 / 576 Balance 149 / 149 360 / 360 Weight last 48 hrs Weight 65 kg Weight 65 kg Weight 66.678 kg Physical Exam Narrative: EXAM NARRATIVE: General exam is moderate respiratory distress with tachypnea off BiPAP with respiratory rate of 20. Able to complete 3 word sen tences. HEENT: Oropharynx clear Neck is supple no lymphadenopathy or thyromegaly Cardiovascular tachycardic, 2/6 systolic murmur Lungs diminished breath sounds bilaterally, tachypneic, increased expiratory phase, bilateral expiratory wheezes Abdomen is soft with positive bowel sounds. No obvious organomegaly Extremities trace edema Data : 12/14/20 17:25 12/15/20 05:32 A&P Assessment and plan (1) Acute and chronic respiratory failure with hypoxia: Secondary to COPD exacerbation, and acute bronchitis. Continue supportive care Status: Acute (2) Acute exacerbation of chronic obstructive airways disease: Pulmonary toilet Levaquin for acute bronchitis IV steroids Status: Acute (3) Tobacco abuse: Encourage smoking cessation Nicotine patch Status: Acute Additional A&P Information Hyponatremia, improved. Global weakness. Physical therapy consultation. History of diastolic heart failure. Monitor closely for any evidence of exacerbation. Trace edema noted on lower extremities but no pulmonary edema on CTA or chest x-ray History of paroxysmal atrial fibrillation. Continue beta-mario alberto History of seizure disorder, continue Keppra Immunosuppressed with history of rheumatoid arthritis on leflunomide chronically Full code Lovenox for COPD exacerbation [facility]*: Needs continued hospitalization secondary to respiratory failure requiring IV steroids, COPD exacerbation requiring close monitoring in this patient who is tachypneic tachycardic. Coding Level of Care Code Acute Senior Software Development Engineer for Riccardo Fwd Diagnoses Acute and chronic respiratory failure with hypoxia J96.21 Acute exacerbation of chronic obstructive airways disease J44.1 Tobacco abuse Z72.0
--- NOTE | 2020-12-15 09:49 | PC.NURSE ---
productive cough, white secretions. sttes pain pill hasnt helped her leg pain much. remains restless.
--- NOTE | 2020-12-15 12:08 | PC.CHAP ---
Pastoral Care Encounter/Spiritual Assessment Type of Contact [] Declined fruit grader visit [] Patient/Family/Request visit [] Outpatient visit [x] Follow-up visit [] Physician referral [] Code/Alert [] Routine visit [] Staff referral [] Actively dying [] Patient sleeping [] Family support [] [] Out of room [] Palliative care [] [] Receiving care in room [] Pre-surgical visit [] Trauma [] Long length of stay [] ICU visit [] Other: Relational/Emotional Strength [] Patient feels connected with others/family/visitors/staff [] Distress [] Loneliness/isolation [] Abandonment Spirituality of Patient [] Person of Rebekah [] Attends Holiness of their Rebekah [] Believes in Prayer [] Reads Bible or Taoist materials [] There are Spiritual issues to be addressed Blast Furnace Keeper Helper Interventions [] Prayer [] Active listening [] Non-anxious presence [] Spiritual/emotional support [] Crisis/trauma care [] Spiritual counseling [] Bereavement support [] Provided bereavement packet [] Provided Bible/devotional materials [] Provided toy/stuffed animal, coloring book to patient or family member [] Provided Communion [] Anointing/[place] [] Salvation [] Completed spiritual assessment [] Other: Impact on Illness or Injury [] Angry [] Fearful [] Anxious [] Often cries [] Exhaustion [] Unable to work [] Unable to attend sabianist [] Unable to walk/stand [] Unable to read [] Unable to drive [] Unable to eat/drink [] Unable to sleep [] Unable to be with family [] Patient intubated [] Other: Summary nurses working on her Time spent with patient
--- NOTE | 2020-12-15 13:13 | PC.NURSE ---
0800 tremors or nervous jerking episodes noted. encouragd to relax. when more relaxed jerking not as severe.
[2020-12-15] MEDS: gabapentin 400 mg Capsule 800 MG PO ×2 (13:21→17:43)
--- NOTE | 2020-12-15 14:11 | PC.NURSE ---
transferred to 276/1 per w/c. on 4l n.c. purse, portable o2 , cell ph. and clothing sent.
[2020-12-15] MEDS: budesonide 0.5 mg/2 mL Neb INHALATION (19:49)
[2020-12-15] MEDS: enoxaparin 40 mg/0.4 mL Syringe SUBCUT (22:14)
[2020-12-16] VITALS (27 sets, daily range): BP systolic 97–176; BP diastolic 58–93; PULSE 84–132; RESP 16–28; TEMP 36.3–36.6; O2SAT 88–97
[2020-12-16] MEDS: ipratropium-albuterol 3 mL Neb INHALATION ×6 (03:03→23:37)
[2020-12-16] MEDS: levETIRAcetam 500 mg Tablet PO ×2 (05:06→16:28)
[2020-12-16] MEDS: oxyCODONE-APAP 10-325 mg Tablet 1 TAB PO ×4 (05:06→21:27)
[2020-12-16] MEDS: aspirin 81 mg Chew Tablet PO (05:06)
[2020-12-16] MEDS: levoFLOXacin 750 mg Tablet PO (05:07)
[2020-12-16] MEDS: gabapentin 400 mg Capsule 800 MG PO ×3 (05:07→16:28)
[2020-12-16] MEDS: pantoprazole DR 40 mg Tablet PO (05:08)
[2020-12-16] MEDS: ARIPiprazole 10 mg Tablet 5 MG PO (05:08)
[2020-12-16] MEDS: FUROsemide 40 mg Tablet PO (05:08)
[2020-12-16] MEDS: duloxetine 60 mg Capsule PO (05:08)
[2020-12-16 05:36] LABS: Basophils % 0.3 %; Hematocrit 38.3 % (37.0-47.0); Hemoglobin 12.1 g/dL (11.5-15.3); Lymphocytes # 0.7 10^3/uL (0.8-4.8); Lymphocytes % 5.9 %; Mean Corpuscular HGB Conc 31.6 g/dL (30.0-36.0); Mean Corpuscular Hemoglobin 27.8 pg (28.0-34.0); Mean Platelet Volume 9.4 fL (7.4-10.4); Monocytes # 0.9 10^3/uL (0.2-0.9); Monocytes % 7.3 %; Neutrophils # 10.49 10^3/uL (1.8-7.7); Neutrophils % 86.1 %; Nucleated Red Blood Cells % 0 %; Platelet Count 289 10^3/cmm (130-400); Red Blood Count 4.35 10^6/uL (4.1-5.3); Red Cell Distribution Width 16.4 % (12.1-15.1); White Blood Count 12.2 10^3/uL (4.0-10.0)
[2020-12-16 05:56] LABS: Blood Urea Nitrogen 14 mg/dL (8-23); Carbon Dioxide 33 mmol/L (22-29); Chloride 88 mmol/L (98-107); Glomerular Filtration Rate 99.1 mL/min (90-130); Glucose 130 mg/dL (65-115); Osmolality Calculated 272 mOsm/kg (285-295); Sodium 130 mmol/L (136-145)
[2020-12-16 05:57] LABS: Anion Gap 13.6 (5-19); Potassium 4.6 mmol/L (3.5-5.1)
[2020-12-16] MEDS: budesonide 0.5 mg/2 mL Neb INHALATION ×2 (07:38→20:15)
--- NOTE | 2020-12-16 08:22 | PM.PN ---
Subjective Subjective: Interval history: Send report reports she feels little bit better. She admits that she is weak. She is short of breath with any activity. She believes it may be similar to how she feels at home. Oxygen had to be increased slightly last night. Medications: Reviewed: Yes Vitals/I&O/Wt Last Vital Signs Temp 97.6 F 12/16/20 08:00 Pulse 120 H 12/16/20 08:00 Resp 18 12/16/20 08:00 BP 114/72 12/16/20 08:00 Pulse Ox 90 12/16/20 08:00 12/15/20 12/16/20 12/16/20 22:59 06:59 14:59 Intake Total 240 / 1260 Output Total 0 / 0 400 / 400 Balance 240 / 1260 -400 / 860 Weight last 48 hrs Weight 66.27 kg Weight 65 kg Weight 65 kg Weight 66.678 kg Physical Exam Narrative: EXAM NARRATIVE: General exam is moderate respiratory distress. Did not require BiPAP last night. Neck is supple no lymphadenopathy or thyromegaly Cardiovascular tachycardic, 2/6 systolic murmur Lungs diminished breath sounds bilaterally, bilateral expiratory wheezes noted. Abdomen is soft with positive bowel sounds. No obvious organomegaly Extremities trace edema Data : 12/16/20 05:02 12/16/20 05:02 A&P Assessment and plan (1) Acute and chronic respiratory failure with hypoxia: Secondary to COPD exacerbation, and acute bronchitis. Continue supportive care Status: Acute (2) Acute exacerbation of chronic obstructive airways disease: Pulmonary toilet Levaquin for acute bronchitis Discontinue IV steroids Transition to p.o. prednisone 40 mg daily Status: Acute (3) Tobacco abuse: Encourage smoking cessation Nicotine patch Status: Acute Additional A&P Information Hyponatremia, slight worsening. She will be initiated on her oral Lasix today. Change Cymbalta to 60 mg once daily. Global weakness. Physical therapy consultation. History of diastolic heart failure. No evidence of exacerbation currently History of paroxysmal atrial fibrillation. Continue beta-mario alberto. Increase to 50 mg twice daily. She has persistent tachycardia. History of seizure disorder, continue Keppra Immunosuppressed with history of rheumatoid arthritis on leflunomide chronically Full code Lovenox for COPD exacerbation Attestations Medical Necessity Statement*: Needs continued hospitalization secondary to COPD exacerbation still requiring close monitoring as she is actively wheezing, in moderate respiratory distress, and tachycardic. If discharged today she would most certainly return as a readmission. Coding Level of Care Code Acute Paper Bag Press Operator for Riccardo Segal Diagnoses Acute and chronic respiratory failure with hypoxia J96.21 Acute exacerbation of chronic obstructive airways disease J44.1 Tobacco abuse Z72.0
[2020-12-16] MEDS: metoprolol tartrate 50 mg Tablet PO (10:44)
[2020-12-16] MEDS: predniSONE 20 mg Tablet 40 MG PO (10:45)
[2020-12-16] MEDS: levothyroxine 25 mcg Tablet PO (10:45)
[2020-12-16] MEDS: sennosides-docusate Tablet 1 TAB PO (10:45)
[2020-12-16] MEDS: nicotine 14 mg Patch 1 PATCH TRANSDERMA (10:45)
--- NOTE | 2020-12-16 11:35 | ECG_ITS ---
[facility] ED Test Date: 2020-12-16 Pat Name: Eli Ghosh Department: Room: 276 Gender: Female Clam Shucker: : 1950 Requested By: Scott Barnard Order Number: [id number] Trevon MD: Estela Sherwood M.D. Measurements Intervals [place] Rate: 137 P: 86 AL: 132 QRS: 87 QRSD: 86 T: 78 QT: 276 QTc: 417 Interpretive Statements SINUS TACHYCARDIA ABNORMAL RHYTHM ECG Compared to ECG 12/14/2020 23:26:48 Sinus rhythm no longer present Electronically Signed On 12-21-2020 10:57:06 CDT by Estela Sherwood M.D. [id number]
[2020-12-16] MEDS: morphine 4 mg/mL SDV 1 mL 1 MG IVP (11:45)
--- NOTE | 2020-12-16 20:42 | PC.NURSE ---
Nurse called provider with current patient vital signs of HR 107 and BP 115/58 PT has scheduled dose of Metoprolol 50 mg PO at 2100, This nurse asked if medication should be held due to PT diastolic BP of 58. Nurse received orders per Dr. San to cut dose in half to 25 mg PO.
[2020-12-16] MEDS: metoprolol tartrate 25 mg Tablet PO (21:27)
[2020-12-16] MEDS: enoxaparin 40 mg/0.4 mL Syringe SUBCUT (23:29)
[2020-12-17] VITALS (41 sets, daily range): BP systolic 53–167; BP diastolic 27–102; PULSE 59–166; RESP 12–28; TEMP 36.4–39.4; O2SAT 85–99
[2020-12-17] MEDS: ipratropium-albuterol 3 mL Neb INHALATION ×6 (03:04→23:56)
[2020-12-17] MEDS: oxyCODONE-APAP 10-325 mg Tablet 1 TAB PO ×2 (04:30→07:35)
[2020-12-17] MEDS: morphine 4 mg/mL SDV 1 mL 1 MG IVP (05:50)
[2020-12-17 05:51] LABS: Basophils % 0.2 %; Hematocrit 41.4 % (37.0-47.0); Lymphocytes # 1.5 10^3/uL (0.8-4.8); Lymphocytes % 12.9 %; Mean Corpuscular HGB Conc 31.4 g/dL (30.0-36.0); Mean Platelet Volume 9.1 fL (7.4-10.4); Monocytes # 0.8 10^3/uL (0.2-0.9); Monocytes % 6.8 %; Neutrophils # 9.07 10^3/uL (1.8-7.7); Neutrophils % 79.8 %; Nucleated Red Blood Cells % 0 %; Platelet Count 278 10^3/cmm (130-400); Red Blood Count 4.65 10^6/uL (4.1-5.3); Red Cell Distribution Width 16.5 % (12.1-15.1); White Blood Count 11.4 10^3/uL (4.0-10.0)
[2020-12-17] MEDS: ARIPiprazole 10 mg Tablet 5 MG PO (05:51)
[2020-12-17] MEDS: gabapentin 400 mg Capsule 800 MG PO (05:52)
[2020-12-17] MEDS: levETIRAcetam 500 mg Tablet PO (05:52)
[2020-12-17] MEDS: levoFLOXacin 750 mg Tablet PO (05:53)
[2020-12-17] MEDS: aspirin 81 mg Chew Tablet PO (05:53)
[2020-12-17] MEDS: FUROsemide 40 mg Tablet PO (05:53)
[2020-12-17] MEDS: pantoprazole DR 40 mg Tablet PO (05:54)
[2020-12-17 06:10] LABS: Anion Gap 14.1 (5-19); Blood Urea Nitrogen 16 mg/dL (8-23); Calcium 9.3 mg/dL (8.5-10.5); Carbon Dioxide 37 mmol/L (22-29); Chloride 88 mmol/L (98-107); Glomerular Filtration Rate 99.1 mL/min (90-130); Glucose 98 mg/dL (65-115); Osmolality Calculated 281 mOsm/kg (285-295); Potassium 4.1 mmol/L (3.5-5.1); Sodium 135 mmol/L (136-145)
[2020-12-17] MEDS: metoprolol tartrate 50 mg Tablet PO (07:34)
[2020-12-17] MEDS: nicotine 14 mg Patch 1 PATCH TRANSDERMA (07:35)
[2020-12-17] MEDS: predniSONE 20 mg Tablet 40 MG PO (07:35)
[2020-12-17] MEDS: levothyroxine 25 mcg Tablet PO (07:35)
[2020-12-17] MEDS: sennosides-docusate Tablet 1 TAB PO (07:35)
[2020-12-17] MEDS: duloxetine 60 mg Capsule PO (07:35)
[2020-12-17] MEDS: budesonide 0.5 mg/2 mL Neb INHALATION ×2 (08:11→19:57)
--- NOTE | 2020-12-17 08:51 | XR_ITS ---
WS: [id number] Portable AP upright chest, 12/17/2020 Clinical Data: dyspnea Comparison: Portable chest, 12/14/2020. Findings: No nodules, masses or effusions are seen. The heart is normal. The pulmonary vascularity is not increased. No pneumothorax is seen. There are bilateral peripheral patchy opacities throughout the lungs which are more apparent today than 3 days ago. There are old left rib fractures. The aortic arch and descending aorta show calcification and tortuosity. The diaphragms are flattened. Monitor l eddie are on the chest wall. There are clips in the right upper quadrant from a cholecystectomy. XR/XR chest 1V portable [id number] Impression: 1. Scattered bilateral peripheral opacities which may represent acute pneumonia . 2. Atherosclerosis and hyperinflation.
[2020-12-17 08:59] LABS: ABG PH Result 7.36 (7.35-7.45); Arterial Blood Gas Hematocrit 39.5 % (37-47); Base Excess ABG 12.5 mmol/L (-2.0-2.0); Blood Gas Allen Test Pos; Blood Gas Operator Identificat glc; Blood Gas Sample Site Radial, right; Blood Gas Sample Type Arterial; HCO3 ABG 41.1 mmol/L (22-26); Oxygen Device BIPAP
[2020-12-17 09:04] LABS: ABG PCO2 72.7 mmHg (35-45)
--- NOTE | 2020-12-17 09:46 | PM.PN ---
Subjective Subjective: Interval history: Eli will answer few questions yes or no but I was called to the room for shortness of breath and hypoxia this morning. She denies any pain. She did have some morphine this morning around 550, and some oxycodone after that. Medications: Reviewed: Yes Vitals/I&O/Wt Last Vital Signs Temp 97.7 F 12/17/20 08:00 Pulse 112 H 12/17/20 09:21 Resp 20 H 12/17/20 08:11 BP 158/95 12/17/20 08:00 Pulse Ox 85 L 12/17/20 08:11 12/16/20 12/17/20 12/17/20 22:59 06:59 14:59 Intake Total 120 / 240 120 / 360 120 / 120 Output Total 800 / 800 Balance 120 / 240 -680 / -440 120 / 120 Weight last 48 hrs Weight 63.503 kg Weight 66.27 kg Physical Exam Narrative: EXAM NARRATIVE: General exam is moderate to severe respiratory distress. I placed her on BiPAP Neck is supple no lymphadenopathy or thyromegaly Cardiovascular tachycardic, irregular, 2/6 systolic murmur Lungs diminished breath sounds bilaterally, bilateral expiratory wheezes noted. Abdomen is soft with positive bowel sounds. No obvious organomegaly Extremities no edema Data : 12/17/20 05:42 12/17/20 05:42 A&P Assessment and plan (1) Acute and chronic respiratory failure with hypoxia: Secondary to COPD exacerbation, and acute bronchitis. Worse today Increasing CO2 on BMP Diamox 500 mg p.o. x1 Placed back on BiPAP Reduce sedative medications. Discontinue morphine. Reduce oxycodone dose. Reduce Neurontin. Status: Acute (2) Acute exacerbation of chronic obstructive airways disease: Worsened. Pulmonary toilet Change Levaquin to IV secondary to decompensation Change steroids to IV Check chest x-ray Status: Acute (3) Tobacco abuse: Encourage smoking cessation Nicotine patch Status: Acute Additional A&P Information Hyponatremia, improved today. Cymbalta was decreased. She was restarted on her p.o. Lasix at home dose Global weakness. Physical therapy consultation. History of diastolic heart failure. No evidence of exacerbation currently History of paroxysmal atrial fibrillation. Continue metoprolol at 50 mg twice daily History of seizure disorder, continue Keppra Immunosuppressed with history of rheumatoid arthritis on leflunomide chronically Full code Lovenox for COPD exacerbation Attestations Medical Necessity Statement*: Needs continued hospitalization for BiPAP support, IV steroids and IV antibiotics secondary to COPD exacerbation Coding Level of Care Code Acute Education And Training Coordinator for Riccardo Fwerika Diagnoses Acute and chronic respiratory failure with hypoxia J96.21 Acute exacerbation of chronic obstructive airways disease J44.1 Tobacco abuse Z72.0
--- NOTE | 2020-12-17 10:59 | PC.NURSE ---
Nurse notified of oxygen.
[2020-12-17] MEDS: gabapentin 400 mg Capsule PO (12:30)
[2020-12-17] MEDS: acetaZOLAMIDE 250 mg Tablet 500 MG PO (12:31)
[2020-12-17 20:33] LABS: ABG PH Result 7.43 (7.35-7.45); Arterial Blood Gas Hematocrit 34.7 % (37-47); Base Excess ABG 15.1 mmol/L (-2.0-2.0); Blood Gas Sample Site Brachial, right; Blood Gas Sample Type Arterial; HCO3 ABG 42.1 mmol/L (22-26); Oxygen Device BIPAP; PO2 ABG 72.2 mmHg (80.0-100.0)
--- NOTE | 2020-12-17 20:33 | PC.NURSE ---
Change in condition Upon arrival to the patient's room for assessment, patient would not respond to verbal stimuli or to touch. She mildly grimaced with firm sternal rub. Intermittent muscle twitching of upper and lower extremities. Low-grade temp, tachycardic. CO2 this morning was 72.7. Repeat ABG ordered. Physician notified of clinical changes, he will come to assess patient as soon as he is able.
[2020-12-17 20:55] LABS: Glucose Point of Care 127 mg/dL (70-110)
[2020-12-17 21:05] LABS: ABG PCO2 63.6 mmHg (35-45)
--- NOTE | 2020-12-17 21:23 | CTR_ITS ---
PROCEDURE INFORMATION: Exam: CT Head Without Contrast Exam date and time: 12/17/2020 9:36 PM Age: 70 years old Clinical indication: Altered mental status/memory loss; Patient HX: Sudden onset of AMS. History of prior stroke. TECHNIQUE: Imaging protocol: Computed tomography of the head without contrast. Radiation optimization: All CT scans at this facility use at least one of these dose optimization techniques: automated exposure control; mA and/or kV adjustment per patient size (includes targeted exams where dose is matched to clinical indication); or iterative reconstruction. Other technique: STROKE PROTOCOL was implemented. COMPARISON: CT head wo con* [id number] 03/18/2020 4:14 PM RADIATION DOSE METRICS: Total DLP (mGy-cm): 2040.46 FINDINGS: Brain: There are areas of encephalomalacia in the right frontal and subfrontal region in keeping with chronic infarcts or prior traumatic brain injury not significantly changed from 03/18/2020. Cerebral ventricles: No ventriculomegaly. Bones/joints: Unremarkable. No acute fracture. Paranasal sinuses: Visualized sinuses are unremarkable. No fluid levels. Mastoid air cells: Visualized mastoid air cells are well aerated. Soft tissues: Unremarkable. CT/CT head wo con* [id number] IMPRESSION: Old infarcts. No acute intracranial finding. ASSESSMENT: ASPECTS ([place] Stroke Program Early CT Score) is 10. Radiation Dose CTDIVOL = (mGy): DLP = 2040.46 (mGy-cm)
[2020-12-17] MEDS: LORazepam 2 mg/mL INJ 1 mL IVP (21:27)
[2020-12-17 21:38] LABS: Basophils # 0.1 10^3/uL (0.0-0.1); Basophils % 0.8 %; Hematocrit 40.4 % (37.0-47.0); Hemoglobin 12.5 g/dL (11.5-15.3); Lymphocytes % 11.5 %; Mean Corpuscular HGB Conc 30.9 g/dL (30.0-36.0); Mean Corpuscular Hemoglobin 27.7 pg (28.0-34.0); Mean Corpuscular Volume 89.4 fL (81-99); Mean Platelet Volume 9.4 fL (7.4-10.4); Monocytes # 0.8 10^3/uL (0.2-0.9); Monocytes % 9.5 %; Neutrophils # 6.78 10^3/uL (1.8-7.7); Neutrophils % 77.9 %; Nucleated Red Blood Cells % 0 %; Platelet Count 227 10^3/cmm (130-400); Red Blood Count 4.52 10^6/uL (4.1-5.3); Red Cell Distribution Width 16.6 % (12.1-15.1); White Blood Count 8.7 10^3/uL (4.0-10.0)
[2020-12-17] MEDS: rocuronium 10 mg/mL INJ 5mL 70 MG IV (21:56)
--- NOTE | 2020-12-17 21:56 | PC.NURSE ---
Stroke Alert: Physician to the room to assess patient, asked for stroke alert to be called. Response team responded 2mg of IV Ativan and 100mg IV Keppra ordered, Head CT, labs and transfer to ICU for intubation. Family notified.
--- NOTE | 2020-12-17 21:59 | XR_ITS ---
WS: [id number] Portable AP supine chest, 12/17/2020, 2214 hours Clinical Data: post intubation Comparison: Portable chest, yesterday, 0931 hours. Findings: The endotracheal tube is above the belen. The nasogastric tube ends in the stomach. The pa tchy O passages in both lungs have increased slightly. The heart size remains same. No pneumothorax i s noted. XR/XR chest 1V portable [id number] Impression: 1. Satisfactory position of endotracheal tube and nasogastric tube. 2. Slight increase in bilateral opacities in the lungs, especially on the right .
--- NOTE | 2020-12-17 22:00 | PC.NURSE ---
Intubation Note Pt arrived from med surg at 2150. Pt unresponsive on non-rebreather at 15LPM. Pt grunting on respiration. Pt cool, pale, with mottling noted to bilateral feet. At 215 IVF NS bolus started 2155 15mg Etomidate given IVP and Rocuronium 70mg given IVP 2156 Dr. San intubate with size 8 ET tube 23 at lip. Equal and bilat breath sounds with positive color change C02 detector. Size 16 OG tube was placed with auscultation. Xray obtained and Dr. San advanced ET tube by 2cm, now sits at 25 at lip. OG tube in proper position.
--- NOTE | 2020-12-17 22:20 | PC.NURSE ---
Neck IV started by PYTHON ARCHITECT with Physician at the bedside.
[2020-12-17] MEDS: acetaminophen 650 mg Supp PR (22:28)
--- NOTE | 2020-12-17 22:30 | PC.NURSE ---
BP BP 53/27, repeat bp 45/30. IVF bolus continues to infuse. Dr. San notified and received telephone orders for norepinephrine stat. Levophed 4mg vial from crash cart mixed with bag 250ml D5.
--- NOTE | 2020-12-17 22:30 | ECG_ITS ---
[facility] Test Date: 2020-12-17 Pat Name: Eli Ghosh Department: Room: [id number] Gender: Female Buffer Machine: : 1950 Requested By: Vonda San Order Number: [id number] Trevon MD: Howie Shah M.D. Measurements Intervals [place] Rate: 116 P: 79 CT: 135 QRS: 73 QRSD: 90 T: 73 QT: 266 QTc: 371 Interpretive Statements SINUS TACHYCARDIA WITH FREQUENT SUPRAVENTRICULAR PREMATURE COMPLEXES NONSPECIFIC ST & T-WAVE ABNORMALITY ABNORMAL RHYTHM ECG Compared to ECG 12/16/2020 11:57:36 T-wave abnormality now present Electronically Signed On 12-18-2020 0:09:53 CDT by Howie Shah M.D. [id number]
[2020-12-17 22:46] LABS: Alanine Aminotransferase 18 U/L (0-33); Albumin Level 3.1 g/dL (3.5-5.2); Alkaline Phosphatase 79 IU/L (35-105); Anion Gap 11.5 (5-19); Aspartate Amino Transferase 25 U/L (0-32); Blood Urea Nitrogen 15 mg/dL (8-23); Calcium 8.2 mg/dL (8.5-10.5); Carbon Dioxide 40 mmol/L (22-29); Chloride 89 mmol/L (98-107); Creatinine Clr Calc Pharmacy 61.0009; Globulin 2.6 g/dL (1.3-4.6); Glucose 117 mg/dL (65-115); Osmolality Calculated 286 mOsm/kg (285-295); Potassium 3.5 mmol/L (3.5-5.1); Sodium 137 mmol/L (136-145); Total Bilirubin 0.4 mg/dL (0.15-1.2); Total Protein 5.7 g/dL (6.6-8.7)
--- NOTE | 2020-12-17 23:01 | PM.EVENT ---
Event Note Event Note: Patient was evaluated bedside for altered mental status ABG revealed improvement in PCO2 with normal pH, no hypoxia, blood glucose 127 mg/dL, normal hemodynamics, patient was not responding to noxious stimuli GCS less than 8 Code stroke was called Last known well time 12:30 PM she was not a TPA candidate During my clinical assessment Fever 103 No abnormal eye movement She was not able to follow commands Noticed muscle fasciculation and twitching of her extremities Babinski negative Hyperactive deep tendon reflexes S1, S2 clinical signs of dehydration Abdomen was nontender and soft She was on BiPAP Assessment and plan , Code stroke was called (gave: Ativan 2 mg IV push along Keppra 1 g loading dose on the medical floor ) case discussed with Dr. Bay, requested CT head on stat basis without contrast which revealed chronic ischemic changes Considering fever, history of seizure and altered mental status, she was transferred to ICU, intubated due to low GCS inability to protect airways, she was started on Versed gtt. Left IJ was placed by myself without any complication CSF obtained Started vancomycin, ceftriaxone, ampicillin and acyclovir, maintenance fluid at the bedside and vasopressors because of hypotension Rectal Tylenol Requested blood culture, sputum culture, urine culture During intubation noticed a lot of thick mucoid secretions, concern for Klebsiella pneumonia Son updated who visited his mother in ICU as well
--- NOTE | 2020-12-17 23:01 | PM.ACPR ---
Acute Procedures Intubation: Time out performed: Yes Sedative: etomidate Mg given: 15 Paralytic: rocuronium Mg given: 70 Laryngoscope: fiber optic video scope Assist device used: fiber optic device ET tube size: 8 Tube secured depth (cm): 25 Tube secured location: lips Tube placement confirmation: visualized tube passing through cords, equal breath sounds bilaterally, no breath sounds over epigastrium, confirmation by capnometry and color change noted Patient tolerated procedure: well Intubation complications: none Additional comments: Indication: Emergent procedure, low GCS code stroke, GCS less than 8 unable to protect airway Preprocedure: 1 L normal saline bolus was started, she was bagged with BVM saturation 97% Etomidate 50 mg and rocuronium 70 mg was used Patient was intubated using fiberoptic videoscope with endotracheal tube size 8, after hyper oxygenating, starting fluids and appropriate positioning of the patient, videoscope inserted with blade size 4, vocal cords were visualized , endotracheal tube was inserted on first attempt, bilateral breath sounds positive, end-tidal CO2 color change detected, post intubation O2 saturation 97 to 98% No postprocedural complication For sedation started Versed Getting vasopressor Levophed and 1 L normal saline bolus for hypotension
--- NOTE | 2020-12-17 23:40 | PC.NURSE ---
Consent Informed Consent obtained from Gio (son) for lumbar puncture and central line placement. Dr. San authorized visit for 1 hr.
[2020-12-17] MEDS: ampicillin 2,000 MG in sodium chloride 0.9% (plus) 50 ML 100 MG IV (23:51)
[2020-12-17] MEDS: potassium chloride premix 100 ML 25 MEQ IV (23:53)
[2020-12-18] VITALS (97 sets, daily range): BP systolic 63–163; BP diastolic 46–98; PULSE 67–165; RESP 14–25; TEMP 36.9–37.5; O2SAT 92–100
--- NOTE | 2020-12-18 00:02 | PC.PHAR ---
Vancomycin is dosed at 1250mg IVPB ever 18 hours to produce a predicted trough level of 14.39 (population based pharmacokinetic analysis). A trough level has been ordered from the lab to be obtained before the fourth dose to confirm and adjust if needed.
[2020-12-18] MEDS: enoxaparin 40 mg/0.4 mL Syringe SUBCUT (00:05)
[2020-12-18 00:10] LABS: Add Urine Microscopic? NO; Charge for UA Resulting for Rev
[2020-12-18 00:14] LABS: Prolactin 2.57 ng/mL (4.8-23.3)
[2020-12-18 00:14] LABS: Bilirubin Urine Neg (Negative); Blood Urine Neg (Negative); Glucose Urine UA Norm (Normal); Ketones Urine Negative (Negative); Leukocyte Esterase Urine Negative (Negative); Nitrate Urine Negative (Negative); Protein Urine Neg (Negative); Specific Gravity, Urine 1.005 (1.005-1.030); Urine Appearance Clear (CLEAR); Urine Color Yellow (Yellow); Urobilinogen Urine Norm (Negative); pH Urine 7 (5-7)
[2020-12-18] MEDS: cefTRIAXone 2,000 MG in sodium chloride 0.9% (plus) 50 ML 100 MG IV (00:30)
[2020-12-18 00:31] LABS: Base Excess ABG 10.8 mmol/L (-2.0-2.0); Blood Gas Allen Test Pos; Blood Gas Operator Identificat JB; Blood Gas Sample Site Radial, right; Blood Gas Sample Type Arterial; HCO3 ABG 37.7 mmol/L (22-26); Oxygen Device VENT
[2020-12-18 00:32] LABS: ABG PCO2 61.1 mmHg (35-45)
[2020-12-18] MEDS: vancomycin 1,250 MG/250 ML PIGGYBACK 250 MG IV ×2 (01:12→18:15)
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
--- NOTE | 2020-12-18 01:57 | XR_ITS ---
WS: [id number] Portable AP semiupright chest, 12/18/2020, 0203 hours Clinical Data: Central line placement Comparison: Portable chest, 12/17/2020 Findings: The left internal jugular venous catheter ends in the superior vena cava. No pneumothorax i s seen. The endotracheal tube and nasogastric tube are in the same position. XR/XR chest 1V portable [id number] Impression: Satisfactory insertion of left internal jugular venous catheter.
--- NOTE | 2020-12-18 03:13 | P.PCN_ITS ---
Procedure/Consent Time out: Time Out Performed: Yes Consent: Consent for Procedure: Consent obtained from other (indicate) (Consent taken from her son) and Emergency procedure Additional Consent Information: Left IJ central line placed Due to hypotension and poor IV access left IJ was accessed under ultrasound guidance Indication: Hypotension poor IV access Preprocedure, neck was prepped and draped Procedure: Patient was put in Trendelenburg position, sterile prep and drape left IJ was detected with ultrasound under sterile technique, was able to get venous return on first attempt, Seldinger technique was used to place triple- lumen catheter, good venous return from all 3 ports, line sutured and secured with sterile dressing Estimated blood loss: 3 to 5 mm Postprocedure complications: None Chest x-ray revealed tip of the catheter at the SVC/atrial junction Acute Procedures Epistaxis Control: Time out performed: Yes
[2020-12-18 03:27] LABS: Glucose CSF 93 mg/dL (40-70); Total Protein CSF 63 mg/dL (15-45)
[2020-12-18 03:56] LABS: CSF Mononuclear # 0.001 10^3/uL (50-90); Mononuclear WBC CSF % 50 % (50-90); Polynuclear Cells ,CSF # 0.001 10^3/uL (0-10); Polynuclear WBC CSF % 50 % (0-10); Red Blood Cell CSF 0 10^3/uL (0-0); White Blood Cell CSF 2 /uL (0-5)
[2020-12-18 03:59] LABS: Appearance CSF CLEAR (CLEAR); Color CSF COLORLESS (COLORLESS)
[2020-12-18 04:06] LABS: Hematocrit 35.4 % (37.0-47.0); Mean Corpuscular HGB Conc 31.1 g/dL (30.0-36.0); Mean Corpuscular Hemoglobin 27.8 pg (28.0-34.0); Mean Corpuscular Volume 89.4 fL (81-99); Mean Platelet Volume 9.9 fL (7.4-10.4); Platelet Count 234 10^3/cmm (130-400); Red Blood Count 3.96 10^6/uL (4.1-5.3); Red Cell Distribution Width 16.5 % (12.1-15.1); White Blood Count 11.6 10^3/uL (4.0-10.0)
[2020-12-18] MEDS: ipratropium-albuterol 3 mL Neb INHALATION ×6 (04:12→23:21)
[2020-12-18 04:22] LABS: Alanine Aminotransferase 16 U/L (0-33); Albumin Level 2.7 g/dL (3.5-5.2); Alkaline Phosphatase 64 IU/L (35-105); Anion Gap 12.9 (5-19); Aspartate Amino Transferase 22 U/L (0-32); Blood Urea Nitrogen 17 mg/dL (8-23); Calcium 7.7 mg/dL (8.5-10.5); Carbon Dioxide 35 mmol/L (22-29); Chloride 95 mmol/L (98-107); Creatinine Clr Calc Pharmacy 61.0009; Globulin 2.1 g/dL (1.3-4.6); Glomerular Filtration Rate 99.1 mL/min (90-130); Glucose 151 mg/dL (65-115); Osmolality Calculated 292 mOsm/kg (285-295); Potassium 3.9 mmol/L (3.5-5.1); Sodium 139 mmol/L (136-145); Total Bilirubin 0.6 mg/dL (0.15-1.2); Total Protein 4.8 g/dL (6.6-8.7)
[2020-12-18 04:24] LABS: Absolute Neutrophil 8.9 10^3/cmm (1.4-6.5); Absolute Segmented Neutrophil 3.5 10/cmm (1.6-7.1); Band Neutrophils Absolute 5.5 10^3/cmm (0.0-1.2); Eosinophils 0 %; Lymphocytes 8 %; Lymphocytes Absolute 1.4 10^3/cmm (1.2-3.4); Monocytes Absolute 1.3 10^3/cmm (0.1-0.6); Platelet Estimate Normal (Normal); Segmented Neutrophils 30 %; Total Cells Counted 100 (0-100)
[2020-12-18] MEDS: ampicillin 2,000 MG in sodium chloride 0.9% (plus) 50 ML 100 MG IV (04:31)
[2020-12-18] MEDS: levETIRAcetam 500 mg Tablet PO (04:53)
[2020-12-18] MEDS: pantoprazole DR 40 mg Tablet PO (04:53)
[2020-12-18 05:24] LABS: ABG PCO2 56.2 mmHg (35-45); ABG PH Result 7.41 (7.35-7.45); Arterial Blood Gas Hematocrit 33.6 % (37-47); Base Excess ABG 8.9 mmol/L (-2.0-2.0); Blood Gas Allen Test Pos; Blood Gas Operator Identificat JB; Blood Gas Sample Site Radial, right; Blood Gas Sample Type Arterial; HCO3 ABG 35.2 mmol/L (22-26); Oxygen Device VENT; PO2 ABG 94.7 mmHg (80.0-100.0)
--- NOTE | 2020-12-18 06:00 | PC.NURSE ---
Afib RVR Dr. San notified afib with RVR, 5mg cardizem IVP ineffective. Pt now sitting straight up in bed gagging on ET tube, attemping to pull on ET tube. Does not follow nursing commands. Orders received to start amiodarone gtt, stop levophed and start neosynephrine and add fentanyl gtt. Physician to place orders.
[2020-12-18] MEDS: FUROsemide 10 mg/mL SDV 2mL 20 MG IVP (06:01)
[2020-12-18] MEDS: phenylephrine inj 25 MG in sodium chloride 0.9% 250 ML 24.2 MG IV (07:01)
--- NOTE | 2020-12-18 07:03 | PC.NURSE ---
Dr. San called to floor and verbalized 150mg bolus dose of IV amiodarone from primary bag. Medication infused over 10 minutes and gtt resumed at 1mcg/min
--- NOTE | 2020-12-18 07:26 | PC.NURSE ---
Took over care and received bedside report from Katarzyna CASTILLO. Dr. Mckinnon at bedside.
--- NOTE | 2020-12-18 07:44 | USCV_ITS ---
Eli Ghosh Age: 70 Gender: F : 1950 Exam Date: 12/18/2020 09:25 Ordering Phys: Scott Mckinnon MD Technologist: Exam Location: [facility] [place] Indication: ON VENT TACH BP: 88 / 55 HR: 131 Rhythm: Sinus Technical Quality: Very technically difficult study MEASUREMENTS (Male / Female) Normal Values 2D ECHO LV Diastolic Diameter PLAX 2.6 cm 4.2 - 5.9 / 3.9 - 5.3 cm LV Systolic Diameter PLAX 1.8 cm IVS Diastolic Thickness 0.9 cm 0.6 - 1.0 / 0.6 - 0.9 cm IVS Systolic Thickness 1.3 cm LVPW Diastolic Thickness 0.9 cm 0.6 - 1.0 / 0.6 - 0.9 cm LVPW Systolic Thickness 1.1 cm LVOT Diameter 2.0 cm LV Ejection Fraction 2D Teich 60.9 % LV Ejection Fraction MOD 2C 47.6 % LV Ejection Fraction 2C AL 47.2 % LA Diameter 3.2 cm LA Width 3.0 cm LA Height 4.3 cm RA Width 3.2 cm RA Height 4.7 cm Aorta at Sinotubular Diameter 2.7 cm M-MODE LV Diastolic Diameter MM 3.9 cm 4.2 - 5.9 / 3.9 - 5.3 cm LV Systolic Diameter MM 2.1 cm LV Ejection Fraction MM Teich 76.9 % IVS Diastolic Thickness MM 1.1 cm 0.6 - 1.0 / 0.6 - 0.9 cm IVS Systolic Thickness MM 1.3 cm LVPW Diastolic Thickness MM 0.9 cm 0.6 - 1.0 / 0.6 - 0.9 cm LVPW Systolic Thickness MM 1.4 cm RV Diastolic Diameter MM 2.1 cm Aortic Annulus Diameter 3.3 cm LA Ao Ratio MM 0.9 MV E Point Septal Separation 0.9 cm DOPPLER AV Peak Velocity 205.8 cm/s LVOT Peak Velocity 169.0 cm/s AV Area Cont Eq vti 3.0 cm squared AV Area Cont Eq pk 2.6 cm squared MV Area PHT 5.0 cm squared Mitral E to A Ratio 0.7 MV E' Velocity 70.0 cm/s TR Peak Velocity 285.3 cm/s TR Peak Gradient 32.6 mmHg TV Peak E Velocity 84.0 cm/s Right Atrial Pressure 3.0 mmHg Pulmonary Artery Systolic Pressu 35.6 mmHg PV Peak Velocity 88.0 cm/s FINDINGS Left Ventricle Normal left ventricular size and systolic function, EF 64 %. No regional wall motion abnormalities. Because of the arrhythmia, segmental wall motion analysis is difficult. Right Ventricle Possibly normal RV size and ejection fraction. Right Atrium Could not be visualized well Left Atrium The left atrium is normal in size. Mitral Valve No gross abnormalities noted Aortic Valve Features of aortic valve sclerosis Tricuspid Valve Trace to mild tricuspid valve regurgitation. Estimated pulmonary artery peak systolic pressure 36 mmHg Pulmonic Valve Pulmonic valve not well visualized. Pericardium Normal pericardium without effusion. Aorta Normal ascending aorta dimension. CONCLUSIONS Normal left ventricular size and systolic function, EF 64 %. No regional wall motion abnormalities. Because of the arrhythmia, segmental wall motion analysis is difficult. Trace to mild tricuspid valve regurgitation. Estimated pulmonary artery peak systolic pressure 36 mmHg. Features of aortic valve sclerosis. There is no pericardial effusion. There are no intracardiac masses. Technically somewhat difficult study because of the poor ultrasonic window. Compared to the study from 04/18/2020, there may not be a significant change Dr Howie Shah MD FACC (Electronically Signed) Final Date: 18 December 2020 18:37 S
--- NOTE | 2020-12-18 07:46 | PM.PN ---
Subjective Subjective: Interval history: Events of last night are noted. Upon seeing the patient this morning she awakens and opens her eyes and tries to get out of bed. Increase sedation is ordered. Last night she had decreased responsiveness and a code stroke was called. CT scan demonstrated nothing acute. To protect her airway she was intubated. She has had quite a bit of purulent sputum on suctioning. She was hypotensive. There was question of seizure or increased shakiness. Lumbar puncture was performed demonstrating no significant cells. Family was notified. She was in atrial fibrillation with rapid ventricular rate, and amiodarone was initiated. She did not get her metoprolol or Keppra last night secondary to lethargy. Medications: Reviewed: Yes Vitals/I&O/Wt Last Vital Signs Temp 98.5 F 12/18/20 06:00 Pulse 155 H 12/18/20 06:00 Resp 20 H 12/18/20 06:07 BP 116/71 12/18/20 06:00 Pulse Ox 96 12/18/20 06:07 12/17/20 12/18/20 12/18/20 22:59 06:59 14:59 Intake Total 110 / 290 638.116 / 928.116 Output Total 350 / 350 Balance 110 / 290 288.116 / 578.116 Weight last 48 hrs Weight 59.466 kg Weight 63.503 kg Physical Exam Narrative: EXAM NARRATIVE: General exam is a white female, who will attempt to get out of bed. HEENT: Pupils equally round. Endotracheal and orogastric tube noted Neck supple no lymphadenopathy or thyromegaly Cardiovascular irregular, irregular with rapid ventricular rate Lungs bilateral expiratory wheezes Abdomen is soft with positive bowel sounds. Extremities no cyanosis clubbing or edema demonstrates Richards Urinary Catheter Management^: Richards: Cath Placed During This Visit: yes Reason for Continuing Indwelling Catheter: Accurate Measurement of Urinary Output in Critically Ill Patients Urinary Catheter Date of Insertion: 12/17/20 Urinary Catheter Time of Insertion: 22:15 Data : 12/18/20 03:39 12/18/20 03:39 Micro: Microbiology 12/17/20 21:25 Blood Culture - Preliminary Blood SPECIMEN COLLECTED 12/17/20 21:30 Blood Culture - Preliminary Blood SPECIMEN COLLECTED A&P Assessment and plan (1) Acute and chronic respiratory failure with hypoxia: Secondary to COPD exacerbation, now with development of pneumonia on chest x-ray this morning. Lines/tubes okay Continue IV steroids Continue pulmonary toilet No extubation today Changed to propofol and fentanyl for sedation Status: Acute (2) Acute exacerbation of chronic obstructive airways disease: Associated with pneumonia See above Continue vancomycin. Change other antibiotics to Zosyn. Focus is pneumonia. INSURANCE LICENSING SUPERVISOR studies were not suggestive of any infection with white blood cells of 2 and red blood cells of 0 with normal glucose. Check MRSA PCR, sputum culture Status: Acute (3) Tobacco abuse: Encourage smoking cessation Status: Acute Additional A&P Information Hypotension. Currently on phenylephrine. Wean as tolerated. Overall fluids around 70 cc an hour currently with her drips. Note that her lactate was normal Atrial fibrillation with rapid ventricular rate. Patient with past history of paroxysmal atrial fibrillation. Amiodarone drip has been started. Stopped metoprolol secondary to hypotension. Global weakness. Physical therapy has been consulted History of diastolic heart failure. No evidence of exacerbation currently History of seizure disorder. Change Keppra to IV. Increase dose to 750 mg every 12 hours Immunosuppressed with history of rheumatoid arthritis on leflunomide chronically History of chronic pain. Continue Neurontin. Holding p.o. narcotics as is on fentanyl drip Full code Lovenox for anticoagulation, full dose secondary to atrial fibrillation Protonix for GI prophylaxis Attestations Medical Necessity Statement*: Needs continued hospital stay for respiratory failure requiring mechanical ventilation. Critical Care Time: Critical Care Time (min): 43 Other Attestations: The high probability of a clinically significant, sudden or life threatening deterioration of the patient's [pulmonary, cardiac, infectious] system(s) required my full and direct attention, intervention and personal management. The critical care time is as shown. This time is in addition to time spent performing any reported procedures but includes the following: [x] Data and vital sign review and interpretation [x] Patient assessment, examination and intervention [x] Documentation [x] Medication orders and management Coding Level of Care Code Acute Bench Worker Apprentice for Riccardo Segal Diagnoses Acute and chronic respiratory failure with hypoxia J96.21 Acute exacerbation of chronic obstructive airways disease J44.1 Tobacco abuse Z72.0
[2020-12-18] MEDS: budesonide 0.5 mg/2 mL Neb INHALATION ×2 (07:49→19:57)
[2020-12-18] MEDS: propofol 1,000 MG/100 ML INJ 3.6 MG IV (07:59)
[2020-12-18] MEDS: enoxaparin 60 mg/0.6 mL Syringe SUBCUT ×2 (08:26→18:15)
--- NOTE | 2020-12-18 09:39 | PC.CHAP ---
Pastoral Care Encounter/Spiritual Assessment Type of Contact [] Declined fire control officer visit [] Patient/Family/Request visit [] Outpatient visit [] Follow-up visit [] Physician referral [] Code/Alert [x] Routine visit [] Staff referral [] Actively dying [] Patient sleeping [] Family support [] [] Out of room [] Palliative care [] [] Receiving care in room [] Pre-surgical visit [] Trauma [] Long length of stay [x] ICU visit [x] Other: ventilator Relational/Emotional Strength [] Patient feels connected with others/family/visitors/staff [] Distress [] Loneliness/isolation [] Abandonment Spirituality of Patient [] Person of Rebekah [] Attends Zoroastrianism of their Rebekah [] Believes in Prayer [] Reads Bible or Scientologist materials [] There are Spiritual issues to be addressed Psychologist Engineering Interventions [x] Prayer [] Active listening [] Non-anxious presence [] Spiritual/emotional support [] Crisis/trauma care [] Spiritual counseling [] Bereavement support [] Provided bereavement packet [] Provided Bible/devotional materials [] Provided toy/stuffed animal, coloring book to patient or family member [] Provided Communion [] Anointing/[place] [] Salvation [x] Completed spiritual assessment [] Other: Impact on Illness or Injury [] Angry [] Fearful [] Anxious [] Often cries [] Exhaustion [] Unable to work [] Unable to attend evangelical [] Unable to walk/stand [] Unable to read [] Unable to drive [] Unable to eat/drink [] Unable to sleep [] Unable to be with family [] Patient intubated [] Other: Summary Time spent with patient
[2020-12-18] MEDS: piperacillin-tazobactam 3.375 GM in sodium chloride 0.9% (plus) 50 ML IV ×2 (09:57→18:14)
[2020-12-18] MEDS: levothyroxine 25 mcg Tablet PO (09:57)
[2020-12-18] MEDS: levETIRAcetam 750 MG in sodium chloride 0.9% (100 ml) 100 ML 430 MG IV ×2 (09:57→20:29)
[2020-12-18] MEDS: phenylephrine inj 25 MG in sodium chloride 0.9% 250 ML 60.6 MG IV (12:09)
--- NOTE | 2020-12-18 13:43 | PC.SOCIAL ---
IMM Update Pg.2 of IMM updated and reviewed with patient's son who was at bedside and who verbalized understanding. Copy provided.
[2020-12-18 13:49] LABS: Magnesium 1.7 mg/dL (1.7-2.3)
[2020-12-18] MEDS: phenylephrine inj 25 MG in sodium chloride 0.9% 250 ML 54.5 MG IV ×2 (16:58→21:43)
[2020-12-18] MEDS: propofol 1,000 MG/100 ML INJ 5.4 MG IV (20:35)
[2020-12-19] VITALS (60 sets, daily range): BP systolic 92–148; BP diastolic 42–78; PULSE 66–169; RESP 14–16; TEMP 37.1–37.3; O2SAT 91–98; BMI 23.2
[2020-12-19] MEDS: piperacillin-tazobactam 3.375 GM in sodium chloride 0.9% (plus) 50 ML IV ×3 (01:23→17:18)
[2020-12-19] MEDS: phenylephrine inj 25 MG in sodium chloride 0.9% 250 ML 42.4 MG IV (01:49)
[2020-12-19] MEDS: ipratropium-albuterol 3 mL Neb INHALATION ×6 (03:29→23:17)
[2020-12-19] MEDS: propofol 1,000 MG/100 ML INJ 10.7 MG IV ×3 (04:00→23:54)
[2020-12-19 04:09] LABS: Basophils # 0.1 10^3/uL (0.0-0.1); Basophils % 0.6 %; Hemoglobin 9.3 g/dL (11.5-15.3); Lymphocytes # 0.9 10^3/uL (0.8-4.8); Lymphocytes % 5.9 %; Mean Corpuscular HGB Conc 32.1 g/dL (30.0-36.0); Mean Corpuscular Hemoglobin 27.9 pg (28.0-34.0); Mean Corpuscular Volume 87.1 fL (81-99); Mean Platelet Volume 10.1 fL (7.4-10.4); Monocytes # 1.2 10^3/uL (0.2-0.9); Monocytes % 7.7 %; Neutrophils # 12.68 10^3/uL (1.8-7.7); Neutrophils % 83.8 %; Nucleated Red Blood Cells % 0 %; Platelet Count 229 10^3/cmm (130-400); Red Blood Count 3.33 10^6/uL (4.1-5.3); Red Cell Distribution Width 16.6 % (12.1-15.1); White Blood Count 15.1 10^3/uL (4.0-10.0)
[2020-12-19 04:19] LABS: Alanine Aminotransferase 12 U/L (0-33); Albumin Level 2.5 g/dL (3.5-5.2); Alkaline Phosphatase 63 IU/L (35-105); Anion Gap 11.4 (5-19); Aspartate Amino Transferase 10 U/L (0-32); Blood Urea Nitrogen 14 mg/dL (8-23); Calcium 7.6 mg/dL (8.5-10.5); Carbon Dioxide 34 mmol/L (22-29); Chloride 97 mmol/L (98-107); Globulin 2.4 g/dL (1.3-4.6); Glomerular Filtration Rate 122.3 mL/min (90-130); Glucose 147 mg/dL (65-115); Osmolality Calculated 293 mOsm/kg (285-295); Sodium 140 mmol/L (136-145); Total Bilirubin 0.3 mg/dL (0.15-1.2); Total Protein 4.9 g/dL (6.6-8.7)
[2020-12-19 04:21] LABS: Magnesium 2.2 mg/dL (1.7-2.3); Potassium 2.4 mmol/L (3.5-5.1)
[2020-12-19 04:32] LABS: Slide Review Slide Review Perform
[2020-12-19] MEDS: pantoprazole DR 40 mg Tablet PO (05:02)
[2020-12-19 05:04] LABS: ABG PCO2 55.3 mmHg (35-45); ABG PH Result 7.42 (7.35-7.45); Arterial Blood Gas Hematocrit 32.9 % (37-47); Base Excess ABG 10.1 mmol/L (-2.0-2.0); Blood Gas Allen Test Pos; Blood Gas Sample Site Radial, right; Blood Gas Sample Type Arterial; HCO3 ABG 36.2 mmol/L (22-26); Oxygen Device VENT; PO2 ABG 70.4 mmHg (80.0-100.0)
[2020-12-19] MEDS: enoxaparin 60 mg/0.6 mL Syringe SUBCUT ×2 (05:34→18:27)
--- NOTE | 2020-12-19 07:00 | XR_ITS ---
WS: [id number] Portable AP semiupright chest, 12/19/2020 Clinical Data: followup resp failure Comparison: Portable chest, 12/18/2020. Findings: The endotracheal tube, nasogastric tube and left internal jugular venous catheter remain in good position. Bibasilar opacities remain the same. No pneumothorax is seen. The heart size is chiqui l. Monitor leads are on the chest wall. XR/XR chest 1V portable [id number] Impression: 1. No change in position of multiple tubes. 2. No change in bibasilar opacities.
[2020-12-19] MEDS: budesonide 0.5 mg/2 mL Neb INHALATION ×2 (07:29→19:53)
[2020-12-19] MEDS: propofol 1,000 MG/100 ML INJ 16.1 MG IV (08:57)
[2020-12-19] MEDS: lidocaine 1% 5 ML in potassium chloride premix 100 ML 25 ML IV ×2 (09:40→14:56)
[2020-12-19] MEDS: levETIRAcetam 750 MG in sodium chloride 0.9% (100 ml) 100 ML 430 MG IV ×2 (09:41→20:53)
[2020-12-19] MEDS: levothyroxine 25 mcg Tablet PO (09:42)
--- NOTE | 2020-12-19 09:45 | PM.PN ---
Subjective Subjective: Interval history: Eli is sedated on the ventilator. She converted to sinus rhythm yesterday. Her pressors have been weaning. Medications: Reviewed: Yes Vitals/I&O/Wt Last Vital Signs Temp 99.5 F 12/18/20 14:00 Pulse 75 12/19/20 07:40 Resp 14 12/19/20 09:30 BP 122/69 12/19/20 06:00 Pulse Ox 92 12/19/20 09:30 12/18/20 12/19/20 12/19/20 22:59 06:59 14:59 Intake Total 1571.258 / 1919.404 569.282 / 2488.686 78.085 / 78.085 Output Total 1475 / 1875 725 / 2600 Balance 96.258 / 44.404 -155.718 / -111.314 78.085 / 78.085 Weight last 48 hrs Weight 62.959 kg Weight 59.466 kg Physical Exam Narrative: EXAM NARRATIVE: General exam is a white female, sedated on the ventilator. Telemetry indicates sinus rhythm HEENT: Pupils equally round. Endotracheal and orogastric tube noted Neck supple no lymphadenopathy or thyromegaly Cardiovascular regular rate and rhythm with a 2/6 systolic murmur Lungs a few bilateral wheezes Abdomen is soft with positive bowel sounds. Extremities no cyanosis clubbing or edema demonstrates Richards Urinary Catheter Management^: Richards: Cath Placed During This Visit: yes Reason for Continuing Indwelling Catheter: Accurate Measurement of Urinary Output in Critically Ill Patients Urinary Catheter Date of Insertion: 12/17/20 Urinary Catheter Time of Insertion: 22:15 Data : 12/19/20 03:30 12/19/20 03:30 Micro: Microbiology 12/17/20 01:36 Gram Stain - Final Cerebrospinal Fluid CSF Culture - Preliminary 12/17/20 21:25 Blood Culture - Preliminary Blood NEGATIVE TO DATE 12/17/20 21:30 Blood Culture - Preliminary Blood NEGATIVE TO DATE 12/18/20 08:00 MRSA Culture - Final Nose 12/17/20 22:15 Gram Stain - Final Sputum - Endotracheal Tube Aspirate A&P Assessment and plan (1) Acute and chronic respiratory failure with hypoxia: Secondary to COPD exacerbation, now with development of pneumonia. MRSA PCR positive Reduce IV steroids Continue pulmonary toilet Weaning trial today Propofol and fentanyl are being used for sedation Status: Acute (2) Acute exacerbation of chronic obstructive airways disease: Associated with pneumonia See above Continue vancomycin and Zosyn for pneumonia. [employer] studies were not suggestive of any infection with white blood cells of 2 and red blood cells of 0 with normal glucose. MRSA PCR was positive Status: Acute (3) Tobacco abuse: Encourage smoking cessation Status: Acute Additional A&P Information Hypotension. Blood pressure improved. Weaning phenylephrine. Overall fluids with drips around 60 cc an hour. Atrial fibrillation with rapid ventricular rate. Was started on amiodarone drip and metoprolol discontinued secondary to hypotension, rapid ventricular rate. She is now converted to sinus rhythm. Plan on changing amiodarone over to p.o. echocardiogram demonstrated EF of 64%, no regional wall motion abnormalities, no major valve abnormalities Hypokalemia. Supplement potassium. Magnesium level normal. Global weakness. Physical therapy has been consulted History of diastolic heart failure. No evidence of exacerbation currently History of seizure disorder. Continue Keppra IV Immunosuppressed with history of rheumatoid arthritis on leflunomide chronically History of chronic pain. Continue Neurontin. Holding p.o. narcotics as is on fentanyl drip Full code Lovenox for anticoagulation, full dose secondary to atrial fibrillation Protonix for GI prophylaxis Attestations Medical Necessity Statement*: Needs continued hospitalization for IV antibiotics secondary to pneumonia, as well as respiratory failure requiring mechanical ventilation. Critical Care Time: Critical Care Time (min): 34 Other Attestations: The high probability of a clinically significant, sudden or life threatening deterioration of the patient's [pulmonary, cardiac] system(s) required my full and direct attention, intervention and personal management. The critical care time is as shown. This time is in addition to time spent performing any reported procedures but includes the following: [x] Data and vital sign review and interpretation [x] Patient assessment, examination and intervention [x] Documentation [x] Medication orders and management Coding Level of Care Code Acute Process Development Associate for Riccardo Segal Diagnoses Acute and chronic respiratory failure with hypoxia J96.21 Acute exacerbation of chronic obstructive airways disease J44.1 Tobacco abuse Z72.0
[2020-12-19] MEDS: amiodarone 200 mg Tablet 400 MG PO ×3 (10:02→17:19)
--- NOTE | 2020-12-19 10:26 | ECG_ITS ---
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 Measurements Intervals [place] Rate: 105 P: 63 [place]: 130 QRS: 70 QRSD: 97 T: 72 QT: 323 QTc: 427 Interpretive Statements SINUS TACHYCARDIA WITH OCCASIONAL VENTRICULAR PREMATURE COMPLEXES WITH FREQUENT SUPRAVENTRICULAR PREMATURE COMPLEXES NONSPECIFIC T-WAVE ABNORMALITY ABNORMAL RHYTHM ECG WARNING: DATA QUALITY MAY AFFECT INTERPRETATION Compared to ECG 12/17/2020 22:39:51 Ventricular premature complex(es) now present T-wave abnormality still present Electronically Signed On 12-19-2020 21:09:06 CDT by Howie Shah M.D. [id number]
--- NOTE | 2020-12-19 13:06 | PC.RESP ---
UNABLE TO DO SBT AT THIS TIME DUE TO HR
[2020-12-19] MEDS: gabapentin 400 mg Capsule OG-TUBE ×2 (14:56→20:59)
[2020-12-19] MEDS: vancomycin 1,250 MG/250 ML PIGGYBACK 250 MG IV (14:57)
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
[2020-12-19] MEDS: phenylephrine inj 25 MG in sodium chloride 0.9% 250 ML 12.1 MG IV (17:24)
[2020-12-19 19:31] LABS: Anion Gap 13.4 (5-19); Blood Urea Nitrogen 15 mg/dL (8-23); Calcium 7.6 mg/dL (8.5-10.5); Carbon Dioxide 30 mmol/L (22-29); Chloride 101 mmol/L (98-107); Glomerular Filtration Rate 122.3 mL/min (90-130); Glucose 159 mg/dL (65-115); Osmolality Calculated 296 mOsm/kg (285-295); Potassium 3.4 mmol/L (3.5-5.1); Sodium 141 mmol/L (136-145)
[2020-12-20] VITALS (51 sets, daily range): BP systolic 94–132; BP diastolic 53–77; PULSE 80–120; RESP 9–15; TEMP 36.6; O2SAT 91–98; BMI 23.8
[2020-12-20] MEDS: piperacillin-tazobactam 3.375 GM in sodium chloride 0.9% (plus) 50 ML IV ×3 (00:02→17:08)
[2020-12-20] MEDS: HYDROmorphone 1 mg/mL INJ 1 mL 0.5 MG IVP ×5 (00:03→23:09)
[2020-12-20] MEDS: ipratropium-albuterol 3 mL Neb INHALATION ×5 (03:23→20:21)
[2020-12-20 04:41] LABS: ABG PCO2 50.4 mmHg (35-45); ABG PH Result 7.42 (7.35-7.45); Base Excess ABG 7.4 mmol/L (-2.0-2.0); Blood Gas Sample Type Arterial; HCO3 ABG 32.9 mmol/L (22-26); PO2 ABG 75.3 mmHg (80.0-100.0)
[2020-12-20 04:42] LABS: Blood Gas Sample Site Brachial, right; Oxygen Device VENT
[2020-12-20] MEDS: pantoprazole DR 40 mg Tablet PO (05:15)
[2020-12-20] MEDS: enoxaparin 60 mg/0.6 mL Syringe SUBCUT ×2 (05:30→17:30)
[2020-12-20] MEDS: propofol 1,000 MG/100 ML INJ 12.5 MG IV (05:54)
[2020-12-20 06:09] LABS: Basophils # 0.1 10^3/uL (0.0-0.1); Basophils % 0.7 %; Hematocrit 33.1 % (37.0-47.0); Hemoglobin 10.3 g/dL (11.5-15.3); Lymphocytes # 0.9 10^3/uL (0.8-4.8); Lymphocytes % 6.9 %; Mean Corpuscular HGB Conc 31.1 g/dL (30.0-36.0); Mean Corpuscular Hemoglobin 26.9 pg (28.0-34.0); Mean Corpuscular Volume 86.4 fL (81-99); Mean Platelet Volume 9.9 fL (7.4-10.4); Monocytes # 0.9 10^3/uL (0.2-0.9); Monocytes % 7.1 %; Neutrophils # 9.85 10^3/uL (1.8-7.7); Nucleated Red Blood Cells % 0.3 %; Platelet Count 193 10^3/cmm (130-400); Red Blood Count 3.83 10^6/uL (4.1-5.3); Red Cell Distribution Width 16.9 % (12.1-15.1); White Blood Count 12.4 10^3/uL (4.0-10.0)
[2020-12-20] MEDS: vancomycin 1,250 MG/250 ML PIGGYBACK 250 MG IV (06:20)
[2020-12-20 06:24] LABS: Vancomycin Trough 14.9 ug/mL (10-15)
[2020-12-20 06:29] LABS: Anion Gap 12.9 (5-19); Blood Urea Nitrogen 18 mg/dL (8-23); Calcium 8.1 mg/dL (8.5-10.5); Carbon Dioxide 30 mmol/L (22-29); Chloride 101 mmol/L (98-107); Glomerular Filtration Rate 99.1 mL/min (90-130); Glucose 162 mg/dL (65-115); Magnesium 2.4 mg/dL (1.7-2.3); Osmolality Calculated 297 mOsm/kg (285-295); Sodium 141 mmol/L (136-145)
[2020-12-20 06:32] LABS: Potassium 2.9 mmol/L (3.5-5.1)
--- NOTE | 2020-12-20 07:00 | XRR_ITS ---
PROCEDURE INFORMATION: Exam: XR Chest Exam date and time: 12/20/2020 7:13 AM Age: 70 years old Clinical indication: Shortness of breath; Additional info: Follow up resp failure TECHNIQUE: Imaging protocol: XR of the chest. Views: 1 view. COMPARISON: CR XR chest 1V portable [id number] 12/18/2020 2:02 AM FINDINGS: Tubes, catheters and devices: Endotracheal tube is in satisfactory position. Left IJ approach central line is in satisfactory position, with distal tip in the SVC, approximately 4 cm above the SVC/RA junction. Feeding tube is in satisfactory position. Lungs: Persistent mildly increased lung markings and hazy bilateral airspace opacities, involving mainly the lower lungs. Pleural spaces: Unremarkable. No pleural effusion. No pneumothorax. Heart/Mediastinum: Stable cardiomediastinal silhouette. Bones/joints: Unremarkable. XR/XR chest 1V portable [id number] IMPRESSION: Persistent bilateral airspace opacities. These findings can be seen with mild pulmonary congestion or pneumonia, clinical correlation is recommended.
[2020-12-20] MEDS: budesonide 0.5 mg/2 mL Neb INHALATION ×2 (08:15→20:21)
[2020-12-20 08:20] LABS: Slide Review Slide Review Perform
[2020-12-20 08:21] LABS: Neutrophils % 85.3 %
[2020-12-20] MEDS: gabapentin 400 mg Capsule OG-TUBE ×3 (08:47→20:59)
[2020-12-20] MEDS: amiodarone 200 mg Tablet 400 MG PO ×2 (08:47→17:09)
[2020-12-20] MEDS: levothyroxine 25 mcg Tablet PO (08:48)
[2020-12-20] MEDS: lidocaine 1% 5 ML in potassium chloride premix 100 ML 25 ML IV (08:55)
[2020-12-20] MEDS: potassium chloride oral liq 20 mEq/15 mL UDC 40 MEQ PO (08:55)
[2020-12-20] MEDS: levETIRAcetam 750 MG in sodium chloride 0.9% (100 ml) 100 ML 430 MG IV ×2 (09:08→20:59)
[2020-12-20] MEDS: FUROsemide 10 mg/mL SDV 4mL 40 MG IVP (10:16)
--- NOTE | 2020-12-20 10:44 | PC.SOCIAL ---
IMM Updated Updated pt's family, via phone, on Pg 2 IMM. No questions voiced. Provided pt a copy. Signed, dated, & timed copy in chart.
--- NOTE | 2020-12-20 11:35 | P.PN_ITS ---
Subjective Subjective: Interval history: Patient was seen and examined this morning.Off sedation GCS is 8T.Patient was given sedation break as well as placed on MMC ventilator settings and saturating > 90% with 40% FiO2 and 5 PEEP. Currently off pressors. Current plan is continue weaning trial and attempt for extubation once appropriate. Medications: Reviewed: Yes Vitals/I&O/Wt Last Vital Signs Temp 98.8 F 12/19/20 13:30 Pulse 112 H 12/20/20 10:00 Resp 14 12/20/20 08:59 BP 107/62 12/20/20 10:00 Pulse Ox 92 12/20/20 10:00 12/19/20 12/20/20 12/20/20 22:59 06:59 14:59 Intake Total 836.112 / 1587.659 318.980 / 5682.663 8170.635 / 1038.635 Output Total 350 / 650 450 / 1100 Balance 486.112 / 937.659 -131.020 / 078.875 2331.635 / 1038.635 Weight last 48 hrs Weight 64.41 kg Weight 62.959 kg Physical Exam Const: COMMON NORMALS: patient oriented x3 HENMT: COMMON NORMALS: normocephalic and atraumatic HEAD & SCALP: normocephalic and atraumatic Chest: CHEST: Yes Symmetrical chest wall rise Resp: COMMON NORMALS: clear to auscultation bilaterally EFFORT & INSPECTION: Yes symmetric chest movement AUSCULTATION: clear to auscultation bilaterally Cardio: COMMON NORMALS: regular rate, regular rhythm, S1 normal heart sound present, S2 normal heart sound present, No gallops present (Cardio), No murmurs present (Cardio), No rub (Cardio) and Peripheral pulses 2+ throughout RATE: regular rate RHYTHM: regular rhythm HEART SOUNDS: S1 normal heart sound p resent and S2 normal heart sound present PERIPHERAL PULSES: Peripheral pulses 2+ throughout GI: COMMON NORMALS: Normal to inspection, nondistended, normoactive bowel sounds present, Soft to palpation, non-tender, No hepatosplenomegaly present and no masses AUSCULTATION: Yes normoactive bowel sounds PALPATION: Yes Soft to palpation and Yes No hepatosplenomegaly present RECTAL EXAM: deferred Extremity: COMMON NORMALS: no clubbing, cyanosis or edema and no pedal edema Neuro: COMMON NORMALS: patient oriented x3 Urinary Catheter Management^: Richards: Cath Placed During This Visit: yes Reason for Continuing Indwelling Catheter: Accurate Measurement of Urinary Output in Critically Ill Patients Urinary Catheter Date of Insertion: 12/17/20 Urinary Catheter Time of Insertion: 22:15 Data : 12/20/20 05:21 12/20/20 05:21 Micro: Microbiology 12/17/20 01:36 Gram Stain - Final Cerebrospinal Fluid CSF Culture - Preliminary 12/17/20 22:15 Gram Stain - Final Sputum - Endotracheal Tube Aspirate Sputum Culture - Preliminary Staphylococcus aureus A&P Assessment and plan (1) Acute and chronic respiratory failure with hypoxia: Secondary to COPD exacerbation, now with development of pneumonia. MRSA PCR positive Reduce IV steroids Continue pulmonary toilet Weaning trial today Propofol and fentanyl are being used for sedation Status: Acute (2) Acute exacerbation of chronic obstructive airways disease: Associated with pneumonia See above Continue vancomycin and Zosyn for pneumonia. 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 MRSA PCR was positive Status: Acute (3) Tobacco abuse: Encourage smoking cessation Status: Acute Additional A&P Information # Hypotension.Resolved currently maintaining good MAP and is off Pressor support. #Atrial fibrillation with rapid ventricular rate. Was started on amiodarone dr ip and metoprolol discontinued secondary to hypotension, rapid ventricular rate. She is now converted to sinus rhythm. Currently on amiodarone 400 mg q12 h daily. echocardiogram demonstrated EF of 64%, no regional wall motion abnormalities, no major valve abnormalities Global weakness. Physical therapy has been consulted #HFpEF:Received lasix 40 mg I.V * 1 dose today. #Hypokalemia. Supplement potassium. Magnesium level normal. #History of seizure disorder. Continue Keppra IV #Immunosuppressed with history of rheumatoid arthritis on leflunomide chronically History of chronic pain. Continue Neurontin. Holding p.o. narcotics as is on fentanyl drip Full code Lovenox for anticoagulation, full dose secondary to atrial fibrillation Protonix for GI prophylaxis Attestations Medical Necessity Statement*: Patient needs to be in hospital for the management of Respiratory failure and the need for continued mechanical ventilation. Coding Level of Care Code Acute Photogrammetric Tech for [facility] Philipp Diagnoses Acute and chronic respiratory failure with hypoxia J96.21 Acute exacerbation of chronic obstructive airways disease J44.1 Tobacco abuse Z72.0
--- NOTE | 2020-12-20 11:46 | PM.PN ---
Subjective Subjective: Interval history: -Grimacing to painful stimuli -Currently pt is still sedated with fentanyl 15 MCG and propofol 10 MCG -Off pressor -On MMC ventilator settings and saturating > 90% with 40% FiO2 and 5 PEEP -Plan is to take off complete sedation and wake her up and continue SBT today -After assessing mentation-if passes SBT-we will proceed with extubation to BiPAP Vitals/I&O/Wt Last Vital Signs Temp 98.8 F 12/19/20 13:30 Pulse 112 H 12/20/20 10:00 Resp 14 12/20/20 08:59 BP 107/62 12/20/20 10:00 Pulse Ox 92 12/20/20 10:00 12/19/20 12/20/20 12/20/20 22:59 06:59 14:59 Intake Total 836.112 / 1587.659 318.980 / 9064.710 6912.635 / 1038.635 Output Total 350 / 650 450 / 1100 Balance 486.112 / 937.659 -131.020 / 699.044 7485.635 / 1038.635 Weight last 48 hrs Weight 142 lb Weight 138 lb 12.8 oz Physical Exam Narrative: EXAM NARRATIVE: EXAM NARRATIVE: PHYSICAL EXAM: General: lying in bed, sedated and intubated. HEENT:NCAT, PERRLA, EOMI Neck: Supple Lungs: Bilateral diffuse end expiratory wheeze Heart: s1/s2, RRR Abd: soft, NT, ND, BS + Normoactive Extremities: No edema MAPLE PRODUCTS SUPERVISOR: sedated and limited MAPLE PRODUCTS SUPERVISOR exam possible. SKIN: no rash LDA: # CVC: Left IJ 12/17/2020 # Richards: 12/17/2020 Urinary Catheter Management^: Richards: Cath Placed During This Visit: yes Reason for Continuing Indwelling Catheter: Accurate Measurement of Urinary Output in Critically Ill Patients Urinary Catheter Date of Insertion: 12/17/20 Urinary Catheter Time of Insertion: 22:15 Data : 12/20/20 05:21 12/20/20 05:21 Micro: Microbiology 12/17/20 01:36 Gram Stain - Final Cerebrospinal Fluid CSF Culture - Preliminary 12/17/20 22:15 Gram Stain - Final Sputum - Endotracheal Tube Aspirate Sputum Culture - Preliminary Staphylococcus aureus Laboratory Results WBC 12.4 10^3/uL (4.0-10.0) H 12/20/20 05:21 RBC 3.83 10^6/uL (4.1-5.3) L 12/20/20 05:21 Hgb 10.3 g/dL (11.5-15.3) L 12/20/20 05:21 Hct 33.1 % (37.0-47.0) L 12/20/20 05:21 MCV 86.4 fL (81-99) 12/20/20 05:21 MCH 26.9 pg (28.0-34.0) L 12/20/20 05:21 MCHC 31.1 g/dL (30.0-36.0) 12/20/20 05:21 RDW 16.9 % (12.1-15.1) H 12/20/20 05:21 Plt Count 193 10^3/cmm (130-400) 12/20/20 05:21 MPV 9.9 fL (7.4-10.4) 12/20/20 05:21 Neut % (Auto) 85.3 % 12/20/20 05:21 Lymph % (Auto) 6.9 % 12/20/20 05:21 [place] % (Auto) 7.1 % 12/20/20 05:21 Eos % (Auto) 0.0 % 12/20/20 05:21 Baso % (Auto) 0.7 % 12/20/20 05:21 Neut # (Auto) 9.85 10^3/uL (1.8-7.7) H 12/20/20 05:21 Lymph # (Auto) 0.9 10^3/uL (0.8-4.8) 12/20/20 05:21 [place] # (Auto) 0.9 10^3/uL (0.2-0.9) 12/20/20 05:21 Eos # (Auto) 0.0 10^3/uL (0.0-0.8) 12/20/20 05:21 Baso # (Auto) 0.1 10^3/uL (0.0-0.1) 12/20/20 05:21 Nucleated RBC % (auto) 0.3 % 12/20/20 05:21 Total Counted 100 (0-100) 12/18/20 03:39 Atypical Lymphs % 4.0 % (0-5) 12/18/20 03:39 Absolute Neutrophils 8.9 10^3/cmm (1.4-6.5) H 12/18/20 03:39 Segmented Neutrophils 30 % 12/18/20 03:39 Abs Segm Neuts (Man) 3.5 10/cmm (1.6-7.1) 12/18/20 03:39 Band Neutrophils 47.0 % 12/18/20 03:39 Abs Band Neuts (Man) 5.5 10^3/cmm (0.0-1.2) H 12/18/20 03:39 Absolute Lymphocytes 1.4 10^3/cmm (1.2-3.4) 12/18/20 03:39 Lymphocytes (Manual) 8 % 12/18/20 03:39 Monocytes (Manual) 11.0 % 12/18/20 03:39 Absolute Monocytes 1.3 10^3/cmm (0.1-0.6) H 12/18/20 03:39 Eosinophils (Manual) 0 % 12/18/20 03:39 Absolute Eosinophils 0.0 10^3/cmm (0.0-0.7) 12/18/20 03:39 Basophils (Manual) 0.0 % 12/18/20 03:39 Absolute Basophils 0.0 10^3/cmm (0.0-0.2) 12/18/20 03:39 Metamyelocytes 0.0 % 12/18/20 03:39 Myelocytes 0.0 % 12/18/20 03:39 Nucleated RBCs # 0.0 /100WBC 12/20/20 05:21 Platelet Estimate Normal (Normal) 12/18/20 03:39 PT 12.30 SECONDS (12.1-14.9) 12/14/20 17:25 INR 0.89 (0.8-1.2) 12/14/20 17:25 D-Dimer 1.63 ug/mIFEU (0-0.59) H 12/14/20 17:25 Specimen Type Arterial 12/20/20 04:25 Sample Site Brachial, right 12/20/20 04:25 ABG pH 7.42 (7.35-7.45) 12/20/20 04:25 ABG pCO2 50.4 mmHg (35-45) H 12/20/20 04:25 ABG pO2 75.3 mmHg (80.0-100.0) L 12/20/20 04:25 ABG HCO3 32.9 mmol/L (22-26) H 12/20/20 04:25 ABG Base Excess 7.4 mmol/L (-2.0-2.0) H 12/20/20 04:25 Dylan Test N/a 12/20/20 04:25 Hematocrit 32.0 % (37-47) L 12/20/20 04:25 Hgb O2 Saturation 80.7 % (95-100) L 12/14/20 18:00 Carboxyhemoglobin 6.3 %THgb (0.4-20.1) 12/14/20 18:00 Methemoglobin 0.9 % (0.4-1.5) 12/14/20 18:00 Total Hemoglobin 13.3 g/dL (12-16) 12/14/20 18:00 O2 Delivery Device Vent 12/20/20 04:25 FiO2 40.0 % 12/20/20 04:25 Tidal Volume 0.40 12/20/20 04:25 PEEP 5.0 cmH20 12/20/20 04:25 Naprapath ID Hinja 12/20/20 04:25 Sodium 141 mmol/L (136-145) 12/20/20 05:21 Potassium 2.9 mmol/L (3.5-5.1) L 12/20/20 05:21 Chloride 101 mmol/L (98-107) 12/20/20 05:21 Carbon Dioxide 30 mmol/L (22-29) H 12/20/20 05:21 Anion Gap 12.9 (5-19) 12/20/20 05:21 BUN 18 mg/dL (8-23) 12/20/20 05:21 Creatinine 0.6 mg/dL (0.5-0.9) 12/20/20 05:21 GFR Calculation 99.1 mL/min (90-130) 12/20/20 05:21 Glucose 162 mg/dL (65-115) H 12/20/20 05:21 POC Glucose 127 mg/dL (70-110) H 12/17/20 20:51 Calculated Osmolality 297 mOsm/kg (285-295) H 12/20/20 05:21 Lactic Acid 2.0 mmol/L (0.5-2.2) 12/14/20 18:33 Lactate 2.0 mmol/L (0.5-2.2) 12/17/20 21:25 Calcium 8.1 mg/dL (8.5-10.5) L 12/20/20 05:21 Magnesium 2.4 mg/dL (1.7-2.3) H 12/20/20 05:21 Total Bilirubin 0.3 mg/dL (0.15-1.2) 12/19/20 03:30 AST 10 U/L (0-32) 12/19/20 03:30 ALT 12 U/L (0-33) 12/19/20 03:30 Alkaline Phosphatase 63 IU/L (35-105) 12/19/20 03:30 Troponin T Baseline 25 ng/L (0-10) H 12/14/20 17:25 Troponin T 120 Minute 26.01 ng/L (0-10) H 12/14/20 19:39 Delta Troponin T 1.01 ABS# (0-10) 12/14/20 19:39 Troponin T Hi Sens 6Hr 14.09 ng/L (0-10) H 12/14/20 00:33 Troponin T Hi Sens 6Hr Delta Not Reportable 12/14/20 00:33 NT-Pro-B Natriuret Pep 2789 pg/mL (0-125) H 12/14/20 17:25 Total Protein 4.9 g/dL (6.6-8.7) L 12/19/20 03:30 Albumin 2.5 g/dL (3.5-5.2) L 12/19/20 03:30 Globulin 2.4 g/dL (1.3-4.6) 12/19/20 03:30 Prolactin 2.57 ng/mL (4.8-23.3) L 12/17/20 21:25 Urine Color Yellow (Yellow) 12/17/20 23:15 Urine Appearance Clear (CLEAR) 12/17/20 23:15 Urine pH 7 (5-7) 12/17/20 23:15 Ur Specific [place] 1.005 (1.005-1.030) 12/17/20 23:15 Urine Protein Neg (Negative) 12/17/20 23:15 Urine Glucose (UA) Norm (Normal) 12/17/20 23:15 Urine Ketones Negative (Negative) 12/17/20 23:15 Urine Blood Neg (Negative) 12/17/20 23:15 Urine Nitrate Negative (Negative) 12/17/20 23:15 Urine Bilirubin Neg (Negative) 12/17/20 23:15 Urine Urobilinogen Norm mg/dL (Negative) 12/17/20 23:15 Ur Leukocyte Esterase Negative (Negative) 12/17/20 23:15 CSF Appearance Clear (CLEAR) 12/17/20 01:36 CSF Color Colorless (COLORLESS) 12/17/20 01:36 CSF WBC 2 /uL (0-5) 12/17/20 01:36 CSF RBC 0 10^3/uL (0-0) 12/17/20 01:36 CSF Mononuclear # Auto 0.001 10^3/uL (50-90) L 12/17/20 01:36 CSF Mononuclear WBCs % 50 % (50-90) 12/17/20 01:36 CSF Polynuclear WBCs # 0.001 10^3/uL (0-10) 12/17/20 01:36 CSF Polynuclear WBCs % 50 % (0-10) H 12/17/20 01:36 CSF Glucose 93 mg/dL (40-70) H 12/17/20 01:36 CSF Total Protein 63 mg/dL (15-45) H 12/17/20 01:36 Vancomycin Trough 14.9 ug/mL (10-15) 12/20/20 05:21 Influenza Type A Ag Negative (Negative) 12/14/20 18:44 Influenza Type B Ag Negative (Negative) 12/14/20 18:44 Impressions Chest CTA 12/14/20 20:20 IMPRESSION: 1. Negative for pulmonary embolism. 2. Severe emphysema. 3. Spiculated right upper lobe opacity, possibly scarring. 4. Minimal dependent right lower lobe ground-glass opacities; favor atelectasis. 5. Age-indeterminate T6 vertebral compression fracture. Radiation Dose CTDIVOL = (mGy): DLP = 545.04 (mGy-cm) Head CT 12/17/20 21:23 IMPRESSION: Old infarcts. No acute intracranial finding. ASSESSMENT: ASPECTS ([place] Stroke Program Early CT Score) is 10. Radiation Dose CTDIVOL = (mGy): DLP = 2040.46 (mGy-cm) Chest X-Ray 12/20/20 07:00 IMPRESSION: Persistent bilateral airspace opacities. These findings can be seen with mild pulmonary congestion or pneumonia, clinical correlation is recommended. A&P Assessment and plan (1) Congestive heart failure: Status: Acute Qualifiers: Heart failure chronicity: chronic Heart failure type: diastolic Qualified Code(s): I50.32 - Chronic diastolic (congestive) heart failure (2) Acute exacerbation of chronic obstructive airways disease: Status: Acute (3) Respiratory failure with hypoxia and hypercapnia: Status: Acute Qualifiers: Chronicity: acute Qualified Code(s): J96.01 - Acute respiratory failure with hypoxia; J96.02 - Acute respiratory failure with hypercapnia (4) Tobacco abuse: Status: Acute (5) Encounter for smoking cessation counseling: Status: Acute (6) Seropositive rheumatoid arthritis of multiple sites: Status: Acute (7) Lung nodule: Status: Acute (8) Immunocompromised: Status: Acute (9) Paroxysmal A-fib: Status: Acute (10) Hypothyroidism: Status: Acute Qualifiers: Hypothyroidism type: unspecified Qualified Code(s): E03.9 - Hypothyroidism, unspecified #AMS likely secondary to MRSA pneumonia; history of seizure disorder. #Acute hypoxic/hypercapnic respiratory failure on chronic hypercapnia in patient with underlying COPD #COPD exacerbation due to MRSA pneumonia #Septic shock-currently on pressors #A. fib with RVR #History of diastolic dysfunction #Severe hypokalemia-today 2.9-supplemented -Currently still sedated with fentanyl MCG on propofol 15-recommended to taper off sedation completely and start awakening trial - watch for signs of opiate withdrawal once fentanyl is off as patient is on chronic opioids -LP ruled out meningitis and currently on Keppra 750 mg twice daily for history of seizures -H/o chronic pain for inflammatory arthritis. Continue Neurontin. -Currently on CMV 40% /5/400/14-ABG today morning 7.4 2/50/75/30 2/93% -recommended to breathing trial today after turning of sedation and waking the patient -Patient is a chronic retainer with baseline CO2 is between 50-60 -If passes SBT-extubate to BiPAP -Continue DuoNeb nebulization every 4 scheduled and Pulmicort 0.5 mg twice daily -Continue, IV steroids 30 mg every 12-Taper based on clinical response -MRSA nares positive in sputum culture growing staph aureus-patient covered with vancomycin and Zosyn -Recommended to continue bedside physical therapy -Off pressors - on amiodarone 400 mg p.o. twice daily. -Nuclear stress test in November 2019 was unremarkable and echo in April 2020 showed moderate aortic stenosis with grade 1 diastolic dysfunction with EF of 64%, no regional wall motion abnormalities, no major valve abnormalities -Supplemented potassium. Magnesium level normal. -Repeat BMP in the evening and supplement potassium if needed - monitor electrolytes and supplement accordingly -Good urine output. 800 cc positive last 24 hoursA and overall 2.8 L positive since admission -Lasix 40 mg as needed -Close input output monitoring. - Immunosuppressed with history of rheumatoid arthritis on leflunomide chronically -hold leflunomide and follow-up with rheumatology as outpatient to restart -On levothyroxine 25 mg p.o. daily for hypothyroidism -Sugars well controlled #COPD - GOLD Stage 2; MMRC 3; multiple hospitalizations and exacerbations; Grade D ## Seropositive rheumatoid arthritis, doing well on sulfasalazine and leflunomide - PFT 12/26/16:Spirometry indicates a moderate obstructive ventilatory defect. -PFT 06/05/2020: Reduced FEV1 51% and FEV1/FVC 25 severe obstructive ventilatory defect with increased lung volumes and severely reduced gas transfer. -On 3 L home oxygen -6 M WT 06/05/2020: Saturation dropped to 88% after 2 minutes and was saturating 93% on 3 L There is a significant bronchodilator response. The diffusing capacity is moderately reduced. - Significant emphysema on CT chest - On Breo, spiriva and Albuterol as needed as outpatient -Recommended to get flu shot and Pneumovax -Pulmonary rehab referral given in clinic but patient is not motivated to go # Stable 9 mm anterior RIGHT upper lobe subsolid nodule n february 2020 compared to September 2019 #Follow-up PET/CT 08/26/2020 did not show anterior nodule but showed a new 1.2 cm solid nodule in the lateral right upper lobe with an SUV of 3.4; suspicious for malignancy. -After 09/19/2019 CT chest , subsequent scans has RUL consolidation which made it difficult to interpret the underlying 9 mm nodule -All subsequent CT scans (February 09, 2020, 03/19/2020, 03/31/2020, 05/09/2020) and done in her ER visits for right upper lobe pneumonia and done to rule out PE; obscured the right upper lobe 9 mm nodule with right upper lobe pneumonia. .Interval 6 mm noncalcified nodule in the right lower lobe in later scans -PET scan 08/26/20:There is a 1.2 cm solid nodule in the lateral right upper lobe with an SUV of 3.4; this is suspicious for malignancy, likely a primary bronchogenic carcinoma. Peripheral dependent infiltrates bilaterally demonstrate inflammatory FDG uptake. Activity in a lingular inferior and right upper lobe infiltrate is likely inflammatory. Mediastinal lymph nodes are radiographically benign and without significant FDG uptake. There are severe bilateral centrilobular emphysematous changes. -I will follow up with PET scan in 3 months Full code Lovenox for anticoagulation, full dose secondary to atrial fibrillation Protonix for GI prophylaxis Recommendations conveyed to hospitalist covering the patient, RN, RT at bedside Plan is to wean off sedation and do awakening trial followed by breathing trial. We will continue vancomycin and plan to extubate in 24 to 48 hours to BiPAP. Attestations Medical Necessity Statement*: Acute hypoxic hypercapnic respiratory failure currently still on ventilator, COPD exacerbation due to MRSA pneumonia on antibiotics. Needs close monitoring. Plan is to do awakening trial and extubate to BiPAP. Time Spent in Patient Care: (>than 50% of time spent in counselling and/or direct pt care on unit). 40mins Critical Care Time: The high probability of a clinically significant, sudden or life threatening deterioration of the patient's [respiratory] system(s) required my full and direct attention, intervention and personal management. The critical care time is as shown. This time is in addition to time spent performing any reported procedures but includes the following: [x] Data and vital sign review and interpretation [x] Patient assessment, examination and intervention [x] Documentation [x] Medication orders and management Critical Care Time (min): 45 Coding Level of Care Code Established Pt Acute Health And Safety Inspector for Chg Fwd Patient Type Established History Comprehensive Exam Comprehensive Medical Decision Making High Complexity Diagnoses Congestive heart failure I50.32 Heart failure chronicity: chronic Heart failure type: diastolic Acute exacerbation of chronic obstructive airways disease J44.1 Respiratory failure with hypoxia and hypercapnia J96.01; J96.02 Chronicity: acute Tobacco abuse Z72.0 Encounter for smoking cessation counseling Z71.6 Seropositive rheumatoid arthritis of multiple sites M05.79 Lung nodule R91.1 Immunocompromised D89.9 Paroxysmal A-fib I48.0 Hypothyroidism E03.9 Hypothyroidism type: unspecified Time Spent (min) 45
--- NOTE | 2020-12-20 12:00 | PC.CHAP ---
Pastoral Care Encounter/Spiritual Assessment Type of Contact [] Declined drum tender visit [] Patient/Family/Request visit [] Outpatient visit [] Follow-up visit [] Physician referral [] Code/Alert [] Routine visit [] Staff referral [] Actively dying [] Patient sleeping [] Family support [] [] Out of room [] Palliative care [] [] Receiving care in room [] Pre-surgical visit [] Trauma [] Long length of stay [x] ICU visit [] Other: Relational/Emotional Strength [x] Patient feels connected with others/family/visitors/staff [] Distress [] Loneliness/isolation [] Abandonment Spirituality of Patient [] Person of Rebekah [] Attends Muslim of their Rebekah [x] Believes in Prayer [] Reads Bible or Church materials [] There are Spiritual issues to be addressed Compensation Programs Manager Interventions [x] Prayer [x] Active listening [x] Non-anxious presence [x] Spiritual/emotional support [] Crisis/trauma care [] Spiritual counseling [] Bereavement support [] Provided bereavement packet [] Provided Bible/devotional materials [] Provided toy/stuffed animal, coloring book to patient or family member [] Provided Communion [] Anointing/[place] [] Salvation [x] Completed spiritual assessment [] Other: Impact on Illness or Injury [] Angry [] Fearful [] Anxious [] Often cries [] Exhaustion [] Unable to work [] Unable to attend mandaeism [] Unable to walk/stand [] Unable to read [] Unable to drive [] Unable to eat/drink [] Unable to sleep [] Unable to be with family [x] Patient intubated [] Other: Summary Pt was sedated and unable to speak. Daughter was present so drum tender spoke with her. She explained Pt is living in [place] due to mother also living in [place] but many family member and SO live in [place]. The daughter speaking, was residing in [place] but is in the process of moving to [place] because Pt lives here. She stated many family members from [place] have arrived today and plan to see Pt. It is apparent from speaking with daughter the Pt. is deeply cared for by her family and has a strong support network. Time spent with patient 15m
[2020-12-20] MEDS: metoprolol tartrate 25 mg Tablet 12.5 MG PO ×2 (17:08→17:29)
[2020-12-20] MEDS: metoprolol tartrate 25 mg Tablet PO (19:27)
--- NOTE | 2020-12-20 19:43 | PC.NUTR ---
Unclear at this time if tube feeding order in place. If enteral nutrition desired when appropriate, recommend change tube feeding to Pulmocare, beginning at 10 ml/hr, increasing by 10 ml/hr to goal rate of 30 ml/hr, to provide 1080 kcal, 45 g protein, and 565 g free water, to approach estimated needs. Recommend additional free water flushes per MD discretion. Informed nursing via phone that RD to place TF recs in chart for reference as needed. RD available for further consult as needed.
[2020-12-20] MEDS: propofol 1,000 MG/100 ML INJ 3.6 MG IV (22:00)
[2020-12-21] VITALS (50 sets, daily range): BP systolic 101–171; BP diastolic 61–91; PULSE 81–114; RESP 13–20; TEMP 36.8–36.9; O2SAT 90–97; BMI 22.8
[2020-12-21] MEDS: piperacillin-tazobactam 3.375 GM in sodium chloride 0.9% (plus) 50 ML IV ×2 (00:05→08:51)
[2020-12-21] MEDS: vancomycin 1,250 MG/250 ML PIGGYBACK 250 MG IV ×2 (00:05→18:12)
[2020-12-21] MEDS: ipratropium-albuterol 3 mL Neb INHALATION ×7 (00:37→23:15)
[2020-12-21] MEDS: HYDROmorphone 1 mg/mL INJ 1 mL 0.5 MG IVP ×4 (02:47→13:10)
[2020-12-21] MEDS: enoxaparin 60 mg/0.6 mL Syringe SUBCUT ×2 (05:37→18:12)
[2020-12-21] MEDS: pantoprazole DR 40 mg Tablet PO (05:37)
[2020-12-21 05:50] LABS: Basophils # 0.1 10^3/uL (0.0-0.1); Basophils % 0.7 %; Hematocrit 33.8 % (37.0-47.0); Hemoglobin 10.5 g/dL (11.5-15.3); Lymphocytes % 6.5 %; Mean Corpuscular HGB Conc 31.1 g/dL (30.0-36.0); Mean Corpuscular Hemoglobin 27.5 pg (28.0-34.0); Mean Corpuscular Volume 88.5 fL (81-99); Mean Platelet Volume 9.7 fL (7.4-10.4); Neutrophils # 11.75 10^3/uL (1.8-7.7); Neutrophils % 79.6 %; Nucleated Red Blood Cells # 0.1 /100WBC; Nucleated Red Blood Cells % 0.4 %; Platelet Count 200 10^3/cmm (130-400); Red Blood Count 3.82 10^6/uL (4.1-5.3); Red Cell Distribution Width 17.2 % (12.1-15.1); White Blood Count 14.8 10^3/uL (4.0-10.0)
[2020-12-21 06:08] LABS: Slide Review Slide Review Perform
--- NOTE | 2020-12-21 06:11 | PC.NURSE ---
Sedation decreased in order for RT to do weaning trial per Datar order. Pt HR jumped to 160's. Pt responding to yes/no questions. Pt in pain and scared. Sedation was turned back on.
[2020-12-21 06:13] LABS: Alanine Aminotransferase 8 U/L (0-33); Albumin Level 2.6 g/dL (3.5-5.2); Alkaline Phosphatase 55 IU/L (35-105); Anion Gap 13.6 (5-19); Aspartate Amino Transferase 9 U/L (0-32); Blood Urea Nitrogen 20 mg/dL (8-23); Carbon Dioxide 31 mmol/L (22-29); Chloride 103 mmol/L (98-107); Creatinine Clr Calc Pharmacy 60.3546; Globulin 2.5 g/dL (1.3-4.6); Glomerular Filtration Rate 122.3 mL/min (90-130); Glucose 135 mg/dL (65-115); Magnesium 2.1 mg/dL (1.7-2.3); Osmolality Calculated 303 mOsm/kg (285-295); Potassium 3.6 mmol/L (3.5-5.1); Sodium 144 mmol/L (136-145); Total Bilirubin 0.3 mg/dL (0.15-1.2); Total Protein 5.1 g/dL (6.6-8.7)
[2020-12-21] MEDS: budesonide 0.5 mg/2 mL Neb INHALATION ×2 (07:53→20:21)
[2020-12-21] MEDS: gabapentin 400 mg Capsule OG-TUBE (08:31)
[2020-12-21] MEDS: levothyroxine 25 mcg Tablet PO (08:31)
[2020-12-21] MEDS: amiodarone 200 mg Tablet 400 MG PO (08:31)
[2020-12-21] MEDS: metoprolol tartrate 25 mg Tablet 12.5 MG PO (08:31)
[2020-12-21] MEDS: levETIRAcetam 750 MG in sodium chloride 0.9% (100 ml) 100 ML 430 MG IV ×2 (08:31→20:06)
--- NOTE | 2020-12-21 13:58 | PC.NURSE ---
Extubated Pt extubated and placed on Bipap.
--- NOTE | 2020-12-21 14:02 | PM.PN ---
Subjective Medications: Reviewed: Yes Vitals/I&O/Wt Last Vital Signs Temp 98.5 F 12/21/20 07:00 Pulse 104 H 12/21/20 12:00 Resp 15 12/21/20 13:17 BP 159/81 12/21/20 12:00 Pulse Ox 90 12/21/20 13:17 12/20/20 12/21/20 12/21/20 22:59 06:59 14:59 Intake Total 308.781 / 1516.341 404.958 / 1921.299 182.980 / 182.980 Output Total 550 / 1250 275 / 1525 Balance -241.219 / 266.341 129.958 / 396.299 182.980 / 182.980 Weight last 48 hrs Weight 61.961 kg Weight 64.41 kg Physical Exam Const: COMMON NORMALS: patient oriented x3 HENMT: COMMON NORMALS: normocephalic and atraumatic HEAD & SCALP: normocephalic and atraumatic Chest: CHEST: Yes Symmetrical chest wall rise Resp: COMMON NORMALS: clear to auscultation bilaterally EFFORT & INSPECTION: Yes symmetric chest movement AUSCULTATION: clear to auscultation bilaterally Cardio: COMMON NORMALS: regular rate, regular rhythm, S1 normal heart sound present, S2 normal heart sound present, No gallops present (Cardio), No murmurs present (Cardio), No rub (Cardio) and Peripheral pulses 2+ throughout RATE: regular rate RHYTHM: regular rhythm HEART SOUNDS: S1 normal heart sound present and S2 normal heart sound present PERIPHERAL PULSES: Peripheral pulses 2+ throughout GI: COMMON NORMALS: Normal to inspection, nondistended, normoactive bowel sounds present, Soft to palpation, non-tender, No hepatosplenomegaly present and no masses AUSCULTATION: Yes normoactive bowel sounds PALPATION: Yes Soft to palpation and Yes No hepatosplenomegaly present RECTAL EXAM: deferred Extremity: COMMON NORMALS: no clubbing, cyanosis or edema and no pedal edema Neuro: COMMON NORMALS: patient oriented x3 Urinary Catheter Management^: Richards: Cath Placed During This Visit: yes Reason for Continuing Indwelling Catheter: Accurate Measurement of Urinary Output in Critically Ill Patients Urinary Catheter Date of Insertion: 12/17/20 Urinary Catheter Time of Insertion: 22:15 Data : 12/21/20 05:26 12/21/20 05:26 Micro: Microbiology 04/14/21 01:36 Gram Stain - Final Cerebrospinal Fluid CSF Culture - Final 12/17/20 22:15 Gram Stain - Final Sputum - Endotracheal Tube Aspirate Sputum Culture - Final Methicillin Resis Staph Aureus A&P Assessment and plan (1) Acute and chronic respiratory failure with hypoxia: Secondary to COPD exacerbation.With interval development of MRSA PNA MRSA PCR positive Sputum culture: MRSA Solumedrol 30 mg IV q12 h daily Continue vancomycin Zosyn discontinued on 12/21 Continue pulmonary toilet Initially on mechanical ventilation. Successfully extubated to BiPAP on 12/21 Status: Acute (2) Acute metabolic encephalopathy: Acute metabolic encephalopathy LP done during this admission; has ruled out any MEDICAL ART THERAPIST infection Status: Acute (3) Acute exacerbation of chronic obstructive airways disease: Associated with pneumonia See above Continue vancomycin MEDICAL ART THERAPIST studies were not suggestive of any infection with white blood cells of 2 and red blood cells of 0 with normal glucose. MRSA PCR was positive Status: Acute (4) Tobacco abuse: Encourage smoking cessation Status: Acute Additional A&P Information # Hypotension.Resolved currently maintaining good MAP and is off Pressor support. #Atrial fibrillation with rapid ventricular rate. Was started on amiodarone drip and metoprolol discontinued secondary to hypotension, rapid ventricular rate. She is now converted to sinus rhythm. Currently on amiodarone 400 mg q12 h daily. Metoprolol tartrate 25 mg every 12 H restarted. echocardiogram demonstrated EF of 64%, no regional wall motion abnormalities, no major valve abnormalities Global weakness. Physical therapy has been consulted #HFpEF:Received lasix 40 mg I.V * 1 dose today. #Hypokalemia. Supplement potassium. Magnesium level normal. #History of seizure disorder. Continue Keppra IV #Immunosuppressed with history of rheumatoid arthritis on leflunomide chronically History of chronic pain. Continue Neurontin. Holding p.o. narcotics as is on fentanyl drip Full code Lovenox for anticoagulation, full dose secondary to atrial fibrillation Protonix for GI prophylaxis Attestations Medical Necessity Statement*: Patient needs to be in hospital for management of R/F 2/2 PNA, COPD Coding Level of Care Code Acute Captain Assistant for [facility] Diagnoses Acute and chronic respiratory failure with hypoxia J96.21 Acute metabolic encephalopathy G93.41 Acute exacerbation of chronic obstructive airways disease J44.1 Tobacco abuse Z72.0
--- NOTE | 2020-12-21 14:10 | P.PN_ITS ---
Subjective Subjective: Interval history: Clinically improving; following verbal commands although appears weak Continue awakening trial and breathing trial, successful-plan to extubate to BiPAP Medications: Reviewed: Yes Vitals/I&O/Wt Last Vital Signs Temp 98.5 F 12/21/20 07:00 Pulse 104 H 12/21/20 12:00 Resp 15 12/21/20 13:17 BP 159/81 12/21/20 12:00 Pulse Ox 90 12/21/20 13:17 12/20/20 12/21/20 12/21/20 22:59 06:59 14:59 Intake Total 308.781 / 1516.341 404.958 / 1921.299 182.980 / 182.980 Output Total 550 / 1250 275 / 1525 Balance -241.219 / 266.341 129.958 / 396.299 182.980 / 182.980 Weight last 48 hrs Weight 136 lb 9.6 oz Weight 142 lb Physical Exam Narrative: EXAM NARRATIVE: EXAM NARRATIVE: PHYSICAL EXAM: General: lying in bed, intubated off sedation and following commands HEENT:NCAT, PERRLA, EOMI Neck: Supple Lungs: Bilateral diffuse end expiratory wheeze Heart: s1/s2, RRR Abd: soft, NT, ND, BS + Normoactive Extremities: No edema 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 following 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-appeared weak SKIN: no rash LDA: # CVC: Left IJ 12/17/2020 # Richards: 12/17/2020 Urinary Catheter Management^: Richards: Cath Placed During This Visit: yes Reason for Continuing Indwelling Catheter: Accurate Measurement of Urinary Output in Critically Ill Patients Urinary Catheter Date of Insertion: 12/17/20 Urinary Catheter Time of Insertion: 22:15 Data : 12/21/20 05:26 12/21/20 05:26 Other Labs: Laboratory Results WBC 14.8 10^3/uL (4.0-10.0) H 12/21/20 05:26 RBC 3.82 10^6/uL (4.1-5.3) L 12/21/20 05:26 Hgb 10.5 g/dL (11.5-15.3) L 12/21/20 05:26 Hct 33.8 % (37.0-47.0) L 12/21/20 05:26 MCV 88.5 fL (81-99) 12/21/20 05:26 MCH 27.5 pg (28.0-34.0) L 12/21/20 05:26 MCHC 31.1 g/dL (30.0-36.0) 12/21/20 05:26 RDW 17.2 % (12.1-15.1) H 12/21/20 05:26 Plt Count 200 10^3/cmm (130-400) 12/21/20 05:26 MPV 9.7 fL (7.4-10.4) 12/21/20 05:26 Neut % (Auto) 79.6 % 12/21/20 05:26 Lymph % (Auto) 6.5 % 12/21/20 05:26 Crosby % (Auto) 7.0 % 12/21/20 05:26 Eos % (Auto) 0.0 % 12/21/20 05:26 Baso % (Auto) 0.7 % 12/21/20 05:26 Neut # (Auto) 11.75 10^3/uL (1.8-7.7) H 12/21/20 05:26 Lymph # (Auto) 1.0 10^3/uL (0.8-4.8) 12/21/20 05:26 Crosby # (Auto) 1.0 10^3/uL (0.2-0.9) H 12/21/20 05:26 Eos # (Auto) 0.0 10^3/uL (0.0-0.8) 12/21/20 05:26 Baso # (Auto) 0.1 10^3/uL (0.0-0.1) 12/21/20 05:26 Nucleated RBC % (auto) 0.4 % 12/21/20 05:26 Total Counted 100 (0-100) 12/18/20 03:39 Atypical Lymphs % 4.0 % (0-5) 12/18/20 03:39 Absolute Neutrophils 8.9 10^3/cmm (1.4-6.5) H 12/18/20 03:39 Segmented Neutrophils 30 % 12/18/20 03:39 Abs Segm Neuts (Man) 3.5 10/cmm (1.6-7.1) 12/18/20 03:39 Band Neutrophils 47.0 % 12/18/20 03:39 Abs Band Neuts (Man) 5.5 10^3/cmm (0.0-1.2) H 12/18/20 03:39 Absolute Lymphocytes 1.4 10^3/cmm (1.2-3.4) 12/18/20 03:39 Lymphocytes (Manual) 8 % 12/18/20 03:39 Monocytes (Manual) 11.0 % 12/18/20 03:39 Absolute Monocytes 1.3 10^3/cmm (0.1-0.6) H 12/18/20 03:39 Eosinophils (Manual) 0 % 12/18/20 03:39 Absolute Eosinophils 0.0 10^3/cmm (0.0-0.7) 12/18/20 03:39 Basophils (Manual) 0.0 % 12/18/20 03:39 Absolute Basophils 0.0 10^3/cmm (0.0-0.2) 12/18/20 03:39 Metamyelocytes 0.0 % 12/18/20 03:39 Myelocytes 0.0 % 12/18/20 03:39 Nucleated RBCs # 0.1 /100WBC 12/21/20 05:26 Platelet Estimate Normal (Normal) 12/18/20 03:39 PT 12.30 SECONDS (12.1-14.9) 12/14/20 17:25 INR 0.89 (0.8-1.2) 12/14/20 17:25 D-Dimer 1.63 ug/mIFEU (0-0.59) H 12/14/20 17:25 Specimen Type Arterial 12/20/20 04:25 Sample Site Brachial, right 12/20/20 04:25 ABG pH 7.42 (7.35-7.45) 12/20/20 04:25 ABG pCO2 50.4 mmHg (35-45) H 12/20/20 04:25 ABG pO2 75.3 mmHg (80.0-100.0) L 12/20/20 04:25 ABG HCO3 32.9 mmol/L (22-26) H 12/20/20 04:25 ABG Base Excess 7.4 mmol/L (-2.0-2.0) H 12/20/20 04:25 Dylan Test N/a 12/20/20 04:25 Hematocrit 32.0 % (37-47) L 12/20/20 04:25 Hgb O2 Saturation 80.7 % (95-100) L 12/14/20 18:00 Carboxyhemoglobin 6.3 %THgb (0.4-20.1) 12/14/20 18:00 Methemoglobin 0.9 % (0.4-1.5) 12/14/20 18:00 Total Hemoglobin 13.3 g/dL (12-16) 12/14/20 18:00 O2 Delivery Device Vent 12/20/20 04:25 FiO2 40.0 % 12/20/20 04:25 Tidal Volume 0.40 12/20/20 04:25 PEEP 5.0 cmH20 12/20/20 04:25 Machine Wood Sander ID Simonja 12/20/20 04:25 Sodium 144 mmol/L (136-145) 12/21/20 05:26 Potassium 3.6 mmol/L (3.5-5.1) 12/21/20 05:26 Chloride 103 mmol/L (98-107) 12/21/20 05:26 Carbon Dioxide 31 mmol/L (22-29) H 12/21/20 05:26 Anion Gap 13.6 (5-19) 12/21/20 05:26 BUN 20 mg/dL (8-23) 12/21/20 05:26 Creatinine 0.5 mg/dL (0.5-0.9) 12/21/20 05:26 GFR Calculation 122.3 mL/min (90-130) 12/21/20 05:26 Glucose 135 mg/dL (65-115) H 12/21/20 05:26 POC Glucose 127 mg/dL (70-110) H 12/17/20 20:51 Calculated Osmolality 303 mOsm/kg (285-295) H 12/21/20 05:26 Lactic Acid 2.0 mmol/L (0.5-2.2) 12/14/20 18:33 Lactate 2.0 mmol/L (0.5-2.2) 12/17/20 21:25 Calcium 8.0 mg/dL (8.5-10.5) L 12/21/20 05:26 Magnesium 2.1 mg/dL (1.7-2.3) 12/21/20 05:26 Total Bilirubin 0.3 mg/dL (0.15-1.2) 12/21/20 05:26 AST 9 U/L (0-32) 12/21/20 05:26 ALT 8 U/L (0-33) 12/21/20 05:26 Alkaline Phosphatase 55 IU/L (35-105) 12/21/20 05:26 Troponin T Baseline 25 ng/L (0-10) H 12/14/20 17:25 Troponin T 120 Minute 26.01 ng/L (0-10) H 12/14/20 19:39 Delta Troponin T 1.01 ABS# (0-10) 12/14/20 19:39 Troponin T Hi Sens 6Hr 14.09 ng/L (0-10) H 12/14/20 00:33 Troponin T Hi Sens 6Hr Delta Not Reportable 12/14/20 00:33 NT-Pro-B Natriuret Pep 2789 pg/mL (0-125) H 12/14/20 17:25 Total Protein 5.1 g/dL (6.6-8.7) L 12/21/20 05:26 Albumin 2.6 g/dL (3.5-5.2) L 12/21/20 05:26 Globulin 2.5 g/dL (1.3-4.6) 12/21/20 05:26 Prolactin 2.57 ng/mL (4.8-23.3) L 12/17/20 21:25 Urine Color Yellow (Yellow) 12/17/20 23:15 Urine Appearance Clear (CLEAR) 12/17/20 23:15 Urine pH 7 (5-7) 12/17/20 23:15 Ur Specific [place] 1.005 (1.005-1.030) 12/17/20 23:15 Urine Protein Neg (Negative) 12/17/20 23:15 Urine Glucose (UA) Norm (Normal) 12/17/20 23:15 Urine Ketones Negative (Negative) 12/17/20 23:15 Urine Blood Neg (Negative) 12/17/20 23:15 Urine Nitrate Negative (Negative) 12/17/20 23:15 Urine Bilirubin Neg (Negative) 12/17/20 23:15 Urine Urobilinogen Norm mg/dL (Negative) 12/17/20 23:15 Ur Leukocyte Esterase Negative (Negative) 12/17/20 23:15 CSF Appearance Clear (CLEAR) 12/17/20 01:36 CSF Color Colorless (COLORLESS) 12/17/20 01:36 CSF WBC 2 /uL (0-5) 12/17/20 01:36 CSF RBC 0 10^3/uL (0-0) 12/17/20 01:36 CSF Mononuclear # Auto 0.001 10^3/uL (50-90) L 12/17/20 01:36 CSF Mononuclear WBCs % 50 % (50-90) 12/17/20 01:36 CSF Polynuclear WBCs # 0.001 10^3/uL (0-10) 12/17/20 01:36 CSF Polynuclear WBCs % 50 % (0-10) H 12/17/20 01:36 CSF Glucose 93 mg/dL (40-70) H 12/17/20 01:36 CSF Total Protein 63 mg/dL (15-45) H 12/17/20 01:36 Vancomycin Trough 14.9 ug/mL (10-15) 12/20/20 05:21 Influenza Type A Ag Negative (Negative) 12/14/20 18:44 Influenza Type B Ag Negative (Negative) 12/14/20 18:44 Impressions Chest CTA 12/14/20 20:20 IMPRESSION: 1. Negative for pulmonary embolism. 2. Severe emphysema. 3. Spiculated right upper lobe opacity, possibly scarring. 4. Minimal dependent right lower lobe ground-glass opacities; favor atelectasis. 5. Age-indeterminate T6 vertebral compression fracture. Radiation Dose CTDIVOL = (mGy): DLP = 545.04 (mGy-cm) Head CT 12/17/20 21:23 IMPRESSION: Old infarcts. No acute intracranial finding. ASSESSMENT: ASPECTS ([place] Stroke Program Early CT Score) is 10. Radiation Dose CTDIVOL = (mGy): DLP = 2040.46 (mGy-cm) Chest X-Ray 12/20/20 07:00 IMPRESSION: Persistent bilateral airspace opacities. These findings can be seen with mild pulmonary congestion or pneumonia, clinical correlation is recommended. Micro: Microbiology 12/17/20 01:36 Gram Stain - Final Cerebrospinal Fluid CSF Culture - Final 12/17/20 22:15 Gram Stain - Final Sputum - Endotracheal Tube Aspirate Sputum Culture - Final Methicillin Resis Staph Aureus A&P Assessment and plan (1) Congestive heart failure: Status: Acute Qualifiers: Heart failure chronicity: chronic Heart failure type: diastolic Qualified Code(s): I50.32 - Chronic diastolic (congestive) heart failure (2) Acute exacerbation of chronic obstructive airways disease: Status: Acute (3) Respiratory failure with hypoxia and hypercapnia: Status: Acute Qualifiers: Chronicity: acute Qualified Code(s): J96.01 - Acute respiratory failure with hypoxia; J96.02 - Acute respiratory failure with hypercapnia (4) Tobacco abuse: Status: Acute (5) Encounter for smoking cessation counseling: Status: Acute (6) Seropositive rheumatoid arthritis of multiple sites: Status: Acute (7) Lung nodule: Status: Acute (8) Immunocompromised: Status: Acute (9) Paroxysmal A-fib: Status: Acute (10) Hypothyroidism: Status: Acute Qualifiers: Hypothyroidism type: unspecified Qualified Code(s): E03.9 - Hypothyroidism, unspecified #AMS likely secondary to MRSA pneumonia; history of seizure disorder. #Acute hypoxic/hypercapnic respiratory failure on chronic hypercapnia in patient with underlying COPD #COPD exacerbation due to MRSA pneumonia #Septic shock-currently on pressors #A. fib with RVR #History of diastolic dysfunction #Severe hypokalemia-today 2.9-supplemented --recommended to taper off sedation completely and start awakening trial - watch for signs of opiate withdrawal once fentanyl is off as patient is on chronic opioids -LP ruled out meningitis and currently on Keppra 750 mg twice daily for history of seizures -H/o chronic pain for inflammatory arthritis. Continue Neurontin. -Currently on CMV 40% /5/400/14 -recommended to breathing trial today after turning of sedation and waking the patient -Patient is a chronic retainer with baseline CO2 is between 50-60 -If passes SBT-extubate to BiPAP -Continue DuoNeb nebulization every 4 scheduled and Pulmicort 0.5 mg twice daily -Continue, IV steroids 30 mg every 12-Taper based on clinical response -MRSA nares positive in sputum culture positive for MRSA-patient covered with v ancomycin and Zosyn; DC Zosyn -Recommended to continue bedside physical therapy -Off pressors - on amiodarone 400 mg p.o. twice daily. -Nuclear stress test in November 2019 was unremarkable and echo in April 2020 showed moderate aortic stenosis with grade 1 diastolic dysfunction with EF of 64%, no regional wall motion abnormalities, no major valve abnormalities -Supplemented potassium. Magnesium level normal. -Repeat BMP in the evening and supplement potassium if needed - monitor electrolytes and supplement accordingly -Good urine output. 800 cc positive last 24 hoursA and overall 2.8 L positive since admission -Lasix 40 mg as needed -Close input output monitoring. - Immunosuppressed with history of rheumatoid arthritis on leflunomide chronically -hold leflunomide and follow-up with rheumatology as outpatient to restart -On levothyroxine 25 mg p.o. daily for hypothyroidism -Sugars well controlled #COPD - GOLD Stage 2; MMRC 3; multiple hospitalizations and exacerbations; Grade D ## Seropositive rheumatoid arthritis, doing well on sulfasalazine and leflunomide - PFT 12/26/16:Spirometry indicates a moderate obstructive ventilatory defect. -PFT 06/05/2020: Reduced FEV1 51% and FEV1/FVC 25 severe obstructive ventilatory defect with increased lung volumes and severely reduced gas transfer. -On 3 L home oxygen -6 M WT 06/05/2020: Saturation dropped to 88% after 2 minutes and was saturating 93% on 3 L There is a significant bronchodilator response. The diffusing capacity is moderately reduced. - Significant emphysema on CT chest - On Breo, spiriva and Albuterol as needed as outpatient -Recommended to get flu shot and Pneumovax -Pulmonary rehab referral given in clinic but patient is not motivated to go # Stable 9 mm anterior RIGHT upper lobe subsolid nodule n february 2020 compared to September 2019 #Follow-up PET/CT 08/26/2020 did not show anterior nodule but showed a new 1.2 cm solid nodule in the lateral right upper lobe with an SUV of 3.4; suspicious for malignancy. -After 09/19/2019 CT chest , subsequent scans has RUL consolidation which made it difficult to interpret the underlying 9 mm nodule -All subsequent CT scans (February 09, 2020, 03/19/2020, 03/31/2020, 05/09/2020) and done in her ER visits for right upper lobe pneumonia and done to rule out PE; obscured the right upper lobe 9 mm nodule with right upper lobe pneumonia. .Interval 6 mm noncalcified nodule in the right lower lobe in later scans -PET scan 08/26/20:There is a 1.2 cm solid nodule in the lateral right upper lobe with an SUV of 3.4; this is suspicious for malignancy, likely a primary bronchogenic carcinoma. Peripheral dependent infiltrates bilaterally demonstrate inflammatory FDG uptake. Activity in a lingular inferior and right upper lobe infiltrate is likely inflammatory. Mediastinal lymph nodes are radiographically benign and without significant FDG uptake. There are severe bilateral centrilobular emphysematous changes. -I will follow up with PET scan in 3 months Full code Lovenox for anticoagulation, full dose secondary to atrial fibrillation Protonix for GI prophylaxis Recommendations conveyed to hospitalist covering the patient, RN, RT at bedside Plan is to wean off sedation and do awakening trial followed by breathing trial. We will continue vancomycin and plan to extubate to BiPAP If passes SBT Attestations Medical Necessity Statement*: Acute hypoxic hypercapnic respiratory failure cu rrently still on ventilator, COPD exacerbation due to MRSA pneumonia on antibiotics. Needs close monitoring. Plan is to do awakening trial and extubate to BiPAP. Time Spent in Patient Care: (>than 50% of time spent in counselling and/or direct pt care on unit) . 40mins Critical Care Time: The high probability of a clinically significant, sudden or life threatening deterioration of the patient's [respiratory] system(s) required my full and direct attention, intervention and personal management. The critical care time is as shown. 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 [facility]g Fwd Patient Type Established History Comprehensive Exam Comprehensive Medical Decision Making High Complexity Diagnoses Congestive heart failure I50.32 Heart failure chronicity: chronic Heart failure type: diastolic Acute exacerbation of chronic obstructive airways disease J44.1 Respiratory failure with hypoxia and hypercapnia J96.01; J96.02 Chronicity: acute Tobacco abuse Z72.0 Encounter for smoking cessation counseling Z71.6 Seropositive rheumatoid arthritis of multiple sites M05.79 Lung nodule R91.1 Immunocompromised D89.9 Paroxysmal A-fib I48.0 Hypothyroidism E03.9 Hypothyroidism type: unspecified Time Spent (min) 45
[2020-12-21] MEDS: FUROsemide 10 mg/mL SDV 4mL 40 MG IVP (14:39)
[2020-12-21] MEDS: LORazepam 2 mg/mL INJ 1 mL 1 MG IVP ×2 (15:43→23:48)
[2020-12-21 16:47] LABS: HSV 1 DNA NOT DETECTED; HSV 2 DNA NOT DETECTED; HSV Source CEREBROSPINAL FLUID
--- NOTE | 2020-12-21 18:29 | PC.NURSE ---
Waste Fentanyl 93.0ml wasted Propofol 52.0ml wasted Witnessed by Mamie CASTILLO.
[2020-12-22] VITALS (83 sets, daily range): BP systolic 112–211; BP diastolic 61–132; PULSE 86–123; RESP 14–26; TEMP 36.8–37.1; O2SAT 90–100
[2020-12-22] MEDS: ipratropium-albuterol 3 mL Neb INHALATION ×6 (03:55→23:55)
[2020-12-22 04:27] LABS: Basophils # 0.2 10^3/uL (0.0-0.1); Basophils % 0.9 %; Hematocrit 37.1 % (37.0-47.0); Hemoglobin 11.5 g/dL (11.5-15.3); Lymphocytes % 5.4 %; Mean Corpuscular Hemoglobin 27.6 pg (28.0-34.0); Mean Platelet Volume 10.4 fL (7.4-10.4); Monocytes # 1.3 10^3/uL (0.2-0.9); Monocytes % 6.7 %; Neutrophils # 15.16 10^3/uL (1.8-7.7); Neutrophils % 80.5 %; Nucleated Red Blood Cells # 0.1 /100WBC; Nucleated Red Blood Cells % 0.3 %; Platelet Count 257 10^3/cmm (130-400); Red Blood Count 4.17 10^6/uL (4.1-5.3); Red Cell Distribution Width 17.4 % (12.1-15.1); White Blood Count 18.8 10^3/uL (4.0-10.0)
[2020-12-22 04:41] LABS: Alanine Aminotransferase 9 U/L (0-33); Albumin Level 2.9 g/dL (3.5-5.2); Alkaline Phosphatase 70 IU/L (35-105); Aspartate Amino Transferase 11 U/L (0-32); Blood Urea Nitrogen 16 mg/dL (8-23); Calcium 8.3 mg/dL (8.5-10.5); Carbon Dioxide 31 mmol/L (22-29); Chloride 105 mmol/L (98-107); Creatinine Clr Calc Pharmacy 60.3546; Globulin 2.7 g/dL (1.3-4.6); Glomerular Filtration Rate 158.3 mL/min (90-130); Glucose 124 mg/dL (65-115); Magnesium 2.2 mg/dL (1.7-2.3); Osmolality Calculated 313 mOsm/kg (285-295); Sodium 150 mmol/L (136-145); Total Bilirubin 0.5 mg/dL (0.15-1.2); Total Protein 5.6 g/dL (6.6-8.7)
[2020-12-22 05:22] LABS: Slide Review Slide Review Perform
[2020-12-22] MEDS: enoxaparin 60 mg/0.6 mL Syringe SUBCUT ×2 (05:51→18:16)
[2020-12-22] MEDS: HYDROmorphone 1 mg/mL INJ 1 mL 0.5 MG IVP (07:12)
[2020-12-22] MEDS: budesonide 0.5 mg/2 mL Neb INHALATION ×2 (07:45→21:16)
--- NOTE | 2020-12-22 08:26 | PC.SOCIAL ---
IMM Not Updated Pg. 2 of IMM not updated, patient intubated and not expected to discharge within the next 48hours.
[2020-12-22] MEDS: levETIRAcetam 750 MG in sodium chloride 0.9% (100 ml) 100 ML 430 MG IV ×2 (09:14→21:33)
[2020-12-22] MEDS: metoprolol tartrate 1 mg/1 mL SDV 5 mL 5 MG IV (09:51)
[2020-12-22] MEDS: dextrose 5%-sod chloride 0.45% 1,000 ML 50 ML IV (10:17)
[2020-12-22 11:15] LABS: SARS Covid-2 Antigen Negative (Negative)
[2020-12-22] MEDS: LORazepam 2 mg/mL INJ 1 mL 1 MG IVP (11:27)
[2020-12-22] MEDS: vancomycin 1,250 MG/250 ML PIGGYBACK 250 MG IV (13:04)
--- NOTE | 2020-12-22 16:41 | PM.PN ---
Subjective Subjective: Interval history: Successfully extubated to BiPAP yesterday Following commands -We will take her off BiPAP in the morning and place her on BiPAP at nighttime -Labs and imaging reviewed Medications: Reviewed: Yes Vitals/I&O/Wt Last Vital Signs Temp 98.2 F 12/22/20 12:00 Pulse 103 H 12/22/20 15:46 Resp 20 H 12/22/20 15:43 BP 164/84 12/22/20 14:15 Pulse Ox 94 12/22/20 15:46 12/22/20 12/22/20 12/22/20 06:59 14:59 22:59 Intake Total 22.083 / 562.646 550.75 / 550.75 Output Total 950 / 2650 2651 / 2651 Balance -927.917 / -2087.354 -2100.25 / -2100.25 Weight last 48 hrs Weight 130 lb 14.4 oz Weight 136 lb 9.6 oz Physical Exam Narrative: EXAM NARRATIVE: EXAM NARRATIVE: EXAM NARRATIVE: PHYSICAL EXAM: General: lying in bed, intubated off sedation and following commands HEENT:NCAT, PERRLA, EOMI Neck: Supple Lungs: Bilateral diffuse end expiratory wheeze Heart: s1/s2, RRR Abd: soft, NT, ND, BS + Normoactive Extremities: No edema FLAKE OR SHRED ROLL OPERATOR: Off sedation and following commands-appeared weak SKIN: no rash LDA: # CVC: Left IJ 12/17/2020 # Richards: 12/17/2020 Urinary Catheter Management^: Richards: Cath Placed During This Visit: yes Reason for Continuing Indwelling Catheter: Accurate Measurement of Urinary Output in Critically Ill Patients Urinary Catheter Date of Insertion: 12/17/20 Urinary Catheter Time of Insertion: 22:15 Data : 12/22/20 03:21 12/22/20 03:21 A&P Assessment and plan (1) Congestive heart failure: Status: Acute Qualifiers: Heart failure chronicity: chronic Heart failure type: diastolic Qualified Code(s): I50.32 - Chronic diastolic (congestive) heart failure (2) Acute exacerbation of chronic obstructive airways disease: Status: Acute (3) Respiratory failure with hypoxia and hypercapnia: Status: Acute Qualifiers: Chronicity: acute Qualified Code(s): J96.01 - Acute respiratory failure with hypoxia; J96.02 - Acute respiratory failure with hypercapnia (4) Tobacco abuse: Status: Acute (5) Encounter for smoking cessation counseling: Status: Acute (6) Seropositive rheumatoid arthritis of multiple sites: Status: Acute (7) Lung nodule: Status: Acute (8) Immunocompromised: Status: Acute (9) Paroxysmal A-fib: Status: Acute (10) Hypothyroidism: Status: Acute Qualifiers: Hypothyroidism type: unspecified Qualified Code(s): E03.9 - Hypothyroidism, unspecified #AMS likely secondary to MRSA pneumonia; history of seizure disorder. #Acute hypoxic/hypercapnic respiratory failure on chronic hypercapnia in patient with underlying COPD #COPD exacerbation due to MRSA pneumonia #Septic shock-currently on pressors #A. fib with RVR #History of diastolic dysfunction #Hyponatremia-150; started on D5 - watch for signs of opiate withdrawal once fentanyl is off as patient is on chronic opioids -LP ruled out meningitis and currently on Keppra 750 mg twice daily for history of seizures -H/o chronic pain for inflammatory arthritis. Continue Neurontin. -Successfully extubated to BiPAP yesterday -Patient is a chronic retainer with baseline CO2 is between 50-60 -BiPAP at nighttime -Continue DuoNeb nebulization every 4 scheduled and Pulmicort 0.5 mg twice daily -Continue, IV steroids 30 mg daily -Taper based on clinical response -MRSA nares positive in sputum culture positive for MRSA-patient covered with vancomycin -Recommended to continue bedside physical therapy -Off pressors; - on amiodarone 400 mg p.o. twice daily. -Nuclear stress test in November 2019 was unremarkable and echo in April 2020 showed moderate aortic stenosis with grade 1 diastolic dysfunction with EF of 64%, no regional wall motion abnormalities, no major valve abnormalities -Patient on Cardizem drip and metoprolol p.o. for A. fib RVR -Supplemented potassium. Magnesium level normal. -Repeat BMP in the evening and supplement potassium if needed - monitor electrolytes and supplement accordingly -Good urine output. -2 L last 24 hours on last and since admission -DC Lasix as patient is clinically dehydrated -Close input output monitoring. - Immunosuppressed with history of rheumatoid arthritis on leflunomide chronically -hold leflunomide and follow-up with rheumatology as outpatient to restart -On levothyroxine 25 mg p.o. daily for hypothyroidism -Sugars well controlled #COPD - GOLD Stage 2; MMRC 3; multiple hospitalizations and exacerbations; Grade D ## Seropositive rheumatoid arthritis, doing well on sulfasalazine and leflunomide - PFT 12/26/16:Spirometry indicates a moderate obstructive ventilatory defect. -PFT 06/05/2020: Reduced FEV1 51% and FEV1/FVC 25 severe obstructive ventilatory defect with increased lung volumes and severely reduced gas transfer. -On 3 L home oxygen -6 M WT 06/05/2020: Saturation dropped to 88% after 2 minutes and was saturating 93% on 3 L There is a significant bronchodilator response. The diffusing capacity is moderately reduced. - Significant emphysema on CT chest - On Breo, spiriva and Albuterol as needed as outpatient -Recommended to get flu shot and Pneumovax -Pulmonary rehab referral given in clinic but patient is not motivated to go # Stable 9 mm anterior RIGHT upper lobe subsolid nodule n february 2020 compared to September 2019 #Follow-up PET/CT 08/26/2020 did not show anterior nodule but showed a new 1.2 cm solid nodule in the lateral right upper lobe with an SUV of 3.4; suspicious for malignancy. -After 09/19/2019 CT chest , subsequent scans has RUL consolidation which made it difficult to interpret the underlying 9 mm nodule -All subsequent CT scans (February 09, 2020, 03/19/2020, 03/31/2020, 05/09/2020) and done in her ER visits for right upper lobe pneumonia and done to rule out PE; obscured the right upper lobe 9 mm nodule with right upper lobe pneumonia. .Interval 6 mm noncalcified nodule in the right lower lobe in later scans -PET scan 08/26/20:There is a 1.2 cm solid nodule in the lateral right upper lobe with an SUV of 3.4; this is suspicious for malignancy, likely a primary bronchogenic carcinoma. Peripheral dependent infiltrates bilaterally demonstrate inflammatory FDG uptake. Activity in a lingular inferior and right upper lobe infiltrate is likely inflammatory. Mediastinal lymph nodes are radiographically benign and without significant FDG uptake. There are severe bilateral centrilobular emphysematous changes. -I will follow up with PET scan in 3 months Full code Lovenox for anticoagulation, full dose secondary to atrial fibrillation Protonix for GI prophylaxis Recommendations conveyed to hospitalist covering the patient, RN, RT at bedside Patient can be transferred to floor once A. fib is controlled and off Cardizem drip and I will follow up as outpatient in pulmonary clinic for COPD. Attestations Medical Necessity Statement*: Acute hypoxic hypercapnic respiratory failure extubated to BiPAP COPD exacerbation due to MRSA pneumonia on antibiotics. Still in A. fib RVR on Cardizem drip needs close monitoring. Time Spent in Patient Care: (>than 50% of time spent in counselling and/or direct pt care on unit). 45 min Critical Care Time: The high probability of a clinically significant, sudden or life threatening deterioration of the patient's [] system(s) required my full and direct attention, intervention and personal management. The critical care time is as shown. This time is in addition to time spent performing any reported procedures but includes the following: [x] Data and vital sign review and interpretation [x] Patient assessment, examination and intervention [x] Documentation [x] Medication orders and management Critical Care Time (min): 45 Coding Level of Care Code Established Pt Acute Tufting Machine Fixer for Chg Fwd Patient Type Established History Comprehensive Exam Comprehensive Medical Decision Making High Complexity Diagnoses Congestive heart failure I50.32 Heart failure chronicity: chronic Heart failure type: diastolic Acute exacerbation of chronic obstructive airways disease J44.1 Respiratory failure with hypoxia and hypercapnia J96.01; J96.02 Chronicity: acute Tobacco abuse Z72.0 Encounter for smoking cessation counseling Z71.6 Seropositive rheumatoid arthritis of multiple sites M05.79 Lung nodule R91.1 Immunocompromised D89.9 Paroxysmal A-fib I48.0 Hypothyroidism E03.9 Hypothyroidism type: unspecified Time Spent (min) 45
--- NOTE | 2020-12-22 18:10 | P.PN_ITS ---
Subjective Subjective: Interval history: Extubated to BiPAP yesterday, this morning transition to nasal cannula which she currently appears to be tolerating this morning. Currently patient remains lethargic, unable to participate in conversation with me, however did answer simple questions earlier this morning. Hypernatremia with sodium at 150, leukocytosis at 18, blood pressure ranging 1 60-1 80 systolic. Heart rate continues to be 120s in spite of being on 15 mg/h of Cardizem drip, plan to add beta-blockers today. Medications: Reviewed: Yes Vitals/I&O/Wt Last Vital Signs Temp 98.2 F 12/22/20 12:00 Pulse 104 H 12/22/20 18:00 Resp 21 H 12/22/20 18:00 BP 160/93 12/22/20 18:00 Pulse Ox 94 12/22/20 18:00 12/22/20 12/22/20 12/22/20 06:59 14:59 22:59 Intake Total 22.083 / 562.646 550.75 / 550.75 100 / 650.75 Output Total 950 / 2650 2651 / 2651 2651 / 5302 Balance -927.917 / -2087.354 -2100.25 / -2100.25 -2551 / -4651.25 Weight last 48 hrs Weight 59.375 kg Weight 61.961 kg Physical Exam Narrative: EXAM NARRATIVE: GEN: Lethargic, somnolent, wakes up to calling name, answers few simple questions however unable to have a conversation at this time. CVS: S1S2 N RS: Bilateral coarse breath sounds to auscultation anteriorly Abd: Soft, nt/nd , bs+ PREPRESS MANAGER: Moves 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 in bed, does not follow consistent commands for detailed neuro exam. Urinary Catheter Management^: Richards: Cath Placed During This Visit: yes Reason for Continuing Indwelling Catheter: Accurate Measurement of Urinary Output in Critically Ill Patients Urinary Catheter Date of Insertion: 12/17/20 Urinary Catheter Time of Insertion: 22:15 Data : 12/22/20 03:21 12/22/20 03:21 A&P Assessment and plan (1) Acute and chronic respiratory failure with hypoxia: Secondary to COPD exacerbation.With interval development of MRSA PNA MRSA PCR positive Sputum culture: MRSA Reduce solumedrol 30 mg IV q24h Continue vancomycin Zosyn discontinued on 12/21 Continue pulmonary toilet Initially on mechanical ventilation. Successfully extubated to BiPAP on 12/21 Status: Acute (2) Acute metabolic encephalopathy: Acute metabolic encephalopathy LP done during this admission; has ruled out any PREPRESS MANAGER infection Status: Acute (3) Acute exacerbation of chronic obstructive airways disease: Associated with pneumonia See above Continue vancomycin PREPRESS MANAGER studies were not suggestive of any infection with white blood cells of 2 and red blood cells of 0 with normal glucose. MRSA PCR was positive Status: Acute (4) Tobacco abuse: Encourage smoking cessation Status: Acute Additional A&P Information # Hypotension. Now resolved. #Atrial fibrillation with rapid ventricular rate. cobntinues to be on cardizem drip swallow eval today, if takes po, will overlap with oral cardizem echocardiogram demonstrated EF of 64%, no regional wall motion abnormalities, no major valve abnormalities Global weakness. Physical therapy has been consulted # hypernatremia: gentle iv hydration with 1/2 NS @50cc/hr , monitor for fluid ov erload, currently euvolemic #History of seizure disorder. Continue Keppra IV #Immunosuppressed with history of rheumatoid arthritis on leflunomide chronically History of chronic pain. Continue Neurontin. Holding p.o. narcotics as is on fentanyl drip Full code Lovenox for anticoagulation, full dose secondary to atrial fibrillation Protonix for GI prophylaxis Attestations Medical Necessity Statement*: optimization of respiratoy statys, control of a fib Critical Care Time: The high probability of a clinically significant, sudden or life threatening deterioration of the patient's [respiratory,cardiovascular] system(s) required my full and direct attention, intervention and personal management. The critical care time is as shown. This time is in addition to time spent performing any reported procedures but includes the following: [x] Data and vital sign review and interpretation [x] Patient assessment, examination and intervention [x] Documentation [x] Medication orders and management Critical Care Time (min): 40 Coding Level of Care Code Acute Tire Finisher for Riccardo Segal Diagnoses Acute and chronic respiratory failure with hypoxia J96.21 Acute metabolic encephalopathy G93.41 Acute exacerbation of chronic obstructive airways disease J44.1 Tobacco abuse Z72.0
[2020-12-23] VITALS (62 sets, daily range): BP systolic 107–179; BP diastolic 56–106; PULSE 73–119; RESP 15–31; TEMP 36–37.2; O2SAT 90–100
[2020-12-23 04:06] LABS: Basophils # 0.1 10^3/uL (0.0-0.1); Basophils % 0.6 %; Hematocrit 39.4 % (37.0-47.0); Hemoglobin 12.3 g/dL (11.5-15.3); Lymphocytes # 1.8 10^3/uL (0.8-4.8); Lymphocytes % 7.6 %; Mean Corpuscular HGB Conc 31.2 g/dL (30.0-36.0); Mean Corpuscular Hemoglobin 27.3 pg (28.0-34.0); Mean Corpuscular Volume 87.4 fL (81-99); Mean Platelet Volume 9.5 fL (7.4-10.4); Monocytes % 8.6 %; Neutrophils # 17.68 10^3/uL (1.8-7.7); Neutrophils % 76.5 %; Nucleated Red Blood Cells # 0.1 /100WBC; Nucleated Red Blood Cells % 0.2 %; Platelet Count 241 10^3/cmm (130-400); Red Blood Count 4.51 10^6/uL (4.1-5.3); Red Cell Distribution Width 17.2 % (12.1-15.1); White Blood Count 23.1 10^3/uL (4.0-10.0)
[2020-12-23] MEDS: ipratropium-albuterol 3 mL Neb INHALATION ×6 (04:22→23:37)
[2020-12-23 04:49] LABS: Alanine Aminotransferase 10 U/L (0-33); Alkaline Phosphatase 71 IU/L (35-105); Anion Gap 10.3 (5-19); Aspartate Amino Transferase 24 U/L (0-32); Blood Urea Nitrogen 9 mg/dL (8-23); Calcium 8.4 mg/dL (8.5-10.5); Carbon Dioxide 36 mmol/L (22-29); Chloride 105 mmol/L (98-107); Globulin 2.6 g/dL (1.3-4.6); Glomerular Filtration Rate 220.6 mL/min (90-130); Glucose 151 mg/dL (65-115); Osmolality Calculated 308 mOsm/kg (285-295); Potassium 3.3 mmol/L (3.5-5.1); Sodium 148 mmol/L (136-145); Total Bilirubin 0.8 mg/dL (0.15-1.2); Total Protein 5.6 g/dL (6.6-8.7)
[2020-12-23 05:00] LABS: Slide Review Slide Review Perform
[2020-12-23] MEDS: enoxaparin 60 mg/0.6 mL Syringe SUBCUT ×2 (06:03→17:31)
[2020-12-23] MEDS: dextrose 5%-sod chloride 0.45% 1,000 ML 50 ML IV ×2 (06:03→23:33)
[2020-12-23] MEDS: vancomycin 1,250 MG/250 ML PIGGYBACK 250 MG IV (06:26)
[2020-12-23] MEDS: budesonide 0.5 mg/2 mL Neb INHALATION ×2 (07:36→19:41)
[2020-12-23] MEDS: levETIRAcetam 750 MG in sodium chloride 0.9% (100 ml) 100 ML 400 MG IV ×2 (08:14→20:36)
--- NOTE | 2020-12-23 09:51 | PC.CHAP ---
Pastoral Care Encounter/Spiritual Assessment Type of Contact [] Declined real estate account executive visit [] Patient/Family/Request visit [] Outpatient visit [] Follow-up visit [] Physician referral [] Code/Alert [x] Routine visit [] Staff referral [] Actively dying [] Patient sleeping [x] Family support [] [] Out of room [] Palliative care [] [] Receiving care in room [] Pre-surgical visit [] Trauma [] Long length of stay [x] ICU visit [x] Other: patient still on ventilator... Relational/Emotional Strength [] Patient feels connected with others/family/visitors/staff [] Distress [] Loneliness/isolation [] Abandonment Spirituality of Patient [] Person of Rebekah [] Attends Mu-Ism of their Rebekah [] Believes in Prayer [] Reads Bible or Restoration materials [] There are Spiritual issues to be addressed Hospital Administrator Interventions [x] Prayer [] Active listening [] Non-anxious presence [] Spiritual/emotional support [] Crisis/trauma care [] Spiritual counseling [] Bereavement support [] Provided bereavement packet [] Provided Bible/devotional materials [] Provided toy/stuffed animal, coloring book to patient or family member [] Provided Communion [] Anointing/[place] [] Salvation [x] Completed spiritual assessment [] Other: Impact on Illness or Injury [] Angry [] Fearful [] Anxious [] Often cries [] Exhaustion [] Unable to work [] Unable to attend zoroastrian [] Unable to walk/stand [] Unable to read [] Unable to drive [] Unable to eat/drink [] Unable to sleep [] Unable to be with family [] Patient intubated [] Other: Summary Time spent with patient
--- NOTE | 2020-12-23 10:46 | PC.NURSE ---
1030 Patient coughs when sucks water from mouth swab. Notified and speech eval and tx ordered. will hold po meds until speech sees patient.
[2020-12-23] MEDS: metoprolol tartrate 1 mg/1 mL SDV 5 mL 5 MG IV ×3 (14:16→23:20)
--- NOTE | 2020-12-23 15:05 | PC.NURSE ---
1500 Has an order in for speech eval to check swallowing reflex. Coughs when swab mouth with wet swab. Hold po meds until swallow study done.
--- NOTE | 2020-12-23 16:58 | PC.NURSE ---
1619 Speech theraphy recommeded me only give her ice chips for today. So giving ice chips and tolerating well.
--- NOTE | 2020-12-23 18:04 | PC.NURSE ---
1634 and 1636 charted the wrong rate of the Cardizem drip, it was actually infusing at 15ml/hr.
--- NOTE | 2020-12-23 18:05 | PC.NURSE ---
1800 Heartrate in 80's and 90's after starting metoprolol IV [id number], so turned cardizem drip down to ml/hr.
--- NOTE | 2020-12-23 18:51 | PM.PN ---
Subjective Subjective: Interval history: Continues to be on intermittent Bipap, significant wheezing on exam. . Hypernatremia with sodium at 148, slughtly improved, leukocytosis at 23, blood pressure ranging 1 60-1 80 systolic. Heart rate continues to be 120s in spite of being on 15 mg/h of Cardizem drip, not receiving amiodarone or B blockers consistently Medications: Reviewed: Yes Vitals/I&O/Wt Last Vital Signs Temp 98.1 F 12/23/20 16:00 Pulse 89 12/23/20 18:00 Resp 28 H 12/23/20 18:00 BP 107/70 12/23/20 18:00 Pulse Ox 96 12/23/20 18:00 12/23/20 12/23/20 12/23/20 06:59 14:59 22:59 Intake Total 1113.333 / 1996.583 357.5 / 357.5 178.517 / 536.017 Output Total 1300 / 8202 1999 / 1999 Balance -186.667 / -6205.417 357.5 / 357.5 -1821.483 / -1463.983 Weight last 48 hrs Weight 56.608 kg Weight 59.375 kg Physical Exam Narrative: EXAM NARRATIVE: GEN: Lethargic, more awake than yesetrday CVS: S1S2 N RS: Bilateral coarse breath sounds to auscultation anteriorly, diffuse wheezing Abd: Soft, nt/nd , bs+ SUPERVISOR FRAME ASSEMBLY: Moves 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 in bed, does not follow consistent commands for detailed neuro exam. Urinary Catheter Management^: Richards: Cath Placed During This Visit: yes Reason for Continuing Indwelling Catheter: Accurate Measurement of Urinary Output in Critically Ill Patients Urinary Catheter Date of Insertion: 12/17/20 Urinary Catheter Time of Insertion: 22:15 Data : 12/23/20 03:35 12/23/20 03:33 Micro: Microbiology 12/17/20 21:25 Blood Culture - Final Blood NO GROWTH AFTER 5 DAYS 12/17/20 21:30 Blood Culture - Final Blood NO GROWTH AFTER 5 DAYS A&P Assessment and plan (1) Acute and chronic respiratory failure with hypoxia: Secondary to COPD exacerbation.With interval development of MRSA PNA MRSA PCR positive Sputum culture: MRSA Continue vancomycin rpt CXR in am givenr ising WBC count, may be contributed by steroids, however need to evalute for devloping complications such as empyema. Status: Acute (2) Acute metabolic encephalopathy: Acute metabolic encephalopathy LP done during this admission; has ruled out any SUPERVISOR FRAME ASSEMBLY infection likely from sepsis and PNA Status: Acute (3) Acute exacerbation of chronic obstructive airways disease: Associated with pneumonia See above Continue vancomycin SUPERVISOR FRAME ASSEMBLY studies were not suggestive of any infection with white blood cells of 2 and red blood cells of 0 with normal glucose. Increase steroids t 30mg iv q12h given worsening bronchospasm toda Status: Acute (4) Tobacco abuse: Encourage smoking cessation Status: Acute Additional A&P Information # Hypotension. Now resolved. #Atrial fibrillation with rapid ventricular rate. cobntinues to be on cardizem drip failed swallow eval today, overlap wit iv b blockers echocardiogram demonstrated EF of 64%, no regional wall motion abnormalities, no major valve abnormalities # hypernatremia: gentle iv hydration with 1/2 NS @50cc/hr , monitor for fluid overload, currently euvolemic #History of seizure disorder. Continue Keppra IV #Immunosuppressed with history of rheumatoid arthritis on leflunomide chronically History of chronic pain. Continue Neurontin. Holding p.o. narcotics as is on fentanyl drip # failed swallow evaluation, if continues to fail over multiple days, may need initiaion of TPN Full code Lovenox for anticoagulation, full dose secondary to atrial fibrillation Protonix for GI prophylaxis Attestations Medical Necessity Statement*: iv abx, respiratory optimization Coding Level of Care Code Acute Associate Relations Specialist for Leog Fwd Diagnoses Acute and chronic respiratory failure with hypoxia J96.21 Acute metabolic encephalopathy G93.41 Acute exacerbation of chronic obstructive airways disease J44.1 Tobacco abuse Z72.0
[2020-12-24] VITALS (108 sets, daily range): BP systolic 113–167; BP diastolic 62–107; PULSE 65–122; RESP 13–35; TEMP 36.2–36.9; O2SAT 87–100
[2020-12-24] MEDS: vancomycin 1,250 MG/250 ML PIGGYBACK 250 MG IV (00:23)
[2020-12-24] MEDS: metoprolol tartrate 1 mg/1 mL SDV 5 mL 5 MG IV ×4 (02:31→14:46)
[2020-12-24] MEDS: ipratropium-albuterol 3 mL Neb INHALATION ×6 (03:22→23:44)
[2020-12-24] MEDS: enoxaparin 60 mg/0.6 mL Syringe SUBCUT ×2 (05:54→17:39)
--- NOTE | 2020-12-24 07:00 | CT_ITS ---
WS: [id number] CT CHEST TECHNIQUE: Noncontrast CT of the chest with coronal and sagittal reformatted images. CLINICAL INFORMATION: follow up pneumonia, worsening WBC count, evalute for empyem COMPARISON: CT December 14, 2020 DLP: 549.[address] scans at [facility] use at least one of these dose optimization techniques: automat ed exposure control; mA and/or kV adjustment per patient size (includes targeted exams where dose is matched to clinical indication); or iterative reconstruction. FINDINGS: Advanced chronic emphysematous changes. Mild progression of the T6 compression fracture compared to A pril 2020 with near vertebra plana configuration. Minimal retropulsion of the posterior superior cortex with mild central canal stenosis. Since the recent CT December 15, 2019 New/progressed multifocal opacities throughout the right lung involving the right upper middle and lo wer lobes. Small right pleural effusion. Multifocal nodular infiltrates throughout the right lung the largest opacities measuring 1 to 2 cm. Patchy nodular subtotal consolidation in the right perihilar region progressed from previous with right hilar lymphadenopathy. Narrowing of the distal right becca tem right upper lobe bronchus. Right hilar lymphadenopathy appears new from previous. In addition new small nodular opacities in the left lower lobe laterally. Adrenal glands are normal. Normal GE junction. No axillary lymphadenopathy. Multiple left posterior r ib fractures with callus formation similar to previous. CT/CT chest wo con 28520 IMPRESSION: 1. Significantly progressed patchy nodular infiltrates and opacities througho ut the right lung. Subtotal consolidation in the right upper lobe and about the right hilum. 2. New right hilar lymphadenopathy with narrowing of the distal right mainstem bronchus and upper lobe bronchus. 3. Elements of multifocal pneumonia however the nodular opacities and right hi lar lymphadenopathy are suspicious for neoplasm or metastatic disease. Recommen d interval follow-up after treatment. 4. In addition, new small nodular opacities in the left lower lobe. 5. Small right pleural effusion. 6. Mild progression of the T6 compression fracture compared to December 14, 2020
[2020-12-24] MEDS: budesonide 0.5 mg/2 mL Neb INHALATION ×2 (07:38→20:30)
--- NOTE | 2020-12-24 08:56 | PC.NURSE ---
Patient reports back pain 8/. Has chronic back pain and normally takes PO gabapentin for it. Pt does have an order for this, but is unable to swallow. Nurse called Dr sykes and received an order for one time toradol for pain relief.
[2020-12-24] MEDS: ketorolac 30 mg/mL INJ 15 MG IVP (09:37)
--- NOTE | 2020-12-24 09:38 | PC.CHAP ---
Pastoral Care Encounter/Spiritual Assessment Type of Contact [] Declined pot maker visit [] Patient/Family/Request visit [] Outpatient visit [] Follow-up visit [] Physician referral [] Code/Alert [x] Routine visit [] Staff referral [] Actively dying [] Patient sleeping [] Family support [] [] Out of room [] Palliative care [] [] Receiving care in room [] Pre-surgical visit [] Trauma [] Long length of stay [x] ICU visit [] Other: Relational/Emotional Strength [] Patient feels connected with others/family/visitors/staff [] Distress [] Loneliness/isolation [] Abandonment Spirituality of Patient [] Person of Rebekah [] Attends Baptist of their Rebekah [] Believes in Prayer [] Reads Bible or Rastafarian materials [] There are Spiritual issues to be addressed Event Set Up Specialist Interventions [x] Prayer [x] Active listening [x] Non-anxious presence [x] Spiritual/emotional support [] Crisis/trauma care [] Spiritual counseling [] Bereavement support [] Provided bereavement packet [] Provided Bible/devotional materials [] Provided toy/stuffed animal, coloring book to patient or family member [] Provided Communion [] Anointing/[place] [] Salvation [x] Completed spiritual assessment [] Other: Impact on Illness or Injury [] Angry [] Fearful [] Anxious [] Often cries [] Exhaustion [] Unable to work [] Unable to attend restorationist [] Unable to walk/stand [] Unable to read [] Unable to drive [] Unable to eat/drink [] Unable to sleep [] Unable to be with family [] Patient intubated [] Other: Summary patient off ventilator .. setting up in bed... discussed knight, card, and family visits... doing so much better Time spent with patient 15 min
[2020-12-24] MEDS: levETIRAcetam 750 MG in sodium chloride 0.9% (100 ml) 100 ML 430 MG IV ×2 (09:40→21:04)
--- NOTE | 2020-12-24 11:17 | PC.OT ---
OT EVALUATION ATTEMPTED; PATIENT IS BEING TRANSFERRED TO CT SCAN. WILL ATTEMPT AGAIN IN P.M.
--- NOTE | 2020-12-24 12:19 | PC.SOCIAL ---
*IMM UPDATE* Gave patient IMM update, provided copy of pg 2. Verbalized understanding. 12/24/20 @1210 Initialed,dated, timed and placed in chart.
[2020-12-24] MEDS: gabapentin 400 mg Capsule OG-TUBE ×2 (14:46→21:05)
--- NOTE | 2020-12-24 15:00 | PC.NUTR ---
Nutritional re-assessment completed. Significant wt loss of 13% noted since admission. Spoke with MD regarding wt loss and options for nutrition at this time. Dysphagia level II diet with nectar thick liquids ordered per SCRAP PILER recommendation. Will consider recommendation for nectar-thickened supplement at next review pending diet tolerance. See full reassessment for further details.
--- NOTE | 2020-12-24 16:09 | PM.PN ---
Subjective Subjective: Interval history: Patient is more alert and awake today. Able to have a conversation. Passed swallow eval, started on a dysphagia diet. Resuming p.o. meds additionally. Heart rate is better controlled. Cardizem down to 2.5/h. Less short of breath, less wheezing, labs not available this morning. Likely progress RLL infiltrate in the right lung. Subpleural consolidation of the right upper lobe and right hilum, new hilar lymphadenopathy, overall concern for multifocal pneumonia versus neoplasm. 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 in bed, participates with physical therapy Urinary Catheter Management^: Richards: Cath Placed During This Visit: yes Reason for Continuing Indwelling Catheter: Accurate Measurement of Urinary Output in Critically Ill Patients Urinary Catheter Date of Insertion: 12/17/20 Urinary Catheter Time of Insertion: 22:15 Data : 12/23/20 03:35 12/23/20 03:33 A&P Assessment and plan (1) Acute and chronic respiratory failure with hypoxia: Secondary to COPD exacerbation.With interval development of MRSA PNA MRSA PCR positive Sputum culture: MRSA Continue vancomycin rpt CXR in am givenr ising WBC count, may be contributed by steroids, however need to evalute for devloping complications such as empyema. Status: Acute (2) Acute metabolic encephalopathy: Acute metabolic encephalopathy LP done during this admission; has ruled out any VOCATIONAL TECHNICAL EDUCATION TEACHER infection likely from sepsis and PNA Status: Acute (3) Acute exacerbation of chronic obstructive airways disease: Associated with pneumonia See above Continue vancomycin VOCATIONAL TECHNICAL EDUCATION TEACHER studies were not suggestive of any infection with white blood cells of 2 and red blood cells of 0 with normal glucose. Increase steroids t 30mg iv q12h given worsening bronchospasm toda Status: Acute (4) Tobacco abuse: Encourage smoking cessation Status: Acute Additional A&P Information # Hypotension. Now resolved. #Atrial fibrillation with rapid ventricular rate. cobntinues to be on cardizem drip , however now rate down to 2.5mg/hr passed swallow eval, resume po metroprolol and amiodarone echocardiogram demonstrated EF of 64%, no regional wall motion abnormalities, no major valve abnormalities # hypernatremia: gentle iv hydration with 1/2 NS @50cc/hr , monitor for fluid overload, currently euvolemic #History of seizure disorder. Continue Keppra IV #Immunosuppressed with history of rheumatoid arthritis on leflunomide chronically History of chronic pain. Continue Neurontin. Holding p.o. narcotics as is on fentanyl drip # failed swallow evaluation, if continues to fail over multiple days, may need initiaion of TPN Full code Lovenox for anticoagulation, full dose secondary to atrial fibrillation Protonix for GI prophylaxis Attestations Medical Necessity Statement*: optimization of respiratory status, ongoing cardizem infusion for HR control Critical Care Time: The high probability of a clinically significant, sudden or life threatening deterioration of the patient's [cardiac,respiratory ] system(s) required my full and direct attention, intervention and personal management. The critical care time is as shown. This time is in addition to time spent performing any reported procedures but includes the following: [x] Data and vital sign review and interpretation [x] Patient assessment, examination and intervention [x] Documentation [x] Medication orders and management Critical Care Time (min): 40 Coding Level of Care Code Acute Dice Table Person for Riccardo Segal Diagnoses Acute and chronic respiratory failure with hypoxia J96.21 Acute metabolic encephalopathy G93.41 Acute exacerbation of chronic obstructive airways disease J44.1 Tobacco abuse Z72.0
[2020-12-24] MEDS: acetaminophen 325 mg Tablet 650 MG PO (16:36)
[2020-12-24] MEDS: amiodarone 200 mg Tablet 400 MG PO (16:36)
[2020-12-24] MEDS: metoprolol tartrate 25 mg Tablet PO (17:17)
[2020-12-24 18:45] LABS: Vancomycin Trough 8.6 ug/mL (10-15)
[2020-12-24] MEDS: vancomycin 1,000 MG in sodium chloride 0.9% 250 ML 250 MG IV (19:36)
[2020-12-24] MEDS: dextrose 5%-sod chloride 0.45% 1,000 ML 50 ML IV (19:40)
[2020-12-25] VITALS (116 sets, daily range): BP systolic 89–157; BP diastolic 56–108; PULSE 79–115; RESP 16–34; TEMP 36.2–37.7; O2SAT 74–100
[2020-12-25] MEDS: ipratropium-albuterol 3 mL Neb INHALATION ×6 (03:11→23:29)
[2020-12-25 04:06] LABS: Basophils # 0.1 10^3/uL (0.0-0.1); Basophils % 0.4 %; Hematocrit 34.8 % (37.0-47.0); Hemoglobin 10.9 g/dL (11.5-15.3); Lymphocytes # 0.8 10^3/uL (0.8-4.8); Lymphocytes % 3.3 %; Mean Corpuscular HGB Conc 31.3 g/dL (30.0-36.0); Mean Corpuscular Hemoglobin 26.6 pg (28.0-34.0); Mean Corpuscular Volume 84.9 fL (81-99); Mean Platelet Volume 10.4 fL (7.4-10.4); Monocytes # 0.8 10^3/uL (0.2-0.9); Monocytes % 3.2 %; Neutrophils % 91.4 %; Nucleated Red Blood Cells % 0 %; Platelet Count 176 10^3/cmm (130-400); White Blood Count 25.2 10^3/uL (4.0-10.0)
[2020-12-25 04:25] LABS: Alanine Aminotransferase 15 U/L (0-33); Albumin Level 2.5 g/dL (3.5-5.2); Alkaline Phosphatase 91 IU/L (35-105); Aspartate Amino Transferase 18 U/L (0-32); Blood Urea Nitrogen 9 mg/dL (8-23); Carbon Dioxide 33 mmol/L (22-29); Chloride 98 mmol/L (98-107); Globulin 2.3 g/dL (1.3-4.6); Glomerular Filtration Rate 352.2 mL/min (90-130); Glucose 142 mg/dL (65-115); Osmolality Calculated 283 mOsm/kg (285-295); Sodium 136 mmol/L (136-145); Total Bilirubin 0.6 mg/dL (0.15-1.2); Total Protein 4.8 g/dL (6.6-8.7)
[2020-12-25] MEDS: enoxaparin 60 mg/0.6 mL Syringe SUBCUT ×2 (06:21→18:17)
[2020-12-25] MEDS: pantoprazole DR 40 mg Tablet PO (06:21)
[2020-12-25] MEDS: potassium chloride ER 20 mEq Tablet 40 MEQ PO (06:21)
[2020-12-25] MEDS: vancomycin 1,000 MG in sodium chloride 0.9% 250 ML 250 MG IV ×2 (07:29→21:02)
[2020-12-25] MEDS: budesonide 0.5 mg/2 mL Neb INHALATION ×2 (07:43→19:50)
--- NOTE | 2020-12-25 09:05 | PC.CHAP ---
Pastoral Care Encounter/Spiritual Assessment Type of Contact [] Declined promotional demonstrator visit [] Patient/Family/Request visit [] Outpatient visit [] Follow-up visit [] Physician referral [] Code/Alert [x] Routine visit [] Staff referral [] Actively dying [] Patient sleeping [] Family support [] [] Out of room [] Palliative care [] [] Receiving care in room [] Pre-surgical visit [] Trauma [] Long length of stay [x] ICU visit [x] Other: staff assisting with eating Relational/Emotional Strength [] Patient feels connected with others/family/visitors/staff [] Distress [] Loneliness/isolation [] Abandonment Spirituality of Patient [] Person of Rebekah [] Attends Evangelical of their Rebekah [] Believes in Prayer [] Reads Bible or Mandaen materials [] There are Spiritual issues to be addressed Gold Plater Interventions [x] Prayer [x] Active listening [x] Non-anxious presence [x] Spiritual/emotional support [] Crisis/trauma care [] Spiritual counseling [] Bereavement support [] Provided bereavement packet [] Provided Bible/devotional materials [] Provided toy/stuffed animal, coloring book to patient or family member [] Provided Communion [] Anointing/[place] [] Salvation [x] Completed spiritual assessment [] Other: Impact on Illness or Injury [] Angry [] Fearful [] Anxious [] Often cries [] Exhaustion [] Unable to work [] Unable to attend baptism [] Unable to walk/stand [] Unable to read [] Unable to drive [] Unable to eat/drink [] Unable to sleep [] Unable to be with family [] Patient intubated [] Other: Summary patient doing sooo much better. setting up, eating, talking.. prayers answered.. Time spent with patient 10 min
[2020-12-25] MEDS: levothyroxine 25 mcg Tablet PO (09:48)
[2020-12-25] MEDS: metoprolol tartrate 25 mg Tablet PO ×3 (09:48→19:18)
[2020-12-25] MEDS: gabapentin 400 mg Capsule OG-TUBE ×3 (09:48→21:03)
[2020-12-25] MEDS: amiodarone 200 mg Tablet 400 MG PO ×2 (09:48→18:21)
[2020-12-25] MEDS: levETIRAcetam 750 MG in sodium chloride 0.9% (100 ml) 100 ML 430 MG IV ×2 (09:48→21:01)
[2020-12-25] MEDS: saline nasal spray 44mL Btl 1 SPRAY NASAL (10:50)
[2020-12-25] MEDS: acetaminophen 325 mg Tablet 650 MG PO (11:33)
--- NOTE | 2020-12-25 11:42 | PC.NURSE ---
Patient reports back pain. 04/14. Requests tylenol. Nurse administered 650 mg po.
--- NOTE | 2020-12-25 14:41 | PC.NURSE ---
Patient's [id number] has started to decrease. Was regularly 89-90% all morning. Now staying aroun 80-85%. Nurse attepted repositionin patient, increasing O2 flow rate, and encouraged TCDB while was productive, but saturation remained low. RT placed pt on bipap and saturation improved to mid 90's
[2020-12-25] MEDS: LORazepam 2 mg/mL INJ 1 mL 1 MG IVP (15:23)
[2020-12-25] MEDS: dextrose 5%-sod chloride 0.45% 1,000 ML 50 ML IV (18:19)
--- NOTE | 2020-12-25 19:10 | PM.PN ---
Subjective Subjective: Interval history: overnight with HR up to 120s, resumed cardizem gtt at 5mg/hr Medications: Reviewed: Yes Vitals/I&O/Wt Last Vital Signs Temp 98.1 F 12/25/20 18:00 Pulse 94 12/25/20 18:30 Resp 24 H 12/25/20 18:30 BP 122/65 12/25/20 18:30 Pulse Ox 90 12/25/20 18:30 12/25/20 12/25/20 12/25/20 06:59 14:59 22:59 Intake Total 109.208 / 2292.208 717.5 / 717.5 1045.917 / 1763.417 Output Total 375 / 1025 300 / 300 25 / 325 Balance -265.792 / 1267.208 417.5 / 417.5 1020.917 / 1438.417 Weight last 48 hrs Weight 67.268 kg Weight 57.969 kg Physical Exam Narrative: EXAM NARRATIVE: GEN: AAOx 3 CVS: S1S2 N RS: Clear to auscultation bilateral anteriorly Abd: Soft, nt/nd , bs+ 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, participates with physical therapy Urinary Catheter Management^: Richards: Cath Placed During This Visit: yes Reason for Continuing Indwelling Catheter: Accurate Measurement of Urinary Output in Critically Ill Patients Urinary Catheter Date of Insertion: 12/17/20 Urinary Catheter Time of Insertion: 22:15 Data : 12/25/20 03:50 12/25/20 03:38 A&P Assessment and plan (1) Acute and chronic respiratory failure with hypoxia: Secondary to COPD exacerbation.With interval development of MRSA PNA MRSA PCR positive Sputum culture: MRSA Continue vancomycin no empyema on CT chest, persisting infiltrates Status: Acute (2) Acute metabolic encephalopathy: Acute metabolic encephalopathy LP done during this admission; has ruled out any CENTRIFUGAL CASTING MACHINE OPERATOR infection likely from sepsis and PNA Status: Acute (3) Acute exacerbation of chronic obstructive airways disease: Associated with pneumonia See above Continue vancomycin CENTRIFUGAL CASTING MACHINE OPERATOR studies were not suggestive of any infection with white blood cells of 2 and red blood cells of 0 with normal glucose. Increase steroids t 30mg iv q12h given worsening bronchospasm toda Status: Acute (4) Tobacco abuse: Encourage smoking cessation Status: Acute Additional A&P Information # Hypotension. Now resolved. #Atrial fibrillation with rapid ventricular rate. cobntinues to be on cardizem drip ,disocnotnue and increase po metoprolol passed swallow eval, resume po metroprolol and amiodarone echocardiogram demonstrated EF of 64%, no regional wall motion abnormalities, no major valve abnormalities # hypernatremia: gentle iv hydration with 1/2 NS @50cc/hr , monitor for fluid overload, currently euvolemic #History of seizure disorder. Continue Keppra IV #Immunosuppressed with history of rheumatoid arthritis on leflunomide chronically History of chronic pain. Continue Neurontin. Holding p.o. narcotics as is on fentanyl drip #started dysphagia diet, eating 50-75% meals, on calorie counting # severe deconditoning, will beed SNF placement Full code Lovenox for anticoagulation, full dose secondary to atrial fibrillation Protonix for GI prophylaxis Attestations Medical Necessity Statement*: resp status optmization, wean off cardizem drip Coding Level of Care Code Acute Procedure Manager for Riccardo Segal Diagnoses Acute and chronic respiratory failure with hypoxia J96.21 Acute metabolic encephalopathy G93.41 Acute exacerbation of chronic obstructive airways disease J44.1 Tobacco abuse Z72.0
--- NOTE | 2020-12-25 23:13 | PC.NURSE ---
AO x2 disorientated to day, on Bipap at this time, denied SOB at this time, supine 45 degrees call light within reach, follows commands and answers questions, responses are weak, no C/O at this time
[2020-12-26] VITALS (76 sets, daily range): BP systolic 89–159; BP diastolic 47–90; PULSE 82–117; RESP 17–36; TEMP 37.2–37.7; O2SAT 67–100; BMI 26.5
[2020-12-26] MEDS: ipratropium-albuterol 3 mL Neb INHALATION ×6 (03:22→23:58)
[2020-12-26 04:14] LABS: Alanine Aminotransferase 11 U/L (0-33); Albumin Level 2.1 g/dL (3.5-5.2); Alkaline Phosphatase 67 IU/L (35-105); Aspartate Amino Transferase 8 U/L (0-32); Blood Urea Nitrogen 17 mg/dL (8-23); Calcium 7.6 mg/dL (8.5-10.5); Carbon Dioxide 27 mmol/L (22-29); Chloride 100 mmol/L (98-107); Globulin 2.7 g/dL (1.3-4.6); Glucose 145 mg/dL (65-115); Osmolality Calculated 284 mOsm/kg (285-295); Sodium 135 mmol/L (136-145); Total Bilirubin 0.5 mg/dL (0.15-1.2); Total Protein 4.8 g/dL (6.6-8.7)
[2020-12-26 04:17] LABS: Hemoglobin 10.3 g/dL (11.5-15.3); Lymphocytes # 0.7 10^3/uL (0.8-4.8); Lymphocytes % 2.1 %; Mean Corpuscular HGB Conc 32.2 g/dL (30.0-36.0); Mean Corpuscular Hemoglobin 27.5 pg (28.0-34.0); Mean Corpuscular Volume 85.3 fL (81-99); Mean Platelet Volume 10.8 fL (7.4-10.4); Monocytes # 0.8 10^3/uL (0.2-0.9); Monocytes % 2.5 %; Neutrophils # 30.11 10^3/uL (1.8-7.7); Neutrophils % 93.6 %; Nucleated Red Blood Cells % 0 %; Platelet Count 155 10^3/cmm (130-400); Red Blood Count 3.75 10^6/uL (4.1-5.3); Red Cell Distribution Width 17.2 % (12.1-15.1)
[2020-12-26 04:25] LABS: Procalcitonin 0.21 ng/mL (0-0.5)
[2020-12-26 04:54] LABS: White Blood Count 32.1 10^3/uL (4.0-10.0)
[2020-12-26 04:55] LABS: Slide Review Slide Review Perform
--- NOTE | 2020-12-26 05:25 | PC.NURSE ---
Critical WBC of 32.1 and current Vanc dose reported to Dr. Novoa, no n.o. at tis time
[2020-12-26] MEDS: enoxaparin 60 mg/0.6 mL Syringe SUBCUT ×2 (05:42→18:07)
[2020-12-26] MEDS: pantoprazole DR 40 mg Tablet PO (05:42)
--- NOTE | 2020-12-26 06:24 | PC.NURSE ---
SHIFT SUMMARY Uneventful night, patient frequently asks for a drink due to dry mouth but unable to tolerate swallowing when given anything oral. When prompted patient will cough and produces a white, thick sputum. Tolerates BIPAP well, at 35%.
[2020-12-26] MEDS: acetaminophen 325 mg Tablet 650 MG PO (06:41)
[2020-12-26 07:40] LABS: Vancomycin Trough 27.7 ug/mL (10-15)
[2020-12-26] MEDS: budesonide 0.5 mg/2 mL Neb INHALATION ×2 (07:44→20:03)
[2020-12-26] MEDS: gabapentin 400 mg Capsule OG-TUBE ×2 (08:10→14:51)
[2020-12-26] MEDS: metoprolol tartrate 50 mg Tablet PO (08:10)
[2020-12-26] MEDS: levothyroxine 25 mcg Tablet PO (08:10)
[2020-12-26] MEDS: amiodarone 200 mg Tablet 400 MG PO ×2 (08:11→17:29)
[2020-12-26] MEDS: levETIRAcetam 500 mg Tablet 750 MG PO ×2 (08:50→17:29)
[2020-12-26] MEDS: piperacillin-tazobactam 3.375 GM in sodium chloride 0.9% (plus) 50 ML IV ×2 (11:41→18:07)
--- NOTE | 2020-12-26 12:44 | PC.SOCIAL ---
IMM Update Pg. 2 of IMM updated and reviewed with patient who verbalized understanding. Copy provided.
--- NOTE | 2020-12-26 13:35 | PC.NURSE ---
back to bed with lift mat ect.. assist of PT tired and weak back on bipap at this time
--- NOTE | 2020-12-26 14:07 | P.PN_ITS ---
Subjective Subjective: Interval history: Patient seen at bedside today morning -Sitting in bed and had her breakfast -Appeared weak but awake and oriented and had decent conversation -Currently saturating 93% on 4 L nasal cannula -Heart rate controlled off Cardizem drip -Remained afebrile overnight and labs and imaging reviewed -WBC is up to 32,000 and procalcitonin 0.21 -Although patient is clinically improved and appears stable at this point of time -CT 12/24/2020 compared to 12/14/2020 admission chest CTA is concerning for significantly progressed to patchy nodular infiltrates and opacities throughout the right lung with subtotal consolidation in the right upper lobe and about the right hilum. New right hilar lymphadenopathy with narrowing of distal right mainstem bronchus and upper lobe bronchus. Also seen new small nodular opacities in left lower lobe. -Upon review of x-rays all these infiltrates might have been present on 12/17/2020 the day she got intubated and later diagnosed with MRSA pneumonia and currently we are seeing improving infiltrates as patient is clinically improved and appears stable at this point of time, however worsening leukocytosis is a concern for coexisting aspiration pneumonia -so started on Zosyn -Also multiple new small nodular opacities in bilateral lungs compared to CT 12/14/2020-concerning for septic emboli-plan is to remove central line catheter and send for blood cultures. Patient is already covered with vancomycin. Trough level 27 and pharmacy to redose. -Also given history of leflunomide and steroids-sent for beta D glucan and galactomannan antigen and have low threshold for invasive aspergillosis. If patient deteriorates clinically-we will plan for bronchoscopy and start on empiric voriconazole Vitals/I&O/Wt Last Vital Signs Temp 99.0 F 12/26/20 11:00 Pulse 95 12/26/20 14:00 Resp 21 H 12/26/20 14:00 BP 96/57 12/26/20 14:00 Pulse Ox 96 12/26/20 14:00 12/25/20 12/26/20 12/26/20 22:59 06:59 14:59 Intake Total 1403.417 / 2120.917 1417 / 1417 Output Total 25 / 325 40 / 365 Balance 1378.417 / 1795.917 -40 / 8173.535 3336 / 1417 Weight last 48 hrs Weight 158 lb 11.2 oz Weight 148 lb 4.8 oz Physical Exam Narrative: EXAM NARRATIVE: EXAM NARRATIVE: PHYSICAL EXAM: General: Sitting in bed and following commands HEENT:NCAT, PERRLA, EOMI Neck: Supple Lungs: Bilateral diffuse end expiratory wheeze Heart: s1/s2, RRR Abd: soft, NT, ND, BS + Normoactive Extremities: No edema 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, AAO x 3, no FND SKIN: no rash LDA: # CVC: Left IJ 12/17/2020 # Richards: 12/17/2020 Urinary Catheter Management^: Richards: Cath Placed During This Visit: yes Reason for Continuing Indwelling Catheter: Accurate Measurement of Urinary Output in Critically Ill Patients Urinary Catheter Date of Insertion: 12/17/20 Urinary Catheter Time of Insertion: 22:15 Data : 12/26/20 03:35 12/26/20 03:35 Other Labs: Laboratory Results WBC 32.1 10^3/uL (4.0-10.0) H* 12/26/20 03:35 RBC 3.75 10^6/uL (4.1-5.3) L 12/26/20 03:35 Hgb 10.3 g/dL (11.5-15.3) L 12/26/20 03:35 Hct 32.0 % (37.0-47.0) L 12/26/20 03:35 MCV 85.3 fL (81-99) 12/26/20 03:35 MCH 27.5 pg (28.0-34.0) L 12/26/20 03:35 MCHC 32.2 g/dL (30.0-36.0) 12/26/20 03:35 RDW 17.2 % (12.1-15.1) H 12/26/20 03:35 Plt Count 155 10^3/cmm (130-400) 12/26/20 03:35 MPV 10.8 fL (7.4-10.4) H 12/26/20 03:35 Neut % (Auto) 93.6 % 12/26/20 03:35 Lymph % (Auto) 2.1 % 12/26/20 03:35 Mathews % (Auto) 2.5 % 12/26/20 03:35 Eos % (Auto) 0.0 % 12/26/20 03:35 Baso % (Auto) 0.0 % 12/26/20 03:35 Neut # (Auto) 30.11 10^3/uL (1.8-7.7) H 12/26/20 03:35 Lymph # (Auto) 0.7 10^3/uL (0.8-4.8) L 12/26/20 03:35 Mathews # (Auto) 0.8 10^3/uL (0.2-0.9) 12/26/20 03:35 Eos # (Auto) 0.0 10^3/uL (0.0-0.8) 12/26/20 03:35 Baso # (Auto) 0.0 10^3/uL (0.0-0.1) 12/26/20 03:35 Nucleated RBC % (auto) 0 % 12/26/20 03:35 Total Counted 100 (0-100) 12/18/20 03:39 Atypical Lymphs % 4.0 % (0-5) 12/18/20 03:39 Absolute Neutrophils 8.9 10^3/cmm (1.4-6.5) H 12/18/20 03:39 Segmented Neutrophils 30 % 12/18/20 03:39 Abs Segm Neuts (Man) 3.5 10/cmm (1.6-7.1) 12/18/20 03:39 Band Neutrophils 47.0 % 12/18/20 03:39 Abs Band Neuts (Man) 5.5 10^3/cmm (0.0-1.2) H 12/18/20 03:39 Absolute Lymphocytes 1.4 10^3/cmm (1.2-3.4) 12/18/20 03:39 Lymphocytes (Manual) 8 % 12/18/20 03:39 Monocytes (Manual) 11.0 % 12/18/20 03:39 Absolute Monocytes 1.3 10^3/cmm (0.1-0.6) H 12/18/20 03:39 Eosinophils (Manual) 0 % 12/18/20 03:39 Absolute Eosinophils 0.0 10^3/cmm (0.0-0.7) 12/18/20 03:39 Basophils (Manual) 0.0 % 12/18/20 03:39 Absolute Basophils 0.0 10^3/cmm (0.0-0.2) 12/18/20 03:39 Metamyelocytes 0.0 % 12/18/20 03:39 Myelocytes 0.0 % 12/18/20 03:39 Nucleated RBCs # 0.0 /100WBC 12/26/20 03:35 Platelet Estimate Normal (Normal) 12/18/20 03:39 PT 12.30 SECONDS (12.1-14.9) 12/14/20 17:25 INR 0.89 (0.8-1.2) 12/14/20 17:25 D-Dimer 1.63 ug/mIFEU (0-0.59) H 12/14/20 17:25 Specimen Type Arterial 12/20/20 04:25 Sample Site Brachial, right 12/20/20 04:25 ABG pH 7.42 (7.35-7.45) 12/20/20 04:25 ABG pCO2 50.4 mmHg (35-45) H 12/20/20 04:25 ABG pO2 75.3 mmHg (80.0-100.0) L 12/20/20 04:25 ABG HCO3 32.9 mmol/L (22-26) H 12/20/20 04:25 ABG Base Excess 7.4 mmol/L (-2.0-2.0) H 12/20/20 04:25 Dylan Test N/a 12/20/20 04:25 Hematocrit 32.0 % (37-47) L 12/20/20 04:25 Hgb O2 Saturation 80.7 % (95-100) L 12/14/20 18:00 Carboxyhemoglobin 6.3 %THgb (0.4-20.1) 12/14/20 18:00 Methemoglobin 0.9 % (0.4-1.5) 12/14/20 18:00 Total Hemoglobin 13.3 g/dL (12-16) 12/14/20 18:00 O2 Delivery Device Vent 12/20/20 04:25 FiO2 40.0 % 12/20/20 04:25 Tidal Volume 0.40 12/20/20 04:25 PEEP 5.0 cmH20 12/20/20 04:25 Curing Room Supervisor ID Hichrisja 12/20/20 04:25 Sodium 135 mmol/L (136-145) L 12/26/20 03:35 Potassium 4.0 mmol/L (3.5-5.1) 12/26/20 03:35 Chloride 100 mmol/L (98-107) 12/26/20 03:35 Carbon Dioxide 27 mmol/L (22-29) 12/26/20 03:35 Anion Gap 12.0 (5-19) 12/26/20 03:35 BUN 17 mg/dL (8-23) 12/26/20 03:35 Creatinine 1.0 mg/dL (0.5-0.9) H 12/26/20 03:35 GFR Calculation 55.0 mL/min (90-130) L 12/26/20 03:35 Glucose 145 mg/dL (65-115) H 12/26/20 03:35 POC Glucose 127 mg/dL (70-110) H 12/17/20 20:51 Calculated Osmolality 284 mOsm/kg (285-295) L 12/26/20 03:35 Lactic Acid 2.0 mmol/L (0.5-2.2) 12/14/20 18:33 Lactate 2.0 mmol/L (0.5-2.2) 12/17/20 21:25 Calcium 7.6 mg/dL (8.5-10.5) L 12/26/20 03:35 Magnesium 2.0 mg/dL (1.7-2.3) 12/23/20 03:33 Total Bilirubin 0.5 mg/dL (0.15-1.2) 12/26/20 03:35 AST 8 U/L (0-32) 12/26/20 03:35 ALT 11 U/L (0-33) 12/26/20 03:35 Alkaline Phosphatase 67 IU/L (35-105) 12/26/20 03:35 Troponin T Baseline 25 ng/L (0-10) H 12/14/20 17:25 Troponin T 120 Minute 26.01 ng/L (0-10) H 12/14/20 19:39 Delta Troponin T 1.01 ABS# (0-10) 12/14/20 19:39 Troponin T Hi Sens 6Hr 14.09 ng/L (0-10) H 12/14/20 00:33 Troponin T Hi Sens 6Hr Delta Not Reportable 12/14/20 00:33 NT-Pro-B Natriuret Pep 2789 pg/mL (0-125) H 12/14/20 17:25 Total Protein 4.8 g/dL (6.6-8.7) L 12/26/20 03:35 Albumin 2.1 g/dL (3.5-5.2) L 12/26/20 03:35 Globulin 2.7 g/dL (1.3-4.6) 12/26/20 03:35 Procalcitonin 0.21 ng/mL (0-0.5) 12/26/20 03:35 Prolactin 2.57 ng/mL (4.8-23.3) L 12/17/20 21:25 Urine Color Yellow (Yellow) 12/17/20 23:15 Urine Appearance Clear (CLEAR) 12/17/20 23:15 Urine pH 7 (5-7) 12/17/20 23:15 Ur Specific [place] 1.005 (1.005-1.030) 12/17/20 23:15 Urine Protein Neg (Negative) 12/17/20 23:15 Urine Glucose (UA) Norm (Normal) 12/17/20 23:15 Urine Ketones Negative (Negative) 12/17/20 23:15 Urine Blood Neg (Negative) 12/17/20 23:15 Urine Nitrate Negative (Negative) 12/17/20 23:15 Urine Bilirubin Neg (Negative) 12/17/20 23:15 Urine Urobilinogen Norm mg/dL (Negative) 12/17/20 23:15 Ur Leukocyte Esterase Negative (Negative) 12/17/20 23:15 CSF Appearance Clear (CLEAR) 12/17/20 01:36 CSF Color Colorless (COLORLESS) 12/17/20 01:36 CSF WBC 2 /uL (0-5) 12/17/20 01:36 CSF RBC 0 10^3/uL (0-0) 12/17/20 01:36 CSF Mononuclear # Auto 0.001 10^3/uL (50-90) L 12/17/20 01:36 CSF Mononuclear WBCs % 50 % (50-90) 12/17/20 01:36 CSF Polynuclear WBCs # 0.001 10^3/uL (0-10) 12/17/20 01:36 CSF Polynuclear WBCs % 50 % (0-10) H 12/17/20 01:36 CSF Glucose 93 mg/dL (40-70) H 12/17/20 01:36 CSF Total Protein 63 mg/dL (15-45) H 12/17/20 01:36 Vancomycin Trough 27.7 ug/mL (10-15) H* 12/26/20 07:06 Herpes Simplex Source Cerebrospinal fluid 12/18/20 01:36 Influenza Type A Ag Negative (Negative) 12/14/20 18:44 Influenza Type B Ag Negative (Negative) 12/14/20 18:44 SARS-CoV-2 Ag (Rapid) Negative (Negative) 12/22/20 10:04 HSV 1 DNA Not detected 12/18/20 01:36 HSV 2 DNA Not detected 12/18/20 01:36 Impressions Chest CTA 12/14/20 20:20 IMPRESSION: 1. Negative for pulmonary embolism. 2. Severe emphysema. 3. Spiculated right upper lobe opacity, possibly scarring. 4. Minimal dependent right lower lobe ground-glass opacities; favor atelectasis. 5. Age-indeterminate T6 vertebral compression fracture. Radiation Dose CTDIVOL = (mGy): DLP = 545.04 (mGy-cm) Head CT 12/17/20 21:23 IMPRESSION: Old infarcts. No acute intracranial finding. ASSESSMENT: ASPECTS ([place] Stroke Program Early CT Score) is 10. Radiation Dose CTDIVOL = (mGy): DLP = 2040.46 (mGy-cm) Chest X-Ray 12/20/20 07:00 IMPRESSION: Persistent bilateral airspace opacities. These findings can be seen with mild pulmonary congestion or pneumonia, clinical correlation is recommended. Chest CT 12/24/20 07:00 IMPRESSION: 1. Significantly progressed patchy nodular infiltrates and opacities throughout the right lung. Subtotal consolidation in the right upper lobe and about the right hilum. 2. New right hilar lymphadenopathy with narrowing of the distal right mainstem bronchus and upper lobe bronchus. 3. Elements of multifocal pneumonia however the nodular opacities and right hilar lymphadenopathy are suspicious for neoplasm or metastatic disease. Recommend interval follow-up after treatment. 4. In addition, new small nodular opacities in the left lower lobe. 5. Small right pleural effusion. 6. Mild progression of the T6 compression fracture compared to December 14, 2020 Micro: Microbiology 12/26/20 10:45 Blood Culture - Preliminary Blood SPECIMEN COLLECTED 12/26/20 10:40 Blood Culture - Preliminary Blood SPECIMEN COLLECTED A&P Assessment and plan (1) Congestive heart failure: Status: Acute Qualifiers: Heart failure chronicity: chronic Heart failure type: diastolic Qualified Code(s): I50.32 - Chronic diastolic (congestive) heart failure (2) Acute exacerbation of chronic obstructive airways disease: Status: Acute (3) Respiratory failure with hypoxia and hypercapnia: Status: Acute Qualifiers: Chronicity: acute Qualified Code(s): J96.01 - Acute respiratory failure with hypoxia; J96.02 - Acute respiratory failure with hypercapnia (4) Tobacco abuse: Status: Acute (5) Encounter for smoking cessation counseling: Status: Acute (6) Seropositive rheumatoid arthritis of multiple sites: Status: Acute (7) Lung nodule: Status: Acute (8) Immunocompromised: Status: Acute (9) Paroxysmal A-fib: Status: Acute (10) Hypothyroidism: Status: Acute Qualifiers: Hypothyroidism type: unspecified Qualified Code(s): E03.9 - Hypothyroidism, unspecified #AMS likely secondary to MRSA pneumonia; history of seizure disorder. #Acute hypoxic/hypercapnic respiratory failure on chronic hypercapnia in patient with underlying COPD #COPD exacerbation due to MRSA pneumonia #Septic shock-off pressors #A. fib with RVR-now rate controlled #History of diastolic dysfunction #Hypernatremia-resolved -LP ruled out meningitis and currently on Keppra 750 mg twice daily for history of seizures -H/o chronic pain for inflammatory arthritis. Continue Neurontin. -Extubated 12/22/2020 and currently on 4 L nasal cannula (at home she is on 3 L nasal cannula) -Patient is a chronic retainer with baseline CO2 is between 50-60 -BiPAP at nighttime -Continue DuoNeb nebulization every 4 scheduled and Pulmicort 0.5 mg twice daily -Continue, IV steroids 30 mg daily -Taper based on clinical response -MRSA nares positive in sputum culture positive for MRSA-patient covered with vancomycin -Recommended to continue bedside physical therapy and incentive spirometry -Off pressors; - on amiodarone 400 mg p.o. twice daily. And metoprolol 50 twice daily -Nuclear stress test in November 2019 was unremarkable and echo in April 2020 showed moderate aortic stenosis with grade 1 diastolic dysfunction with EF of 64%, no regional wall motion abnormalities, no major valve abnormalities. -Monitor electrolytes and supplement to keep potassium > 4 and magnesium > 2 - monitor electrolytes and supplement accordingly -Renal functions normal with normal electrolytes. She is +3 L in last 48 hours but overall -2.5 L since admission; hold on Lasix for now and closely monitor input output and renal functions. -Recommended to discontinue IV fluids - Immunosuppressed with history of rheumatoid arthritis on leflunomide chronically -hold leflunomide and follow-up with rheumatology as outpatient to restart -On levothyroxine 25 mg p.o. daily for hypothyroidism -Sugars well controlled -Remained afebrile overnight and labs and imaging reviewed -WBC is up to 32,000 and procalcitonin 0.21 -Although patient is clinically improved and appears stable at this point of time -CT 12/24/2020 compared to 12/14/2020 admission chest CTA is concerning for significantly progressed to patchy nodular infiltrates and opacities throughout the right lung with subtotal consolidation in the right upper lobe and about the right hilum. New right hilar lymphadenopathy with narrowing of distal right mainstem bronchus and upper lobe bronchus. Also seen new small nodular opacities in left lower lobe. -Upon review of x-rays all these infiltrates might have been present on 12/17/2020 the day she she had a fever spike of 103 and got intubated; later diagnosed with MRSA pneumonia and currently we may be seeing same/improving MRSA infiltrates as patient has clinically improved on vancomycin, able to come off pressors and mechanical ventilator with decreasing oxygen requirement to 4 L n vibha cannula and clinically stable at this point of time, however worsening neutrophilic predominant leukocytosis is a concern for coexisting aspiration pneumonia especially if infiltrates on 421 2020 are new-so started on Zosyn to cover gram negatives and anaerobes -Also multiple new small nodular opacities in bilateral lungs compared to CT 12/14/2020-more concerning for septic emboli-less likely metastatic lesions as patient CT on 12/14/2020 did not show any such lesions-plan is to remove central line catheter and send for blood cultures. Patient is already covered with vancomycin. Trough level 27 and pharmacy to redose. Echo 12/18/2020-technically somewhat difficult study because of poor ultrasonic window showed features of aortic valve sclerosis but no gross valvular abnormalities seen. -Also given history of leflunomide and steroids-sent for beta D glucan and galactomannan antigen and have low threshold for invasive aspergillosis. If patient deteriorates clinically-we will plan for bronchoscopy and start on empiric voriconazole -Discussed with hospitalist covering patient and we both agreed on the plan #COPD - GOLD Stage 2; MMRC 3; multiple hospitalizations and exacerbations; Grade D ## Seropositive rheumatoid arthritis, doing well on sulfasalazine and leflunomide - PFT 12/26/16:Spirometry indicates a moderate obstructive ventilatory defect. -PFT 06/05/2020: Reduced FEV1 51% and FEV1/FVC 25 severe obstructive ventilatory defect with increased lung volumes and severely reduced gas transfer. -On 3 L home oxygen -6 M WT 06/05/2020: Saturation dropped to 88% after 2 minutes and was saturating 93% on 3 L There is a significant bronchodilator response. The diffusing capacity is moderately reduced. - Significant emphysema on CT chest - On Breo, spiriva and Albuterol as needed as outpatient -Recommended to get flu shot and Pneumovax -Pulmonary rehab referral given in clinic but patient is not motivated to go # Stable 9 mm anterior RIGHT upper lobe subsolid nodule n february 2020 compared to September 2019 #Follow-up PET/CT 08/26/2020 did not show anterior nodule but showed a new 1.2 cm solid nodule in the lateral right upper lobe with an SUV of 3.4; suspicious for malignancy. -After 09/19/2019 CT chest , subsequent scans has RUL consolidation which made it difficult to interpret the underlying 9 mm nodule -All subsequent CT scans (February 09, 2020, 03/19/2020, 03/31/2020, 05/09/2020) and done in her ER visits for right upper lobe pneumonia and done to rule out PE; obscured the right upper lobe 9 mm nodule with right upper lobe pneumonia. .Interval 6 mm noncalcified nodule in the right lower lobe in later scans -PET scan 08/26/20:There is a 1.2 cm solid nodule in the lateral right upper lobe with an SUV of 3.4; this is suspicious for malignancy, likely a primary bronchogenic carcinoma. Peripheral dependent infiltrates bilaterally demonstrate inflammatory FDG uptake. Activity in a lingular inferior and right upper lobe infiltrate is likely inflammatory. Mediastinal lymph nodes are radiographically benign and without significant FDG uptake. There are severe bilateral centrilobular emphysematous changes. -I will follow up with PET scan in 3 months Full code Lovenox for anticoagulation, full dose secondary to atrial fibrillation Protonix for GI prophylaxis Recommendations conveyed to hospitalist covering the patient, RN, RT at bedside Attestations Medical Necessity Statement*: Close monitoring for worsening leukocytosis and CT chest. Otherwise appears clinically stable respiratory meeks and A. fib with rate controlled on oral medications. Time Spent in Patient Care: Greater than 35 minutes (>than 50% of time spent in counselling and/or direct pt care on unit) . Critical Care Time: The high probability of a clinically significant, sudden or life threatening deterioration of the patient's [respiraotry, infectious, cardiac, renal] system(s) required my full and direct attention, intervention and personal management. The critical care time is as shown. This time is in addition to time spent performing any reported procedures but includes the following: [x] Data and vital sign review and interpretation [x] Patient assessment, examination and intervention [x] Documentation [x] Medication orders and management Critical Care Time (min): 45 Coding Level of Care Code Established Pt Acute Director Medicare Sales for [employer] [place] Patient Type Established History Comprehensive Exam Comprehensive Medical Decision Making Moderate Complexity Diagnoses Congestive heart failure I50.32 Heart failure chronicity: chronic Heart failure type: diastolic Acute exacerbation of chronic obstructive airways disease J44.1 Respiratory failure with hypoxia and hypercapnia J96.01; J96.02 Chronicity: acute Tobacco abuse Z72.0 Encounter for smoking cessation counseling Z71.6 Seropositive rheumatoid arthritis of multiple sites M05.79 Lung nodule R91.1 Immunocompromised D89.9 Paroxysmal A-fib I48.0 Hypothyroidism E03.9 Hypothyroidism type: unspecified Time Spent (min) 45
[2020-12-26] MEDS: metoprolol tartrate 1 mg/1 mL SDV 5 mL 5 MG IV (16:22)
[2020-12-26] MEDS: FUROsemide 10 mg/mL SDV 4mL 40 MG IVP (16:22)
--- NOTE | 2020-12-26 17:14 | XRR_ITS ---
PROCEDURE INFORMATION: Exam: XR Chest Exam date and time: 12/26/2020 5:28 PM Age: 70 years old Clinical indication: Device placement; Picc; Additional info: Picc placement TECHNIQUE: Imaging protocol: XR of the chest. Views: 1 view. COMPARISON: 1. CT chest wo con [id number] 12/24/2020 11:50 AM 2. CR (CHEST, ) 12/20/2020 7:40:55 AM FINDINGS: Tubes, catheters and devices: Right PICC line with tip over the proximal SVC. Left IJ central line with tip over the mid SVC. Lungs: Dense consolidation in the inferior right upper lobe is slightly worsened. Patchy airspace opacities throughout the right lung and in the left lung base are not significantly changed. Pleural spaces: Unremarkable. No pleural effusion. No pneumothorax. Heart/Mediastinum: Unremarkable. No cardiomegaly. Bones/joints: Multiple old left rib fractures. XR/XR chest 1V portable [id number] IMPRESSION: 1. PICC line tip over the proximal SVC. 2. Multilobar pneumonia, slightly increased on the right.
--- NOTE | 2020-12-26 17:45 | PC.NURSE ---
PICC RIGHT arm ready for use. Total length 30cm, mid-arm circumference 27cm, external length 0cm.
--- NOTE | 2020-12-26 18:23 | P.PN_ITS ---
Subjective Subjective: Interval history: WBC trending up, tmax 99.9F , resp stastus wor[place] this afternoon, back on Bipap. diffuse hweezing and crackles, noted by nurse to be aspirating Medications: Reviewed: Yes Vitals/I&O/Wt Last Vital Signs Temp 99.9 F H 12/26/20 16:00 Pulse 113 H 12/26/20 17:55 Resp 28 H 12/26/20 16:00 BP 148/83 12/26/20 16:00 Pulse Ox 98 12/26/20 17:55 12/26/20 12/26/20 12/26/20 06:59 14:59 22:59 Intake Total 1417 / 1417 450 / 1867 Output Total 40 / 365 300 / 300 Balance -40 / 5626.681 0582 / 1417 150 / 1567 Weight last 48 hrs Weight 71.985 kg Weight 67.268 kg Physical Exam Narrative: EXAM NARRATIVE: GEN: AAOx 3 CVS: S1S2 N RS:Coarse B/L crackles and diffuse wheezing on auscultation Abd: Soft, nt/nd , bs+ NAPHTHALENE STILL OPERATOR: Awake, alert , moves extremties in bed Urinary Catheter Management^: Richards: Cath Placed During This Visit: yes Reason for Continuing Indwelling Catheter: Accurate Measurement of Urinary Output in Critically Ill Patients Urinary Catheter Date of Insertion: 12/17/20 Urinary Catheter Time of Insertion: 22:15 Data : 12/26/20 03:35 12/26/20 03:35 Micro: Microbiology 12/26/20 10:45 Blood Culture - Preliminary Blood SPECIMEN COLLECTED 12/26/20 10:40 Blood Culture - Preliminary Blood SPECIMEN COLLECTED A&P Assessment and plan (1) Acute and chronic respiratory failure with hypoxia: Secondary to COPD exacerbation.With interval development of MRSA PNA MRSA PCR positive Sputum culture: MRSA Continue vancomycin Ct chest on 12/25 perfromed for persisting leukocytosis with worsening infiltrates which may be relate dto recurrent aspiration. on 12/14, CXR and CT chest without gross PNA, interval devlopment of infiltrates on 12/17 post intubation ? HAP vs aspiration. CXR with stable infiltrates on 12/20, however CT chest with interim worsening compared to admission. Suspect aspirataion PNA. Resume Zosyn with these findings. Lower suspcion for fungal PNA given quick interval development however pt is imm unocompromised for being on leflunimide- check BDG and Ag/GM. If continues to get worse, will likely need rpt bronchoscopy. Status: Acute (2) Acute metabolic encephalopathy: Acute metabolic encephalopathy LP done during this admission; has ruled out any NAPHTHALENE STILL OPERATOR infection likely from sepsis and PNA Status: Acute (3) Acute exacerbation of chronic obstructive airways disease: Associated with pneumonia See above Continue vancomycin , add zosyn NAPHTHALENE STILL OPERATOR studies were not suggestive of any infection with white blood cells of 2 and red blood cells of 0 with normal glucose. Continue steroids t 30mg iv q12h given worsening bronchospasm toda Status: Acute (4) Tobacco abuse: Encourage smoking cessation Status: Acute (5) Leukocytosis: Ct chest as above Remove CVC in left IJ which is 10 days old, PICC line placement as poor peripheral access otherwise Blood culture x 2 Change Richards Status: Acute Additional A&P Information #Atrial fibrillation with rapid ventricular rate. Off cardizem drip, currently on po amiodarone and metoprolol--> increase metoprolol to 75 BID echocardiogram demonstrated EF of 64%, no regional wall motion abnormalities, no major valve abnormalities Fluid overloaded today, likely as a result of IVF for hypernatremia, NA now normal, d/c IVF, lasix x1 today # hypernatremia: resolved #History of seizure disorder. Continue Keppra IV # Recurrent witnessed aspiraations: NPO , start TPN for nutrition #Immunosuppressed with history of rheumatoid arthritis on leflunomide chronically History of chronic pain. Continue Neurontin. Holding p.o. narcotics as is on fentanyl drip #started dysphagia diet, eating 50-75% meals, on calorie counting # severe deconditoning, will beed SNF placement Full code Lovenox for anticoagulation, full dose secondary to atrial fibrillation Protonix for GI prophylaxis Dipso: LTAC when ready , significant deconditioning , tenrous resp status likely to persist Nilda Hall updated Attestations Medical Necessity Statement*: close monitoring in ICUf or tenous respiratory statys Coding Level of Care Code Acute Garment Sorter for Chg Fwd Diagnoses Acute and chronic respiratory failure with hypoxia J96.21 Acute metabolic encephalopathy G93.41 Acute exacerbation of chronic obstructive airways disease J44.1 Tobacco abuse Z72.0 Leukocytosis D72.829
--- NOTE | 2020-12-26 19:03 | PC.NURSE ---
son and daughter here aware that mother is not doing as well as before placed on bipap prior to this time central line removed and pressure held drs intact
[2020-12-26] MEDS: vancomycin 1,000 MG in sodium chloride 0.9% 250 ML 250 MG IV (21:23)
--- NOTE | 2020-12-26 21:23 | PC.NURSE ---
Dr. Novoa contacted about PO metoprolol dose and concern about huge aspiration risk, current BP 109/77 HR 112, t.o. to hold this dose given
[2020-12-27] VITALS (69 sets, daily range): BP systolic 65–175; BP diastolic 47–96; PULSE 83–129; RESP 14–41; TEMP 38–40.6; O2SAT 89–99
[2020-12-27 00:36] LABS: ABG PCO2 35.9 mmHg (35-45); ABG PH Result 7.46 (7.35-7.45); Arterial Blood Gas Hematocrit 35.4 % (37-47); Blood Gas Allen Test Pos; Blood Gas Sample Type Arterial; HCO3 ABG 25.7 mmol/L (22-26)
[2020-12-27 00:37] LABS: Blood Gas Sample Site Radial, right; Oxygen Device BIPAP
--- NOTE | 2020-12-27 02:45 | PC.NURSE ---
RR 36-40 very labored RR reported to Dr. Novoa tmarcello to increase FI02 to 70%, RT notified
--- NOTE | 2020-12-27 03:15 | XRR_ITS ---
PROCEDURE INFORMATION: Exam: XR Chest Exam date and time: 12/27/2020 3:16 AM Age: 70 years old Clinical indication: Device placement; Ett placement (vent status); Patient HX: Check for et/og placement; Additional info: Et/og tube placement TECHNIQUE: Imaging protocol: XR of the chest. Views: 1 view. COMPARISON: CR XR chest 1V portable [id number] 12/26/2020 5:21 PM FINDINGS: Tubes, catheters and devices: Endotracheal tube is 2.7 cm above the belen. Stable right-sided PICC. Nasogastric tube tip terminates off of the film. Lungs: Increase in right-sided pulmonary opacities. Pleural spaces: New Small right pleural effusion. Heart/Mediastinum: Unremarkable. No cardiomegaly. Bones/joints: Unremarkable. XR/XR chest 1V portable [id number] IMPRESSION: 1. Increase in right-sided pulmonary opacities. 2. New Small right pleural effusion. 3. Support tubes and lines are in good position.
[2020-12-27] MEDS: dexmedetomidine 400 MCG in sodium chloride 0.9% (100 ml) 100 ML 5.6 MCG IV (03:23)
--- NOTE | 2020-12-27 03:28 | PC.NURSE ---
INTUBATION Intubation performed at [address] with Dr. Mendez at bedside. Immediate chest rise seen with ambu bag. 30 mg etomidate given (318), 150 mg succinycholine (319) given. 8.0 tube, 26 cm at lip, OG tube placed, Dr. Novoa confirmed placement of OGT and ET tube at bedside, confirmed to be in correct place. Precedex and fentanyl started per protocol for sedation medications per Dr. Novoa.
--- NOTE | 2020-12-27 03:33 | PM.MISC ---
Miscellaneous Note Purpose of Documentation: Intubation Note: I was called to evaluate the patient due to the worsening respiratory distress while on BiPAP. The patient tachypneic for last several hours using accessory muscles. ABGs were done showing hypoxia. The patient is confused. Lungs revealed decreased breath sounds and bilateral crackles and rhonchi. Discussed with the patient. Explained her condition and my concern that she might if we do not intubate. She agreed with intubation. Reviewed the chart. She is full code. Also, per her request I called to her son Gio. Answered to all his questions. He agrees with the plan to intubate and start mechanical ventilation. Dr. Mendez, ED physician was called for backup and supervision with intubation. After preoxygenation the patient was sedated with etomidate and fentanyl and was given dose of succinylcholine. Shortly after the induction the patient was intubated on the first attempt with kaleidoscope. Endotracheal tube #8 was advanced into the trachea after visualization of vocal cords. Lung sounds are bilateral. No sounds over the stomach. During entire procedure the patient remained hemodynamically stable. Oxygen saturation never dropped below 92-93. Chest x-ray is reviewed. Endotracheal tube is 3 cm above bifurcation. NG tube is below the diaphragm. Starting sedation with Precedex, fentanyl, and as needed propofol. We will repeat ABGs in 1 hour. Discussed with the nursing staff and respiratory therapist. Appreciate help from Dr. Mendez and entire ICU team.
[2020-12-27] MEDS: succinylcholine 20 mg/mL SDV 10mL 150 MG IVP (03:34)
[2020-12-27] MEDS: piperacillin-tazobactam 3.375 GM in sodium chloride 0.9% (plus) 50 ML IV ×3 (03:35→18:19)
[2020-12-27] MEDS: ipratropium-albuterol 3 mL Neb INHALATION ×5 (03:43→19:34)
[2020-12-27] MEDS: propofol 1,000 MG/100 ML INJ 10.8 MG IV (03:48)
--- NOTE | 2020-12-27 04:09 | PC.NURSE ---
family notified of condition and intubation
--- NOTE | 2020-12-27 04:23 | PC.NURSE ---
BP 72/41, Dr. Novoa notified, t.o. order to get off of propofolol, start versed with a max of 6, and wean off of precedex
[2020-12-27 05:29] LABS: ABG PCO2 39.1 mmHg (35-45); Arterial Blood Gas Hematocrit 35.6 % (37-47); Base Excess ABG -0.8 mmol/L (-2.0-2.0); Blood Gas Sample Type Arterial
[2020-12-27 05:30] LABS: Blood Gas Sample Site Brachial, right; Oxygen Device VENT
[2020-12-27] MEDS: enoxaparin 60 mg/0.6 mL Syringe SUBCUT ×2 (05:45→18:18)
--- NOTE | 2020-12-27 07:30 | PC.NURSE ---
Addendum entered by ANA Rogers 12/27/20 09:53: Levophed 12mcg/min @0730 Original Note: Patient Rounding Patient sedated on ventilator. See ventilator settings below. Skin noted to be warm and dry to touch. Patient laying in semi-knight position. Lungs sounds clear with expiratory wheezes. Vital signs as listed: Temp-100.4, HR-89, BP-115/63, O2-97%, RR-17. Upper extremities 2+ pitting edema, PICC line in right upper arm. Bilateral radial pulses 2+ and regular. See current IV medications below. Bowel sounds hypoactive. Patient noted to have a liao catheter in place, urine appears dark yellow with sediment present. No swelling noted to lower extremities, bilateral dorsalis pedis pulse 2+ and regular. Ventilator Settings MODE: AC-VC TUBE SIZE:8, 25 at the lip. FiO2: 50% RR: 14 VT: 400 IV MEDICATIONS Precedex: 0.5mcg/kg/hr Fentanyl: 100mcg/hr Versed: 2mg/hr Levophed: 2mcg/min
[2020-12-27] MEDS: budesonide 0.5 mg/2 mL Neb INHALATION ×2 (07:37→19:34)
[2020-12-27] MEDS: metoprolol tartrate 50 mg Tablet 75 MG PO ×2 (08:20→21:57)
[2020-12-27] MEDS: amiodarone 200 mg Tablet 400 MG PO ×2 (08:20→17:11)
[2020-12-27] MEDS: levETIRAcetam 500 mg Tablet 750 MG PO ×2 (08:20→17:11)
[2020-12-27] MEDS: levothyroxine 25 mcg Tablet PO (08:20)
[2020-12-27 08:54] LABS: Basophils # 0.2 10^3/uL (0.0-0.1); Basophils % 0.6 %; Eosinophils # 0.1 10^3/uL (0.0-0.8); Eosinophils % 0.4 %; Hematocrit 31.3 % (37.0-47.0); Hemoglobin 10.1 g/dL (11.5-15.3); Lymphocytes # 0.5 10^3/uL (0.8-4.8); Lymphocytes % 1.9 %; Mean Corpuscular HGB Conc 32.3 g/dL (30.0-36.0); Mean Corpuscular Hemoglobin 27.2 pg (28.0-34.0); Mean Corpuscular Volume 84.4 fL (81-99); Mean Platelet Volume 11.7 fL (7.4-10.4); Monocytes # 0.6 10^3/uL (0.2-0.9); Monocytes % 2.1 %; Neutrophils # 24.81 10^3/uL (1.8-7.7); Neutrophils % 93.3 %; Nucleated Red Blood Cells % 0.1 %; Platelet Count 113 10^3/cmm (130-400); Red Blood Count 3.71 10^6/uL (4.1-5.3); Red Cell Distribution Width 17.4 % (12.1-15.1); White Blood Count 26.6 10^3/uL (4.0-10.0)
[2020-12-27 09:36] LABS: Slide Review Slide Review Perform
--- NOTE | 2020-12-27 10:31 | PC.CHAP ---
Pastoral Care Encounter/Spiritual Assessment Type of Contact [] Declined senior investment manager visit [] Patient/Family/Request visit [] Outpatient visit [] Follow-up visit [] Physician referral [] Code/Alert [] Routine visit [XX] Staff referral [] Actively dying [] Patient sleeping [] Family support [] [] Out of room [] Palliative care [] [] Receiving care in room [] Pre-surgical visit [] Trauma [] Long length of stay [XX] ICU visit [] Other: Relational/Emotional Strength [] Patient feels connected with others/family/visitors/staff [] Distress [] Loneliness/isolation [] Abandonment Spirituality of Patient [] Person of Rebekah [] Attends Latter-Day of their Rebekah [] Believes in Prayer [] Reads Bible or Temple materials [] There are Spiritual issues to be addressed Maintenance Operator Interventions [XX] Prayer [] Active listening [] Non-anxious presence [] Spiritual/emotional support [] Crisis/trauma care [] Spiritual counseling [] Bereavement support [] Provided bereavement packet [] Provided Bible/devotional materials [] Provided toy/stuffed animal, coloring book to patient or family member [] Provided Communion [] Anointing/[place] [] Salvation [] Completed spiritual assessment [] Other: Impact on Illness or Injury [] Angry [] Fearful [] Anxious [] Often cries [] Exhaustion [] Unable to work [] Unable to attend temple [] Unable to walk/stand [] Unable to read [] Unable to drive [] Unable to eat/drink [] Unable to sleep [] Unable to be with family [] Patient intubated [] Other: Summary: Nurse requested prayer for pt. Prayed at bedside. Time spent with patient: 4 mins
--- NOTE | 2020-12-27 11:33 | PC.NURSE ---
Physician Rounding Dr. Wiseman at bedside discussing plan of care at this time. Pt sedated. This nurse and ALYSSA, RN at bedside. Orders to titrate Pt off of Versed, start tube feedings, and change urinary catheter. Pending Lab values at this time. Will continue to monitor, continue care.
[2020-12-27] MEDS: acetaminophen 325 mg Tablet 650 MG PO (11:43)
[2020-12-27 14:25] LABS: Carbon Dioxide 23 mmol/L (22-29); Globulin 3.3 g/dL (1.3-4.6); Osmolality Calculated 288 mOsm/kg (285-295); Total Bilirubin 0.7 mg/dL (0.15-1.2)
[2020-12-27 14:31] LABS: Albumin Level 1.6 g/dL (3.5-5.2); Alkaline Phosphatase 143 IU/L (35-105); Blood Urea Nitrogen 40 mg/dL (8-23); Chloride 94 mmol/L (98-107); Glucose 246 mg/dL (65-115); Total Protein 4.9 g/dL (6.6-8.7)
[2020-12-27 14:33] LABS: Sodium 130 mmol/L (136-145)
--- NOTE | 2020-12-27 14:48 | P.PN_ITS ---
Subjective Subjective: Interval history: Respiratory status worsened overnight, patient needed to be intubated at around 3 AM this morning. Also noted to be febrile up to 102 Fahrenheit. White blood cell count trending down to 26, started also on Levophed 2 mics. Reportedly prior to getting intubated patient had aspirated while on BiPAP. Creatinine worsening to 2.4. Medications: Reviewed: Yes Vitals/I&O/Wt Last Vital Signs Temp 102.2 F H 12/27/20 14:00 Pulse 90 12/27/20 14:00 Resp 19 H 12/27/20 14:00 BP 77/50 12/27/20 14:00 Pulse Ox 96 12/27/20 14:00 12/26/20 12/27/20 12/27/20 22:59 06:59 14:59 Intake Total 530 / 1947 301.747 / 2248.747 341.094 / 341.094 Output Total 600 / 600 200 / 800 Balance -70 / 1347 101.747 / 1448.747 341.094 / 341.094 Weight last 48 hrs Weight 71.985 kg Physical Exam Narrative: EXAM NARRATIVE: GEN: Intubated, sedated CVS: S1S2 N RS: CTA B/L anteriorly Abd: Soft, nt/nd , bs+ SLEEP MEDICINE PHYSICIAN: unable to assess as intubated, sedated Urinary Catheter Management^: Richards: Cath Placed During This Visit: yes, but has since been removed by the nurse Reason for Continuing Indwelling Catheter: Accurate Measurement of Urinary Output in Critically Ill Patients Urinary Catheter Date of Insertion: 12/27/20 Urinary Catheter Time of Insertion: 14:31 Date Urinary Catheter Removed: 12/27/20 Time Urinary Catheter Discontinued: 14:31 Data : 12/27/20 08:25 12/27/20 13:20 Micro: Microbiology 12/26/20 10:45 Blood Culture - Preliminary Blood NEGATIVE TO DATE 12/26/20 10:40 Blood Culture - Preliminary Blood NEGATIVE TO DATE A&P Assessment and plan (1) Sepsis: Status: Acute Qualifiers: Sepsis type: sepsis due to unspecified organism Sepsis acute organ dysfunction status: with acute organ dysfunction Severe sepsis acute organ dysfunction type: acute respiratory failure Acute respiratory failure type: with hypoxia Severe sepsis shock status: without septic shock Qualified Code(s): A41.9 - Sepsis, unspecified organism; R65.20 - Severe sepsis without septic shock; J96.01 - Acute respiratory failure with hypoxia (2) Acute and chronic respiratory failure with hypoxia: Status: Acute (3) Pneumonia: Status: Acute Qualifiers: Pneumonia type: due to unspecified organism Laterality: right Lung location: unspecified part of lung Qualified Code(s): J18.9 - Pneumonia, unspecified organism (4) Acute metabolic encephalopathy: Status: Acute (5) Acute exacerbation of chronic obstructive airways disease: Status: Acute (6) Tobacco abuse: Status: Acute (7) Leukocytosis: Status: Acute Qualifiers: Leukocytosis type: other Qualified Code(s): D72.828 - Other elevated white blood cell count Additional A&P Information 70 year old female with chronic respiratory failure, COPD, current smoker, chronic oxygen 3 L nasal cannula, CHF, on immunosuppressant Leflunomide, initially admitted on 12/14 for worsening shortness of breath and pleuritic chest pain for 7 days associated with worsening productive cough with brownish sputum cough frequency and mucus production has increased. Initial impression with that of COPD exacerbation, however thereafter developing MRSA pneumonia, worsening mentation, unremarkable LP, A fib with RVR , hyponatremia, CANDELARIO # Acute on chronic hypoxic and hypercapneic respiratory failure # Pneumonia # Sepsis as result of pneumonia -Multifactorial , related to Pneumonia, COPD exacerbation - Ct chest on 12/25 perfromed for persisting leukocytosis with worsening infiltrates. On 12/14, CXR and CT chest without gross PNA, interval devlopment of infiltrates on CXR on 12/17 post intubation for AMS ? HAP vs aspiration pneumonia. CXR with stable but persisting infiltrates on 12/20, however CT chest with interim worsening compared to admission. Intubated between 12/17-12/21. Patient witnessed to have recurrent aspiration episodes during course of admission, had recently been restarted on modified dysphagia diet. Initially improving post extubation until 12/26, then started to expeirnce worsening resp status leading to rpt intubation on 12/26. Noted to be aspirating on 12/26 and had been made NPO, Possibilities for worsening include aspiration vs septic embolization vs opportunistic fungal PNA. Leukocytosis and Fever curve worsening Check blood cx CVC inserted in 12/17 removed on 12/26, PICC line placed 12/27 for poor peripheral iv acess Richards Changed 12/27 BDG, AG/GM, urine histo Ag, coccidiodes serology, cryptococcal ag ,legionella Ag, low suspicion for PJP pneumonia given lack of pneumonitis pattern and profound hypoxia. Check MTB cx and MTB PCR since pt on Leflunomide, low robb spicion for TB however given rapidity of development of lung findings CXRP in am Continuing on solumedrol 30mg iv q12h due to persisting B/L wheezing ; also on duoneb and budesonide inhalation Blood cx 12/18, 12/26: NGTD Sputum cx 12/17: MRSA , vanc RADHA 1 Rx to date: Vancomycin 12/17- current ; Zosyn 12/18- 12/21 , resumed 12/26- , Levofloxacin 12/15-12/17 # CANDELARIO, cr rising to 2.4 from 1/.0 yeseterday, multifactorial related to ATN from hypotension, inc vancomycin level at 27 # A fib with RVR, Currently on rx with amiodarone, metoprolol 75 mg BID, currently on sinus rhythm, previosuly on cardizem gtt full dose lovenox for a/c. Echo with LVEF 64%, no RWMA # AMS: resolved until 12/26: now intubated and sedated . LP unremarkable # hyponatremia Full code DVt ppx: full dose a/c Protonix for GI prophylaxis Dipso: LTAC when ready , significant deconditioning , tenous respiratory status likely to persist Attestations Medical Necessity Statement*: ongoing ICU care for optimization of resp s tatus, need for pressors Critical Care Time: The high probability of a clinically significant, sudden or life threatening deterioration of the patient's [respiratory,cardiac] system(s) required my full and direct attention, intervention and personal management. The critical care time is as shown. This time is in addition to time spent performing any reported procedures but includes the following: [x] Data and vital sign review and interpretation [x] Patient assessment, examination and intervention [x] Documentation [x] Medication orders and management Critical Care Time (min): 60 Coding Level of Care Code Acute Wic Site Coordinator for [facility] Fwd Diagnoses Sepsis A41.9; R65.20; J96.01 Sepsis type: sepsis due to unspecified organism Sepsis acute organ dysfunction status: with acute organ dysfunction Severe sepsis acute organ dysfunction type: acute respiratory failure Acute respiratory failure type: with hypoxia Severe sepsis shock status: without septic shock Acute and chronic respiratory failure with hypoxia J96.21 Pneumonia J18.9 Pneumonia type: due to unspecified organism Laterality: right Lung location: unspecified part of lung Acute metabolic encephalopathy G93.41 Acute exacerbation of chronic obstructive airways disease J44.1 Tobacco abuse Z72.0 Leukocytosis D72.828 Leukocytosis type: other
--- NOTE | 2020-12-27 18:39 | PC.NURSE ---
Neil Faith RN witness wasting of versed that was wasted earlier
[2020-12-27] MEDS: dexmedetomidine 400 MCG in sodium chloride 0.9% (100 ml) 100 ML IV (20:57)
[2020-12-27] MEDS: vancomycin 1,000 MG in sodium chloride 0.9% 250 ML 250 MG IV (21:57)
--- NOTE | 2020-12-27 23:57 | PC.NURSE ---
Rectal temp 105.1, Auxiliary and groin iced, ice water lavage performed, Dr. Novoa notified, t.o. for IV Tylenol q6 Hrs x3 doses for temp above 101, cooled NS 100 ml/hr
[2020-12-28] VITALS (64 sets, daily range): BP systolic 88–182; BP diastolic 56–91; PULSE 71–95; RESP 15–25; TEMP 36.1–40; O2SAT 88–100
[2020-12-28] MEDS: acetaminophen 1,000 MG/100 ML PIGGYBACK 400 MG IV
[2020-12-28] MEDS: ipratropium-albuterol 3 mL Neb INHALATION ×6 (00:08→19:50)
[2020-12-28] MEDS: sodium chloride 0.9% 1,000 ML 100 ML IV (00:52)
--- NOTE | 2020-12-28 00:53 | PC.NURSE ---
1,000 ml NS bag placed in fridge for 30 minutes to be cooled and currently running at 100 ml/hr per MD order
[2020-12-28] MEDS: dexmedetomidine 400 MCG in sodium chloride 0.9% (100 ml) 100 ML IV ×2 (01:23→12:09)
[2020-12-28] MEDS: piperacillin-tazobactam 3.375 GM in sodium chloride 0.9% (plus) 50 ML IV (02:29)
--- NOTE | 2020-12-28 04:00 | XRR_ITS ---
PROCEDURE INFORMATION: Exam: XR Chest Exam date and time: 12/28/2020 5:55 AM Age: 70 years old Clinical indication: Shortness of breath; Additional info: Follow up infiltrates TECHNIQUE: Imaging protocol: XR of the chest. Views: 1 view. COMPARISON: CR (CHEST, ) 12/27/2020 3:17 AM FINDINGS: Tubes, catheters and devices: Endotracheal tube, feeding tube, and right PICC line. The endotracheal tube terminates 15 mm above the belen. Lungs: COPD, interstitial disease, and asymmetric airspace disease. 1.8 cm nodular density overlying the right lung base. Pleural spaces: Interval improvement in right pleural effusion. Heart/Mediastinum: No cardiomegaly. Bones/joints: Osteopenia and degenerative change. XR/XR chest 1V portable [id number] IMPRESSION: 1. COPD, interstitial disease, and asymmetric airspace disease. 2. 1.8 cm nodular density overlying the right lung base. 3. Interval improvement in right pleural effusion.
[2020-12-28 04:24] LABS: ABG PCO2 42.6 mmHg (35-45); ABG PH Result 7.36 (7.35-7.45); Arterial Blood Gas Hematocrit 36.4 % (37-47); Base Excess ABG -1.7 mmol/L (-2.0-2.0); Blood Gas Allen Test Pos; Blood Gas Sample Site Radial, left; Blood Gas Sample Type Arterial; HCO3 ABG 23.8 mmol/L (22-26); Oxygen Device VENT; PO2 ABG 87.9 mmHg (80.0-100.0)
[2020-12-28] MEDS: enoxaparin 60 mg/0.6 mL Syringe SUBCUT (05:35)
[2020-12-28] MEDS: pantoprazole DR 40 mg Tablet PO (05:35)
[2020-12-28 06:19] LABS: Basophils # 0.1 10^3/uL (0.0-0.1); Basophils % 0.6 %; Hematocrit 28.9 % (37.0-47.0); Hemoglobin 9.4 g/dL (11.5-15.3); Lymphocytes # 0.8 10^3/uL (0.8-4.8); Lymphocytes % 3.3 %; Mean Corpuscular HGB Conc 32.5 g/dL (30.0-36.0); Mean Corpuscular Hemoglobin 27.2 pg (28.0-34.0); Mean Corpuscular Volume 83.8 fL (81-99); Monocytes # 0.7 10^3/uL (0.2-0.9); Monocytes % 3.1 %; Neutrophils # 20.88 10^3/uL (1.8-7.7); Neutrophils % 90.6 %; Nucleated Red Blood Cells % 0 %; Platelet Count 110 10^3/cmm (130-400); Red Blood Count 3.45 10^6/uL (4.1-5.3); Red Cell Distribution Width 17.5 % (12.1-15.1)
--- NOTE | 2020-12-28 06:26 | PC.NURSE ---
Rectal temp 100.0 at this time, tolerating vent at this time, supine 45 degrees, call light within reach, opens eyes to physical stimuli
[2020-12-28 06:51] LABS: Alanine Aminotransferase 513 U/L (0-33); Albumin Level 1.7 g/dL (3.5-5.2); Alkaline Phosphatase 144 IU/L (35-105); Blood Urea Nitrogen 54 mg/dL (8-23); Calcium 6.7 mg/dL (8.5-10.5); Carbon Dioxide 22 mmol/L (22-29); Chloride 96 mmol/L (98-107); Globulin 3.4 g/dL (1.3-4.6); Glomerular Filtration Rate 19.1 mL/min (90-130); Glucose 129 mg/dL (65-115); NT Pro B Type Natriuretic Pept 3187 pg/mL (0-125); Osmolality Calculated 288 mOsm/kg (285-295); Sodium 131 mmol/L (136-145); Total Bilirubin 0.8 mg/dL (0.15-1.2); Total Protein 5.1 g/dL (6.6-8.7)
[2020-12-28 06:52] LABS: Vancomycin Random 38.6 ug/mL (20.0-40.0)
[2020-12-28 06:56] LABS: Anion Gap 19.3 (5-19)
[2020-12-28 06:57] LABS: Aspartate Amino Transferase 554 U/L (0-32); Potassium 6.3 mmol/L (3.5-5.1)
[2020-12-28 06:58] LABS: Slide Review Slide Review Perform
[2020-12-28] MEDS: budesonide 0.5 mg/2 mL Neb INHALATION ×2 (07:49→19:50)
--- NOTE | 2020-12-28 08:38 | PC.OT ---
Late entry for 12/27/20-1100: OT tx attempted. Pt has had a decline in status and is currently intubated. OT services will be withheld today.
[2020-12-28] MEDS: levothyroxine 25 mcg Tablet PO (09:06)
[2020-12-28] MEDS: amiodarone 200 mg Tablet 400 MG PO ×2 (09:07→17:13)
[2020-12-28] MEDS: levETIRAcetam 500 mg Tablet 750 MG PO ×2 (09:07→17:12)
[2020-12-28] MEDS: metoprolol tartrate 50 mg Tablet 75 MG PO (09:09)
--- NOTE | 2020-12-28 09:37 | PC.NURSE ---
turned repositioned oral care done, qt measure of .36 prior to antifungal medication started monitor at this time
--- NOTE | 2020-12-28 10:23 | PC.OT ---
OT tx attempted. Pt remains intubated and sedated. OT tx to be withheld today.
--- NOTE | 2020-12-28 10:36 | PC.CHAP ---
Pastoral Care Encounter/Spiritual Assessment Type of Contact [] Declined line assigner visit [] Patient/Family/Request visit [] Outpatient visit [XX] Follow-up visit [] Physician referral [] Code/Alert [] Routine visit [XX] Staff referral [] Actively dying [] Patient sleeping [] Family support [] [] Out of room [] Palliative care [] [] Receiving care in room [] Pre-surgical visit [] Trauma [] Long length of stay [XX] ICU visit [] Other: Relational/Emotional Strength [] Patient feels connected with others/family/visitors/staff [] Distress [] Loneliness/isolation [] Abandonment Spirituality of Patient [] Person of Rebekah [] Attends Bahai of their Rebekah [] Believes in Prayer [] Reads Bible or Latter-Day materials [] There are Spiritual issues to be addressed All Around [place] Interventions [XX] Prayer [] Active listening [] Non-anxious presence [] Spiritual/emotional support [] Crisis/trauma care [] Spiritual counseling [] Bereavement support [] Provided bereavement packet [] Provided Bible/devotional materials [] Provided toy/stuffed animal, coloring book to patient or family member [] Provided Communion [] Anointing/[place] [] Salvation [] Completed spiritual assessment [] Other: Impact on Illness or Injury [] Angry [] Fearful [] Anxious [] Often cries [] Exhaustion [] Unable to work [] Unable to attend advent [] Unable to walk/stand [] Unable to read [] Unable to drive [] Unable to eat/drink [] Unable to sleep [] Unable to be with family [XX] Patient intubated [] Other: Summary: Pt - no contact today. Prayed outside of room at nurse's request. Also prayed for nurse. Time spent with patient: 5 mins
[2020-12-28 11:16] LABS: Fibrinogen 809 mg/dL (174-498); INR 1.16 (0.8-1.2); Partial Thromboplastin Time 40.5 SECONDS (23.9-36.7)
[2020-12-28 11:19] LABS: D Dimer 3.69 ug/mIFEU (0-0.59)
--- NOTE | 2020-12-28 11:28 | PC.SLP ---
Patient not seen by speech due to intubation and tube feedings at this time.
[2020-12-28 11:32] LABS: Potassium 5.5 mmol/L (3.5-5.1)
--- NOTE | 2020-12-28 12:03 | PM.PN ---
Subjective Subjective: Interval history: Patient with interval worsening, development of acute liver dysfunction, DIC and persisting renal failure. Levophed up to 7mcg overnight, titrating down to 4mcg this morning. ABG shows worsening respiratory acidosis. Remains poorly responsive to calling name and tactile stimuli, currently on fentanyl and Precedex. Overnight T max at 105F. Leukocytosis reducing to 23. Vancomycin level at 38. Poor urine output. K at >6, specimen hemolyzed in am, repeat K at 5.5 Medications: Reviewed: Yes Vitals/I&O/Wt Last Vital Signs Temp 97 F L 12/28/20 09:30 Pulse 76 12/28/20 11:16 Resp 23 H 12/28/20 11:13 BP 122/77 12/28/20 10:00 Pulse Ox 94 12/28/20 11:13 12/27/20 12/28/20 12/28/20 22:59 06:59 14:59 Intake Total 328.159 / 669.253 657.99 / 1327.243 482.764 / 482.764 Output Total 125 / 150 Balance 303.159 / 644.253 532.99 / 1177.243 482.764 / 482.764 Weight last 48 hrs Weight 72.121 kg Physical Exam Narrative: EXAM NARRATIVE: GEN: Intubated, sedated , does not wake to calling name or tactile stimuli. CVS: S1S2 N RS: B/L coarse crackles to auscultation Abd: Soft, nt/nd , bs+ CORRECTIONAL OFFICER CAPTAIN: unable to assess Urinary Catheter Management^: Richards: Cath Placed During This Visit: yes, but has since been removed by the nurse Reason for Continuing Indwelling Catheter: Accurate Measurement of Urinary Output in Critically Ill Patients Urinary Catheter Date of Insertion: 12/27/20 Urinary Catheter Time of Insertion: 14:31 Date Urinary Catheter Removed: 12/27/20 Time Urinary Catheter Discontinued: 14:31 Data : 12/28/20 05:15 12/28/20 11:05 Micro: Microbiology 12/27/20 05:15 Sputum Culture - Preliminary Sputum - Endotracheal Tube Aspirate Staphylococcus aureus 12/27/20 20:20 Blood Culture - Preliminary Blood SPECIMEN COLLECTED 12/27/20 20:25 Blood Culture - Preliminary Blood SPECIMEN COLLECTED 12/27/20 17:25 Legionella Urinary Antigen - Final Urine,Voided 12/26/20 10:45 Blood Culture - Preliminary Blood NEGATIVE TO DATE 12/26/20 10:40 Blood Culture - Preliminary Blood NEGATIVE TO DATE A&P Assessment and plan (1) Septic shock: Status: Acute (2) Sepsis: Status: Acute Qualifiers: Sepsis type: sepsis due to unspecified organism Sepsis acute organ dysfunction status: with acute organ dysfunction Severe sepsis acute organ dysfunction type: acute respiratory failure Acute respiratory failure type: with hypoxia Severe sepsis shock status: without septic shock Qualified Code(s): A41.9 - Sepsis, unspecified organism; R65.20 - Severe sepsis without septic shock; J96.01 - Acute respiratory failure with hypoxia (3) Acute and chronic respiratory failure with hypoxia: Status: Acute (4) Pneumonia: Status: Acute Qualifiers: Pneumonia type: due to unspecified organism Laterality: right Lung location: unspecified part of lung Qualified Code(s): J18.9 - Pneumonia, unspecified organism (5) Acute metabolic encephalopathy: Status: Acute (6) Acute exacerbation of chronic obstructive airways disease: Status: Acute (7) Tobacco abuse: Status: Acute (8) Leukocytosis: Ct chest as above Remove CVC in left IJ which is 10 days old, PICC line placement as poor peripheral access otherwise Blood culture x 2 Change Richards Status: Acute Qualifiers: Leukocytosis type: other Qualified Code(s): D72.828 - Other elevated white blood cell count (9) DIC (disseminated intravascular coagulation): Status: Acute (10) Acute renal failure: Status: Acute Qualifiers: Acute renal failure type: unspecified Qualified Code(s): N17.9 - Acute kidney failure, unspecified (11) Acute liver failure: Status: Acute Qualifiers: Hepatic coma status: without hepatic coma Qualified Code(s): K72.00 - Acute and subacute hepatic failure without coma Additional A&P Information 70 year old female with chronic respiratory failure, COPD, current smoker, chronic oxygen 3 L nasal cannula, CHF, on immunosuppressant Leflunomide, initially admitted on 12/14 for worsening shortness of breath and pleuritic chest pain for 7 days associated with worsening productive cough with brownish sputum cough frequency and mucus production has increased. Initial impression with that of COPD exacerbation, however thereafter developing MRSA pneumonia, worsening mentation, unremarkable LP, A fib with RVR , hyponatremia, CANDELARIO # Acute on chronic hypoxic and hypercapneic respiratory failure # Pneumonia # Septic shock with multiorgan failure including renal failure, liver failure, DIC , respiratory failure and encephalopathy - Ct chest on 12/25 perfromed for persisting leukocytosis with worsening infiltrates. On 12/14, CXR and CT chest without gross PNA, interval devlopment of infiltrates on CXR on 12/17 post intubation for AMS ? HAP vs aspiration pneumonia. CXR with stable but persisting infiltrates on 12/20, however CT chest with interim worsening of infiltrates compared to admission. Intubated between 12/17-12/21. Patient witnessed to have recurrent aspiration episodes during course of admission, had recently been restarted on modified dysphagia diet. Initially improving post extubation until 12/26, then started to experience worsening resp status leading to rpt intubation on 12/26. Possibilities for worsening include aspiration vs septic embolization vs opportunistic fungal PNA. Leukocytosis improving but Fever curve worsening Check blood cx thus far negative CVC inserted in 12/17 removed on 12/26, PICC line placed 12/27 for poor peripheral iv acess Richards Changed 12/27 BDG, AG/GM, urine histo Ag, coccidiodes serology, cryptococcal ag ,legionella Ag pending , low suspicion for PJP pneumonia given lack of pneumonitis pattern and profound hypoxia. Check MTB cx and MTB PCR since pt on Leflunomide, low suspicion for TB at this time given rapidity of development of lung findings over a period of approximately 10 days. CXRP with some improvement between 12/27 and 12/28, received lasix 40mg iv x 1 yesterday, BNP elevated at 4700 Continuing on solumedrol 30mg iv q12h due to persisting B/L wheezing ; also on duoneb and budesonide inhalation Blood cx 12/18, 12/26: NGTD Sputum cx 12/17: MRSA , vanc RADHA 1 , last vancomycin level this morning at 38, adequtely covered for now Rx to date: Vancomycin 12/17- current ; Zosyn 12/18- 12/21 , resumed 12/26- , Levofloxacin 12/15-12/17 . Plan for today: Change Zosyn to imipenem to broaden coverage for ESBL isolates, though none obtained on cx thus far. Rpt sputum cx again with Staph aureus. Vancomycin level adequate for coverage. RADHA 1 which does not correspond with resistance from previous isolate. No added advantage to switch to linezolid given RADHA 4. Add Voriconazole empirically to cover for possible opportunistic fungal pneumonia and also for possibility of candidiasis as patient has risk factors for the same by way of prolonged steroids, prolonged ICU stay, central lines, etc. # DIC: as a result of septic shock # Acute liver failure : likely from ischemic hepatic injury from hepatitis # CANDELARIO, cr rising to 2.4 from 1.0, likely related to ATN from hypotension , sepsis # A fib with RVR, Currently on rx with amiodarone, metoprolol 75 mg BID, currently on sinus rhythm, previosuly on cardizem gtt full dose lovenox for a/c. Echo with LVEF 64%, no RWMA # AMS: resolved until 12/26: now intubated and sedated . poorly responsive today, likely worsening encephalopathy Patient has had significant change in clinical status over the last 48 hrs, interval significant worsening, now with profound septic shock, multiorgan failure, DIC, all of which indicate a poor prognosis. All updates discussed with family at bedside, incl son Gio and daughter Zara. Full code DVt ppx: full dose a/c Protonix for GI prophylaxis Attestations Medical Necessity Statement*: septic shock, on pressors, respiratory failure, needs ventilatory support. Critical Care Time: Critical Care Time (min): 70 Coding Level of Care Code Acute Anode Worker for [facility] Fwd Diagnoses Septic shock A41.9; R65.21 Sepsis A41.9; R65.20; J96.01 Sepsis type: sepsis due to unspecified organism Sepsis acute organ dysfunction status: with acute organ dysfunction Severe sepsis acute organ dysfunction type: acute respiratory failure Acute respiratory failure type: with hypoxia Severe sepsis shock status: without septic shock Acute and chronic respiratory failure with hypoxia J96.21 Pneumonia J18.9 Pneumonia type: due to unspecified organism Laterality: right Lung location: unspecified part of lung Acute metabolic encephalopathy G93.41 Acute exacerbation of chronic obstructive airways disease J44.1 Tobacco abuse Z72.0 Leukocytosis D72.828 Leukocytosis type: other DIC (disseminated intravascular coagulation) D65 Acute renal failure N17.9 Acute renal failure type: unspecified Acute liver failure K72.00 Hepatic coma status: without hepatic coma
[2020-12-28] MEDS: FUROsemide 10 mg/mL SDV 4mL 40 MG IVP ×2 (12:09→20:02)
--- NOTE | 2020-12-28 12:52 | PC.SOCIAL ---
IMM Update Pg. 2 of IMM updated and reviewed with patient's son, Gio who verbalized understanding via telephone.
--- NOTE | 2020-12-28 14:51 | PC.NURSE ---
had episode large amts of sections quiroz sputum sx with sat decreased to 85% temp increaseing to 101.1 and blood pressure decreased somewhat reposition and sedation increased.
[2020-12-28 15:27] LABS: Quest SARS-CoV-2 RNA NOT DETECTED (NOT DETECTED)
--- NOTE | 2020-12-28 15:36 | PC.NURSE ---
o2 sats decreasing continues increase fio2 70 % and peep 10 covid test neg family notifed they could see her per visiting policy
--- NOTE | 2020-12-28 15:48 | PC.NURSE ---
talked with doctor about decreasing o2
[2020-12-28] MEDS: acetaminophen 325 mg Tablet 650 MG PO (17:13)
[2020-12-28 18:19] LABS: ABG PCO2 52.2 mmHg (35-45); ABG PH Result 7.25 (7.35-7.45); Alveolar-Arterial Oxygen Gradi 40.5 mmHg (5-10); Arterial Blood Gas Hematocrit 30.5 % (37-47); Base Excess ABG -4.4 mmol/L (-2.0-2.0); Blood Gas Operator Identificat CAK; Blood Gas Sample Site Femoral, right; Blood Gas Sample Type Arterial; Carboxyhemoglobin 0.8 %THgb (0.4-20.1); HCO3 ABG 22.9 mmol/L (22-26); HGB O2 Sat 80.3 % (95-100); Ionized Calcium Level - ABG 0.9 mmol/L (1.1-1.4); Methemoglobin 0.9 % (0.4-1.5); Oxygen Device VENT; Oxygen Saturation ABG 81.7; PO2 ABG 53.1 mmHg (80.0-100.0); Potassium Level - ABG 5.7 mmol/L (3.5-5.0)
--- NOTE | 2020-12-28 18:28 | PC.NURSE ---
abg,s done and called pt less responsive resp rate increased fio2 increased to 80
[2020-12-28] MEDS: dextrose 50% syringe 50 mL IVP (19:23)
[2020-12-28] MEDS: insulin regular-human 10 UNIT in SYRINGE 1 EACH IVP (19:24)
[2020-12-28] MEDS: calcium gluconate 0.1 gm/mL 10% SDV 10mL 1 GM IVP (19:25)
--- NOTE | 2020-12-28 20:00 | PC.NURSE ---
Comfort Care Multiple family members at bedside. Dr. Wiseman, nurse, and RT present in discussion of decline in patient and further options of care. Gio (son) and Isabel (daughter) made decision to deescalate care and do comfort care measures only with AND status and removal of ventilator.
--- NOTE | 2020-12-28 21:15 | PC.NURSE ---
Terminally extubated MTS nofitied prior to terminal extubation. Spoke with Roberta Mckeon. Pt is not a candidate for organ donation. Roberta reports to call back with time of and to speak with traveling sales representative to see if patient meets criteria for tissue donation. IV medications stopped. 4mg IV morphine and 2mg IV ativan given. Pt was then terminally extubated at 2115 to 2L NC. Family members at bedside.
[2020-12-28] MEDS: morphine 4 mg/mL SDV 1 mL IVP ×4 (21:18→23:13)
[2020-12-28] MEDS: LORazepam 2 mg/mL INJ 1 mL IVP ×2 (21:19→22:45)
--- NOTE | 2020-12-28 22:05 | PC.CHAP ---
Pastoral Care Encounter/Spiritual Assessment Type of Contact [] Declined cocktail waitress visit [xx] Patient/Family/Request visit [] Outpatient visit [] Follow-up visit [] Physician referral [] Code/Alert [] Routine visit [xx] Staff referral [xx] Actively dying [] Patient sleeping [] Family support [] [] Out of room [] Palliative care [] [] Receiving care in room [] Pre-surgical visit [] Trauma [] Long length of stay [xx] ICU visit [] Other: Relational/Emotional Strength [] Patient feels connected with others/family/visitors/staff [] Distress [] Loneliness/isolation [] Abandonment Spirituality of Patient [] Person of Rebekah [] Attends Christianity of their Rebekah [] Believes in Prayer [] Reads Bible or Christianity materials [] There are Spiritual issues to be addressed Geodetic Advisor Interventions [] Prayer [] Active listening [] Non-anxious presence [] Spiritual/emotional support [] Crisis/trauma care [] Spiritual counseling [] Bereavement support [] Provided bereavement packet [] Provided Bible/devotional materials [] Provided toy/stuffed animal, coloring book to patient or family member [] Provided Communion [] Anointing/[place] [] Salvation [] Completed spiritual assessment [] Other: Impact on Illness or Injury [] Angry [] Fearful [] Anxious [] Often cries [] Exhaustion [] Unable to work [] Unable to attend presybeterian [] Unable to walk/stand [] Unable to read [] Unable to drive [] Unable to eat/drink [] Unable to sleep [] Unable to be with family [] Patient intubated [] Other: Summary ICU called cocktail waitress at home at 9:28pm stating patient had been extubated and was dying. Family had requested cocktail waitress come in and pray for patient and family members. Geodetic Advisor arrived in ICU at 9:50pm. All family members wanted only prayer that patient (Marium) would without pain or discomfort and that she would go quickly. Geodetic Advisor asked family members if any of them wanted special prayer or had any special prayer requests. All stated they had none. Family did not want to talk or discuss any thing about Marium's impending . They were all very quiet, subdued and seemed to be accepting of Marium's imminent . Geodetic Advisor prayed accordingly. Geodetic Advisor gave family several copies of Gone From My Sight and Overcoming Loneliness After Loss . . Family have all been expecting and reconciling to Marium's inevitable and none were in deep grief mode. They wanted to be alone, without strangers, when Marium passes. Family did not want cocktail waitress to stay after praying so cocktail waitress left ICU room. Geodetic Advisor spoke with one of the nurses for several minutes about situation. Nurse stated he was OK and did not require prayer as patient has been on comfort care for lengthy time and here was inevitable. Nurse stated he had adjusted accordingly. Geodetic Advisor stated she could be called in again if needed by patient's family or staff. Geodetic Advisor left ICU at 10:05pm. Time spent with patient 40 minutes including this recording time.
[2020-12-28] MEDS: LORazepam 2 mg/mL INJ 1 mL 1 MG IVP (23:26)
--- NOTE | 2020-12-28 23:39 | PC.NURSE ---
MTS Called MTS back with time of . Reena Luna, Triage Coordinator reports patient is not a candidate for tissue or organ donation. Information as relayed to saving site. Awaiting phone call.
--- NOTE | 2020-12-28 23:40 | PC.NURSE ---
Time of Time of 2320, 2 nurse verification. Family members present at bedside. Dr. Novoa and supervisor hide house notified.
--- NOTE | 2020-12-29 00:07 | PC.NURSE ---
Post Mortem care given. All 3 rings were taken off fingers and given to tay Powers.
--- NOTE | 2020-12-29 00:45 | PC.NURSE ---
[facility] T[facility] Chelly Wells called to floor at 0030. Pt is not a candidate for cornea or eye donation. May release body. Precious Melara called at this time.
--- NOTE | 2020-12-29 01:45 | PC.NURSE ---
Body released to [facility].
[2020-12-29 02:02] VITALS: PULSE 0; RESP 0; O2SAT 0
[2020-12-30 20:43] LABS: Aspergillus AG,EIA,Serum NOT DETECTED; Aspergillus Galactomannan Inde <0.50
--- NOTE | 2021-01-01 23:44 | P.DES_ITS ---
Discharge Providers DDS Date of Admission: 12/15/20 09:30 Date Summary Completed: 01/01/21 Attending Provider at Admission: Vonda San MD Time of : 23:41 Attending Provider at Discharge: Felicia Wiseman MD Primary Care Provider: Abiola Butt MD DS Diagnoses Hospital Diagnoses (1) Septic shock: (2) Sepsis: Qualifiers: Sepsis type: sepsis due to unspecified organism Sepsis acute organ dysfunction status: with acute organ dysfunction Severe sepsis acute organ dysfunction type: acute respiratory failure Acute respiratory failure type: with hypoxia Severe sepsis shock status: without septic shock Qualified Code(s): A41.9 - Sepsis, unspecified organism; R65.20 - Severe sepsis without septic shock; J96.01 - Acute respiratory failure with hypoxia (3) Acute and chronic respiratory failure with hypoxia: (4) Pneumonia: Qualifiers: Pneumonia type: due to unspecified organism Laterality: right Lung location: unspecified part of lung Qualified Code(s): J18.9 - Pneumonia, unspecified organism (5) Acute metabolic encephalopathy: (6) Acute exacerbation of chronic obstructive airways disease: (7) Tobacco abuse: (8) Leukocytosis: Qualifiers: Leukocytosis type: other Qualified Code(s): D72.828 - Other elevated white blood cell count (9) DIC (disseminated intravascular coagulation): (10) Acute renal failure: Qualifiers: Acute renal failure type: unspecified Qualified Code(s): N17.9 - Acute kidney failure, unspecified (11) Acute liver failure: Qualifiers: Hepatic coma status: without hepatic coma Qualified Code(s): K72.00 - Acute and subacute hepatic failure without coma Reason for Visit Reason for Visit: RESP DISTRESS Summary Date and Time of Date of : 12/28/20 Time of : 23:41 Summary Summary: 70 year old female with chronic respiratory failure, COPD, current smoker, chronic oxygen 3 L nasal cannula, CHF, on immunosuppressant Leflunomide, initially admitted on 12/14 for worsening shortness of breath and pleuritic chest pain for 7 days associated with worsening productive cough. Initial impression with that of COPD exacerbation, however thereafter developing MRSA pneumonia, worsening mentation, unremarkable LP, A fib with RVR , hyponatremia, CANDELARIO. She was treated with appropriate antimicorbials, had a brief period of improvement between 12/21-12/26, however subsequently again developed septic shock, rapidly progressing mutliorgan failure, DIC, worsening encephalopathy. All updates were discussed with family who were at bedside. After extensive discussion, family (son mickey and daughter riaz) decided to transition to comfort care measures only in keeping with patient's last known wishes. She was terminally extunated on 12/28/20 at ~9:30 pm and thereafter at 2341. Dr. Novoa was informed by the nurse of demise. Additional Data Advance directives?: No Discharge Plan Discharge Patient Disposition: Condition: Stable Prescriptions: No Action omeprazole 20 mg capsule,delayed release(DR/EC) 20 mg PO DAILY RF: 0 Cymbalta 60 mg capsule,delayed release(DR/EC) 60 mg PO BID@05,17 Qty: 60 RF: 2 Abilify 5 mg tablet 5 mg PO DAILY@05 Qty: 30 RF: 2 mirtazapine [Remeron] 15 mg tablet 15 mg PO BEDTIME Qty: 30 RF: 2 aspirin [Spencer Chewable Aspirin] 81 mg tablet,chewable 81 mg PO DAILY RF: 0 venlafaxine 75 mg capsule,extended release 24hr 75 mg PO QAM RF: 0 atorvastatin [Lipitor] 20 mg tablet See Rx Instructions .ROUTE .COMPLEX RF: 0 albuterol sulfate [ProAir HFA] 90 mcg/actuation HFA aerosol inhaler 2 puff INHALATION Q4H PRN (Reason: Shortness Of Breath) RF: 0 levothyroxine 25 mcg capsule See Rx Instructions .ROUTE .COMPLEX RF: 0 metoprolol tartrate 25 mg tablet 25 mg PO BID RF: 0 furosemide 40 mg tablet 40 mg PO QAM Qty: 30 RF: 3 alendronate [Fosamax] 70 mg tablet 70 mg PO Q7D Qty: 5 RF: 3 leflunomide 20 mg tablet 20 mg PO DAILY Qty: 30 RF: 3 prednisone 10 mg tablet See Rx Instructions PO .COMPLEX PRN (Reason: joint pain) Qty: 30 RF: 0 oxycodone-acetaminophen [Percocet] 10-325 mg tablet 1 tab PO TID@05,12,16 PRN (Reason: pain (scale score 7-10)) RF: 0 gabapentin 800 mg tablet 800 mg PO TID@05,13,17 RF: 0 pantoprazole 40 mg tablet,delayed release (DR/EC) 40 mg PO DAILY RF: 0 Trelegy Ellipta 100-62.5-25 mcg blister with device 1 inh inhalation QAM RF: 0 levetiracetam 500 mg tablet 500 mg PO BID@ RF: 0 potassium chloride 20 mEq Tablet Extended Release 20 meq PO DAILY RF: 0 DS Attestations Time Spent in /Discharge Care*: greater than 30 min Quality - AMI: AMI present?: No Quality - Stroke: CVA present?: No Quality - VTE: VTE present?: No Coding Level of Care Code Acute Hl7 Interface Developer for [facility] Fwd Diagnoses Septic shock A41.9; R65.21 Sepsis A41.9; R65.20; J96.01 Sepsis type: sepsis due to unspecified organism Sepsis acute organ dysfunction status: with acute organ dysfunction Severe sepsis acute organ dysfunction type: acute respiratory failure Acute respiratory failure type: with hypoxia Severe sepsis shock status: without septic shock Acute and chronic respiratory failure with hypoxia J96.21 Pneumonia J18.9 Pneumonia type: due to unspecified organism Laterality: right Lung location: unspecified part of lung Acute metabolic encephalopathy G93.41 Acute exacerbation of chronic obstructive airways disease J44.1 Tobacco abuse Z72.0 Leukocytosis D72.828 Leukocytosis type: other DIC (disseminated intravascular coagulation) D65 Acute renal failure N17.9 Acute renal failure type: unspecified Acute liver failure K72.00 Hepatic coma status: without hepatic coma
[2021-01-02 16:53] LABS: Histoplasma Antigen (Quant) NONE DETECTED; Histoplasma Antigen Interpreta NEGATIVE; Histoplasma Antigen Specimen URINE
== END 2020-12-29 01:45 | disposition expired | DRG 208 ==
LOC: ER 18:06 → ICU 12-15 01:51 → MEDSURG 12-15 14:12 → ICU 12-17 21:36
PROVIDERS: Family Medicine; Internal Medicine; Internal Medicine Pulmonary Disease; Admitting Provider Internal Medicine; Emergency Provider Emergency Medicine; PCP Internal Medicine; Visit Provider Student in an Organized Health Care Education/Training Program
DX: J44.1 Chronic obstructive pulmonary disease with (acute) exacerbation (principal); J15.212 Pneumonia due to Methicillin resistant Staphylococcus aureus; J96.22 Acute and chronic respiratory failure with hypercapnia; J96.21 Acute and chronic respiratory failure with hypoxia; J69.0 Pneumonitis due to inhalation of food and vomit; N17.0 Acute kidney failure with tubular necrosis; K72.00 Acute and subacute hepatic failure without coma; D65 Disseminated intravascular coagulation [defibrination syndrome]; A41.9 Sepsis, unspecified organism; R65.21 Severe sepsis with septic shock; G93.41 Metabolic encephalopathy; E87.1 Hypo-osmolality and hyponatremia; I50.32 Chronic diastolic (congestive) heart failure; F33.9 Major depressive disorder, recurrent, unspecified; E46 Unspecified protein-calorie malnutrition; E87.2 Acidosis; J44.0 Chronic obstructive pulmonary disease with (acute) lower respiratory infection; Z99.81 Dependence on supplemental oxygen; E89.0 Postprocedural hypothyroidism; I25.10 Atherosclerotic heart disease of native coronary artery without angina pectoris; Z95.5 Presence of coronary angioplasty implant and graft; M48.061 Spinal stenosis, lumbar region without neurogenic claudication; M54.16 Radiculopathy, lumbar region; M50.30 Other cervical disc degeneration, unspecified cervical region; I11.0 Hypertensive heart disease with heart failure; F41.1 Generalized anxiety disorder; F17.210 Nicotine dependence, cigarettes, uncomplicated; I48.91 Unspecified atrial fibrillation; G25.81 Restless legs syndrome; G40.909 Epilepsy, unspecified, not intractable, without status epilepticus; M05.9 Rheumatoid arthritis with rheumatoid factor, unspecified; R91.1 Solitary pulmonary nodule; I35.0 Nonrheumatic aortic (valve) stenosis; Z51.5 Encounter for palliative care; R59.0 Localized enlarged lymph nodes; E87.6 Hypokalemia; G89.29 Other chronic pain; I95.9 Hypotension, unspecified; Z79.52 Long term (current) use of systemic steroids
CPT/HCPCS: 36415; 36416; 36569; 36592; 36600; 51702; 70450; 71045; 71250; 71275; 80048; 80051; 80053; 80202; 81003; 82330; 82803; 82805; 82945; 82962; 83605; 83735; 83880; 84132; 84145; 84146; 84157; 84484; 85007; 85025; 85362; 85378; 85384; 85610; 85730; 86635; 87040; 87070; 87075; 87077; 87186; 87205; 87305; 87327; 87385; 87426; 87449; 87530; 87635; 87641; 87801; 87804; 89050; 92523; 92526; 92610; 93005; 93306; 94002; 94003; 94640; 94660; 94799; 96372; 96374; 97110; 97161; 97167; 97530; 97535; 99285; A4570; C1751; G0378; J0133; J0282; J0290; J0330; J0610; J0696; J0743; J1170; J1650; J1815; J1885; J1940; J1953; J2060; J2250; J2270; J2370; J2543; J2704; J2920; J2930; J3010; J3370; J3465; J3475; J3480; J3490; J7030; J7050; J7060; J7512; J7626; J7799; Q9967